=== PATIENT | female | born 1965 | race Caucasian/White ===

== ENCOUNTER 2021-02-04 14:26 | Emergency (ER) | payer OTHER, SELFPAY ==
[2021-02-04 14:33] VITALS: BP 95/63; PULSE 96; RESP 20; TEMP 36.2; O2SAT 97
[2021-02-04 14:49] LABS: Basophils Absolute Auto 0.1 K/mm3 (0.0-0.1); Basophils Percent Auto 0.5 % (0.2-1.2); Eosinophils Absolute Auto 0.2 K/mm3 (0-0.3); Eosinophils Percent Auto 1.5 % (0-4.4); Hematocrit 34.2 % (37.0-47.0); Hemoglobin 10.9 g/dL (12.0-15.0); Immature Granulocyte Absolute 0.07 K/mm3 (0.00-0.031); Immature Granulocyte Percent A 0.5 % (0-0.5); Lymphocytes Percent Auto 16.7 % (18.3-44.2); Mean Corpuscular HGB Conc 31.9 g/dl (32-36); Mean Corpuscular Hemoglobin 28.4 pg (26-34); Mean Corpuscular Volume 89.1 fl (80-100); Mean Platelet Volume 8.7 fl (7.4-10.4); Monocytes Absolute Auto 0.7 K/mm3 (0.1-0.6); Monocytes Percent Auto 5.2 % (2.6-8.5); Neutrophils Absolute Auto 10.4 K/mm3 (1.3-6.7); Neutrophils Percent Auto 75.6 % (45.5-73.1); Platelet Count Result 403 k/mm3 (150-375); Red Blood Count 3.84 M/mm3 (4.2-5.4); Red Cell Distribution Width 15.1 % (11.5-14.5); White Blood Count 13.7 K/mm3 (4.5-10.0)
[2021-02-04 15:03] LABS: Alanine Aminotransferase 10 U/L (4-35); Albumin Level 3.4 g/dL (3.5-5.1); Alkaline Phosphatase 77 U/L (38-126); Anion Gap 8 mmol/L (8-16); Aspartate Amino Transferase 28 U/L (14-36); Bilirubin,Total 0.3 mg/dL (0.2-1.3); Blood Urea Nitrogen 17 mg/dL (7-17); Calcium 8.9 mg/dL (8.4-10.2); Carbon Dioxide 31 mmol/L (22-30); Chloride 102 mmol/L (98-107); Estimated CRCL calculation 77 ml/min; Estimated Glomerular Filt Rate > 60; Glucose 132 mg/dL (65-105); Potassium 2.8 mmol/L (3.4-5.0); Sodium 141 mmol/L (137-145)
[2021-02-04 16:26] VITALS: BP 130/67; PULSE 86; RESP 16; O2SAT 95
--- NOTE | 2021-02-04 16:41 | ED.WOUNDLAC ---
HPI - Wound/Laceration General Chief Complaint: Wound/Laceration Stated Complaint: infectious wounds Time Seen by Provider: 02/04/21 16:27 Source: patient and family Mode of arrival: ambulatory Limitations: no limitations History of Present Illness HPI narrative: Patient is a 55-year-old female with a history of lumbar spinal cord injury, minimally ambulatory at baseline, who presents for evaluation of acutely worsened lower extremity wounds. It is difficult to assess a specific timeline from the patient however, the patient states that 2 years ago she experienced wounds from shaving on the back of both thighs. Patient does have this history of a spinal cord injury and is ambulatory although she typically requires assist due to her unsteadiness. She states that when she was shaving she experienced wounds that started out as very small area and then over the course of 2 years became very large, gaping wounds that are malodorous and painful. Patient denies any active bleeding. She states that she used to be seen by wound care at [facility] in [place], [place] but since they do not accept her insurance, she has been refused care at that hospital. Patient had a primary care physician at [facility] that would not refer her to any other surgeons per the patient. Patient denies fever or chills. She states that she has been dressing the wounds with napkins and [id number] antibiotic ointment. She is not currently on any antibiotics. Related Data Home Medications Medication Instructions Recorded Confirmed ibuprofen 600 mg PO 02/04/21 Allergies Allergy/AdvReac Type Severity Reaction Status Date / Time aspirin Allergy Unknown Unknown Verified 02/04/21 17:05 bupropion Allergy Unknown Unknown Verified 02/04/21 17:05 cephalexin Allergy Unknown Unknown Verified 02/04/21 17:05 clopidogrel Allergy Unknown Unknown Verified 02/04/21 17:05 codeine Allergy Unknown Unknown Verified 02/04/21 17:05 hydrocodone Allergy Unknown Unknown Verified 02/04/21 17:05 moxifloxacin Allergy Unknown Unknown Verified 02/04/21 17:05 procaine Allergy Unknown Unknown Verified 02/04/21 17:05 tramadol Allergy Unknown Unknown Verified 02/04/21 17:05 Review of Systems Review of Systems: Narrative: CONSTITUTIONAL: Denies fever, chills, or sweats. EYES: Denies visual changes, redness, or discharge. ENT: Denies rhinorrhea, congestion, sore throat, or otalgia. CARDIOVASCULAR: Denies chest pain, palpitations, or edema. RESPIRATORY: Denies cough or dyspnea. GASTROINTESTINAL: Denies abdominal pain, nausea, vomiting, or diarrhea. GENITOURINARY: Denies dysuria or hematuria. SKIN: Denies rash or itching. Reports wounds to posterior proximal legs. MUSCULOSKELETAL: Denies back pain, joint pain, or myalgia. NEUROLOGIC: Denies headache, numbness, or weakness. [facility] Social History Social History (Updated 02/04/21 @ 17:41 by Michelle Davis MD) Smoking status: Current every day smoker Tobacco type: cigarettes Alcohol intake: never Substance use: never Living arrangements: with family Gender identity (if verbalized by the patient): Female Exam Narrative: Exam Narrative: GENERAL: Awake, alert, conversant, tearful HEAD: Normocephalic, atraumatic. EYES: PERRLA and EOMI. ENT: Nares clear, no rhinorrhea or epistaxis. Mucous membranes moist. NECK: Supple. CHEST: No respiratory distress, breathing even and non labored HEART: Regular rate, sinus rhythm ABDOMEN:Non distended, non tender EXTREMITIES: Normal range of motion. DP pulse 2+. Deformity or third phalynx on right foot with necrosis. SKIN: Pale. Right proximal posterior leg wound, with purulent discharge, excoriation,adipose tissue visible. Wound approximately 20 cm x 10 cm x 5 cm depth. Left proximal posterior leg wound which is 15cm x 7 cm x 4 cm with excoriation and purulent discharge. Adipose tissue visible as well as musculature. NEURO:No focal deficits. Alert a
[2021-02-04 17:00] LABS: Lactic Acid Reflex 1.9 mmol/L (0.7-2.1)
[2021-02-04 17:07] LABS: Erythrocyte Sedimentation Rate > 140 mm/hr (0-20)
[2021-02-04 17:09] LABS: Basophils Absolute Auto 0.1 K/mm3 (0.0-0.1); Basophils Percent Auto 0.6 % (0.2-1.2); Eosinophils Absolute Auto 0.2 K/mm3 (0-0.3); Eosinophils Percent Auto 1.2 % (0-4.4); Hematocrit 36.1 % (37.0-47.0); Hemoglobin 11.5 g/dL (12.0-15.0); Immature Granulocyte Absolute 0.09 K/mm3 (0.00-0.031); Immature Granulocyte Percent A 0.6 % (0-0.5); Lymphocytes Absolute Auto 2.13 K/mm3 (0.9-3.2); Lymphocytes Percent Auto 13.9 % (18.3-44.2); Mean Corpuscular HGB Conc 31.9 g/dl (32-36); Mean Corpuscular Hemoglobin 28.3 pg (26-34); Mean Corpuscular Volume 88.9 fl (80-100); Monocytes Percent Auto 6.4 % (2.6-8.5); Neutrophils Absolute Auto 11.8 K/mm3 (1.3-6.7); Neutrophils Percent Auto 77.3 % (45.5-73.1); Platelet Count Result 436 k/mm3 (150-375); Red Blood Count 4.06 M/mm3 (4.2-5.4); Red Cell Distribution Width 15.2 % (11.5-14.5); White Blood Count 15.3 K/mm3 (4.5-10.0)
--- NOTE | 2021-02-04 17:30 | PC.NURSE ---
Pt very apprehensive about being transferred. She states I just need to go home, I can't do this, I can't do this hospital hopping Dr Davis explaining the severity of the situation and patient agrees that it is serious but states she just wants to go home. Pt arguing with her daughter about situation. Pt states I just want to go outside and have a cigarette and a coffee . Pt states whats a couple days gonna do, I'll go to [facility] on Monday Pt states im so uncomfortable i can't do this This RN asks what I could do to make her more comfortable. She states she needs to sit in a seat. This RN got pt a recliner and transferred her to the seat. Pt still uncomfortable. She asked to sit in a regular chair. Pt moved to a visitor chair and daughter is sitting next to her.
--- NOTE | 2021-02-04 18:01 | PC.NURSE ---
Pt arguing with Dr. Davis about situation. Dr. Davis explaining her options.
[2021-02-04 18:08] VITALS: BP 120/60; PULSE 85; RESP 18; O2SAT 97
--- NOTE | 2021-02-04 18:29 | PC.NURSE ---
This RN sat down with pt and asked her what her concerns were, Pt states I don't know how I would get care after I leave if I go [facility]. How would I get back to [place] for followups, I dont drive and I dont have anyone. [place] provides transportation but they leave you at the sidewalk, how am I suppose to know where to go? This RN explains that those are things that can be figured out along the way but at this point we just need to get the ball rolling. Pt is tearful and states that she is very scared and fears she is going to if she goes to the hospital. This RN left pt and her daughter to discuss what they wanted to do.
[2021-02-04] MEDS: ONDANSETRON INJ 4 MG/2 ML VIAL IV PUSH (18:40)
[2021-02-04] MEDS: HYDROmorphone HCL INJ (*CRX) 1 MG/ML SYR 0.5 MG IV PUSH (18:40)
[2021-02-04] MEDS: POTASSIUM CHLORIDE 20 MEQ TABLET 40 MEQ PO (18:43)
== END 2021-02-04 19:28 | disposition left against medical advice (07) ==
PROVIDERS: Nurse Practitioner; Emergency Provider Emergency Medicine
DX: I96 Gangrene, not elsewhere classified (principal); L98.8 Other specified disorders of the skin and subcutaneous tissue; D64.9 Anemia, unspecified; E87.6 Hypokalemia
CPT/HCPCS: 36415; 80053; 83605; 85025; 85652; 86140; 87040; 87070; 87077; 87186; 87205; 96365; 96366; 96375; 99284; A9270; J1170; J2405; J3370

== ENCOUNTER 2021-02-26 11:19 | Emergency (ER) | payer OTHER, SELFPAY ==
--- NOTE | ~2021-02-26 | XR_ITS ---
XR knee RT 3V 02/26/2021 13:12 INDICATION: Right knee pain after fall PROCEDURE: 3 nonstandard views right knee COMPARISON: No prior studies for comparison. FINDINGS: Fracture, dislocation or subluxation is not identified. No significant joint effusion. The soft tissues appear within normal limits. No foreign bodies are identified. IMPRESSION: 1: NO ACUTE BONE OR JOINT ABNORMALITY IDENTIFIED. Reviewed, dictated and finalized at location B.
--- NOTE | ~2021-02-26 | XR_ITS ---
EXAMINATION: XR hip RT 2V w AP pelvis INDICATION: Right hip pain TECHNIQUE: AP view of the pelvis and two views of the right hip are obtained. COMPARISON: None available FINDINGS: Bone alignment is normal. There is no fracture. There is mild osteoarthritis of the hips. T here are phleboliths in the pelvis. IMPRESSION: 1. No acute osseous abnormality. Reviewed, dictated and finalized at location A.
[2021-02-26 11:36] VITALS: BP 111/83; PULSE 116; RESP 20; TEMP 37.2; O2SAT 99
--- NOTE | 2021-02-26 12:39 | ED.FALL ---
HPI - Fall General Chief Complaint: Fall Stated Complaint: FALL Time Seen by Provider: 02/26/21 11:32 Source: patient Mode of arrival: EMS Limitations: no limitations History of Present Illness HPI Narrative: Patient is a 55 year old female who presents by EMS after fall. Patient reports fall in bathroom last pm. She reports she was unable to ambulate and was found on floor this am. Denies LOC or hitting head. Patient reports stumble and fall. Patient has complex medical history and multiple wounds that are being treated by [facility] and [facility] with wound vac removal yesterday. Patient is complaining of right hip pain and right knee pain. Unable to assess for deformity of hip due to patient's wounds and patient refusing to move for assessment. complaint: fall Related Data Home Medications Medication Instructions Recorded Confirmed ibuprofen 600 mg PO 02/04/21 Allergies Allergy/AdvReac Type Severity Reaction Status Date / Time aspirin Allergy Unknown Unknown Verified 02/04/21 17:05 bupropion Allergy Unknown Unknown Verified 02/04/21 17:05 cephalexin Allergy Unknown Unknown Verified 02/04/21 17:05 clopidogrel Allergy Unknown Unknown Verified 02/04/21 17:05 codeine Allergy Unknown Unknown Verified 02/04/21 17:05 hydrocodone Allergy Unknown Unknown Verified 02/04/21 17:05 moxifloxacin Allergy Unknown Unknown Verified 02/04/21 17:05 procaine Allergy Unknown Unknown Verified 02/04/21 17:05 tramadol Allergy Unknown Unknown Verified 02/04/21 17:05 Review of Systems Review of Systems: Narrative: CONSTITUTIONAL: Denies fever, chills, or sweats. EYES: Denies visual changes, redness, or discharge. ENT: Denies rhinorrhea, congestion, sore throat, or otalgia. CARDIOVASCULAR: Denies chest pain, palpitations, or edema. RESPIRATORY: Denies cough or dyspnea. GASTROINTESTINAL: Denies abdominal pain, nausea, vomiting, or diarrhea. GENITOURINARY: Denies dysuria or hematuria. SKIN: Denies rash or itching. MUSCULOSKELETAL: Reports right hip pain, right knee pain NEUROLOGIC: Denies headache, numbness, dizziness, or weakness. PSYCHIATRIC: Denies anxiety or depression. [facility] Social History Social History (Updated 02/04/21 @ 17:41 by Michelle Davis MD) Smoking status: Current every day smoker Tobacco type: cigarettes Alcohol intake: never Substance use: never Gender identity (if verbalized by the patient): Female Exam Narrative: Exam Narrative: GENERAL: Well-appearing, well-nourished, and in no acute distress. HEAD: Normocephalic, atraumatic. EYES: EOMI. No redness or drainage. Conjunctiva are normal. ENT: Mucous membranes pink and moist. CHEST: No respiratory distress. Clear to auscultation. HEART: Regular rate and rhythm. No murmur appreciated. Normal peripheral pulses. GI: Soft, nontender without rebound, or guarding. No distention. MUSCULOSKELETAL: No bony tenderness. EXTREMITIES: No visible deformity of hip or knee, patient uncooperative with positioning SKIN: Wounds to right posterior thigh and left inner thigh (dressings changed and documented by wound RN) NEURO: No focal deficits. Alert and oriented x3. Gait steady. PSYCH: Normal affect. No signs of depression or anxiety. Course Vital Signs Vital signs: Vital Signs Temperature 37.2 C 02/26/21 11:36 Pulse Rate 116 H 02/26/21 11:36 Respiratory Rate 20 02/26/21 11:36 Blood Pressure 111/83 02/26/21 11:36 Pulse Oximetry 99 02/26/21 11:36 Temperature 37.2 C 02/26/21 11:36 Pulse Rate 116 H 02/26/21 11:36 Respiratory Rate 20 02/26/21 11:36 Blood Pressure 111/83 02/26/21 11:36 Pulse Oximetry 99 02/26/21 11:36 Reviewed MDM - Fall MDM Narrative Medical decision making narrative: Patient's x-ray is negative for fracture or dislocation. Wound care provided by wound RN, patient has follow-up appointment with [facility] and [facility] on 03/05 for wound management. Patient and vendor management specialist agree with plan of care. Patient is stable for dischar
[2021-02-26 13:59] LABS: Add Urine Microscopic? YES; Appearance Urine Clear (Clear); Bilirubin Urine Negative (Negative); Blood Urine Negative (Negative); Color Urine Yellow (Yellow); Glucose Urine UA Negative (Negative); Ketones Urine Trace mg/dL (Negative); Leukocyte Esterase Ur Negative LEU/UL (Negative); Mucus Urine Rare /lpf; Nitrate Urine Negative (Negative); Protein Urine 1+ mg/dL (Negative); RBC Urine 0-2 /hpf (0-2); Specific Grav Ur 1.014 (1.001-1.035); Squamous Epithelial Cell Urine Rare /hpf (Few); Urobilinogen Urine Negative mg/dL (<2.0); WBC Urine 0-3 /hpf
[2021-02-26 14:08] LABS: Basophils Absolute Auto 0.1 K/mm3 (0.0-0.1); Basophils Percent Auto 0.6 % (0.2-1.2); Eosinophils Absolute Auto 0.2 K/mm3 (0-0.3); Eosinophils Percent Auto 1.7 % (0-4.4); Hematocrit 39.3 % (37.0-47.0); Hemoglobin 12.5 g/dL (12.0-15.0); Immature Granulocyte Absolute 0.05 K/mm3 (0.00-0.031); Immature Granulocyte Percent A 0.4 % (0-0.5); Lymphocytes Absolute Auto 1.69 K/mm3 (0.9-3.2); Lymphocytes Percent Auto 13.3 % (18.3-44.2); Mean Corpuscular HGB Conc 31.8 g/dl (32-36); Mean Corpuscular Hemoglobin 27.1 pg (26-34); Mean Corpuscular Volume 85.2 fl (80-100); Mean Platelet Volume 9.2 fl (7.4-10.4); Monocytes Absolute Auto 0.9 K/mm3 (0.1-0.6); Monocytes Percent Auto 6.7 % (2.6-8.5); Neutrophils Absolute Auto 9.9 K/mm3 (1.3-6.7); Neutrophils Percent Auto 77.3 % (45.5-73.1); Platelet Count Result 407 k/mm3 (150-375); Red Blood Count 4.61 M/mm3 (4.2-5.4); Red Cell Distribution Width 14.9 % (11.5-14.5); White Blood Count 12.7 K/mm3 (4.5-10.0)
[2021-02-26 14:22] LABS: Alanine Aminotransferase 16 U/L (4-35); Albumin Level 4.3 g/dL (3.5-5.1); Alkaline Phosphatase 95 U/L (38-126); Anion Gap 11 mmol/L (8-16); Aspartate Amino Transferase 38 U/L (14-36); Bilirubin,Total 0.5 mg/dL (0.2-1.3); Blood Urea Nitrogen 16 mg/dL (7-17); Calcium 9.8 mg/dL (8.4-10.2); Carbon Dioxide 24 mmol/L (22-30); Chloride 99 mmol/L (98-107); Estimated CRCL calculation 89 ml/min; Estimated Glomerular Filt Rate > 60; Glucose 132 mg/dL (65-105); Potassium 3.8 mmol/L (3.4-5.0); Sodium 134 mmol/L (137-145)
[2021-02-26 15:20] VITALS: RESP 22
== END 2021-02-26 20:12 | disposition home or self-care (01) ==
PROVIDERS: Emergency Provider Nurse Practitioner; PCP Internal Medicine
DX: T14.8XXA Other injury of unspecified body region, initial encounter (principal); S71.102A Unspecified open wound, left thigh, initial encounter; S71.101A Unspecified open wound, right thigh, initial encounter; M25.561 Pain in right knee; M25.551 Pain in right hip; F17.200 Nicotine dependence, unspecified, uncomplicated; Z79.1 Long term (current) use of non-steroidal anti-inflammatories (NSAID); W18.30XA Fall on same level, unspecified, initial encounter
CPT/HCPCS: 36415; 51701; 73502; 73562; 80053; 81001; 85025; 99284

== ENCOUNTER 2021-09-22 16:21 | Inpatient (IN) | payer OTHER, SELFPAY ==
[2021-09-22] VITALS (33 sets, daily range): BP systolic 68–153; BP diastolic 48–131; PULSE 89–155; RESP 14–29; TEMP 38.4–39.7; O2SAT 83–100; BMI 23.3
--- NOTE | ~2021-09-22 | XR_ITS ---
EXAMINATION: XR abdomen NG/feed tube insert DATE: 09/22/2021 21:07 INDICATION: Nasogastric tube placement. TECHNIQUE: A supine view of the abdomen was obtained. COMPARISON: None. FINDINGS: The lower abdomen is excluded. There are no dilated loops of bowel. The nasogastric tube ti p is in the stomach. IMPRESSION: 1. Nasogastric tube tip in the stomach. Reviewed, dictated and finalized at location A. ASSESSMENT CONSULTANT
--- NOTE | ~2021-09-22 | CT_ITS ---
EXAMINATION: CT brain wo con DATE: 09/22/2021 23:06 INDICATION: Altered mental status. TECHNIQUE: Computed tomography (CT) of the head was performed without intravenous contrast. The mA wa s adjusted according to patient size. Iterative reconstruction technique was employed. The dose-lengt h product was 605.33 mGy-cm. COMPARISON: None FINDINGS: There is a small old infarct in right cerebellum. There are scattered areas of low attenuat ion in the cerebral white matter, which is within normal limits for the patient's age. There is no in tracranial hemorrhage, acute infarction, or abnormal intracranial mass lesion. The ventricles are nor mal in size. Cavum septum pellucidum is noted. The orbits are normal. There is mild mucosal thickenin g in the paranasal sinuses. The mastoid air cells are normal. IMPRESSION: 1. Small old infarct in right cerebellum. Reviewed, dictated and finalized at location A. TUNNEL ENGINEER
--- NOTE | ~2021-09-22 | XR_ITS ---
XR abdomen NG/feed tube insert DATE: 09/27/2021 18:26 INDICATION: New NG tube insertion TECHNIQUE: Portable AP view on 09/23/2021 at 1819 hours COMPARISON: 09/22/2021 FINDINGS: Distal tip of NG tube overlies the mid body of the stomach, the proximal side-port approxim ately 2 cm distal to the diaphragmatic hiatus IMPRESSION: NG tube in stomach Reviewed, dictated and finalized at Location a. Reviewed, dictated and finalized at location A. OM FEED MILL OPERATOR IMPRESSION: NG tube in stomach
--- NOTE | ~2021-09-22 | XR_ITS ---
EXAMINATION: XR chest 1V portable DATE: 09/22/2021 17:05 INDICATION: Transient alteration of awareness. TECHNIQUE: A single frontal view of the chest was obtained. COMPARISON: None. FINDINGS: There are airspace opacities in right lower lung zone. No pleural effusion or pneumothorax. The heart size is normal. There are changes of anterior fusion procedure in cervical spine. IMPRESSION: 1. Airspace opacities in right lower lung zone, consistent with atelectasis versus pneumonia. Reviewed, dictated and finalized at location A. WARE TECHNICIAN IMPRESSION: 1. Airspace opacities in right lower lung zone, consistent with atelectasis dora yissel pneumonia.
--- NOTE | ~2021-09-22 | XR_ITS ---
EXAMINATION: XR chest ET placement DATE: 09/22/2021 21:07 INDICATION: Intubation. TECHNIQUE: A single frontal view of the chest was obtained. COMPARISON: Chest single view at 5:01 PM FINDINGS: There are airspace opacities in right lower lung zone. No pleural effusion or pneumothorax. The heart size is normal. The endotracheal tube tip is in the right mainstem bronchus. There are rojas nges of anterior fusion procedure in cervical spine. A right internal jugular central venous catheter is seen with tip in the right atrium. The nasogastric tube tip is in the stomach. IMPRESSION: 1. Endotracheal tube tip in right mainstem bronchus. I called this result to Dr. Morales. 2. Stable airspace opacities in right lower lung zone, consistent with atelectasis versus pneumonia. Reviewed, dictated and finalized at location A. ER BLENDER IMPRESSION: 1. Endotracheal tube tip in right mainstem bronchus. I called this result to Dr Micheline Morales. 2. Stable airspace opacities in right lower lung zone, consistent with atelecta sis versus pneumonia.
--- NOTE | ~2021-09-22 | XR_ITS ---
XR chest 1V portable DATE: 09/23/2021 06:26 INDICATION: Intubation, central line TECHNIQUE: Portable AP chest on 09/23/2021 at 0550 hours COMPARISON: Portable AP chest on 09/22/2021 at 2057 hours FINDINGS: ET tube in satisfactory position 3.5 cm above nathan. NG tube in the stomach, proximal side -port 5 cm distal to the diaphragmatic hiatus. Right internal jugular central venous catheter overlies right atrium. Status post anterior C6-7 cervical spine surgical fusion. Heart size is within normal range. There is aortic arch calcification. No hilar or mediastinal enlarg ement is evident. There is moderate elevation of the right leaf of diaphragm and right basilar infiltrate and/atelectas is. The lungs otherwise appear clear. Cannot exclude small right pleural effusion. Left costophrenic angle appears clear. No pneumothorax. IMPRESSION: Elevated right diaphragm and interval increased right basilar infiltrate and/atelectasis since 09/22/2021 Reviewed, dictated and finalized at location A. NING EXECUTIVE IMPRESSION: Elevated right diaphragm and interval increased right basilar infil trate and/atelectasis since 09/22/2021
--- NOTE | ~2021-09-22 | CT_ITS ---
EXAMINATION: CT abdomen pelvis w con DATE: 09/22/2021 23:05 INDICATION: Sacral wound. TECHNIQUE: Computed tomography (CT) of the abdomen and pelvis was performed with 100 mL Omnipaque 350 intravenous contrast. Automated exposure control and iterative reconstruction technique were employe d. The dose-length product was 502.10 mGy-cm. COMPARISON: None. FINDINGS: The visualized portions of the lung bases demonstrate mild atelectasis. No pleural effusion . The heart size is normal. There are coronary artery calcifications. No pericardial effusion. There is a central line tip in right atrium. The nasogastric tube tip is in the stomach. The liver, gallbla dder, spleen, pancreas, and adrenal glands are normal. There are two 1-2 mm stones in right kidney. T here is a 6 mm cyst in right kidney. There is cortical thinning of the kidneys. There is urothelial e nhancement in the ureters and renal pelvises, consistent with pyelitis. There is diffuse bladder wall thickening, consistent with cystitis. There is a Boyle catheter in expected position. There are depe ndent calcifications in the bladder. There is an end colostomy on the right. There are no dilated loo ps of bowel. There are no pathologically enlarged lymph nodes. There is no free intraperitoneal fluid . There is mild thoracic spondylosis and moderate lumbar spondylosis. There are erosions of the sacru m and coccyx with an overlying skin defect. IMPRESSION: 1. Sacral decubitus ulcer with osteomyelitis involving the sacrum and coccyx. 2. Cystitis and bilateral pyelitis. Bladder stones. Reviewed, dictated and finalized at location A. FITTER WELDING
--- NOTE | ~2021-09-22 | CT_ITS ---
EXAMINATION: CT brain wo con EXAM DATE: 09/24/2021 14:32 INDICATION: Seizures TECHNIQUE: Spiral CT of the head was performed without contrast. Axial, coronal and sagittal images were reviewed. The dose-length product (DLP) for this examination was 681.00 mGy-cm. The exposure w as tailored according to patient size, and iterative reconstruction (ASIR) was used as additional dos e reduction technique. Comparison is made to prior examination from 09/22/2021. FINDINGS: There is no acute intraparenchymal hemorrhage. No evidence of intraparenchymal brain mass lesion. No evidence of acute infarction. Please note that initial head CT has limited sensitivity f or small or acute infarctions. There is mild periventricular and subcortical hypodensity, nonspecific but probably related to small vessel ischemic disease. There is mild to moderate prominence of the sulci and ventricles related to cerebral atrophy. Small old right cerebellar infarction unchanged. There is intracranial carotid arteriosclerosis. There are no extra-axial collections. There is no m ass effect or midline shift. The orbits are unremarkable. Soft tissue is unremarkable. The visuali zed sinuses and mastoid air cells are well aerated. Endotracheal tube and nasogastric tube. IMPRESSION: 1. Small old right cerebellar infarction. 2. Chronic age related findings. Reviewed, dictated and finalized at location B. HAND
--- NOTE | ~2021-09-22 | XR_ITS ---
XR chest 1V portable DATE: 09/25/2021 05:56 INDICATION: Intubation, central line TECHNIQUE: Portable AP chest on 09/25/2021 at 0521 hours COMPARISON: 09/24/2021 portable AP chest at 0506 hours FINDINGS: ET tube tip 1.5 cm above nathan. NG tube in stomach. Right internal jugular central venous catheter tip overlies the upper right atrium. Normal heart size. Aortic arch calcification. No hilar or mediastinal enlargement. There is mild bibasilar infiltrate and/or atelectasis. No pleural effusion or pulmonary vascular congestion or pneumothorax. IMPRESSION: Mild bibasilar infiltrate or atelectasis Reviewed, dictated and finalized at location A. EMIC HOSPITALIST
--- NOTE | ~2021-09-22 | XR_ITS ---
XR chest 1V portable DATE: 09/24/2021 06:07 INDICATION: Intubation, central line TECHNIQUE: Portable AP chest on 09/24/2021 at 0506 hours COMPARISON: 09/23/2021 portable AP chest FINDINGS: ET tube tip 2 cm above nathan. NG tube in stomach. Right internal jugular central venous catheter tip is situated at the superior cavoatrial junction. Normal heart size. No hilar or mediastinal enlargement. Prominent discoid atelectasis at right lung base. Lungs otherwise appear essentially clear. No pleura l effusion or pulmonary vascular congestion or pneumothorax. Status post anterior cervical spine surgical fusion at C6-7. IMPRESSION: Prominent discoid atelectasis at right lung base Reviewed, dictated and finalized at location A. R RENTER
--- NOTE | ~2021-09-22 | XR_ITS ---
XR chest 1V portable DATE: 09/26/2021 06:28 INDICATION: Ventilator. Central line. TECHNIQUE: Portable AP chest on 09/26/2021 0511 hours COMPARISON: 09/25/2021 portable AP chest at 0521 hours FINDINGS: ET tube tip 1.9 cm above nathan. NG tube in stomach, proximal side-port approximately 4 cm distal to the diaphragmatic hiatus. Right internal jugular central venous catheter tip overlies upper right atrium. Normal heart size. Aortic arch calcification. There is mild infiltrate or atelectasis in the lung bases. IMPRESSION: No significant change since 09/25/2021 Reviewed, dictated and finalized at location A. OR C SOFTWARE DEVELOPER
--- NOTE | ~2021-09-22 | XR_ITS ---
EXAMINATION: XR chest 1V portable DATE: 09/29/2021 10:27 INDICATION: Pneumonia. TECHNIQUE: A single frontal view of the chest was obtained. COMPARISON: Chest single view 09/26/2021, CT abdomen and pelvis 09/22/2021 FINDINGS: There are mild airspace opacities in right lower lung zone. No pleural effusion or pneumoth orax. The heart size is normal. A right internal jugular central venous catheter is seen with tip in the right atrium. There are changes of anterior fusion procedure in cervical spine. IMPRESSION: 1. Improved mild airspace opacities in right lower lung zone, consistent with atelectasis versus pneu monia. Reviewed, dictated and finalized at location A. N ENERGY MARKETING ANALYST IMPRESSION: 1. Improved mild airspace opacities in right lower lung zone, consistent with a telectasis versus pneumonia.
--- NOTE | ~2021-09-22 | CT_ITS ---
EXAMINATION: CT brain wo con DATE: 09/28/2021 08:25 INDICATION: Septic shock. Confusion. History of right cerebellar infarction. TECHNIQUE: Computed tomography (CT) of the head was performed without intravenous contrast. The dose- length product was 605.33 mGy-cm. Automated exposure control and iterative reconstruction technique w ere employed. COMPARISON: CT dated 09/24/2021 FINDINGS: Mild generalized atrophy. There are scattered mild periventricular and subcortical white ma tter changes, most likely related to small vessel ischemic disease (microangiopathy). There is a smal l left lacunar infarction of the subinsular white matter. There is a small chronic right cerebellar i nfarction. No acute intracranial hemorrhage, infarction, mass or mass effect. Paranasal sinuses and m astoids are pneumatized. No depressed skull fractures. There is intracranial atherosclerosis. IMPRESSION: 1. No acute intracranial abnormalities. 2: Chronic left lacunar and right cerebellar infarctions. 3: Chronic age-related findings. Reviewed, dictated and finalized at location D. VIDEOTAPE EDITOR
--- NOTE | ~2021-09-22 | XR_ITS ---
EXAMINATION: XR chest 1V portable DATE: 09/30/2021 10:56 INDICATION: Abnormal chest radiograph. TECHNIQUE: A single frontal view of the chest was obtained. COMPARISON: Chest single view 09/29/2021, CT abdomen and pelvis 09/22/2021 FINDINGS: There is mild elevation of right hemidiaphragm. There is mild atelectasis in right perihila r region and the lower lung zones. No pleural effusion or pneumothorax. The heart size is normal. The re are changes of anterior fusion procedure in cervical spine. A right internal jugular central venou s catheter is seen with tip at the superior cavoatrial junction. IMPRESSION: 1. Mild atelectasis in right perihilar region and the lower lung zones. Reviewed, dictated and finalized at location A. TRY GRADER
--- NOTE | 2021-09-22 16:33 | ECG_ITS ---
Measurements Intervals [place] Rate: 131 P: 50 MD: 166 QRS: 62 QRSD: 80 T: 91 QT: 290 QTc: 429 Interpretive Statements SINUS TACHYCARDIA NONSPECIFIC ST & T-WAVE ABNORMALITY- INF/LAT LEADS BASELINE ARTIFACT- I, II, III, AVR, AVL, AVF ABNORMAL ECG Electronically Signed On 09-22-2021 19:05:36 ALLIANCES CONSULTANT by Timur Delgado D.O.
[2021-09-22 17:36] LABS: Hematocrit 32.5 % (37.0-47.0); Mean Corpuscular HGB Conc 30.8 g/dl (32-36); Mean Corpuscular Volume 84.6 fl (80-100); Mean Platelet Volume 7.8 fl (7.4-10.4); Platelet Count Result 408 k/mm3 (150-375); Red Blood Count 3.84 M/mm3 (4.2-5.4); White Blood Count 11.9 K/mm3 (4.5-10.0)
[2021-09-22 17:45] LABS: Add Urine Microscopic? YES; Amorphous Sediment Urine Moderate; Appearance Urine Turbid (Clear); Bacteria Urine 4+ /hpf; Bilirubin Urine Negative (Negative); Blood Urine 1+ (Negative); Color Urine Yellow (Yellow); Glucose Urine UA Negative (Negative); Ketones Urine Trace mg/dL (Negative); Leukocyte Esterase Ur 1+ LEU/UL (Negative); Mucus Urine Heavy /lpf; Nitrate Urine Negative (Negative); Protein Urine 1+ mg/dL (Negative); Specific Grav Ur 1.021 (1.001-1.035); Urobilinogen Urine Negative mg/dL (<2.0); WBC Urine >75 /hpf
[2021-09-22 17:48] LABS: Lactic Acid Reflex 2.4 mmol/L (0.7-2.1)
[2021-09-22 17:52] LABS: Alanine Aminotransferase 11 U/L (4-35); Albumin Level 3.3 g/dL (3.5-5.1); Alkaline Phosphatase 107 U/L (38-126); Anion Gap 8 mmol/L (8-16); Aspartate Amino Transferase 28 U/L (14-36); Bilirubin,Total 0.4 mg/dL (0.2-1.3); Blood Urea Nitrogen 36 mg/dL (7-17); Calcium 9.4 mg/dL (8.4-10.2); Carbon Dioxide 27 mmol/L (22-30); Chloride 95 mmol/L (98-107); Estimated CRCL calculation 43 ml/min; Estimated Glomerular Filt Rate 42; Glucose 135 mg/dL (65-110); Potassium 4.6 mmol/L (3.4-5.0); Sodium 130 mmol/L (137-145)
[2021-09-22 17:59] LABS: Troponin I < 0.012 ng/mL (0.000-0.034)
[2021-09-22] MEDS: SODIUM CHLORIDE 0.9% IV 1,000 ML 150 ML IV CONT (18:04)
[2021-09-22 18:25] LABS: Band Neutrophils Percent 29 % (0-6); CRP 29.5 mg/dL (<1.0); Lymphocytes Absolute Manual 0.83 K/mm3 (1.1-4.5); Monocytes Absolute Manual 0.11 K/mm3 (0.1-0.90); Monocytes Percent Manual 1 % (3-9); Neutrophils Absolute Manual 10.94 K/mm3 (1.7-7.2); Neutrophils Percent Manual 63 % (46-73); Nucleated Red Blood Cells 1 %; Total Cells Counted 100
[2021-09-22 18:26] LABS: Anisocytosis 2+ (NORMAL); Hypochromasia 1+ (NORMAL); Platelet Estimate Increased (Adequate)
[2021-09-22 18:57] LABS: SARS-CoV-2 RNA PCR Negative
--- NOTE | 2021-09-22 19:23 | ED.AMS ---
HPI - Altered Mental Status General Chief Complaint: Altered Mental Status Stated Complaint: ams Time Seen by Provider: 09/22/21 16:25 Source: EMS and RN notes reviewed Mode of arrival: EMS Limitations: altered mental status History of Present Illness HPI narrative: 56-year-old with history of anxious peripheral vascular disease s/p right BKA, multiple decubitus ulcers, was sent from a long term with complaints of altered mental status and high fever. As per the nursing report patient was normal about 5 days ago was able to answer all the questions quite communicative however since this morning she seems to be quite confused. No report of cough or shortness of breath, nausea or vomiting. Patient presently has wound VAC for her sacral decubitus ulcer. MD complaint: altered mental status Onset (ago): day(s) (1) Severity: moderate Context: other (Sepsis) Related Data Home Medications Medication Instructions Recorded Confirmed ibuprofen 600 mg PO 02/04/21 Allergies Allergy/AdvReac Type Severity Reaction Status Date / Time aspirin Allergy Unknown Unknown Verified 02/04/21 17:05 bupropion Allergy Unknown Unknown Verified 02/04/21 17:05 cephalexin Allergy Unknown Unknown Verified 02/04/21 17:05 clopidogrel Allergy Unknown Unknown Verified 02/04/21 17:05 codeine Allergy Unknown Unknown Verified 02/04/21 17:05 hydrocodone Allergy Unknown Unknown Verified 02/04/21 17:05 moxifloxacin Allergy Unknown Unknown Verified 02/04/21 17:05 procaine Allergy Unknown Unknown Verified 02/04/21 17:05 tramadol Allergy Unknown Unknown Verified 02/04/21 17:05 Review of Systems Review of Systems: ROS unobtainable: Yes unobtainable due to medical condition [facility] Social History Social History Smoking status: Current every day smoker Tobacco type: cigarettes Alcohol intake: never Substance use: never Gender identity (if verbalized by the patient): Female Exam Narrative: GENERAL: Alert , confused , ill appearing , unkempt .bad odor HEAD: Normocephalic, atraumatic. EYES: PERRLA and EOMI. ENT: Nares clear, no rhinorrhea or epistaxis. Mucous membranes moist. NECK: Supple. CHEST: Clear to auscultation. No respiratory distress. HEART: Tachycardic. ABDOMEN: Soft, has colostomy bag with stool , Boyle cath. EXTREMITIES: Normal range of motion , BKA right SKIN: Warm, dry, sacral decubitus ulcers, ulcers on the left thigh and gluteal area NEURO: No focal deficits. Alert . PSYCH: Normal mood and affect. Course Course Emergency Course: Patient is alert but still not coherent enough to understand. Discussed with the hospitalist agreed to admit the patient. Patient condition worsened while she was here in the ER her blood pressure dropped to 75/46, have given her 2 .5 liters of normal saline with no significant change in blood pressure. I did place right internal jugular for IV vasopressin. Patient mentation has further worsened was not responding to verbal stimuli except for deep sternal rub. Patient was intubated subsequently. I discussed with group burner machine as well as Dr. Gamble Vital Signs Vital signs: Vital Signs Temperature 39.7 C H 09/22/21 16:30 Pulse Rate 152 H 09/22/21 16:30 Respiratory Rate 28 H 09/22/21 16:30 Blood Pressure 132/111 H 09/22/21 16:30 Pulse Oximetry 100 09/22/21 16:30 Temperature 38.4 C H 09/22/21 19:09 Pulse Rate 110 H 09/22/21 21:24 Respiratory Rate 14 09/22/21 21:24 Blood Pressure 137/91 H 09/22/21 21:24 Pulse Oximetry 100 09/22/21 21:24 Procedures Central Line Placement Right IJ: Central Line Date: 09/22/21 Performed Emergently - Given emergent patient condition, temporal constraints may have precluded informed consent.: Yes Time Out Performed: Yes Patient Placed on Monitor/Pulse Ox: Yes Max. Sterile Barrier Technique: Caps, large sterile sheet and hand hygiene Central Line Prep: 2
[2021-09-22 20:33] LABS: Reflex Lactic Acid Yes or No Add Lactic
[2021-09-22] MEDS: NOREPINEPHRINE 8 MG/D5W 250 ML 8 MG/250 ML BAG 9.38 MG IV CONT (20:42)
--- NOTE | 2021-09-22 20:45 | PC.NURSE ---
100 of succinycholine and 10 of etomidate given at this time.
--- NOTE | 2021-09-22 20:47 | PC.NURSE ---
7.5 [address] by [address] sandoval at this time 25 at the teeth.
[2021-09-22] MEDS: ERTAPENEM 1 GM/NS 50 ML 1 GM/50 ML BAG IVPB (21:22)
--- NOTE | 2021-09-22 21:33 | PC.NURSE ---
per EDP kanamuri 5 mg propofol given at this time.
[2021-09-22 22:11] LABS: Lactic Acid 0.7 mmol/L (0.7-2.1)
[2021-09-22] MEDS: SODIUM CHLORIDE 0.9% IV 1,000 ML 999 ML ×2 (23:25→23:26)
[2021-09-23] VITALS (34 sets, daily range): BP systolic 79–143; BP diastolic 53–97; PULSE 71–135; RESP 15–24; TEMP 36.5–39.4; O2SAT 90–100; BMI 22.8
[2021-09-23] MEDS: SODIUM CHLORIDE 0.9% IV 1,000 ML 125 ML IV CONT ×3 (00:05→18:09)
--- NOTE | 2021-09-23 00:13 | PM.IMHP ---
H&P: HPI History of Present Illness Date/Time: 09/23/21 00:13 Chief Complaint: Altered mental status Narrative: With this is a 56-year-old female with past medical history significant for peripheral vascular disease, status post right BKA, abdominal wound dehiscence, colostomy, sacral decubitus ulcer with wound VAC. patient is [facility] from [facility] for altered mental status according to medical records patient is usually alert awake oriented x4 however it was noted that she was becoming increasingly obtunded for the last day or so. In emergency room preliminary workup was significant for urinalysis with numerous wbc's, CT of abdomen and pelvis shows worsening sacral decubitus ulcer and osteomyelitis with pyelitis and cystitis. At the time of my visit patient was on a ventilator she became hypotensive and unresponsive requiring intubation her blood pressure dropped to 70s over 50s requiring vasopressor support. Patient is been admitted to intensive care unit. Review of Systems Review of Systems: ROS unobtainable: Yes unobtainable due to medical condition (Septic shock on ventilator support) [facility] Family History Family History (Updated 09/23/21 @ 02:34 by Cheri Posada RN) Mother Colon cancer Father Acute myocardial infarction Congestive heart failure Social History Social History Smoking status: Current every day smoker Tobacco type: cigarettes Alcohol intake: former Substance use: never Substance use type: does not use Gender identity (if verbalized by the patient): Female Spiritual care concerns: No Meds Home Medications and Allergies Home Medications Medication Instructions Recorded Confirmed Type ibuprofen 600 mg PO 02/04/21 History acetaminophen 650 mg PO Q6H 09/22/21 09/23/21 History apixaban [Eliquis] 5 mg PO BID 09/22/21 09/23/21 History cxqyiguu-[id number]-[id number] HMB 1 ea PO BID 09/22/21 09/23/21 History [Kalyan] atorvastatin 10 mg PO HS 09/22/21 09/23/21 History calcium carbonate 500 mg PO Q6H PRN 09/22/21 09/23/21 History chlorthalidone 50 mg PO DAILY 09/22/21 09/23/21 History diphenhydramine HCl 25 mg PO Q6H PRN 09/22/21 09/23/21 History doxepin 50 mg PO Q6H PRN 09/22/21 09/23/21 History duloxetine 90 mg PO DAILY 09/22/21 09/23/21 History famotidine 20 mg PO DAILY 09/22/21 09/23/21 History gabapentin 300 mg PO Q8H 09/22/21 09/23/21 History hydroxyzine HCl 25 mg PO Q12-24H PRN 09/22/21 09/23/21 History lorazepam 1 mg PO DAILY PRN 09/22/21 09/23/21 History magnesium oxide 400 mg PO Q12H 09/22/21 09/23/21 History mexiletine 200 mg PO Q12H 09/22/21 09/23/21 History midodrine 10 mg PO Q12H 09/22/21 09/23/21 History olanzapine 2.5 mg PO HS 09/22/21 09/23/21 History ondansetron 4 mg PO Q4H PRN 09/22/21 09/23/21 History calcium [Calcium Oyster Shell] 500 mg PO DAILY 09/23/21 09/23/21 History cyclobenzaprine 10 mg PO TID 09/23/21 09/23/21 History melatonin 3 mg PO HS PRN 09/23/21 09/23/21 History oxycodone 5 mg PO Q4H PRN 09/23/21 09/23/21 History polyethylene glycol 3350 17 g PO DAILY 09/23/21 09/23/21 History potassium chloride 40 meq PO DAILY 09/23/21 09/23/21 History ropinirole 2 mg PO HS 09/23/21 09/23/21 History simethicone [Gas Relief 80 80 mg PO BID 09/23/21 09/23/21 History (simethicone)] trazodone 50 mg PO HS 09/23/21 09/23/21 History Allergies Allergy/AdvReac Type Severity Reaction Status Date / Time aspirin Allergy Unknown Unknown Verified 02/04/21 17:05 bupropion Allergy Unknown Unknown Verified 02/04/21 17:05 cephalexin Allergy Unknown Unknown Verified 02/04/21 17:05 clopidogrel Allergy Unknown Unknown Verified 02/04/21 17:05 codeine Allergy Unknown Unknown Verified 02/04/21 17:05 hydrocodone Allergy Unknown Unknown Verified 02/04/21 17:05 moxifloxacin Allergy Unknown Unknown Verified 02/04/21 17:05 procaine Allergy Unknown Unknown Verified 02/04/21 17:05 tramadol Allergy Unkn
[2021-09-23] MEDS: FENTANYL 2,500MCG/NS250ML(*CRX 2,500 MCG/250 ML BAG IV CONT (00:40)
[2021-09-23 01:22] LABS: Alveolar/Arterial O2 Gradient 114.6 mmHg; Carboxyhemoglobin 0.3 % THb (0-2.0); Fractional Inspired Oxygen 35 %; HCO3 ABG 20.1 mEq/l (22.0-26.0); Modified Allen's Test Pass; Oxygen Content ABG 14.3 %vol (16.0-22.0); Oxygen Saturation ABG 97.4 % (95.0-100.0); Oxyhemoglobin 96.1 % THb (90.0-100.0); PCO2 ABG 33.5 mmHg (35.0-45.0); PO2 FiO2 Ratio Arterial Blood 2.74 %; Reduced Hemoglobin 3.6 %THb (0-5.0); Site Drawn LEFT RADIAL; Total Hemoglobin 10.5 g/dL (12.0-18.0); pH ABG 7.397 (7.350-7.450)
[2021-09-23 01:23] LABS: Arterial Blood Gas PEEP 5 cmH2O; Arterial Blood Gas Tidal Volume 330 ml; Arterial Blood Gas Vent Mode CMV; Arterial Blood Gas Ventilator rate 15 /MIN; Device VENTILATOR
[2021-09-23] MEDS: dexmedeTOMIDine 400 MCG/100 ML 400 MCG/100 ML BAG IV CONT (01:44)
[2021-09-23 05:41] LABS: Alanine Aminotransferase 8 U/L (4-35); Albumin Level 2.8 g/dL (3.5-5.1); Alkaline Phosphatase 100 U/L (38-126); Anion Gap 11 mmol/L (8-16); Aspartate Amino Transferase 23 U/L (14-36); Bilirubin,Total 0.2 mg/dL (0.2-1.3); Blood Urea Nitrogen 28 mg/dL (7-17); Calcium 8.9 mg/dL (8.4-10.2); Carbon Dioxide 23 mmol/L (22-30); Chloride 101 mmol/L (98-107); Estimated CRCL calculation 65 ml/min; Estimated Glomerular Filt Rate > 60; Glucose 147 mg/dL (65-110); Potassium 3.6 mmol/L (3.4-5.0); Sodium 135 mmol/L (137-145)
[2021-09-23 05:42] LABS: Basophils Percent Auto 0.3 % (0.2-1.2); Eosinophils Percent Auto 0.1 % (0-4.4); Hematocrit 27.8 % (37.0-47.0); Hemoglobin 8.6 g/dL (12.0-15.0); Immature Granulocyte Absolute 0.09 K/mm3 (0.00-0.031); Immature Granulocyte Percent A 0.8 % (0-0.5); Lymphocytes Absolute Auto 0.38 K/mm3 (0.9-3.2); Lymphocytes Percent Auto 3.2 % (18.3-44.2); Mean Corpuscular HGB Conc 30.9 g/dl (32-36); Mean Corpuscular Hemoglobin 25.9 pg (26-34); Mean Corpuscular Volume 83.7 fl (80-100); Mean Platelet Volume 8.2 fl (7.4-10.4); Monocytes Absolute Auto 0.5 K/mm3 (0.1-0.6); Monocytes Percent Auto 4.3 % (2.6-8.5); Neutrophils Absolute Auto 10.8 K/mm3 (1.3-6.7); Neutrophils Percent Auto 91.3 % (45.5-73.1); Platelet Count Result 388 k/mm3 (150-375); Red Blood Count 3.32 M/mm3 (4.2-5.4); White Blood Count 11.8 K/mm3 (4.5-10.0)
[2021-09-23 05:53] LABS: Alveolar/Arterial O2 Gradient 103.1 mmHg; Base Excess ABG -2.3 mEq/l (+/-2.0); Fractional Inspired Oxygen 35 %; HCO3 ABG 21.2 mEq/l (22.0-26.0); Oxygen Content ABG 15.2 %vol (16.0-22.0); Oxygen Saturation ABG 98.2 % (95.0-100.0); Oxyhemoglobin 96.5 % THb (90.0-100.0); PCO2 ABG 32.3 mmHg (35.0-45.0); PO2 ABG 108.9 mmHg (80.0-100.0); PO2 FiO2 Ratio Arterial Blood 3.11 %; Total Hemoglobin 11.1 g/dL (12.0-18.0); pH ABG 7.436 (7.350-7.450)
[2021-09-23 05:55] LABS: Device VENTILATOR; Modified Allen's Test Pass; Site Drawn LEFT RADIAL
[2021-09-23 05:56] LABS: Arterial Blood Gas PEEP 5 cmH2O; Arterial Blood Gas Tidal Volume 330 ml; Arterial Blood Gas Vent Mode CMV; Arterial Blood Gas Ventilator rate 15 /MIN
[2021-09-23] MEDS: SODIUM CHLORIDE 0.9% IV 1,000 ML 999 ML IV CONT (08:11)
[2021-09-23] MEDS: MINERAL OIL/WHITE PETROLATUM OINTMENT 1 APPLIC EACH EYE ×2 (08:11→20:43)
[2021-09-23] MEDS: ENOXAPARIN 40 MG/0.4 ML SYRINGE SUB-Q (08:24)
[2021-09-23] MEDS: PANTOPRAZOLE SODIUM IV 40 MG VIAL IV PUSH (08:24)
--- NOTE | 2021-09-23 09:03 | PM.CNGS ---
Assessment and Plan Assessment and plan (1) Sacral decubitus ulcer, stage IV: Code(s): L89.154 - Pressure ulcer of sacral region, stage 4 Status: Chronic Assessment and Plan: Large sacral decubitus ulcer with necrotic tissue and foul odor. She now presents with sepsis and there is evidence of osteomyelitis of the sacrum and coccyx on CT scan. I have discussed the patient's case with Dr. Marin. We would recommend to continue with critical care management, broad-spectrum IV antibiotics, and IV fluids. Dr. Marin will try to coordinate doing a bedside excisional debridement of the sacral decubitus ulcer later today. I have discussed the procedure, risks, and benefits with the daughter. Answered all questions. Will initiate local wound care following the debridement. (2) Decubitus ulcer: Qualifiers: Pressure injury location: sacral region Pressure injury stage: unstageable Qualified Code(s): L89.150 - Pressure ulcer of sacral region, unstageable Code(s): L89.90 - Pressure ulcer of unspecified site, unspecified stage Status: Chronic Assessment and Plan: Multiple open wounds of the bilateral buttocks and thighs that appear stable. No indication for surgical intervention for any of the remaining wounds other than the sacral decubitus. Will initiate local wound care with silver gel dressing changes. I will also order a specialty mattress for the patient. She needs to be turned frequently for pressure reduction. (3) Open abdominal wall wound: Code(s): S31.109A - Unspecified open wound of abdominal wall, unspecified quadrant without penetration into peritoneal cavity, initial encounter Status: Acute Assessment and Plan: She has an open abdominal wound from a previous colon resection. Requesting records from [facility] this morning. The abdominal wound is superficial and appears stable. No indication for surgical debridement at this time. Will initiate local wound care with silver gel dressing changes. (4) Septic shock: Code(s): A41.9 - Sepsis, unspecified organism; R65.21 - Severe sepsis with septic shock Status: Acute Assessment and Plan: Patient presented with sepsis secondary to urinary source versus sacral decubitus ulcer with possible osteomyelitis. Blood cultures and urine cultures pending. She is intubated in the ICU and on very low vasopressor requirements this morning. Continue broad-spectrum IV antibiotics and IV fluid resuscitation. Planning bedside excisional debridement today. Continue to trend labs. (5) Acute respiratory failure: Code(s): J96.00 - Acute respiratory failure, unspecified whether with hypoxia or hypercapnia Status: Acute Assessment and Plan: Intubated in the ICU. Continue care and weaning vent as tolerated per Animal Behaviorist. (6) Acute pyelitis: Code(s): N10 - Acute pyelonephritis Status: Acute Assessment and Plan: Continue IV antibiotics. Likely source or contributing to sepsis. See plan above. (7) Anticoagulant long-term use: Code(s): Z79.01 - salvage determiner (current) use of anticoagulants Status: Acute Assessment and Plan: Eliquis on hold. (8) Peripheral vascular disease: Code(s): I73.9 - Peripheral vascular disease, unspecified Status: Chronic Assessment and Plan: S/p right BKA. Other possible vascular procedures at [facility]. I have requested records and spoke with Animal Behaviorist. (9) Spinal cord injury: Status: Chronic Assessment and Plan: Per the daughter, she had a possible fall or injury about 6 years ago, but she is unsure what actually happened since she was not there. She has had difficulty with ambulation since this injury, but was living at home prior to June. (10) JOSEPH (acute kidney injury): Code(s): N17.9 - Acute kidney failure, unspecified Status: Acute Assessment and Plan: Creatinine coming down with current medical treatment
--- NOTE | 2021-09-23 09:48 | WPDCNINT ---
Assessment and Plan Assessment and plan (1) Septic shock: Code(s): A41.9 - Sepsis, unspecified organism; R65.21 - Severe sepsis with septic shock Status: Acute Assessment and Plan: Patient presented with sepsis secondary to UTI and has multiple wounds and osteomyelitis. Blood and urine culture sent She has tolerated Invanz overnight without any difficulty all the patient is allergic to cephalexin. I will change antibiotics to imipenem for better gram-negative and anaerobic coverage. Continue vancomycin She is fairly tachycardic hence I will give another 1 L bolus Continue Levophed titration to maintain her map Her lactic acid level has normalized (2) Urinary tract infection: Code(s): N39.0 - Urinary tract infection, site not specified Status: Acute Assessment and Plan: UA suggestive of UTI. CT abdomen pelvis showed Cystitis and bilateral pyelitis. Bladder stones. See above for treat (3) Open abdominal wall wound: Code(s): S31.109A - Unspecified open wound of abdominal wall, unspecified quadrant without penetration into peritoneal cavity, initial encounter Status: Acute (4) Spinal cord injury: Status: Chronic (5) Peripheral vascular disease: Code(s): I73.9 - Peripheral vascular disease, unspecified Status: Chronic (6) Acute respiratory failure: Code(s): J96.00 - Acute respiratory failure, unspecified whether with hypoxia or hypercapnia Status: Acute Assessment and Plan: Chest x-ray and ABG reviewed Patient is going to get surgical debridement today and also still appears to be fairly tachycardic hence will hold weaning at this time. Ventilator settings reviewed CT shows only mild atelectasis (7) JOSEPH (acute kidney injury): Code(s): N17.9 - Acute kidney failure, unspecified Status: Acute Assessment and Plan: Likely secondary to sepsis. Creatinine improved with above resuscitation Monitor urine output electrolytes and creatinine Replace low potassium (8) Altered mental status: Qualifiers: Altered mental status type: somnolence Qualified Code(s): R40.0 - Somnolence Code(s): R41.82 - Altered mental status, unspecified Status: Acute Assessment and Plan: Likely toxic metabolic encephalopathy and appears to have improved She was also on multiple medications that can be sedatives as an outpatient Head CT shows small old infarct in right cerebellum Patient now awake and following commands despite low sedation Monitor (9) Osteomyelitis: Code(s): M86.9 - Osteomyelitis, unspecified Status: Acute Assessment and Plan: Patient recently had a long hospitalization at [facility] and some of these wounds are old and patient was getting wound care done at [facility]. She arrived she had a wound VAC on in her sacral area. At this time we have sent blood cultures and started patient on broad-spectrum empiric antibiotic therapy in the form of imipenem and vancomycin I have discussed with general surgery and they plan to do debridement of her sacral wound We will obtain records from [facility]. Patient may need to be transferred back depending on her course Wound Care has been consulted who have the evaluated her wounds She also has 2 surgical wounds which are one in abdomen another in right BKA stump (10) Sacral decubitus ulcer, stage IV: Code(s): L89.154 - Pressure ulcer of sacral region, stage 4 Status: Chronic Assessment and Plan: See above (11) Colostomy in place: Code(s): Z93.3 - Colostomy status Status: Acute Assessment and Plan: See above (12) Below-knee amputation of right lower extremity: Code(s): S88.111A - Complete traumatic amputation at level between knee and ankle, right lower leg, initial encounter Status: Acute Assessment and Plan: See above Additional Plan DVT prophylaxis -
[2021-09-23] MEDS: MIDAZOLAM HCL (*CRX) 2 MG/2 ML VIAL 4 MG IV PUSH (11:37)
[2021-09-23] MEDS: SILVERGEL (ELTA) 45 ML 1 APPLIC TOPICAL (11:55)
[2021-09-23] MEDS: POTASSIUM CHLORIDE 20 MEQ PACKET (FOR LIQUID) FEED TUBE (13:12)
[2021-09-23] MEDS: dexmedeTOMIDine 400 MCG/100 ML 400 MCG/100 ML BAG 13.13 MCG IV CONT ×2 (14:07→22:24)
[2021-09-23] MEDS: CENTRAL LINE FLUSH 10 ML IV PUSH ×3 (14:09→20:53)
[2021-09-23] MEDS: LORazepam INJ (*CRX) 2 MG/ML VIAL IV PUSH ×2 (14:30→19:52)
[2021-09-23] MEDS: FENTANYL 2,500MCG/NS250ML(*CRX 2,500 MCG/250 ML BAG 20 MCG IV CONT (18:08)
[2021-09-23] MEDS: COLLAGENASE OINT 30 GM TUBE 1 APPLIC TOPICAL (20:53)
[2021-09-24] VITALS (33 sets, daily range): BP systolic 76–145; BP diastolic 52–97; PULSE 66–95; RESP 15–18; TEMP 36.3–36.6; O2SAT 87–100
[2021-09-24] MEDS: LORazepam INJ (*CRX) 2 MG/ML VIAL IV PUSH (01:34)
[2021-09-24] MEDS: SODIUM CHLORIDE 0.9% IV 1,000 ML 125 ML IV CONT (02:37)
[2021-09-24] MEDS: CENTRAL LINE FLUSH 10 ML IV PUSH ×4 (05:00→21:03)
[2021-09-24 05:29] LABS: Hematocrit 26.2 % (37.0-47.0); Hemoglobin 8.1 g/dL (12.0-15.0); Mean Corpuscular HGB Conc 30.9 g/dl (32-36); Mean Corpuscular Hemoglobin 26.1 pg (26-34); Mean Corpuscular Volume 84.5 fl (80-100); Mean Platelet Volume 7.8 fl (7.4-10.4); Platelet Count Result 292 k/mm3 (150-375); Red Cell Distribution Width 15.9 % (11.5-14.5); White Blood Count 12.6 K/mm3 (4.5-10.0)
[2021-09-24 05:47] LABS: Alanine Aminotransferase 11 U/L (4-35); Albumin Level 2.6 g/dL (3.5-5.1); Alkaline Phosphatase 99 U/L (38-126); Anion Gap 9 mmol/L (8-16); Aspartate Amino Transferase 25 U/L (14-36); Bilirubin,Total 0.1 mg/dL (0.2-1.3); Blood Urea Nitrogen 27 mg/dL (7-17); Calcium 8.6 mg/dL (8.4-10.2); Carbon Dioxide 24 mmol/L (22-30); Chloride 105 mmol/L (98-107); Estimated CRCL calculation 99 ml/min; Estimated Glomerular Filt Rate > 60; Glucose 140 mg/dL (65-110); Magnesium 1.9 mg/dL (1.6-2.3); Potassium 2.8 mmol/L (3.4-5.0); Sodium 138 mmol/L (137-145)
[2021-09-24 06:15] LABS: Alveolar/Arterial O2 Gradient 34.6 mmHg; Fractional Inspired Oxygen 30 %; HCO3 ABG 22.5 mEq/l (22.0-26.0); Oxygen Content ABG 12.8 %vol (16.0-22.0); Oxygen Saturation ABG 98.7 % (95.0-100.0); Oxyhemoglobin 97.7 % THb (90.0-100.0); PCO2 ABG 37.4 mmHg (35.0-45.0); PO2 ABG 135.4 mmHg (80.0-100.0); PO2 FiO2 Ratio Arterial Blood 4.51 %; Total Hemoglobin 9.1 g/dL (12.0-18.0); pH ABG 7.398 (7.350-7.450)
[2021-09-24 06:16] LABS: Device VENTILATOR; Site Drawn RIGHT BRACHIAL
[2021-09-24 06:17] LABS: Arterial Blood Gas PEEP 5 cmH2O; Arterial Blood Gas Tidal Volume 330 ml; Arterial Blood Gas Vent Mode CMV; Arterial Blood Gas Ventilator rate 15 /MIN
[2021-09-24] MEDS: FENTANYL 2,500MCG/NS250ML(*CRX 2,500 MCG/250 ML BAG 20 MCG IV CONT ×2 (06:47→19:22)
[2021-09-24] MEDS: dexmedeTOMIDine 400 MCG/100 ML 400 MCG/100 ML BAG 13.13 MCG IV CONT ×2 (06:48→15:40)
[2021-09-24] MEDS: KCL 40 MEQ/WATER 100 ML 100 ML 25 ML IVPB ×2 (08:56→17:33)
[2021-09-24] MEDS: POTASSIUM CHLORIDE 20 MEQ PACKET (FOR LIQUID) 40 MEQ FEED TUBE (08:56)
[2021-09-24] MEDS: COLLAGENASE OINT 30 GM TUBE 1 APPLIC TOPICAL ×2 (09:00→20:57)
[2021-09-24] MEDS: MINERAL OIL/WHITE PETROLATUM OINTMENT 1 APPLIC EACH EYE ×2 (09:00→21:02)
[2021-09-24] MEDS: SILVERGEL (ELTA) 45 ML 1 APPLIC TOPICAL (09:01)
[2021-09-24] MEDS: PANTOPRAZOLE SODIUM IV 40 MG VIAL IV PUSH (09:01)
[2021-09-24] MEDS: ENOXAPARIN 40 MG/0.4 ML SYRINGE SUB-Q (09:01)
[2021-09-24] MEDS: levETIRAcetam 1000MG/NACL100ML 1,000 MG/100 ML BAG 400 MG IVPB (09:46)
[2021-09-24] MEDS: METOCLOPRAMIDE HCL INJ 10 MG/2 ML VIAL IV PUSH ×2 (11:13→17:03)
--- NOTE | 2021-09-24 12:19 | WPDINTPN ---
Progress Note: A&P Assessment and Plan (1) Septic shock: Code(s): A41.9 - Sepsis, unspecified organism; R65.21 - Severe sepsis with septic shock Status: Acute Assessment and Plan: Patient presented with sepsis secondary to UTI and has multiple wounds and osteomyelitis. -blood cultures growing Proteus mirabilis, sensitivities pending -urine cultures growing Gram-negative bacilli - Continue imipenem and vancomycin -tachycardia resolved after IV fluids Continue Levophed titration to maintain her map > 65 mmHg Her lactic acid level has normalized (2) Urinary tract infection: Code(s): N39.0 - Urinary tract infection, site not specified Status: Acute Assessment and Plan: UA suggestive of UTI. CT abdomen pelvis showed Cystitis and bilateral pyelitis. Bladder stones. See above for treat -urine culture growing Gram-negative bacilli (3) Spinal cord injury: Status: Chronic (4) Peripheral vascular disease: Code(s): I73.9 - Peripheral vascular disease, unspecified Status: Chronic (5) Acute respiratory failure: Code(s): J96.00 - Acute respiratory failure, unspecified whether with hypoxia or hypercapnia Status: Acute Assessment and Plan: Chest x-ray and ABG reviewed Ventilator settings reviewed CT shows only mild atelectasis (6) JOSEPH (acute kidney injury): Code(s): N17.9 - Acute kidney failure, unspecified Status: Acute Assessment and Plan: Likely secondary to sepsis. Creatinine has normalized with IV fluid resuscitation Monitor urine output electrolytes and creatinine Replace low potassium (7) Altered mental status: Qualifiers: Altered mental status type: somnolence Qualified Code(s): R40.0 - Somnolence Code(s): R41.82 - Altered mental status, unspecified Status: Acute Assessment and Plan: Likely toxic metabolic encephalopathy and appears to have improved She was also on multiple medications that can be sedatives as an outpatient Head CT shows small old infarct in right cerebellum Patient now awake and following commands despite low sedation Monitor (8) Osteomyelitis: Code(s): M86.9 - Osteomyelitis, unspecified Status: Acute Assessment and Plan: Patient recently had a long hospitalization at [facility] and some of these wounds are old and patient [facility] She arrived she had a wound VAC on in her sacral area. At this time we have sent blood cultures and started patient on broad-spectrum empiric antibiotic therapy in the form of imipenem and vancomycin -wound debridement of the necrotic coccyx area was done on 09/23/2021 by surgery We will obtain records from [facility]. Patient may need to be transferred back depending on her course Wound Care has been consulted who have the evaluated her wounds She also has 2 surgical wounds which are one in abdomen another in right BKA stump (9) Sacral decubitus ulcer, stage IV: Code(s): L89.154 - Pressure ulcer of sacral region, stage 4 Status: Chronic Assessment and Plan: See above (10) Colostomy in place: Code(s): Z93.3 - Colostomy status Status: Acute Assessment and Plan: See above (11) Below-knee amputation of right lower extremity: Code(s): S88.111A - Complete traumatic amputation at level between knee and ankle, right lower leg, initial encounter Status: Acute Assessment and Plan: See above Additional Plan DVT prophylaxis -Lovenox for prophylaxis. Her Eliquis is on hold as patient will need surgical debridement Stress ulcer prophylaxis -PPI Nutrition -continue Tube Feeds Discussed with surgery Code Status - Full Code Total Critical Care Time -32 minutes Due to a high probability of clinically significant, life threatening deterioration, the patient required my highest level of preparedness to intervene e
--- NOTE | 2021-09-24 12:33 | PCFNICU ---
ICU Rounding Note: Pt current nutrition is Vital AF 1.2 at 40 ml/hr over 22 hour. Last recorded weight is 71.1 kg, up from 66.2 kg on admit. Bowel Motility: colostomy Labs Reviewed:Glu 140, BUN 27, Cr 0.5,Alb 2.6,Hct 26.2,Hgb 8.1 Meds Noted:Reglan, Keppra, Vancomycin, Fentanyl, Versed, NS, Lovenox, Levophed, NS, Protonix Skin: stage IV coccyx Additional Notes: Patient remains on mechanical vent and tube feedings of Vital AF 1.2 at 40 ml/hr due to elevated residuals. Goal rate at 65 ml/hr. Tube feeding at 65 ml/hr will provide 1716 kcals/ 107 gms protein/1195 ml water. Protein Modular of Kalyan BID for wound healing given via tube. 30 ml free water flush q 4 hours. Reported seizure activity overnight. Agree with diet orders. Following daily in ICU rounds. Will monitor every Monday and Monday.
[2021-09-24] MEDS: GABAPENTIN 300 MG CAPSULE PO ×2 (15:15→21:03)
[2021-09-24 16:22] LABS: Anion Gap 7 mmol/L (8-16); Blood Urea Nitrogen 26 mg/dL (7-17); Carbon Dioxide 24 mmol/L (22-30); Chloride 106 mmol/L (98-107); Estimated CRCL calculation 99 ml/min; Estimated Glomerular Filt Rate > 60; Glucose 127 mg/dL (65-110); Sodium 137 mmol/L (137-145)
[2021-09-24 16:56] LABS: Magnesium 1.8 mg/dL (1.6-2.3); Phosphorus 3.4 mg/dL (2.5-4.5)
[2021-09-24] MEDS: MAGNESIUM SULF 2 GM/WATER 50ML 2 GM/50 ML BAG IVPB (17:33)
[2021-09-24] MEDS: levETIRAcetam 500MG/NACL 100ML 500 MG/100 ML BAG 400 MG IVPB (20:57)
[2021-09-24] MEDS: rOPINIRole HCL 1 MG TABLET 2 MG PO (21:03)
[2021-09-25] VITALS (33 sets, daily range): BP systolic 78–127; BP diastolic 47–92; PULSE 69–144; RESP 15–30; TEMP 36.3–38.4; O2SAT 92–100
[2021-09-25] MEDS: dexmedeTOMIDine 400 MCG/100 ML 400 MCG/100 ML BAG 13.13 MCG IV CONT ×3 (00:03→13:33)
[2021-09-25] MEDS: METOCLOPRAMIDE HCL INJ 10 MG/2 ML VIAL IV PUSH ×4 (00:06→17:17)
[2021-09-25] MEDS: SODIUM CHLORIDE 0.9% IV 1,000 ML 100 ML IV CONT (02:00)
[2021-09-25 05:33] LABS: Hematocrit 26.7 % (37.0-47.0); Mean Corpuscular Hemoglobin 25.5 pg (26-34); Mean Platelet Volume 8.3 fl (7.4-10.4); Platelet Count Result 280 k/mm3 (150-375); Red Blood Count 3.14 M/mm3 (4.2-5.4); Red Cell Distribution Width 15.8 % (11.5-14.5); White Blood Count 10.4 K/mm3 (4.5-10.0)
[2021-09-25 05:35] LABS: Alanine Aminotransferase 10 U/L (4-35); Albumin Level 2.5 g/dL (3.5-5.1); Alkaline Phosphatase 102 U/L (38-126); Anion Gap 4 mmol/L (8-16); Aspartate Amino Transferase 21 U/L (14-36); Bilirubin,Total < 0.1 mg/dL (0.2-1.3); Blood Urea Nitrogen 22 mg/dL (7-17); Calcium 8.6 mg/dL (8.4-10.2); Carbon Dioxide 26 mmol/L (22-30); Chloride 107 mmol/L (98-107); Estimated CRCL calculation 121 ml/min; Estimated Glomerular Filt Rate > 60; Glucose 119 mg/dL (65-110); Potassium 3.1 mmol/L (3.4-5.0); Sodium 137 mmol/L (137-145)
[2021-09-25 05:40] LABS: Carboxyhemoglobin 0.3 % THb (0-2.0); Fractional Inspired Oxygen 30 %; HCO3 ABG 24.3 mEq/l (22.0-26.0); Methemoglobin ABG 0.1 %THb (0-1.5); Oxygen Content ABG 13.2 %vol (16.0-22.0); Oxygen Saturation ABG 98.8 % (95.0-100.0); Oxyhemoglobin 97.7 % THb (90.0-100.0); PCO2 ABG 38.3 mmHg (35.0-45.0); PO2 ABG 139.9 mmHg (80.0-100.0); PO2 FiO2 Ratio Arterial Blood 4.66 %; Reduced Hemoglobin 1.9 %THb (0-5.0); Total Hemoglobin 9.4 g/dL (12.0-18.0); pH ABG 7.421 (7.350-7.450)
[2021-09-25 05:41] LABS: Arterial Blood Gas Ventilator rate 15 /MIN; Device VENTILATOR; Modified Allen's Test Pass; Site Drawn RIGHT BRACHIAL
[2021-09-25 05:42] LABS: Arterial Blood Gas PEEP 5 cmH2O; Arterial Blood Gas Tidal Volume 330 ml; Arterial Blood Gas Vent Mode CMV
[2021-09-25] MEDS: CENTRAL LINE FLUSH 10 ML IV PUSH ×4 (06:12→23:32)
[2021-09-25] MEDS: GABAPENTIN 300 MG CAPSULE PO ×3 (06:13→21:12)
[2021-09-25] MEDS: FENTANYL 2,500MCG/NS250ML(*CRX 2,500 MCG/250 ML BAG 20 MCG IV CONT (06:55)
[2021-09-25 07:46] LABS: Vancomycin Trough 11.7 ug/mL (10.0-20.0)
[2021-09-25] MEDS: levETIRAcetam 500MG/NACL 100ML 500 MG/100 ML BAG 400 MG IVPB ×2 (09:05→21:02)
[2021-09-25] MEDS: KCL 40 MEQ/WATER 100 ML 100 ML 25 ML IVPB (09:07)
[2021-09-25] MEDS: COLLAGENASE OINT 30 GM TUBE 1 APPLIC TOPICAL ×2 (09:33→21:11)
[2021-09-25] MEDS: SILVERGEL (ELTA) 45 ML 1 APPLIC TOPICAL (09:33)
[2021-09-25] MEDS: ENOXAPARIN 40 MG/0.4 ML SYRINGE SUB-Q (09:34)
[2021-09-25] MEDS: MINERAL OIL/WHITE PETROLATUM OINTMENT 1 APPLIC EACH EYE ×2 (09:34→21:11)
[2021-09-25] MEDS: PANTOPRAZOLE SODIUM IV 40 MG VIAL IV PUSH (09:34)
--- NOTE | 2021-09-25 12:06 | WPDINTPN ---
Progress Note: A&P Assessment and Plan (1) Septic shock: Code(s): A41.9 - Sepsis, unspecified organism; R65.21 - Severe sepsis with septic shock Status: Acute Assessment and Plan: Patient presented with sepsis secondary to UTI and has multiple wounds and osteomyelitis. -blood cultures growing Proteus mirabilis, pansensitive -urine cultures growing Proteus mirabilis - Continue imipenem and vancomycin (patient is allergic to multiple antibiotics) -tachycardia resolved after IV fluids Continue Levophed titration to maintain her map > 65 mmHg Her lactic acid level has normalized (2) Urinary tract infection: Code(s): N39.0 - Urinary tract infection, site not specified Status: Acute Assessment and Plan: UA suggestive of UTI. CT abdomen pelvis showed Cystitis and bilateral pyelitis. Bladder stones. See above for treat -urine culture growing pansensitive Proteus mirabilis (3) Spinal cord injury: Status: Chronic (4) Peripheral vascular disease: Code(s): I73.9 - Peripheral vascular disease, unspecified Status: Chronic (5) Acute respiratory failure: Code(s): J96.00 - Acute respiratory failure, unspecified whether with hypoxia or hypercapnia Status: Acute Assessment and Plan: Patient was intubated on 09/22/2021 in the ER upon arrival, patient was obtunded with decreased mental status. Chest x-ray shows mild bibasilar infiltrates or atelectasis. -currently on CMV mode of ventilation, peep of 5, 30% FiO2 -have asked the bedside RN to discontinue fentanyl infusion and continue Precedex -once patient is more awake will try patient on spontaneous breathing trial (6) JOSEPH (acute kidney injury): Code(s): N17.9 - Acute kidney failure, unspecified Status: Acute Assessment and Plan: RESOLVED Likely secondary to sepsis. Creatinine has normalized with IV fluid resuscitation Monitor urine output electrolytes and creatinine Replace low potassium (7) Altered mental status: Qualifiers: Altered mental status type: somnolence Qualified Code(s): R40.0 - Somnolence Code(s): R41.82 - Altered mental status, unspecified Status: Acute Assessment and Plan: Likely toxic metabolic encephalopathy and appears to have improved She was also on multiple medications that can be sedatives as an outpatient Head CT shows small old infarct in right cerebellum Patient now awake and following commands despite low sedation Monitor (8) Osteomyelitis: Code(s): M86.9 - Osteomyelitis, unspecified Status: Acute Assessment and Plan: Patient recently had a long hospitalization at [facility] and some of these wounds are old and patient was getting [facility]. She arrived she had a wound VAC on in her sacral area. At this time we have sent blood cultures and started patient on broad-spectrum empiric antibiotic therapy in the form of imipenem and vancomycin -wound debridement of the necrotic coccyx area was done on 09/23/2021 by surgery We will obtain records from [facility]. Patient may need to be transferred back depending on her course Wound Care has been consulted who have the evaluated her wounds She also has 2 surgical wounds which are one in abdomen another in right BKA stump (9) Sacral decubitus ulcer, stage IV: Code(s): L89.154 - Pressure ulcer of sacral region, stage 4 Status: Chronic Assessment and Plan: See above (10) Colostomy in place: Code(s): Z93.3 - Colostomy status Status: Acute Assessment and Plan: See above (11) Below-knee amputation of right lower extremity: Code(s): S88.111A - Complete traumatic amputation at level between knee and ankle, right lower leg, initial encounter Status: Acute Assessment and Plan: See above Additional Plan DVT prophylaxis -Lovenox for prophylaxis. Her Eliquis is on hold as
[2021-09-25] MEDS: NOREPINEPHRINE 8 MG/D5W 250 ML 8 MG/250 ML BAG 3.75 MG IV CONT (12:33)
[2021-09-25] MEDS: dexmedeTOMIDine 400 MCG/100 ML 400 MCG/100 ML BAG 18.75 MCG IV CONT (18:16)
[2021-09-25] MEDS: rOPINIRole HCL 1 MG TABLET 2 MG PO (21:11)
[2021-09-26] VITALS (21 sets, daily range): BP systolic 92–127; BP diastolic 59–80; PULSE 76–136; RESP 14–20; TEMP 37.3–38.3; O2SAT 95–100
[2021-09-26] MEDS: dexmedeTOMIDine 400 MCG/100 ML 400 MCG/100 ML BAG 18.75 MCG IV CONT ×2 (00:07→06:56)
[2021-09-26] MEDS: METOCLOPRAMIDE HCL INJ 10 MG/2 ML VIAL IV PUSH ×2 (00:08→06:56)
[2021-09-26] MEDS: LORazepam INJ (*CRX) 2 MG/ML VIAL IV PUSH ×3 (00:08→21:33)
[2021-09-26] MEDS: ACETAMINOPHEN ELIXIR 325 MG/10.15 ML UDC 650 MG PO (00:13)
[2021-09-26 06:27] LABS: Alveolar/Arterial O2 Gradient 72.4 mmHg; Base Excess ABG 2.2 mEq/l (+/-2.0); Carboxyhemoglobin 0.3 % THb (0-2.0); Device VENTILATOR; Fractional Inspired Oxygen 30 %; HCO3 ABG 25.9 mEq/l (22.0-26.0); Methemoglobin ABG 0.2 %THb (0-1.5); Oxygen Content ABG 12.5 %vol (16.0-22.0); Oxygen Saturation ABG 97.9 % (95.0-100.0); Oxyhemoglobin 96.3 % THb (90.0-100.0); PCO2 ABG 36.2 mmHg (35.0-45.0); Reduced Hemoglobin 3.2 %THb (0-5.0); Site Drawn RIGHT BRACHIAL; Total Hemoglobin 9.1 g/dL (12.0-18.0); pH ABG 7.472 (7.350-7.450)
[2021-09-26 06:28] LABS: Arterial Blood Gas PEEP 5 cmH2O; Arterial Blood Gas Tidal Volume 330 ml; Arterial Blood Gas Vent Mode CMV; Arterial Blood Gas Ventilator rate 15 /MIN
[2021-09-26] MEDS: CENTRAL LINE FLUSH 10 ML IV PUSH ×4 (06:55→21:29)
[2021-09-26] MEDS: GABAPENTIN 300 MG CAPSULE PO ×3 (06:56→21:29)
[2021-09-26 07:05] LABS: Hematocrit 26.5 % (37.0-47.0); Mean Corpuscular HGB Conc 30.2 g/dl (32-36); Mean Corpuscular Hemoglobin 25.6 pg (26-34); Mean Corpuscular Volume 84.7 fl (80-100); Mean Platelet Volume 9.1 fl (7.4-10.4); Platelet Count Result 259 k/mm3 (150-375); Red Blood Count 3.13 M/mm3 (4.2-5.4); Red Cell Distribution Width 16.3 % (11.5-14.5); White Blood Count 9.8 K/mm3 (4.5-10.0)
[2021-09-26 07:28] LABS: Alanine Aminotransferase 9 U/L (4-35); Albumin Level 2.6 g/dL (3.5-5.1); Alkaline Phosphatase 94 U/L (38-126); Anion Gap 8 mmol/L (8-16); Aspartate Amino Transferase 15 U/L (14-36); Bilirubin,Total 0.1 mg/dL (0.2-1.3); Blood Urea Nitrogen 14 mg/dL (7-17); Calcium 8.4 mg/dL (8.4-10.2); Carbon Dioxide 28 mmol/L (22-30); Chloride 99 mmol/L (98-107); Estimated CRCL calculation 154 ml/min; Estimated Glomerular Filt Rate > 60; Glucose 145 mg/dL (65-110); Magnesium 1.7 mg/dL (1.6-2.3); Potassium 2.8 mmol/L (3.4-5.0); Sodium 135 mmol/L (137-145)
[2021-09-26] MEDS: levETIRAcetam 500MG/NACL 100ML 500 MG/100 ML BAG 400 MG IVPB ×2 (07:44→21:27)
[2021-09-26] MEDS: ENOXAPARIN 40 MG/0.4 ML SYRINGE SUB-Q (07:47)
[2021-09-26] MEDS: MINERAL OIL/WHITE PETROLATUM OINTMENT 1 APPLIC EACH EYE ×2 (07:48→21:29)
[2021-09-26] MEDS: PANTOPRAZOLE SODIUM IV 40 MG VIAL IV PUSH (07:48)
[2021-09-26] MEDS: COLLAGENASE OINT 30 GM TUBE 1 APPLIC TOPICAL ×2 (07:49→20:52)
[2021-09-26] MEDS: POTASSIUM CHLORIDE 20 MEQ PACKET (FOR LIQUID) 40 MEQ FEED TUBE (08:29)
[2021-09-26] MEDS: KCL 40 MEQ/WATER 100 ML 100 ML 25 ML IVPB (08:34)
[2021-09-26] MEDS: SILVERGEL (ELTA) 45 ML 1 APPLIC TOPICAL (09:54)
[2021-09-26 10:27] LABS: Alveolar/Arterial O2 Gradient 63.3 mmHg; Base Excess ABG 4.3 mEq/l (+/-2.0); Fractional Inspired Oxygen 30 %; HCO3 ABG 28.1 mEq/l (22.0-26.0); Oxygen Content ABG 12.7 %vol (16.0-22.0); Oxygen Saturation ABG 98.2 % (95.0-100.0); Oxyhemoglobin 96.7 % THb (90.0-100.0); PCO2 ABG 38.5 mmHg (35.0-45.0); PO2 ABG 105.4 mmHg (80.0-100.0); PO2 FiO2 Ratio Arterial Blood 3.51 %; Total Hemoglobin 9.2 g/dL (12.0-18.0); pH ABG 7.481 (7.350-7.450)
[2021-09-26 10:29] LABS: Arterial Blood Gas PEEP 5 cmH2O; Arterial Blood Gas Pressure Support 8 cmH2O; Arterial Blood Gas Vent Mode SPONTANEOUS; Device VENTILATOR; Modified Allen's Test Pass; Site Drawn LEFT BRACHIAL
--- NOTE | 2021-09-26 11:12 | WPDINTPN ---
Progress Note: A&P Assessment and Plan (1) Acute respiratory failure: Code(s): J96.00 - Acute respiratory failure, unspecified whether with hypoxia or hypercapnia Status: Acute Assessment and Plan: Patient was intubated on 09/22/2021 in the ER upon arrival, patient was obtunded with decreased mental status. Chest x-ray shows mild bibasilar infiltrates or atelectasis. -currently on CMV mode of ventilation, peep of 5, 30% FiO2 - patient on Precedex infusion, is awake, alert, nods to questions and follows commands, - place patient on SBT, did very well, ABGs reviewed post SBT, likely with extubate patient today (2) Septic shock: Code(s): A41.9 - Sepsis, unspecified organism; R65.21 - Severe sepsis with septic shock Status: Acute Assessment and Plan: Patient presented with sepsis secondary to UTI and has multiple wounds and osteomyelitis. -blood cultures growing Proteus mirabilis, pansensitive -urine cultures growing Proteus mirabilis - Continue imipenem and vancomycin (patient is allergic to multiple antibiotics) -tachycardia resolved after IV fluids Continue Levophed titration to maintain her map > 65 mmHg Her lactic acid level has normalized (3) Urinary tract infection: Code(s): N39.0 - Urinary tract infection, site not specified Status: Acute Assessment and Plan: UA suggestive of UTI. CT abdomen pelvis showed Cystitis and bilateral pyelitis. Bladder stones. See above for treat -urine culture growing pansensitive Proteus mirabilis (4) Peripheral vascular disease: Code(s): I73.9 - Peripheral vascular disease, unspecified Status: Chronic Assessment and Plan: right BKA likely secondary to PVD (5) JOSEPH (acute kidney injury): Code(s): N17.9 - Acute kidney failure, unspecified Status: Acute Assessment and Plan: RESOLVED Likely secondary to sepsis. 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 She arrived she had a wound VAC on in her sacral area. At this time we have sent blood cultures and started patient on broad-spectrum empiric antibiotic therapy in the form of imipenem and vancomycin -wound debridement of the necrotic coccyx area was done on 09/23/2021 by surgery We will obtain records from [facility]. Patient may need to be transferred back depending on her course Wound Care has been consulted who have the evaluated her wounds She also has 2 surgical wounds which are one in abdomen another in right BKA stump (8) Sacral decubitus ulcer, stage IV: Code(s): L89.154 - Pressure ulcer of sacral region, stage 4 Status: Chronic Assessment and Plan: See above (9) Colostomy in place: Code(s): Z93.3 - Colostomy status Status: Acute Assessment and Plan: See above (10) Below-knee amputation of right lower extremity: Code(s): S88.111A - Complete traumatic amputation at level between knee and ankle, right lower leg, initial encounter Status: Acute Assessment and Plan: See above Additional Plan DVT prophyl
[2021-09-26] MEDS: rOPINIRole HCL 1 MG TABLET 2 MG PO (21:29)
[2021-09-27] VITALS (22 sets, daily range): BP systolic 68–105; BP diastolic 47–88; PULSE 96–606; RESP 14–26; TEMP 35.7–37.3; O2SAT 86–98; BMI 11.0
--- NOTE | 2021-09-27 05:19 | PCRCNOTE ---
ABG was obtained from pt. When needle was removed from syringe, a clot was noted. Sample could not be run due to clots in the syringe. Amadou Rice RN was notified and said that it was OK not to obtain another ABG.
[2021-09-27 05:37] LABS: Hematocrit 27.4 % (37.0-47.0); Hemoglobin 8.5 g/dL (12.0-15.0); Mean Corpuscular Hemoglobin 25.9 pg (26-34); Mean Corpuscular Volume 83.5 fl (80-100); Mean Platelet Volume 8.2 fl (7.4-10.4); Platelet Count Result 306 k/mm3 (150-375); Red Blood Count 3.28 M/mm3 (4.2-5.4); Red Cell Distribution Width 16.3 % (11.5-14.5); White Blood Count 15.2 K/mm3 (4.5-10.0)
[2021-09-27 06:05] LABS: Alanine Aminotransferase 9 U/L (4-35); Albumin Level 2.9 g/dL (3.5-5.1); Alkaline Phosphatase 98 U/L (38-126); Anion Gap 6 mmol/L (8-16); Aspartate Amino Transferase 16 U/L (14-36); Bilirubin,Total 0.2 mg/dL (0.2-1.3); Blood Urea Nitrogen 10 mg/dL (7-17); Calcium 8.5 mg/dL (8.4-10.2); Carbon Dioxide 31 mmol/L (22-30); Chloride 97 mmol/L (98-107); Estimated CRCL calculation 154 ml/min; Estimated Glomerular Filt Rate > 60; Glucose 98 mg/dL (65-110); Magnesium 1.5 mg/dL (1.6-2.3); Potassium 2.7 mmol/L (3.4-5.0); Sodium 134 mmol/L (137-145)
[2021-09-27] MEDS: GABAPENTIN 300 MG CAPSULE PO ×3 (06:09→21:09)
[2021-09-27] MEDS: CENTRAL LINE FLUSH 10 ML IV PUSH ×4 (06:09→21:27)
[2021-09-27] MEDS: MAGNESIUM SULF 2 GM/WATER 50ML 2 GM/50 ML BAG IVPB (06:49)
[2021-09-27] MEDS: KCL 40 MEQ/WATER 100 ML 100 ML 25 ML IVPB (06:50)
[2021-09-27] MEDS: SILVERGEL (ELTA) 45 ML 1 APPLIC TOPICAL (08:01)
[2021-09-27] MEDS: levETIRAcetam 500MG/NACL 100ML 500 MG/100 ML BAG 400 MG IVPB (08:02)
[2021-09-27] MEDS: COLLAGENASE OINT 30 GM TUBE 1 APPLIC TOPICAL ×2 (08:02→21:11)
[2021-09-27] MEDS: ENOXAPARIN 40 MG/0.4 ML SYRINGE SUB-Q (08:02)
[2021-09-27] MEDS: PANTOPRAZOLE SODIUM IV 40 MG VIAL IV PUSH (08:03)
[2021-09-27] MEDS: MINERAL OIL/WHITE PETROLATUM OINTMENT 1 APPLIC EACH EYE ×2 (08:03→21:11)
[2021-09-27] MEDS: POTASSIUM CHLORIDE 20 MEQ PACKET (FOR LIQUID) 40 MEQ FEED TUBE (08:08)
[2021-09-27] MEDS: METOPROLOL TARTRATE 12.5 MG TABLET FEED TUBE ×2 (09:25→21:09)
--- NOTE | 2021-09-27 12:03 | PCNFU ---
Nutrition Follow-Up Complete: Inadequate oral intake as related to mechanical ventilation as evidenced by NPO. Goal: Meet estimated nutritional needs Patient will continue with current goal. Pt current nutrition is NPO. Last recorded weight is 66.1 kg-stable Bowel Motility: Colostomy Labs Reviewed:Mg 1.5,Na 134, K 2.7, Hct 27.4,Hgb 8.5 Meds Noted:Keppra, Levophed, Vancomycin, Lopressor, Protonix Skin: stage IV-coccyx Additional Notes: Patient has been extubated. Currently NPO. If patient able to tolerate diet recommend advancing as tolerated per MD orders. Will follow in ICU rounds and reassessing every 3 days.
--- NOTE | 2021-09-27 12:10 | WPDINTPN ---
Progress Note: A&P Assessment and Plan (1) Acute respiratory failure: Code(s): J96.00 - Acute respiratory failure, unspecified whether with hypoxia or hypercapnia Status: Acute Assessment and Plan: Patient was intubated on 09/22/2021 in the ER upon arrival, patient was obtunded with decreased mental status. 09/26/2021: Successfully extubated, currently on 1 L nasal cannula with good O2 sats -start incentive spirometry, -order PT OT -sit up in chair (2) Septic shock: Code(s): A41.9 - Sepsis, unspecified organism; R65.21 - Severe sepsis with septic shock Status: Acute Assessment and Plan: Patient presented with sepsis secondary to UTI and has multiple wounds and osteomyelitis. -blood cultures growing Proteus mirabilis, pansensitive -urine cultures growing Proteus mirabilis - Continue imipenem and vancomycin (patient is allergic to multiple antibiotics) -tachycardia resolved after IV fluids Continue Levophed titration to maintain her map > 65 mmHg Her lactic acid level has normalized -add midodrine (3) Urinary tract infection: Code(s): N39.0 - Urinary tract infection, site not specified Status: Acute Assessment and Plan: UA suggestive of UTI. CT abdomen pelvis showed Cystitis and bilateral pyelitis. Bladder stones. See above for treat -urine culture growing pansensitive Proteus mirabilis (4) Peripheral vascular disease: Code(s): I73.9 - Peripheral vascular disease, unspecified Status: Chronic Assessment and Plan: right BKA likely secondary to PVD (5) JOSEPH (acute kidney injury): Code(s): N17.9 - Acute kidney failure, unspecified Status: Acute Assessment and Plan: RESOLVED Likely secondary to sepsis. -patient has been having increased urinary output, still remains in positive fluid balance since admission Creatinine has normalized with IV fluid resuscitation Monitor urine output electrolytes and creatinine Will replace magnesium and potassium (6) Altered mental status: Qualifiers: Altered mental status type: somnolence Qualified Code(s): R40.0 - Somnolence Code(s): R41.82 - Altered mental status, unspecified Status: Acute Assessment and Plan: RESOLVED Likely toxic metabolic encephalopathy and appears to have improved She was also on multiple medications that can be sedatives as an outpatient 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 She arrived she had a wound VAC on in her sacral area. At this time we have sent blood cultures and started patient on broad-spectrum empiric antibiotic therapy in the form of imipenem and vancomycin -wound debridement of the necrotic coccyx area was done on 09/23/2021 by surgery We will obtain records from [facility]. Patient may need to be transferred back depending on her course Wound Care has been consulted who have the evaluated her wounds She also has 2 surgical wounds which are one in abdomen another in right BKA stump (8) Sacral decubitus ulcer, stage IV: Code(s): L89.154 - Pressure ulcer of sacral region, stage 4 Status: Chronic Assessment and Plan: See above (9) Colostomy in place: Code(s): Z93.3 - Colostomy status Status: Acute Assessment and Plan: See above (10) Below-knee amputation of right lower extremity: Code(s): S88.111A - Complete traumatic amputation at level between knee and ankle, right lower leg, initial encounter Status: Acute Assessment and Plan: See above Additional Plan DVT prophylaxis -Lovenox for prophyl
[2021-09-27] MEDS: MIDODRINE HCL 10 MG TABLET FEED TUBE ×2 (12:49→18:25)
--- NOTE | 2021-09-27 14:56 | PCSTNOTE ---
Therapist entered room with fresh ice water, pudding, and cracker in order to complete a bedside swallow evaluation. Patient refused any oral attempts by saying she did not want anything and, ' Would you please leave my room. No encouragement that therapist offered appealed to patient and therapist left the room without any oral presentations completed. Therapy will attempt bedside swallow evaluation again in the morning.
[2021-09-27] MEDS: HALOPERIDOL LACTATE 5 MG/ML VIAL 2 MG IV PUSH (16:42)
[2021-09-27] MEDS: APIXABAN 5 MG TABLET PO (18:25)
[2021-09-27] MEDS: ACETAMINOPHEN ELIXIR 325 MG/10.15 ML UDC 650 MG PO (18:34)
[2021-09-27] MEDS: rOPINIRole HCL 1 MG TABLET 2 MG PO (21:09)
[2021-09-27] MEDS: ATORVASTATIN 10 MG TABLET PO (21:09)
[2021-09-27] MEDS: levETIRAcetam 500MG/NACL 100ML 500 MG/100 ML BAG 200 MG IVPB (21:11)
[2021-09-28] VITALS (14 sets, daily range): BP systolic 74–127; BP diastolic 44–114; PULSE 89–111; RESP 16–21; TEMP 36.5–37.7; O2SAT 92–100
[2021-09-28] MEDS: NOREPINEPHRINE 8 MG/D5W 250 ML 8 MG/250 ML BAG 3.75 MG IV CONT (01:35)
[2021-09-28 05:53] LABS: Alanine Aminotransferase 10 U/L (4-35); Albumin Level 2.8 g/dL (3.5-5.1); Alkaline Phosphatase 102 U/L (38-126); Anion Gap 7 mmol/L (8-16); Aspartate Amino Transferase 15 U/L (14-36); Bilirubin,Total 0.2 mg/dL (0.2-1.3); Blood Urea Nitrogen 10 mg/dL (7-17); Calcium 8.3 mg/dL (8.4-10.2); Carbon Dioxide 30 mmol/L (22-30); Chloride 95 mmol/L (98-107); Estimated CRCL calculation 213 ml/min; Estimated Glomerular Filt Rate > 60; Glucose 157 mg/dL (65-110); Magnesium 1.9 mg/dL (1.6-2.3); Potassium 2.5 mmol/L (3.4-5.0); Sodium 132 mmol/L (137-145)
[2021-09-28] MEDS: CENTRAL LINE FLUSH 10 ML IV PUSH ×4 (06:02→21:39)
[2021-09-28 06:03] LABS: Vancomycin Trough 10.3 ug/mL (10.0-20.0)
[2021-09-28] MEDS: KCL 40 MEQ/WATER 100 ML 100 ML 25 ML IVPB (06:47)
[2021-09-28] MEDS: PANTOPRAZOLE SODIUM IV 40 MG VIAL IV PUSH (08:48)
[2021-09-28] MEDS: POTASSIUM CHLORIDE 20 MEQ PACKET (FOR LIQUID) 40 MEQ FEED TUBE (08:48)
[2021-09-28] MEDS: SILVERGEL (ELTA) 45 ML 1 APPLIC TOPICAL (08:48)
[2021-09-28] MEDS: COLLAGENASE OINT 30 GM TUBE 1 APPLIC TOPICAL ×2 (08:48→21:39)
[2021-09-28] MEDS: MIDODRINE HCL 10 MG TABLET FEED TUBE (08:49)
[2021-09-28] MEDS: MINERAL OIL/WHITE PETROLATUM OINTMENT 1 APPLIC EACH EYE (08:49)
[2021-09-28] MEDS: APIXABAN 5 MG TABLET PO ×2 (08:49→18:18)
[2021-09-28 08:55] LABS: Ammonia < 9 umol/L (9-30)
[2021-09-28] MEDS: levETIRAcetam 500MG/NACL 100ML 500 MG/100 ML BAG 400 MG IVPB ×2 (08:58→21:38)
--- NOTE | 2021-09-28 09:01 | PCSTNOTE ---
Patient awake and alert and requesting food and drink this morning. Passed bedside swallow test. She had forgotten that I was in to see her yesterday and she had refused.
[2021-09-28] MEDS: OLANZapine 2.5 MG TABLET PO (10:22)
[2021-09-28] MEDS: DULoxetine HCL 30 MG CAPSULE.DR 90 MG PO (10:22)
--- NOTE | 2021-09-28 10:51 | PM.CNNEP ---
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, and hypomagnesemia may have also had a component of total body store depetion as well given her colostomy - GI loss verus inadequate absorption of oral K+ (?) replete K+ and magnesium PRN check urine lytes (in an attempt to calculate TTKG); check TSH, cortisol, renin, and aldosterone agree with regular diet follow trend of repeat K+ (2) JOSEPH (acute kidney injury): Code(s): N17.9 - Acute kidney failure, unspecified Status: Acute Assessment and Plan: resolved secondary to septic shock follow labs and UOP (3) Septic shock: Code(s): A41.9 - Sepsis, unspecified organism; R65.21 - Severe sepsis with septic shock Status: Acute Assessment and Plan: resolved due to wounds and UTI off pressors and with stable hemodynamics (4) Urinary tract infection: Code(s): N39.0 - Urinary tract infection, site not specified Status: Acute Assessment and Plan: urine culture with Proteus on antibiotics (5) Osteomyelitis: Code(s): M86.9 - Osteomyelitis, unspecified Status: Chronic Assessment and Plan: from her chronic wounds Wound care following Will continue to follow. History of Present Illness Reason for Consult Consult date: 09/28/21 Reason for consult: hypokalemia Chief Complaint Chief complaint: Sepsis History of Present Illness Narrative: The patient is a 56-year-old female with a past medical history as outlined below who presented to [facility] Emergency room from her nursing facility for further evaluation altered mental status. But most of the information I have obtained is from review of the electronic medical record and discussion with the other physicians/nurses involved in her care as the patient herself does not recall the events/issues that led to her presentation and subsequent hospitalization here at [facility]. Per nursing staff, the patient was becoming increasingly confused and tended over last 24-48 hours prior to her presentation to the hospital. She is usually alert and oriented x3 and is able to make her needs known. However as already mentioned, in the last few days, she has been coming increasingly more confused, lethargic and almost point where they had difficulty waking her up and for these reasons, she was transferred to the ER for evaluation. Workup and evaluation emergency room demonstrated the patient to be quite lethargic/obtunded. She was also quite hypotensive and given her inability to protect her airway, she was subsequently intubated and placed on mechanical ventilation. She had to be started on vasopressor therapy as her systolic BP was in the 70s range. Further workup and evaluation demonstrate evidence of acute kidney injury, I urinalysis highly suggestive of a urinary tract infection, and a CT scan of the abdomen and pelvis that demonstrated worsening sacral decubitus ulcer in association with osteomyelitis with pyelitis and cystitis. Appropriate cultures were obtained, she was started on broad-spectrum IV antibiotic therapy, and subsequent transferred to the ICU for further management. Since her admission, her overall status has improved as she has been weaned off vasopressor therapy, has been successfully extubated, in her mentation seems to be doing significantly better than on presentation to the hospital. Is been noted over last few days that the patient has been significantly hypokalemic despite aggressive replacement. Renal consultation was requested due to her persistent hypokalemia. From review of her records, previous testing at least in the [facility] has shown her potassium to be relatively stable. From review of her outpatient records, she is on medications that could p
--- NOTE | 2021-09-28 11:02 | WPDINTPN ---
Progress Note: A&P Assessment and Plan (1) Acute respiratory failure: Code(s): J96.00 - Acute respiratory failure, unspecified whether with hypoxia or hypercapnia Status: Acute Assessment and Plan: Patient was intubated on 09/22/2021 in the ER upon arrival, patient was obtunded with decreased mental status. 09/26/2021: Successfully extubated, currently on 1 L nasal cannula with good O2 sats -start incentive spirometry, -continue PT OT -patient passed a bedside swallow test, will start regular diet -up in chair (2) Septic shock: Code(s): A41.9 - Sepsis, unspecified organism; R65.21 - Severe sepsis with septic shock Status: Acute Assessment and Plan: Patient presented with sepsis secondary to UTI and has multiple wounds and osteomyelitis, UTI and bacteremia -blood cultures growing Proteus mirabilis, pansensitive -urine cultures growing Proteus mirabilis - Continue imipenem and vancomycin (patient is allergic to multiple antibiotics) -tachycardia resolved after IV fluids Continue Levophed titration to maintain her map > 65 mmHg Her lactic acid level has normalized -continue midodrine (3) Urinary tract infection: Code(s): N39.0 - Urinary tract infection, site not specified Status: Acute Assessment and Plan: UA suggestive of UTI. CT abdomen pelvis showed Cystitis and bilateral pyelitis. Bladder stones. See above for treat -urine culture growing pansensitive Proteus mirabilis (4) Peripheral vascular disease: Code(s): I73.9 - Peripheral vascular disease, unspecified Status: Chronic Assessment and Plan: right BKA likely secondary to PVD (5) JOSEPH (acute kidney injury): Code(s): N17.9 - Acute kidney failure, unspecified Status: Acute Assessment and Plan: RESOLVED Likely secondary to sepsis. -patient has been having increased urinary output, still remains in positive fluid balance since admission Creatinine has normalized with IV fluid resuscitation Monitor urine output electrolytes and creatinine Will replace magnesium and potassium (6) Altered mental status: Qualifiers: Altered mental status type: somnolence Qualified Code(s): R40.0 - Somnolence Code(s): R41.82 - Altered mental status, unspecified Status: Acute Assessment and Plan: RESOLVED Likely toxic metabolic encephalopathy and appears to have improved She was also on multiple medications that can be sedatives as an outpatient 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 She arrived she had a wound VAC on in her sacral area. At this time we have sent blood cultures and started patient on broad-spectrum empiric antibiotic therapy in the form of imipenem and vancomycin -wound debridement of the necrotic coccyx area was done on 09/23/2021 by surgery We will obtain records from [facility]. Patient may need to be transferred back depending on her course Wound Care has been consulted who have the evaluated her wounds She also has 2 surgical wounds which are one in abdomen another in right BKA stump (8) Sacral decubitus ulcer, stage IV: Code(s): L89.154 - Pressure ulcer of sacral region, stage 4 Status: Chronic Assessment and Plan: See above (9) Colostomy in place: Code(s): Z93.3 - Colostomy status Status: Acute Assessment and Plan: See above (10) Below-knee amputation of right lower extremity: Code(s): S88.111A - Complete traumatic amputation at level between knee and ankle, right lower leg, initial encounter Status: Acute As
--- NOTE | 2021-09-28 11:47 | PCNFU ---
Nutrition Follow-Up Complete: Inadequate oral intake as related to mechanical ventilation as evidenced by NPO. Goal: Meet estimated nutritional needs Patient is progressing towards goal. We will continue current goal. Pt current nutrition is Regular with Kalyan BID. Last recorded weight is 66.1 kg-stable. Bowel Motility:colostomy Labs Reviewed:K 2.5,Hct 2734,Alb 2.8,Hgb 8.5,Na 132 Meds Noted:Keppra, Levophed, Vancomycin, Lopressor, Protonix, Eliquis,KCL powder,Cymbalta Skin: Stage IV-coccyx Additional Notes: Patient had speech eval today, recommending a regular diet. Plans for Regular diet at lunch. Protein Modular of Kalyan BID will be given orally vs tube. Agree with diet orders. Will monitor every 3 days.
[2021-09-28] MEDS: LORazepam (*CRX) 1 MG TABLET PO ×2 (12:16→18:17)
[2021-09-28] MEDS: MIDODRINE HCL 10 MG TABLET PO ×2 (12:16→18:18)
[2021-09-28] MEDS: GABAPENTIN 300 MG CAPSULE PO ×2 (15:21→21:38)
[2021-09-28] MEDS: rOPINIRole HCL 1 MG TABLET 2 MG PO (21:38)
[2021-09-28] MEDS: ATORVASTATIN 10 MG TABLET PO (21:39)
[2021-09-29] VITALS (15 sets, daily range): BP systolic 95–121; BP diastolic 60–86; PULSE 82–105; RESP 14–20; TEMP 36.2–36.6; O2SAT 95–100
[2021-09-29] MEDS: CENTRAL LINE FLUSH 10 ML IV PUSH ×4 (05:35→22:37)
[2021-09-29] MEDS: GABAPENTIN 300 MG CAPSULE PO ×3 (05:35→22:35)
[2021-09-29 05:49] LABS: Albumin Level 1.9 g/dL (3.5-5.1); Anion Gap 5 mmol/L (8-16); Blood Urea Nitrogen 6 mg/dL (7-17); Carbon Dioxide 22 mmol/L (22-30); Chloride 109 mmol/L (98-107); Creatine Kinase < 20 U/L (30-135); Estimated CRCL calculation 213 ml/min; Estimated Glomerular Filt Rate > 60; Glucose 64 mg/dL (65-110); Magnesium 1.4 mg/dL (1.6-2.3); Phosphorus 2.8 mg/dL (2.5-4.5); Potassium 2.2 mmol/L (3.4-5.0); Sodium 136 mmol/L (137-145)
[2021-09-29] MEDS: MAGNESIUM SULF 2 GM/WATER 50ML 2 GM/50 ML BAG IVPB (06:52)
[2021-09-29] MEDS: POTASSIUM CHLORIDE 20 MEQ PACKET (FOR LIQUID) 40 MEQ PO (06:52)
[2021-09-29] MEDS: KCL 40 MEQ/WATER 100 ML 100 ML 25 ML IVPB (08:29)
[2021-09-29] MEDS: OLANZapine 2.5 MG TABLET PO (08:33)
[2021-09-29] MEDS: POTASSIUM CHLORIDE 20 MEQ PACKET (FOR LIQUID) 40 MEQ FEED TUBE (08:33)
[2021-09-29] MEDS: PANTOPRAZOLE SODIUM IV 40 MG VIAL IV PUSH (08:34)
[2021-09-29] MEDS: SILVERGEL (ELTA) 45 ML 1 APPLIC TOPICAL (08:34)
[2021-09-29] MEDS: MIDODRINE HCL 10 MG TABLET PO ×3 (08:34→18:31)
[2021-09-29] MEDS: COLLAGENASE OINT 30 GM TUBE 1 APPLIC TOPICAL (08:35)
[2021-09-29] MEDS: DULoxetine HCL 30 MG CAPSULE.DR 90 MG PO (08:36)
[2021-09-29] MEDS: APIXABAN 5 MG TABLET PO ×2 (08:36→18:31)
[2021-09-29] MEDS: levETIRAcetam 500MG/NACL 100ML 500 MG/100 ML BAG 400 MG IVPB ×2 (08:48→22:25)
--- NOTE | 2021-09-29 09:19 | PM.IMPN ---
Progress Note: A&P Assessment and Plan (1) Acute respiratory failure: Code(s): J96.00 - Acute respiratory failure, unspecified whether with hypoxia or hypercapnia Status: Acute Assessment and Plan: Acute hypoxic respiratory failure, improving. Patient was intubated on 09/22/2021 in the ER upon arrival, patient was obtunded with decreased mental status. On 09/26/2021: She was Successfully extubated, and transition to 1 L nasal cannula with good O2 sats. Currently on 4 L nasal cannula with O2 sat -start incentive spirometry, -continue PT OT -patient passed a bedside swallow test, will start regular diet -up in chair (2) Septic shock: Code(s): A41.9 - Sepsis, unspecified organism; R65.21 - Severe sepsis with septic shock Status: Acute Assessment and Plan: Patient presented with sepsis secondary to UTI and has multiple wounds and osteomyelitis, UTI and bacteremia -blood cultures growing Proteus mirabilis, pansensitive -urine cultures growing Proteus mirabilis - Continue imipenem and vancomycin (patient is allergic to multiple antibiotics) -tachycardia resolved after IV fluids Continue Levophed titration to maintain her map > 65 mmHg Her lactic acid level has normalized -continue midodrine (3) Urinary tract infection: Code(s): N39.0 - Urinary tract infection, site not specified Status: Acute Assessment and Plan: UA suggestive of UTI. CT abdomen pelvis showed Cystitis and bilateral pyelitis. Bladder stones. See above for treat -urine culture growing pansensitive Proteus mirabilis (4) Peripheral vascular disease: Code(s): I73.9 - Peripheral vascular disease, unspecified Status: Chronic Assessment and Plan: right BKA likely secondary to PVD (5) JOSEPH (acute kidney injury): Code(s): N17.9 - Acute kidney failure, unspecified Status: Acute Assessment and Plan: RESOLVED Likely secondary to sepsis. -patient has been having increased urinary output, still remains in positive fluid balance since admission Creatinine has normalized with IV fluid resuscitation Monitor urine output electrolytes and creatinine Will replace magnesium and potassium (6) Altered mental status: Qualifiers: Altered mental status type: somnolence Qualified Code(s): R40.0 - Somnolence Code(s): R41.82 - Altered mental status, unspecified Status: Acute Assessment and Plan: RESOLVED Likely toxic metabolic encephalopathy and appears to have improved She was also on multiple medications that can be sedatives as an outpatient 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 She arrived she had a wound VAC on in her sacral area. At this time we have sent blood cultures and started patient on broad-spectrum empiric antibiotic therapy in the form of imipenem and vancomycin -wound debridement of the necrotic coccyx area was done on 09/23/2021 by surgery We will obtain records from [facility]. Patient may need to be transferred back depending on her course Wound Care has been consulted who have the evaluated her wounds She also has 2 surgical wounds which are one in abdomen another in right BKA stump (8) Sacral decubitus ulcer, stage IV: Code(s): L89.154 - Pressure ulcer of sacral region, stage 4 Status: Chronic Assessment and Plan: See above (9) Colostomy in place: Code(s): Z93.3 - Colostomy status Status: Acute Assessment and Plan: See above (10) Below-knee amputation of right lower extremity: Code(s): S88.111A - Complete traumati
[2021-09-29 10:45] LABS: Potassium Urine Random 35.3 meq/L
--- NOTE | 2021-09-29 11:10 | PCOTNOTE ---
Attempted to see at this time. RN in the room, attempting to give her medications, she is being very difficult with participation . RN requesting therapy services try back this afternoon.
[2021-09-29] MEDS: CYCLOBENZAPRINE HCL 10 MG TABLET PO ×2 (11:11→18:31)
[2021-09-29] MEDS: oxyCODONE HCL (*CRX) 5 MG TAB IR PO ×3 (11:12→22:44)
--- NOTE | 2021-09-29 12:57 | PM.PNNEP ---
Progress Note: A&P Assessment and Plan (1) Hypokalemia: Code(s): E87.6 - Hypokalemia Status: Acute Assessment and Plan: hypokalemia. Urine potassium was high today at 10:00 a.m. when a potassium was drawn. The potassium at 10:00 a.m. is still pending when the rest of the electrolytes are available so I suspect that it is going to be low again. The high urine potassium suggests that potassium leak may be part of her problem. The leak could be from the hypomagnesiumia or could be from the severe hypokalemia as mild hypokalemia will result in a low urine potassium but severely low potassium will interfere with the enzymes responsible for retaining potassium from the urine and result in a higher urine potassium. She could have problems with a renin aldosterone system as well. Will check these. She does not have hypertension making this unlikely. Renal tubular acidosis is always a possibility as well but her bicarbonate level has not been consistently low. Poor intake is undoubtedly an issue as well. Potassium loss from her colostomy is also contributory. total body potassium loss may also be responsible for how hard it is to replete her potassium. Will continue Checking frequent potassiums and supplementing as needed (2) JOSEPH (acute kidney injury): Code(s): N17.9 - Acute kidney failure, unspecified Status: Acute Assessment and Plan: resolved secondary to septic shock follow labs and UOP (3) Septic shock: Code(s): A41.9 - Sepsis, unspecified organism; R65.21 - Severe sepsis with septic shock Status: Acute Assessment and Plan: resolved (4) Urinary tract infection: Code(s): N39.0 - Urinary tract infection, site not specified Status: Acute Assessment and Plan: urine culture with Proteus on imipenem and vancomycin (5) Osteomyelitis: Code(s): M86.9 - Osteomyelitis, unspecified Status: Chronic Assessment and Plan: from her chronic wounds Wound care following Will continue to follow. Subjective Date/time seen: 09/29/21 12:57 Interval history: Patient is lying in bed comfortably today. She is in the intermediate care unit. She says she has had hypokalemia for the last few months while she has been in the hospital. Before that she had not had any hypokalemia. Review of Systems Cardiovascular: Cardiovascular: Reports no additional cardiovascular complaints Respiratory: Respiratory: Reports no additional respiratory complaints Gastrointestinal: Gastrointestinal: Reports no additional gastrointestinal complaints Genitourinary: Genitourinary: Reports no additional female genitourinary complaints Exam Narrative: WDWN in NAD skin no rash head ncat lungs clear cor reg no rub abd BS+ nontender and soft ext no edema. Status post right amputation. Bandage on the stump Objective Data Vital Signs Vital Signs: Vital Signs - 24 hr 09/28/21 13:00 09/28/21 14:00 09/28/21 16:00 Temperature 37.5 C 37.7 C H Pulse Rate 100 100 92 Respiratory Rate 21 H 20 Blood Pressure 126/78 127/114 H 96/72 L Pulse Oximetry 99 96 09/28/21 18:00 09/28/21 20:00 09/28/21 22:00 Temperature 36.6 C Pulse Rate 89 96 98 Respiratory Rate 20 Blood Pressure 104/71 Pulse Oximetry 100 09/29/21 00:00 09/29/21 01:46 09/29/21 02:00 Temperature 36.6 C Pulse Rate 82 92 Respiratory Rate 18 Blood Pressure 95/63 L Pulse Oximetry 99 98 09/29/21 04:00 09/29/21 06:00 09/29/21 08:00 Temperature 36.4 C 36.4 C Pulse Rate 94 88 97 Respiratory Rate 20 18 Blood Pressure 100/60 95/63 L Pulse Oximetry 97 96 09/29/21 08:51 09/29/21 10:00 09/29/21 12:00 Temperature 36.3 C L Pulse Rate 92 98 Respiratory Rate 16 Blood Pressure 111/72 Pulse Oximetry 95 99 Intake/Output Intake/Output: Intake & Output 09/26/21 09/27/21 09/28/21 09/29/21 23:59 23:59 23:59 23:59 I
--- NOTE | 2021-09-29 17:00 | PM.PNGS ---
Progress Note: A&P Assessment and Plan (1) Sacral decubitus ulcer, stage IV: Code(s): L89.154 - Pressure ulcer of sacral region, stage 4 Status: Chronic Assessment and Plan: Large stage IV sacral decubitus ulcer with some areas improving but there is an area of dark solano/yellow tissue on the left side of the wound. We will continue with enzymatic debridement with santyl. This may need excisional debridement, but this could be done at the bedside. Will continue to monitor how the wounds progress. (2) Decubitus ulcer: Qualifiers: Pressure injury location: sacral region Pressure injury stage: unstageable Qualified Code(s): L89.150 - Pressure ulcer of sacral region, unstageable Code(s): L89.90 - Pressure ulcer of unspecified site, unspecified stage Status: Chronic Assessment and Plan: Multiple open wounds of the bilateral buttocks and thighs that appear stable. Continue local wound care with silver gel dressing changes. (3) Open abdominal wall wound: Code(s): S31.109A - Unspecified open wound of abdominal wall, unspecified quadrant without penetration into peritoneal cavity, initial encounter Status: Acute Assessment and Plan: Appears stable. Continue local wound care with silver gel dressing changes. (4) Septic shock: Code(s): A41.9 - Sepsis, unspecified organism; R65.21 - Severe sepsis with septic shock Status: Acute Assessment and Plan: Resolving. Extubated, off vasopressors, and out of the ICU. + urine and blood cultures noted. Continue IV antibiotics. (5) Acute respiratory failure: Code(s): J96.00 - Acute respiratory failure, unspecified whether with hypoxia or hypercapnia Status: Acute Assessment and Plan: Now extubated and in IMU. (6) Acute pyelitis: Code(s): N10 - Acute pyelonephritis Status: Acute Assessment and Plan: Source for her sepsis. Improving. Continue IV antibiotics. (7) Peripheral vascular disease: Code(s): I73.9 - Peripheral vascular disease, unspecified Status: Chronic Additional Plan I have discussed the patient's case and plan of care with Dr. Marin. Subjective Subjective Date/Time Seen: 09/29/21 15:00 Interval history: Patient seen and examined. Since my last exam, she has since been extubated and moved out of ICU to IMU. She is alert, oriented, and able to answer questions appropriately when I was seeing her. She denies any specific complaints at this time. She does report pain in her coccyx area with movement or when she is lying flat on her back. Exam Const: General: comfortable, no acute distress, alert and awake Orientation/consciousness: patient oriented x3 GI: Inspection: non-distended and other (ostomy functioning well with brown stool in bag) GI Palp: Yes Soft to palpation, No Tenderness to palpation present (GI), No Guarding due to palpation present (GI) and No Rebound tenderness present Auscultation: normal bowel sounds Other: midline abdominal scar with a superficial open wound at the base that appears stable, pink wound bed without any purulent drainage or necrotic tissue Skin: Other: Large stage IV sacral decubitus ulcer with some areas of yellow fibrous tissue and debri in the center of the wound over the sacrum with bone exposed, there is another area on the left side of the wound bed that is solano, dark slough. The previously dark area of the cephalad portion of the wound appears to be improving with now some pink granulating tissue. Multiple large open superficial wounds to bilateral buttocks and thighs that continue to appear stable with pink healthy tissue along entire base of the wounds. No surrounding cellulitis. Neuro: General: moves all extremities and no focal motor deficits Extrem: General: edema left and other (right BKA) Psych: Insight: Good insight present (Psych) Judgement: Good judgement present (Psych) Objective Data Vital Signs
[2021-09-29] MEDS: POTASSIUM CHLORIDE 20 MEQ TABLET 40 MEQ PO (18:37)
[2021-09-29] MEDS: LORazepam (*CRX) 1 MG TABLET PO (18:43)
[2021-09-29] MEDS: rOPINIRole HCL 1 MG TABLET 2 MG PO (22:33)
[2021-09-29] MEDS: ATORVASTATIN 10 MG TABLET PO (22:34)
[2021-09-29] MEDS: traZODone HCL 50 MG TABLET PO (22:34)
[2021-09-29] MEDS: MINERAL OIL/WHITE PETROLATUM OINTMENT 1 APPLIC EACH EYE (22:34)
[2021-09-29] MEDS: MELATONIN 3 MG TABLET PO (22:53)
[2021-09-30] VITALS (7 sets, daily range): BP systolic 100–123; BP diastolic 60–79; PULSE 84–102; RESP 12–21; TEMP 36.6–36.8; O2SAT 98–100
[2021-09-30] MEDS: COLLAGENASE OINT 30 GM TUBE 1 APPLIC TOPICAL ×3 (00:28→21:21)
[2021-09-30] MEDS: oxyCODONE HCL (*CRX) 5 MG TAB IR PO ×4 (04:58→21:19)
[2021-09-30 06:01] LABS: Albumin Level 2.6 g/dL (3.5-5.1); Anion Gap 4 mmol/L (8-16); Blood Urea Nitrogen 12 mg/dL (7-17); Calcium 8.3 mg/dL (8.4-10.2); Carbon Dioxide 28 mmol/L (22-30); Chloride 101 mmol/L (98-107); Estimated CRCL calculation 154 ml/min; Estimated Glomerular Filt Rate > 60; Glucose 87 mg/dL (65-110); Magnesium 2.1 mg/dL (1.6-2.3); Phosphorus 4.2 mg/dL (2.5-4.5); Potassium 4.3 mmol/L (3.4-5.0); Sodium 133 mmol/L (137-145)
[2021-09-30] MEDS: GABAPENTIN 300 MG CAPSULE PO ×3 (06:46→21:12)
[2021-09-30] MEDS: CENTRAL LINE FLUSH 10 ML IV PUSH ×4 (06:48→22:05)
[2021-09-30 07:01] LABS: Vancomycin Trough 13.8 ug/mL (10.0-20.0)
--- NOTE | 2021-09-30 09:22 | PM.IMPN ---
Progress Note: A&P Assessment and Plan (1) Acute respiratory failure: Code(s): J96.00 - Acute respiratory failure, unspecified whether with hypoxia or hypercapnia Status: Acute Assessment and Plan: Acute hypoxic respiratory failure, improving. Patient was intubated on 09/22/2021 in the ER upon arrival, patient was obtunded with decreased mental status. On 09/26/2021: She was Successfully extubated, and transition to 1 L nasal cannula with good O2 sats. Currently on getting midnight is on room air. -start incentive spirometry, -continue PT OT -continue regular diet as tolerated -up in chair (2) Septic shock: Code(s): A41.9 - Sepsis, unspecified organism; R65.21 - Severe sepsis with septic shock Status: Acute Assessment and Plan: Patient presented with sepsis secondary to UTI and has multiple wounds and osteomyelitis, UTI and bacteremia -blood cultures growing Proteus mirabilis, pansensitive -urine cultures growing Proteus mirabilis - Continue imipenem and vancomycin (patient is allergic to multiple antibiotics) -tachycardia resolved after IV fluids She was previously on Levophed titration to maintain her map > 65 mmHg. Blood pressure improved, she was taken of IV pressors and transfer out of the unit. Her lactic acid level has normalized -continue midodrine for blood pressure support. (3) Urinary tract infection: Code(s): N39.0 - Urinary tract infection, site not specified Status: Acute Assessment and Plan: UA suggestive of UTI. CT abdomen pelvis showed Cystitis and bilateral pyelitis. Bladder stones. See above for treat -urine culture growing pansensitive Proteus mirabilis (4) Peripheral vascular disease: Code(s): I73.9 - Peripheral vascular disease, unspecified Status: Chronic Assessment and Plan: right BKA likely secondary to PVD (5) JOSEPH (acute kidney injury): Code(s): N17.9 - Acute kidney failure, unspecified Status: Acute Assessment and Plan: Resolved nonoliguric acute kidney injury Likely secondary to sepsis. -patient has been having increased urinary output, still remains in positive fluid balance since admission Creatinine has normalized with IV fluid resuscitation Monitor urine output electrolytes and creatinine Continue magnesium and potassium replacement; urine electrolyte wasting likely in the setting of acute kidney injury with hopefully transient tubular dysfunction. (6) Altered mental status: Qualifiers: Altered mental status type: somnolence Qualified Code(s): R40.0 - Somnolence Code(s): R41.82 - Altered mental status, unspecified Status: Acute Assessment and Plan: Altered mental status has completely resolved. 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 She arrived she had a wound VAC on in her sacral area. At this time we have sent blood cultures and started patient on broad-spectrum empiric antibiotic therapy in the form of imipenem and vancomycin -wound debridement of the necrotic coccyx area was done on 09/23/2021 by surgery We will obtain records from [facility]. Patient may need to be transferred back depending on her course Wound Care has been consulted who have the evaluated her wounds She also has 2 surgical wounds which are one in abdomen another in right BKA stump. Surgery is following. Appreciate recommendations. (8) Sacral decubitus ulcer, stage IV: Code(s): L89.154 - Pressure u
[2021-09-30] MEDS: levETIRAcetam 500MG/NACL 100ML 500 MG/100 ML BAG 400 MG IVPB ×2 (09:28→21:13)
[2021-09-30] MEDS: FUROSEMIDE INJ 40 MG/4 ML VIAL 20 MG IV PUSH (09:33)
[2021-09-30] MEDS: MIDODRINE HCL 10 MG TABLET PO ×3 (09:34→17:07)
[2021-09-30] MEDS: CYCLOBENZAPRINE HCL 10 MG TABLET PO ×3 (09:34→17:06)
[2021-09-30] MEDS: DULoxetine HCL 30 MG CAPSULE.DR 90 MG PO (09:34)
[2021-09-30] MEDS: OLANZapine 2.5 MG TABLET PO (09:34)
[2021-09-30] MEDS: SILVERGEL (ELTA) 45 ML 1 APPLIC TOPICAL (09:35)
[2021-09-30] MEDS: APIXABAN 5 MG TABLET PO ×2 (09:35→17:07)
[2021-09-30] MEDS: PANTOPRAZOLE SODIUM IV 40 MG VIAL IV PUSH (09:36)
--- NOTE | 2021-09-30 10:57 | PM.PNNEP ---
Progress Note: A&P Assessment and Plan (1) Hypokalemia: Code(s): E87.6 - Hypokalemia Status: Acute Assessment and Plan: hypokalemia. Urine potassium was high today at 10:00 a.m. the potassium that was drawn then was canceled for some reason. Urine potassium was 53. Etiology is multifactorial. The patient is not eating much and so potassium intake is low. The patient had low magnesium which would contribute as well. The patient has diarrhea leading to some potassium loss. Of course with total body potassium depletion it is difficult to replace all of the potassium to get the serum potassium up to normal. Potassium was good today. Will continue Checking frequent potassiums and supplementing as needed (2) JOSEPH (acute kidney injury): Code(s): N17.9 - Acute kidney failure, unspecified Status: Acute Assessment and Plan: resolved (3) Septic shock: Code(s): A41.9 - Sepsis, unspecified organism; R65.21 - Severe sepsis with septic shock Status: Acute Assessment and Plan: resolved (4) Urinary tract infection: Code(s): N39.0 - Urinary tract infection, site not specified Status: Acute Assessment and Plan: urine culture with Proteus on imipenem and vancomycin (5) Osteomyelitis: Code(s): M86.9 - Osteomyelitis, unspecified Status: Chronic Assessment and Plan: from her chronic wounds Wound care following Will continue to follow. Subjective Date/time seen: 09/30/21 10:57 Interval history: Patient is lying in bed comfortably today. She is in the intermediate care unit. Patient feels stronger. She ate better yesterday. Exam Narrative: WDWN in NAD skin no rash or subQ not head ncat lungs clear bilaterally cor reg no rub or gallop abd BS+ nontender and soft ext no edema. Status post right amputation. Bandage on the stump Objective Data Vital Signs Vital Signs: Vital Signs - 24 hr 09/29/21 12:00 09/29/21 14:00 09/29/21 16:00 Temperature 36.3 C L 36.2 C L Pulse Rate 98 102 H 101 H Respiratory Rate 16 14 Blood Pressure 111/72 114/86 Pulse Oximetry 99 96 09/29/21 18:00 09/29/21 20:00 09/29/21 22:00 Temperature 36.6 C Pulse Rate 101 H 103 H 95 Respiratory Rate 20 Blood Pressure 110/84 Pulse Oximetry 100 09/29/21 23:16 09/30/21 00:00 09/30/21 02:00 Temperature 36.4 C Pulse Rate 88 86 85 Respiratory Rate 18 Blood Pressure 121/81 Pulse Oximetry 99 09/30/21 04:00 09/30/21 06:00 09/30/21 08:00 Temperature 36.6 C 36.8 C Pulse Rate 100 84 102 H Respiratory Rate 20 18 Blood Pressure 123/79 116/77 Pulse Oximetry 99 100 Intake/Output Intake/Output: Intake & Output 09/27/21 09/28/21 09/29/21 09/30/21 23:59 23:59 23:59 23:59 Intake Total 1746 2045 2250 590 Output Total 3800 2175 2700 900 [employer] [facility] -[phone] Meds/Results Medications: Active Medications Generic Name Dose Route Start Last Admin Trade Name Freq PRN Reason Stop Dose Admin Acetaminophen 650 mg 09/29/21 09:30 Acetaminophen 325 Mg Tablet PO 10/29/21 09:29 Q6H PRN MILD PAIN 1-3 Apixaban 5 mg 09/27/21 17:00 09/30/21 09:35 Apixaban 5 Mg Tablet PO 5 mg BID LOPEZ Administration Atorvastatin Calcium 10 mg 09/27/21 21:00 09/29/21 22:34 Atorvastatin 10 Mg Tablet PO 10 mg HS LOPEZ Administration Collagenase 1 applic 09/23/21 21:00 09/30/21 09:36 Collagenase Oint 30 Gm Tube TOPICAL 1 applic Q12HR LOPEZ Administration Cyclobenzaprine HCl 10 mg 09/29/21 11:05 09/30/21 09:34 Cyclobenzaprine Hcl 10 Mg Tablet PO 10 mg TID LOPEZ Administration Diphenhydramine HCl 25 mg 09/29/21 09:17 Diphenhydramine Hcl Cap 25 Mg Capsule PO Q6H PRN Itching Duloxetine HCl 90 mg 09/28/21 09:00 09/30/21 09:34 Duloxetine Hcl 30 Mg Capsule.Dr PO 90 mg DAILY LOPEZ Administration Gabapentin 300 mg 09/24/21
--- NOTE | 2021-09-30 17:17 | PC.NURSE ---
This patient, Natalia Cohn, was transferred to [facility] on 09/30/21 at 1718. Personal belongings sent with patient. Report given to Elizabeth ARRIAZA. Appropriate documentation sent with patient.
[2021-09-30] MEDS: CENTRAL LINE FLUSH 20 ML IV PUSH (18:13)
[2021-09-30 18:33] LABS: Potassium 3.9 mmol/L (3.4-5.0)
[2021-09-30] MEDS: traZODone HCL 50 MG TABLET PO (21:12)
[2021-09-30] MEDS: ATORVASTATIN 10 MG TABLET PO (21:12)
[2021-09-30] MEDS: rOPINIRole HCL 1 MG TABLET 2 MG PO (21:12)
[2021-09-30] MEDS: MELATONIN 3 MG TABLET PO (22:05)
[2021-10-01 05:37] LABS: Albumin Level 2.7 g/dL (3.5-5.1); Anion Gap 3 mmol/L (8-16); Blood Urea Nitrogen 8 mg/dL (7-17); Calcium 8.1 mg/dL (8.4-10.2); Carbon Dioxide 30 mmol/L (22-30); Chloride 100 mmol/L (98-107); Estimated CRCL calculation 154 ml/min; Estimated Glomerular Filt Rate > 60; Glucose 94 mg/dL (65-110); Magnesium 1.7 mg/dL (1.6-2.3); Phosphorus 4.2 mg/dL (2.5-4.5); Potassium 3.5 mmol/L (3.4-5.0); Sodium 133 mmol/L (137-145)
[2021-10-01] MEDS: CENTRAL LINE FLUSH 10 ML IV PUSH ×3 (06:17→20:17)
[2021-10-01] MEDS: GABAPENTIN 300 MG CAPSULE PO ×3 (06:17→20:17)
[2021-10-01 08:00] VITALS: BP 125/95; PULSE 85; RESP 18; TEMP 36.1; O2SAT 96
[2021-10-01] MEDS: MIDODRINE HCL 10 MG TABLET PO ×3 (08:18→17:06)
[2021-10-01] MEDS: CYCLOBENZAPRINE HCL 10 MG TABLET PO ×3 (08:18→17:07)
[2021-10-01] MEDS: APIXABAN 5 MG TABLET PO ×2 (08:18→17:07)
[2021-10-01] MEDS: DULoxetine HCL 30 MG CAPSULE.DR 90 MG PO (08:18)
[2021-10-01] MEDS: OLANZapine 2.5 MG TABLET PO (08:18)
[2021-10-01] MEDS: PANTOPRAZOLE SODIUM IV 40 MG VIAL IV PUSH (08:19)
[2021-10-01] MEDS: COLLAGENASE OINT 30 GM TUBE 1 APPLIC TOPICAL ×2 (09:30→20:16)
[2021-10-01] MEDS: levETIRAcetam 500MG/NACL 100ML 500 MG/100 ML BAG 400 MG IVPB ×2 (09:30→20:15)
[2021-10-01] MEDS: SILVERGEL (ELTA) 45 ML 1 APPLIC TOPICAL (09:31)
--- NOTE | 2021-10-01 09:48 | PM.PNNEP ---
Progress Note: A&P Assessment and Plan (1) Hypokalemia: Code(s): E87.6 - Hypokalemia Status: Acute Assessment and Plan: hypokalemia. Etiology is multifactorial. The patient is not eating much and so potassium intake is low. The patient had low magnesium which would contribute as well. The patient has diarrhea leading to some potassium loss. Of course with total body potassium depletion it is difficult to replace all of the potassium to get the serum potassium up to normal. Potassium was good today. Magnesium normal today as well. Will continue Checking frequent potassiums and supplementing as needed It is hard to know how much of the above is the major component. She says that her potassium was low when she 1st was admitted to [place] 4 months ago. If 1 of the other drops under current conditions then we can do another set of urines. (2) JOSEPH (acute kidney injury): Code(s): N17.9 - Acute kidney failure, unspecified Status: Acute Assessment and Plan: resolved (3) Septic shock: Code(s): A41.9 - Sepsis, unspecified organism; R65.21 - Severe sepsis with septic shock Status: Acute Assessment and Plan: resolved (4) Urinary tract infection: Code(s): N39.0 - Urinary tract infection, site not specified Status: Acute Assessment and Plan: urine culture with Proteus on imipenem and vancomycin (5) Osteomyelitis: Code(s): M86.9 - Osteomyelitis, unspecified Status: Chronic Assessment and Plan: from her chronic wounds Wound care following Will continue to follow. Subjective Date/time seen: 10/01/21 09:48 Interval history: Patient is lying in bed comfortably today. Eating. No shortness of breath or chest pain Exam Narrative: WDWN in NAD skin no rash head ncat lungs clear to auscultation cor reg no rub or gallop abd BS+ nontender and soft ext no edema. Status post right amputation. Bandage on the stump Objective Data Vital Signs Vital Signs: Vital Signs - 24 hr 09/30/21 16:00 09/30/21 22:00 10/01/21 06:00 Temperature 36.6 C 36.7 C 36.2 C L Pulse Rate 98 99 114 H Respiratory Rate 12 21 H 18 Blood Pressure 100/60 111/72 121/83 Pulse Oximetry 98 100 97 10/01/21 08:00 Temperature 36.1 C L Pulse Rate 85 Respiratory Rate 18 Blood Pressure 125/95 H Pulse Oximetry 96 Intake/Output Intake/Output: Intake & Output 09/28/21 09/29/21 09/30/21 10/01/21 23:59 23:59 23:59 23:59 Intake Total 2045 2250 1820 850 Output Total 2175 2700 3200 1000 Balance -130 -450 -1380 -150 Meds/Results Medications: Active Medications Generic Name Dose Route Start Last Admin Trade Name Freq PRN Reason Stop Dose Admin Acetaminophen 650 mg 09/29/21 09:30 Acetaminophen 325 Mg Tablet PO 10/29/21 09:29 Q6H PRN MILD PAIN 1-3 Apixaban 5 mg 09/27/21 17:00 10/01/21 08:18 Apixaban 5 Mg Tablet PO 5 mg BID LOPEZ Administration Atorvastatin Calcium 10 mg 09/27/21 21:00 09/30/21 21:12 Atorvastatin 10 Mg Tablet PO 10 mg HS LOPEZ Administration Collagenase 1 applic 09/23/21 21:00 10/01/21 09:30 Collagenase Oint 30 Gm Tube TOPICAL 1 applic Q12HR LOPEZ Administration Cyclobenzaprine HCl 10 mg 09/29/21 11:05 10/01/21 08:18 Cyclobenzaprine Hcl 10 Mg Tablet PO 10 mg TID LOPEZ Administration Diphenhydramine HCl 25 mg 09/29/21 09:17 Diphenhydramine Hcl Cap 25 Mg Capsule PO Q6H PRN Itching Duloxetine HCl 90 mg 09/28/21 09:00 10/01/21 08:18 Duloxetine Hcl 30 Mg Capsule.Dr PO 90 mg DAILY LOPEZ Administration Gabapentin 300 mg 09/24/21 14:00 10/01/21 06:17 Gabapentin 300 Mg Capsule PO 300 mg Q8HR LOPEZ Administration Fentanyl Citrate 2,500 mcg in 250 mls @ 0 mls/hr 09/23/21 00:35 09/25/21 13:38 Fentanyl 2,500 Mcg/Ns 250 Ml IV CONT Infused .Q0M LOPEZ Titration Protocol 0 MCG/HR Imipenem/Cilastatin
[2021-10-01] MEDS: oxyCODONE HCL (*CRX) 5 MG TAB IR PO ×2 (11:26→23:49)
--- NOTE | 2021-10-01 13:20 | PCNFU ---
Nutrition Follow-Up Complete: Inadequate oral intake as related to mechanical ventilation as evidenced by NPO. goal: Meet estimated nutritional needs Patient is progressing towards goal. We will continue current goal. Pt current nutrition is Regular with Kalyan BID. Last recorded weight is 64.9 kg-stable Bowel Motility:colostomy Labs Reviewed:Cr 0.3,Na 133, Alb 2.7 Meds Noted:Protonix, Keppra, Levophed, Vancomycin, Lopressor, Eliquis, Cymbalta Skin: Stage IV-coccyx Additional Notes: Patient remains on a regular diet, oral intake 80-100% of meals. Protein Modular of Kalyan providing an additional 90 kcals and 2.5 gms protein for wound healing. Agree with diet orders. Monitoring: Will monitor every 5 days.
--- NOTE | 2021-10-01 15:31 | P.PNIM_ITS ---
Progress Note: A&P Assessment and Plan (1) Acute respiratory failure: Code(s): J96.00 - Acute respiratory failure, unspecified whether with hypoxia or hypercapnia Status: Acute Assessment and Plan: Acute hypoxic respiratory failure, improving. Patient was intubated on 09/22/2021 in the ER upon arrival, patient was obtunded with decreased mental status. On 09/26/2021: She was Successfully extubated, and transition to 1 L nasal cannula with good O2 sats. Currently on getting midnight is on room air. -start incentive spirometry, -continue PT OT -continue regular diet as tolerated -up in chair (2) Septic shock: Code(s): A41.9 - Sepsis, unspecified organism; R65.21 - Severe sepsis with septic shock Status: Acute Assessment and Plan: Patient presented with sepsis secondary to UTI and has multiple wounds and osteomyelitis, UTI and bacteremia -blood cultures growing Proteus mirabilis, pansensitive -urine cultures growing Proteus mirabilis - Continue imipenem and vancomycin (patient is allergic to multiple antibiotics) -tachycardia resolved after IV fluids She was previously on Levophed titration to maintain her map > 65 mmHg. Blood pressure improved, she was taken of IV pressors and transfer out of the unit. Her lactic acid level has normalized -continue midodrine for blood pressure support. (3) Urinary tract infection: Code(s): N39.0 - Urinary tract infection, site not specified Status: Acute Assessment and Plan: UA suggestive of UTI. CT abdomen pelvis showed Cystitis and bilateral pyelitis. Bladder stones. See above for treat -urine culture growing pansensitive Proteus mirabilis (4) Peripheral vascular disease: Code(s): I73.9 - Peripheral vascular disease, unspecified Status: Chronic Assessment and Plan: right BKA likely secondary to PVD (5) JOSEPH (acute kidney injury): Code(s): N17.9 - Acute kidney failure, unspecified Status: Acute Assessment and Plan: Resolved nonoliguric acute kidney injury Likely secondary to sepsis. -patient has been having increased urinary output, still remains in positive fluid balance since admission Creatinine has normalized with IV fluid resuscitation Monitor urine output electrolytes and creatinine Continue magnesium and potassium replacement; urine electrolyte wasting likely in the setting of acute kidney injury with hopefully transient tubular dysfunction. (6) Altered mental status: Qualifiers: Altered mental status type: somnolence Qualified Code(s): R40.0 - Somnolence Code(s): R41.82 - Altered mental status, unspecified Status: Acute Assessment and Plan: Altered mental status has completely resolved. 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 She arrived she had a wound VAC on in her sacral area. At this time we have sent blood cultures and started patient on broad-spectrum empiric antibiotic therapy in the form of imipenem and vancomycin -wound debridement of the necrotic coccyx area was done on 09/23/2021 by surgery We will obtain records from [facility].
[2021-10-01 16:00] VITALS: BP 127/87; PULSE 119; RESP 18; TEMP 36.7; O2SAT 90
[2021-10-01] MEDS: traZODone HCL 50 MG TABLET PO (20:17)
[2021-10-01] MEDS: rOPINIRole HCL 1 MG TABLET 2 MG PO (20:17)
[2021-10-01] MEDS: MINERAL OIL/WHITE PETROLATUM OINTMENT 1 APPLIC EACH EYE (20:17)
[2021-10-01] MEDS: ATORVASTATIN 10 MG TABLET PO (20:18)
[2021-10-01 22:00] VITALS: BP 127/81; PULSE 109; RESP 21; TEMP 36.8; O2SAT 100
[2021-10-01 22:32] VITALS: O2SAT 94
[2021-10-01] MEDS: LORazepam (*CRX) 1 MG TABLET PO (23:49)
[2021-10-02 06:00] VITALS: BP 137/88; PULSE 112; RESP 20; TEMP 36.6; O2SAT 99
[2021-10-02] MEDS: CENTRAL LINE FLUSH 10 ML IV PUSH ×4 (06:04→21:25)
[2021-10-02] MEDS: GABAPENTIN 300 MG CAPSULE PO ×3 (06:06→22:09)
[2021-10-02 06:28] LABS: Basophils Absolute Auto 0.1 K/mm3 (0.0-0.1); Basophils Percent Auto 0.7 % (0.2-1.2); Eosinophils Absolute Auto 0.2 K/mm3 (0-0.3); Eosinophils Percent Auto 1.7 % (0-4.4); Hematocrit 27.5 % (37.0-47.0); Hemoglobin 8.4 g/dL (12.0-15.0); Immature Granulocyte Absolute 0.11 K/mm3 (0.00-0.031); Immature Granulocyte Percent A 0.8 % (0-0.5); Lymphocytes Absolute Auto 2.81 K/mm3 (0.9-3.2); Lymphocytes Percent Auto 21.2 % (18.3-44.2); Mean Corpuscular HGB Conc 30.5 g/dl (32-36); Mean Corpuscular Volume 85.1 fl (80-100); Mean Platelet Volume 8.3 fl (7.4-10.4); Monocytes Absolute Auto 0.7 K/mm3 (0.1-0.6); Monocytes Percent Auto 5.3 % (2.6-8.5); Neutrophils Absolute Auto 9.3 K/mm3 (1.3-6.7); Neutrophils Percent Auto 70.3 % (45.5-73.1); Platelet Count Result 471 k/mm3 (150-375); Red Blood Count 3.23 M/mm3 (4.2-5.4); Red Cell Distribution Width 17.1 % (11.5-14.5); White Blood Count 13.3 K/mm3 (4.5-10.0)
[2021-10-02 06:40] LABS: Albumin Level 2.6 g/dL (3.5-5.1); Anion Gap 4 mmol/L (8-16); Blood Urea Nitrogen 9 mg/dL (7-17); Calcium 8.2 mg/dL (8.4-10.2); Carbon Dioxide 28 mmol/L (22-30); Chloride 102 mmol/L (98-107); Estimated CRCL calculation 121 ml/min; Estimated Glomerular Filt Rate > 60; Glucose 107 mg/dL (65-110); Magnesium 1.7 mg/dL (1.6-2.3); Phosphorus 4.1 mg/dL (2.5-4.5); Potassium 3.2 mmol/L (3.4-5.0); Sodium 134 mmol/L (137-145)
--- NOTE | 2021-10-02 08:50 | PM.PNNEP ---
Progress Note: A&P Assessment and Plan (1) Hypokalemia: Code(s): E87.6 - Hypokalemia Status: Acute Assessment and Plan: hypokalemia. Etiology is multifactorial. The patient is not eating much and so potassium intake is low. The potassium is low today but the magnesium is normal so we can not blame the magnesium anymore. The patient has diarrhea leading to some potassium loss. Will check another urine potassium today since the potassium is mildly low. Repeat the potassium this afternoon. Magnesium normal today Will continue Checking frequent potassiums and supplementing as needed (2) JOSEPH (acute kidney injury): Code(s): N17.9 - Acute kidney failure, unspecified Status: Acute Assessment and Plan: resolved (3) Septic shock: Code(s): A41.9 - Sepsis, unspecified organism; R65.21 - Severe sepsis with septic shock Status: Acute Assessment and Plan: resolved (4) Urinary tract infection: Code(s): N39.0 - Urinary tract infection, site not specified Status: Acute Assessment and Plan: urine culture with Proteus on imipenem and vancomycin (5) Osteomyelitis: Code(s): M86.9 - Osteomyelitis, unspecified Status: Chronic Assessment and Plan: from her chronic wounds Wound care following Will continue to follow. Subjective Date/time seen: 10/02/21 08:50 Interval history: Patient is lying in bed comfortably today. About to eat breakfast. One bowel movement yesterday Exam Narrative: WDWN in NAD skin no rash head ncat lungs clear cor reg no rub or gallop abd BS+ nontender and soft ext no edema. Status post right amputation. Bandage on the stump Objective Data Vital Signs Vital Signs: Vital Signs - 24 hr 10/01/21 16:00 10/01/21 22:00 10/01/21 22:32 Temperature 36.7 C 36.8 C Pulse Rate 119 H 109 H Respiratory Rate 18 21 H Blood Pressure 127/87 127/81 Pulse Oximetry 90 100 94 10/02/21 06:00 Temperature 36.6 C Pulse Rate 112 H Respiratory Rate 20 Blood Pressure 137/88 Pulse Oximetry 99 Intake/Output Intake/Output: Intake & Output 09/29/21 09/30/21 10/01/21 10/02/21 23:59 23:59 23:59 23:59 Intake Total 2250 1820 2880 1050 Output Total 2700 3200 2450 1300 Balance -450 -1380 430 -250 Meds/Results Medications: Active Medications Generic Name Dose Route Start Last Admin Trade Name Bam PRN Reason Stop Dose Admin Acetaminophen 650 mg 09/29/21 09:30 Acetaminophen 325 Mg Tablet PO 10/29/21 09:29 Q6H PRN MILD PAIN 1-3 Apixaban 5 mg 09/27/21 17:00 10/01/21 17:07 Apixaban 5 Mg Tablet PO 5 mg BID LOPEZ Administration Atorvastatin Calcium 10 mg 09/27/21 21:00 10/01/21 20:18 Atorvastatin 10 Mg Tablet PO 10 mg HS LOPEZ Administration Collagenase 1 applic 09/23/21 21:00 10/01/21 20:16 Collagenase Oint 30 Gm Tube TOPICAL 1 applic Q12HR LOPEZ Administration Cyclobenzaprine HCl 10 mg 09/29/21 11:05 10/01/21 17:07 Cyclobenzaprine Hcl 10 Mg Tablet PO 10 mg TID LOPEZ Administration Diphenhydramine HCl 25 mg 09/29/21 09:17 Diphenhydramine Hcl Cap 25 Mg Capsule PO Q6H PRN Itching Duloxetine HCl 90 mg 09/28/21 09:00 10/01/21 08:18 Duloxetine Hcl 30 Mg Capsule.Dr PO 90 mg DAILY LOPEZ Administration Gabapentin 300 mg 09/24/21 14:00 10/02/21 06:06 Gabapentin 300 Mg Capsule PO 300 mg Q8HR LOPEZ Administration Fentanyl Citrate 2,500 mcg in 250 mls @ 0 mls/hr 09/23/21 00:35 09/25/21 13:38 Fentanyl 2,500 Mcg/Ns 250 Ml IV CONT Infused .Q0M LOPEZ Titration Protocol 0 MCG/HR Imipenem/Cilastatin Sodium 500 100 mls @ 300 mls/hr 09/23/21 09:00 10/02/21 04:00 mg/ Sodium Chloride IVPB Infused Q6H LOPEZ Infusion Vancomycin HCl 1,000 mg in 250 mls @ 250 mls/hr 09/24/21 18:00 10/02/21 06:04 Vancomycin 1,000 Mg/D5w 250 Ml IVPB 250 mls/hr Q12H LOPEZ Administrati
[2021-10-02] MEDS: CYCLOBENZAPRINE HCL 10 MG TABLET PO ×3 (09:30→17:13)
[2021-10-02] MEDS: APIXABAN 5 MG TABLET PO ×2 (09:30→17:13)
[2021-10-02] MEDS: COLLAGENASE OINT 30 GM TUBE 1 APPLIC TOPICAL ×2 (09:30→21:17)
[2021-10-02] MEDS: SILVERGEL (ELTA) 45 ML 1 APPLIC TOPICAL (09:31)
[2021-10-02] MEDS: PANTOPRAZOLE SODIUM IV 40 MG VIAL IV PUSH (09:31)
[2021-10-02] MEDS: DULoxetine HCL 30 MG CAPSULE.DR 90 MG PO (09:31)
[2021-10-02] MEDS: OLANZapine 2.5 MG TABLET PO (09:31)
[2021-10-02] MEDS: MIDODRINE HCL 10 MG TABLET PO ×3 (09:31→17:13)
[2021-10-02] MEDS: levETIRAcetam 500MG/NACL 100ML 500 MG/100 ML BAG 400 MG IVPB ×2 (09:33→21:13)
[2021-10-02] MEDS: oxyCODONE HCL (*CRX) 5 MG TAB IR PO ×3 (09:50→22:54)
[2021-10-02 13:47] LABS: Creatinine Urine 31.2 mg/dL
[2021-10-02 13:48] LABS: Potassium Urine Random 18.7 meq/L
[2021-10-02 14:00] VITALS: BP 105/60; PULSE 94; RESP 16; TEMP 36.6; O2SAT 99
[2021-10-02 15:17] LABS: Osmolality, Urine 290 mOsm/kg (50-1200)
[2021-10-02] MEDS: POTASSIUM CHLORIDE 20 MEQ TABLET 40 MEQ PO (15:37)
--- NOTE | 2021-10-02 16:51 | P.PNIM_ITS ---
Progress Note: A&P Assessment and Plan (1) Acute respiratory failure: Code(s): J96.00 - Acute respiratory failure, unspecified whether with hypoxia or hypercapnia Status: Acute Assessment and Plan: Acute hypoxic respiratory failure, improving. Patient was intubated on 09/22/2021 in the ER upon arrival, patient was obtunded with decreased mental status. On 09/26/2021: She was Successfully extubated, and transition to 1 L nasal cannula with good O2 sats. Currently on getting midnight is on room air. -start incentive spirometry, -continue PT OT -continue regular diet as tolerated -up in chair (2) Septic shock: Code(s): A41.9 - Sepsis, unspecified organism; R65.21 - Severe sepsis with septic shock Status: Acute Assessment and Plan: Patient presented with sepsis secondary to UTI and has multiple wounds and osteomyelitis, UTI and bacteremia -blood cultures growing Proteus mirabilis, pansensitive -urine cultures growing Proteus mirabilis - Continue imipenem and vancomycin (patient is allergic to multiple antibiotics) -tachycardia resolved after IV fluids She was previously on Levophed titration to maintain her map > 65 mmHg. Blood pressure improved, she was taken of IV pressors and transfer out of the unit. Her lactic acid level has normalized -continue midodrine for blood pressure support. (3) Urinary tract infection: Code(s): N39.0 - Urinary tract infection, site not specified Status: Acute Assessment and Plan: UA suggestive of UTI. CT abdomen pelvis showed Cystitis and bilateral pyelitis. Bladder stones. See above for treat -urine culture growing pansensitive Proteus mirabilis (4) Peripheral vascular disease: Code(s): I73.9 - Peripheral vascular disease, unspecified Status: Chronic Assessment and Plan: right BKA likely secondary to PVD (5) JOSEPH (acute kidney injury): Code(s): N17.9 - Acute kidney failure, unspecified Status: Acute Assessment and Plan: Resolved nonoliguric acute kidney injury Likely secondary to sepsis. -patient has been having increased urinary output, still remains in positive fluid balance since admission Creatinine has normalized with IV fluid resuscitation Monitor urine output electrolytes and creatinine Continue magnesium and potassium replacement; urine electrolyte wasting likely in the setting of acute kidney injury with hopefully transient tubular dysfunction. (6) Altered mental status: Qualifiers: Altered mental status type: somnolence Qualified Code(s): R40.0 - Somnolence Code(s): R41.82 - Altered mental status, unspecified Status: Acute Assessment and Plan: Altered mental status has completely resolved. 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 She arrived she had a wound VAC on in her sacral area. At this time we have sent blood cultures and started patient on broad-spectrum empiric antibiotic therapy in the form of imipenem and vancomycin -wound debridement of the necrotic coccyx area was done on 09/23/2021 by surgery We will obtain records from [facility].
[2021-10-02 20:00] VITALS: PULSE 110; RESP 20; O2SAT 99
[2021-10-02] MEDS: traZODone HCL 50 MG TABLET PO (21:13)
[2021-10-02] MEDS: rOPINIRole HCL 1 MG TABLET 2 MG PO (21:13)
[2021-10-02] MEDS: ATORVASTATIN 10 MG TABLET PO (21:13)
[2021-10-02] MEDS: MINERAL OIL/WHITE PETROLATUM OINTMENT 1 APPLIC EACH EYE (21:15)
[2021-10-02 22:00] VITALS: BP 115/62; PULSE 110; RESP 20; TEMP 37; O2SAT 99
[2021-10-03 00:44] VITALS: O2SAT 99
[2021-10-03 05:48] LABS: Basophils Absolute Auto 0.1 K/mm3 (0.0-0.1); Basophils Percent Auto 0.8 % (0.2-1.2); Eosinophils Absolute Auto 0.4 K/mm3 (0-0.3); Eosinophils Percent Auto 2.7 % (0-4.4); Hematocrit 26.5 % (37.0-47.0); Immature Granulocyte Absolute 0.11 K/mm3 (0.00-0.031); Immature Granulocyte Percent A 0.8 % (0-0.5); Lymphocytes Absolute Auto 2.44 K/mm3 (0.9-3.2); Lymphocytes Percent Auto 18.5 % (18.3-44.2); Mean Corpuscular HGB Conc 30.2 g/dl (32-36); Mean Corpuscular Hemoglobin 25.6 pg (26-34); Mean Corpuscular Volume 84.7 fl (80-100); Mean Platelet Volume 8.6 fl (7.4-10.4); Monocytes Absolute Auto 0.8 K/mm3 (0.1-0.6); Monocytes Percent Auto 6.4 % (2.6-8.5); Neutrophils Absolute Auto 9.3 K/mm3 (1.3-6.7); Neutrophils Percent Auto 70.8 % (45.5-73.1); Platelet Count Result 461 k/mm3 (150-375); Red Blood Count 3.13 M/mm3 (4.2-5.4); Red Cell Distribution Width 17.2 % (11.5-14.5); White Blood Count 13.2 K/mm3 (4.5-10.0)
[2021-10-03 06:00] VITALS: BP 105/55; PULSE 105; RESP 20; TEMP 36.4; O2SAT 98
[2021-10-03] MEDS: CENTRAL LINE FLUSH 10 ML IV PUSH ×3 (06:10→21:21)
[2021-10-03] MEDS: GABAPENTIN 300 MG CAPSULE PO ×3 (06:10→21:20)
--- NOTE | 2021-10-03 08:41 | PM.PNNEP ---
Progress Note: A&P Assessment and Plan (1) Hypokalemia: Code(s): E87.6 - Hypokalemia Status: Acute Assessment and Plan: hypokalemia. Etiology is multifactorial. The patient is not eating much and so potassium intake is low. The potassium is low today but the magnesium is normal so we can not blame the magnesium anymore. The patient has diarrhea leading to some potassium loss. Will check another urine potassium today since the potassium is mildly low. Repeat the potassium this afternoon. Magnesium normal today Potassium was low yesterday. Urine potassium was done and this showed a value of 19 when her potassium was low. This suggest extra renal loss or poor intake. She does have a colostomy but stools are semi-formed. She has not been eating as much as she should but she is trying harder. (2) JOSEPH (acute kidney injury): Code(s): N17.9 - Acute kidney failure, unspecified Status: Acute Assessment and Plan: resolved (3) Septic shock: Code(s): A41.9 - Sepsis, unspecified organism; R65.21 - Severe sepsis with septic shock Status: Acute Assessment and Plan: resolved Blood pressure is doing pretty well. I think we can try getting rid of the midodrine. (4) Urinary tract infection: Code(s): N39.0 - Urinary tract infection, site not specified Status: Acute Assessment and Plan: urine culture with Proteus on imipenem and vancomycin (5) Osteomyelitis: Code(s): M86.9 - Osteomyelitis, unspecified Status: Chronic Assessment and Plan: from her chronic wounds Wound care following Will continue to follow. Subjective Date/time seen: 10/03/21 08:41 Interval history: Patient is lying in bed comfortably today. She says she is eating better. Exam Narrative: WDWN in NAD skin no rash or subQ nodules head ncat lungs clear cor reg no rub or gallop abd BS+ nontender and soft ext no edema. Status post right amputation. Bandage on the stump Objective Data Vital Signs Vital Signs: Vital Signs - 24 hr 10/02/21 14:00 10/02/21 20:00 10/02/21 22:00 Temperature 36.6 C 37.0 C Pulse Rate 94 110 H 110 H Respiratory Rate 16 20 20 Blood Pressure 105/60 115/62 Pulse Oximetry 99 99 99 10/03/21 00:44 10/03/21 06:00 Temperature 36.4 C Pulse Rate 105 H Respiratory Rate 20 Blood Pressure 105/55 L Pulse Oximetry 99 98 Intake/Output Intake/Output: Intake & Output 09/30/21 10/01/21 10/02/21 10/03/21 23:59 23:59 23:59 23:59 Intake Total 1820 2880 2470 800 Output Total 3200 2450 2550 900 Balance -1380 430 -80 -100 Meds/Results Medications: Active Medications Generic Name Dose Route Start Last Admin Trade Name Freq PRN Reason Stop Dose Admin Acetaminophen 650 mg 09/29/21 09:30 Acetaminophen 325 Mg Tablet PO 10/29/21 09:29 Q6H PRN MILD PAIN 1-3 Apixaban 5 mg 09/27/21 17:00 10/02/21 17:13 Apixaban 5 Mg Tablet PO 5 mg BID LOPEZ Administration Atorvastatin Calcium 10 mg 09/27/21 21:00 10/02/21 21:13 Atorvastatin 10 Mg Tablet PO 10 mg HS LOPEZ Administration Collagenase 1 applic 09/23/21 21:00 10/02/21 21:17 Collagenase Oint 30 Gm Tube TOPICAL 1 applic Q12HR LOPEZ Administration Cyclobenzaprine HCl 10 mg 09/29/21 11:05 10/02/21 17:13 Cyclobenzaprine Hcl 10 Mg Tablet PO 10 mg TID LOPEZ Administration Diphenhydramine HCl 25 mg 09/29/21 09:17 Diphenhydramine Hcl Cap 25 Mg Capsule PO Q6H PRN Itching Duloxetine HCl 90 mg 09/28/21 09:00 10/02/21 09:31 Duloxetine Hcl 30 Mg Capsule.Dr PO 90 mg DAILY LOPEZ Administration Gabapentin 300 mg 09/24/21 14:00 10/03/21 06:10 Gabapentin 300 Mg Capsule PO 300 mg Q8HR LOPEZ Administration Levetiracetam 500 mg in 100 mls @ 400 mls/hr 09/24/21 21:00 10/02/21 21:50 Keppra Iv IVPB Infused Q12HR LOPEZ Infusion Piperacillin/Tazobactam/Dextrose 3.375 gm
[2021-10-03] MEDS: MINERAL OIL/WHITE PETROLATUM OINTMENT 1 APPLIC EACH EYE ×2 (09:19→21:20)
[2021-10-03] MEDS: MIDODRINE HCL 2.5 MG TABLET 5 MG PO ×3 (09:19→17:31)
[2021-10-03] MEDS: OLANZapine 2.5 MG TABLET PO (09:19)
[2021-10-03] MEDS: levETIRAcetam 500MG/NACL 100ML 500 MG/100 ML BAG 400 MG IVPB ×2 (09:19→21:20)
[2021-10-03] MEDS: COLLAGENASE OINT 30 GM TUBE 1 APPLIC TOPICAL ×2 (09:19→21:18)
[2021-10-03] MEDS: CYCLOBENZAPRINE HCL 10 MG TABLET PO ×3 (09:19→17:31)
[2021-10-03] MEDS: APIXABAN 5 MG TABLET PO ×2 (09:19→17:31)
[2021-10-03] MEDS: DULoxetine HCL 30 MG CAPSULE.DR 90 MG PO (09:19)
[2021-10-03] MEDS: PANTOPRAZOLE SODIUM IV 40 MG VIAL IV PUSH (09:20)
[2021-10-03] MEDS: LORazepam (*CRX) 1 MG TABLET PO ×2 (09:20→20:41)
[2021-10-03] MEDS: SILVERGEL (ELTA) 45 ML 1 APPLIC TOPICAL (09:20)
[2021-10-03] MEDS: oxyCODONE HCL (*CRX) 5 MG TAB IR PO ×2 (09:20→20:40)
[2021-10-03] MEDS: PIPERACILLIN/TAZOBACTAM SOD 4.5 GM in SODIUM CHLORIDE 0.9% IV 100 ML 200 ML IVPB ×2 (13:18→17:31)
[2021-10-03 13:57] VITALS: BP 88/60; PULSE 112; RESP 18; TEMP 36.4; O2SAT 97
[2021-10-03 14:37] LABS: Anion Gap 3 mmol/L (8-16); Blood Urea Nitrogen 9 mg/dL (7-17); Calcium 8.2 mg/dL (8.4-10.2); Carbon Dioxide 27 mmol/L (22-30); Chloride 103 mmol/L (98-107); Estimated CRCL calculation 99 ml/min; Estimated Glomerular Filt Rate > 60; Glucose 132 mg/dL (65-110); Magnesium 1.5 mg/dL (1.6-2.3); Potassium 3.6 mmol/L (3.4-5.0); Sodium 133 mmol/L (137-145)
[2021-10-03 15:39] VITALS: BP 98/63; PULSE 117
[2021-10-03 15:44] VITALS: BMI 10.0
[2021-10-03] MEDS: LACTATED RINGERS 1,000 ML 100 ML IV CONT (15:48)
[2021-10-03 16:00] LABS: Lactic Acid Reflex 1.2 mmol/L (0.7-2.1)
[2021-10-03] MEDS: rOPINIRole HCL 1 MG TABLET 2 MG PO (21:20)
[2021-10-03] MEDS: traZODone HCL 50 MG TABLET PO (21:20)
[2021-10-03] MEDS: ATORVASTATIN 10 MG TABLET PO (21:20)
[2021-10-03 22:00] VITALS: BP 107/57; PULSE 100; RESP 16; TEMP 36.5; O2SAT 100
[2021-10-04] MEDS: PIPERACILLIN/TAZOBACTAM SOD 4.5 GM in SODIUM CHLORIDE 0.9% IV 100 ML 200 ML IVPB ×3 (00:11→12:09)
[2021-10-04] MEDS: oxyCODONE HCL (*CRX) 5 MG TAB IR PO ×2 (00:13→06:00)
[2021-10-04] MEDS: LACTATED RINGERS 1,000 ML 100 ML IV CONT (05:59)
[2021-10-04 06:00] VITALS: BP 83/53; PULSE 100; RESP 20; TEMP 36.8; O2SAT 96
[2021-10-04] MEDS: CENTRAL LINE FLUSH 10 ML IV PUSH ×2 (06:00→16:02)
[2021-10-04] MEDS: GABAPENTIN 300 MG CAPSULE PO ×2 (06:00→16:00)
[2021-10-04 06:50] LABS: Basophils Absolute Auto 0.1 K/mm3 (0.0-0.1); Basophils Percent Auto 0.8 % (0.2-1.2); Eosinophils Absolute Auto 0.4 K/mm3 (0-0.3); Eosinophils Percent Auto 4.1 % (0-4.4); Hematocrit 25.9 % (37.0-47.0); Hemoglobin 7.7 g/dL (12.0-15.0); Immature Granulocyte Absolute 0.08 K/mm3 (0.00-0.031); Immature Granulocyte Percent A 0.9 % (0-0.5); Lymphocytes Absolute Auto 2.03 K/mm3 (0.9-3.2); Mean Corpuscular HGB Conc 29.7 g/dl (32-36); Mean Corpuscular Hemoglobin 25.8 pg (26-34); Mean Corpuscular Volume 86.9 fl (80-100); Mean Platelet Volume 8.8 fl (7.4-10.4); Monocytes Absolute Auto 0.7 K/mm3 (0.1-0.6); Monocytes Percent Auto 7.6 % (2.6-8.5); Neutrophils Absolute Auto 5.6 K/mm3 (1.3-6.7); Neutrophils Percent Auto 63.6 % (45.5-73.1); Platelet Count Result 450 k/mm3 (150-375); Red Blood Count 2.98 M/mm3 (4.2-5.4); Red Cell Distribution Width 17.2 % (11.5-14.5); White Blood Count 8.8 K/mm3 (4.5-10.0)
[2021-10-04 07:10] LABS: Albumin Level 2.7 g/dL (3.5-5.1); Anion Gap 3 mmol/L (8-16); Blood Urea Nitrogen 9 mg/dL (7-17); Calcium 8.2 mg/dL (8.4-10.2); Carbon Dioxide 29 mmol/L (22-30); Chloride 102 mmol/L (98-107); Estimated CRCL calculation 121 ml/min; Estimated Glomerular Filt Rate > 60; Glucose 95 mg/dL (65-110); Magnesium 1.6 mg/dL (1.6-2.3); Phosphorus 4.1 mg/dL (2.5-4.5); Potassium 3.4 mmol/L (3.4-5.0); Sodium 134 mmol/L (137-145)
--- NOTE | 2021-10-04 07:34 | PM.PNNEP ---
Progress Note: A&P Assessment and Plan (1) Hypokalemia: Code(s): E87.6 - Hypokalemia Status: Acute Assessment and Plan: hypokalemia. The potassium was normal today. Etiology is multifactorial. The patient is not eating much and so potassium intake is low. The potassium is low today but the magnesium is normal so we can not blame the magnesium anymore. The patient has had diarrhea in the past leading to some potassium loss. Magnesium normal today Potassium was low yesterday. She was supplemented and it is normal today. Will go ahead and give her routine oral potassium daily (2) JOSEPH (acute kidney injury): Code(s): N17.9 - Acute kidney failure, unspecified Status: Acute Assessment and Plan: resolved (3) Septic shock: Code(s): A41.9 - Sepsis, unspecified organism; R65.21 - Severe sepsis with septic shock Status: Acute Assessment and Plan: resolved (4) Urinary tract infection: Code(s): N39.0 - Urinary tract infection, site not specified Status: Acute Assessment and Plan: urine culture with Proteus on Zosyn (5) Osteomyelitis: Code(s): M86.9 - Osteomyelitis, unspecified Status: Chronic Assessment and Plan: from her chronic wounds Wound care following Will continue to follow. Subjective Date/time seen: 10/04/21 07:34 Interval history: Patient is lying in bed comfortably today. She says she is eating better. She basically grazes all day long. Exam Narrative: WDWN in NAD skin no rash or subQ nodules head ncat lungs clear bilaterally cor reg no rub or gallop abd BS+ nontender and soft ext no edema. Status post right amputation. Bandage on the stump Objective Data Vital Signs Vital Signs: Vital Signs - 24 hr 10/03/21 13:57 10/03/21 15:39 10/03/21 22:00 Temperature 36.4 C 36.5 C Pulse Rate 112 H 117 H 100 Respiratory Rate 18 16 Blood Pressure 88/60 L 98/63 L 107/57 L Pulse Oximetry 97 100 10/04/21 06:00 Temperature 36.8 C Pulse Rate 100 Respiratory Rate 20 Blood Pressure 83/53 L Pulse Oximetry 96 Intake/Output Intake/Output: Intake & Output 10/01/21 10/02/21 10/03/21 10/04/21 23:59 23:59 23:59 23:59 Intake Total 2880 2470 2680 1200 Output Total 2450 2550 2375 1900 Balance 430 -80 305 -700 Meds/Results Medications: Active Medications Generic Name Dose Route Start Last Admin Trade Name Freq PRN Reason Stop Dose Admin Acetaminophen 650 mg 09/29/21 09:30 Acetaminophen 325 Mg Tablet PO 10/29/21 09:29 Q6H PRN MILD PAIN 1-3 Apixaban 5 mg 09/27/21 17:00 10/03/21 17:31 Apixaban 5 Mg Tablet PO 5 mg BID LOPEZ Administration Atorvastatin Calcium 10 mg 09/27/21 21:00 10/03/21 21:20 Atorvastatin 10 Mg Tablet PO 10 mg HS LOPEZ Administration Collagenase 1 applic 09/23/21 21:00 10/03/21 21:18 Collagenase Oint 30 Gm Tube TOPICAL 1 applic Q12HR LOPEZ Administration Cyclobenzaprine HCl 10 mg 09/29/21 11:05 10/03/21 17:31 Cyclobenzaprine Hcl 10 Mg Tablet PO 10 mg TID LOPEZ Administration Diphenhydramine HCl 25 mg 09/29/21 09:17 Diphenhydramine Hcl Cap 25 Mg Capsule PO Q6H PRN Itching Duloxetine HCl 90 mg 09/28/21 09:00 10/03/21 09:19 Duloxetine Hcl 30 Mg Capsule.Dr PO 90 mg DAILY LOPEZ Administration Gabapentin 300 mg 09/24/21 14:00 10/04/21 06:00 Gabapentin 300 Mg Capsule PO 300 mg Q8HR LOPEZ Administration Levetiracetam 500 mg in 100 mls @ 400 mls/hr 09/24/21 21:00 10/03/21 21:35 Keppra Iv IVPB Infused Q12HR LOPEZ Infusion Piperacillin Sod/Tazobactam 100 mls @ 200 mls/hr 10/03/21 12:20 10/04/21 06:29 Sod 4.5 gm/ Sodium Chloride IVPB Infused Q6HR LOPEZ Infusion Lactated Ringer's 1,000 mls @ 100 mls/hr 10/03/21 15:25 10/04/21 05:59 Lr - Lactated Ringers Iv IV CONT 100 mls/hr .Q10H LOPEZ Administration Lorazepam 1 mg 09/28/21 08:56
[2021-10-04] MEDS: OLANZapine 2.5 MG TABLET PO (08:41)
[2021-10-04] MEDS: DULoxetine HCL 30 MG CAPSULE.DR 90 MG PO (08:41)
[2021-10-04] MEDS: MIDODRINE HCL 2.5 MG TABLET 5 MG PO ×3 (08:41→16:51)
[2021-10-04] MEDS: SILVERGEL (ELTA) 45 ML 1 APPLIC TOPICAL (08:41)
[2021-10-04] MEDS: CYCLOBENZAPRINE HCL 10 MG TABLET PO ×3 (08:41→16:51)
[2021-10-04] MEDS: APIXABAN 5 MG TABLET PO ×2 (08:41→16:51)
[2021-10-04] MEDS: POTASSIUM CHLORIDE 20 MEQ TABLET.ER PO (08:42)
[2021-10-04] MEDS: COLLAGENASE OINT 30 GM TUBE 1 APPLIC TOPICAL (09:00)
--- NOTE | 2021-10-04 09:58 | PM.DS ---
DS: Admitting Diagnosis Discharge Date 10/04/21 Admitting Diagnosis (1) Septic shock: Code(s): A41.9 - Sepsis, unspecified organism; R65.21 - Severe sepsis with septic shock Status: Acute Assessment and Plan: Patient is on ventilator support Admit to intensive care unit Started on vasopressors Try and keep map at 65 Early goal-directed therapy on going Sepsis workup in progress Strict intake and output (2) Sacral decubitus ulcer, stage IV: Code(s): L89.154 - Pressure ulcer of sacral region, stage 4 Status: Acute Assessment and Plan: Local care Surgery consult Started on broad-spectrum antibiotics (3) Altered mental status: Qualifiers: Altered mental status type: somnolence Qualified Code(s): R40.0 - Somnolence Code(s): R41.82 - Altered mental status, unspecified Status: Acute Assessment and Plan: Secondary to sepsis Encephalopathy Supportive care (4) Abdominal wound dehiscence: Code(s): T81.30XA - Disruption of wound, unspecified, initial encounter Status: Acute Assessment and Plan: Local care (5) Below-knee amputation of right lower extremity: Code(s): S88.111A - Complete traumatic amputation at level between knee and ankle, right lower leg, initial encounter Status: Acute Assessment and Plan: Local care (6) Colostomy in place: Code(s): Z93.3 - Colostomy status Status: Acute Assessment and Plan: Colostomy care (7) JOSEPH (acute kidney injury): Code(s): N17.9 - Acute kidney failure, unspecified Status: Acute Assessment and Plan: Likely to be pre renal Continue to monitor urine output IV fluids (8) Acute respiratory failure: Code(s): J96.00 - Acute respiratory failure, unspecified whether with hypoxia or hypercapnia Status: Acute Assessment and Plan: On ventilator support Likely secondary to sepsis Vent management as per environmental services director. DS: Discharge Diagnosis Discharge Diagnosis (1) Nausea and vomiting: Code(s): R11.2 - Nausea with vomiting, unspecified Status: Acute (2) Hypokalemia: Code(s): E87.6 - Hypokalemia Status: Acute (3) Osteomyelitis: Code(s): M86.9 - Osteomyelitis, unspecified Status: Chronic (4) Urinary tract infection: Code(s): N39.0 - Urinary tract infection, site not specified Status: Acute (5) Acute pyelitis: Code(s): N10 - Acute pyelonephritis Status: Acute (6) Open abdominal wall wound: Code(s): S31.109A - Unspecified open wound of abdominal wall, unspecified quadrant without penetration into peritoneal cavity, initial encounter Status: Acute (7) Anticoagulant long-term use: Code(s): Z79.01 - oysterman (current) use of anticoagulants Status: Acute (8) Spinal cord injury: Status: Chronic (9) Peripheral vascular disease: Code(s): I73.9 - Peripheral vascular disease, unspecified Status: Chronic (10) Acute respiratory failure: Code(s): J96.00 - Acute respiratory failure, unspecified whether with hypoxia or hypercapnia Status: Acute (11) JOSEPH (acute kidney injury): Code(s): N17.9 - Acute kidney failure, unspecified Status: Acute (12) Colostomy in place: Code(s): Z93.3 - Colostomy status Status: Acute (13) Below-knee amputation of right lower extremity: Code(s): S88.111A - Complete traumatic amputation at level between knee and ankle, right lower leg, initial encounter Status: Acute (14) Sacral decubitus ulcer, stage IV: Code(s): L89.154 - Pressure ulcer of sacral region, stage 4 Status: Chronic (15) Septic shock: Code(s): A41.9 - Sepsis, unspecified organism; R65.21 - Severe sepsis with septic shock Status: Acute (16) Sepsis: Qualifiers: Sepsis acute organ dysfunction status: without acute organ dysfunction Sepsis type: sepsis due
[2021-10-04 10:20] VITALS: BP 116/78
[2021-10-04] MEDS: POTASSIUM CHLORIDE 20 MEQ TABLET 40 MEQ PO (10:47)
[2021-10-04] MEDS: LIDOCAINE HCL 1% LOCAL INJ 2 ML AMPUL 5 ML INFILTRATE (11:20)
[2021-10-04] MEDS: MAGNESIUM SULF 1 GM/D5W 100 ML 1 GM/100 ML BAG IVPB (12:10)
[2021-10-04] MEDS: oxyCODONE/ACETAMINOPHEN (*CRX) 5-325 MG TABLET 1 TABLET PO (12:17)
[2021-10-04 12:43] LABS: EDCOVIDSCREEN Negative (Negative)
[2021-10-04] MEDS: levETIRAcetam 500 MG TABLET PO (13:03)
[2021-10-04] MEDS: SALINE LOCK FLUSH 10 ML IV PUSH (16:02)
[2021-10-08 10:23] LABS: Renin 3.16 ng/mL/h (0.25-5.82)
[2021-10-08 15:22] LABS: PRA 3.01 ng/mL/h (0.25-5.82)
== END 2021-10-04 17:14 | DRG 720 ==
LOC: ANHED 19:39 → ANHICU 21:39 → ANHIMU 09-28 19:05 → ANH2MED 09-30 17:11
PROVIDERS: Internal Medicine; Internal Medicine Nephrology; Admitting Provider Internal Medicine; Emergency Provider Family Medicine; PCP Internal Medicine; Visit Provider Hospitalist
DX: A41.89 Other specified sepsis (principal); R65.21 Severe sepsis with septic shock; N10 Acute pyelonephritis; L89.154 Pressure ulcer of sacral region, stage 4; G93.41 Metabolic encephalopathy; Z93.3 Colostomy status; J96.00 Acute respiratory failure, unspecified whether with hypoxia or hypercapnia; E87.6 Hypokalemia; I73.9 Peripheral vascular disease, unspecified; N17.9 Acute kidney failure, unspecified; Z20.822 Contact with and (suspected) exposure to COVID-19; T81.30XA Disruption of wound, unspecified, initial encounter; F17.210 Nicotine dependence, cigarettes, uncomplicated; I25.10 Atherosclerotic heart disease of native coronary artery without angina pectoris; B96.4 Proteus (mirabilis) (morganii) as the cause of diseases classified elsewhere; M46.28 Osteomyelitis of vertebra, sacral and sacrococcygeal region; L89.223 Pressure ulcer of left hip, stage 3; L89.313 Pressure ulcer of right buttock, stage 3; L89.893 Pressure ulcer of other site, stage 3; Z89.511 Acquired absence of right leg below knee; Z79.01 Long term (current) use of anticoagulants
CPT/HCPCS: 31500; 36415; 36556; 36569; 36600; 70450; 71045; 74177; 80048; 80053; 80069; 80202; 81001; 82088; 82140; 82375; 82533; 82550; 82570; 82805; 83050; 83605; 83735; 83930; 83935; 84100; 84132; 84133; 84244; 84443; 84484; 85025; 85027; 86140; 87040; 87077; 87086; 87088; 87186; 87426; 92610; 93005; 94002; 94003; 96365; 96367; 96375; 97110; 97162; 97165; 97530; 97535; 99285; A9270; C1751; C1752; C9113; C9803; J0131; J0330; J0743; J1335; J1630; J1650; J1940; J1953; J2060; J2250; J2543; J2704; J2765; J3010; J3370; J3475; J3480; J7030; J7120; Q9967; U0003; U0005

== ENCOUNTER 2021-11-01 13:22 | Emergency (ER) | payer OTHER, SELFPAY ==
[2021-11-01 13:24] VITALS: BP 130/81; PULSE 120; RESP 18; TEMP 36.2; O2SAT 98
--- NOTE | 2021-11-01 14:37 | ED.FEMALEGU ---
HPI - Female Genitourinary General Chief complaint: Urogenital-Female Stated complaint: wants catherer changed Time Seen by Provider: 11/01/21 14:03 History of Present Illness HPI Narrative: 13-year-old female presents to the emergency room complaints of urinary obstruction. Patient states she chronically has a Boyle catheter anchored. Reports having catheter replaced every 30 days. Patient states it has been 5 weeks. Denies fever denies abdominal pain denies back pain. Patient does have a history of urosepsis. Related Data Home Medications Medication Instructions Recorded Confirmed ibuprofen 600 mg PO Q6H PRN 02/04/21 09/24/21 Eliquis 5 mg PO BID 09/22/21 09/23/21 Kalyan 1 ea PO BID 09/22/21 09/23/21 acetaminophen 650 mg PO Q6H 09/22/21 09/23/21 atorvastatin 10 mg PO HS 09/22/21 09/23/21 calcium carbonate 500 mg PO Q6H PRN 09/22/21 09/23/21 diphenhydramine HCl 25 mg PO Q6H PRN 09/22/21 09/23/21 doxepin 50 mg PO Q6H PRN 09/22/21 09/23/21 duloxetine 90 mg PO DAILY 09/22/21 09/23/21 famotidine 20 mg PO DAILY 09/22/21 09/23/21 gabapentin 300 mg PO Q8H 09/22/21 09/23/21 hydroxyzine HCl 25 mg PO Q12-24H PRN 09/22/21 09/23/21 magnesium oxide 400 mg PO Q12H 09/22/21 09/23/21 mexiletine 200 mg PO Q12H 09/22/21 09/23/21 midodrine 10 mg PO Q12H 09/22/21 09/23/21 olanzapine 2.5 mg PO HS 09/22/21 09/23/21 ondansetron 4 mg PO Q4H PRN 09/22/21 09/23/21 cyclobenzaprine 10 mg PO TID 09/23/21 09/23/21 melatonin 3 mg PO HS PRN 09/23/21 09/23/21 polyethylene glycol 3350 17 g PO DAILY 09/23/21 09/23/21 ropinirole 2 mg PO HS 09/23/21 09/23/21 simethicone [Gas Relief 80 80 mg PO BID 09/23/21 09/23/21 (simethicone)] trazodone 50 mg PO HS 09/23/21 09/23/21 Allergies Allergy/AdvReac Type Severity Reaction Status Date / Time aspirin Allergy Unknown Unknown Verified 02/04/21 17:05 bupropion Allergy Unknown Unknown Verified 02/04/21 17:05 cephalexin Allergy Unknown Unknown Verified 02/04/21 17:05 clopidogrel Allergy Unknown Unknown Verified 02/04/21 17:05 codeine Allergy Unknown Unknown Verified 02/04/21 17:05 hydrocodone Allergy Unknown Unknown Verified 02/04/21 17:05 moxifloxacin Allergy Unknown Unknown Verified 02/04/21 17:05 procaine Allergy Unknown Unknown Verified 02/04/21 17:05 tramadol Allergy Unknown Unknown Verified 02/04/21 17:05 Review of Systems Review of Systems: CONSTITUTIONAL: Denies fever, chills, or sweats. EYES: Denies visual changes, redness, or discharge. ENT: Denies rhinorrhea, congestion, sore throat, or otalgia. CARDIOVASCULAR: Denies chest pain, palpitations, or edema. RESPIRATORY: Denies cough or dyspnea. GASTROINTESTINAL: Denies abdominal pain, nausea, vomiting, or diarrhea. GENITOURINARY: Denies dysuria or hematuria. SKIN: Denies rash or itching. MUSCULOSKELETAL: Denies back pain, joint pain, or myalgia. NEUROLOGIC: Denies headache, numbness, dizziness, or weakness. PSYCHIATRIC: Denies anxiety or depression. [facility] Past Medical History Medical History Chronic, continuous use of opioids Dyslipidemia History of coronary artery disease Peripheral arterial disease with history of revascularization Peripheral vascular disease Spinal cord injury Cervical spinal cord injury about 6 years ago per daughter Surgical History Surgical History History of cervical spinal surgery History of colon resection History of right below knee amputation Family History Family History Mother Colon cancer Father Acute myocardial infarction Congestive heart failure Social History Social History Social History: The patient was living at home alone up until June of 2021 when she was hospitalized at [facility]. Following this hospitalization, she has resided in a fpc. Her daughter, Mary, is her health
[2021-11-01 15:21] LABS: Add Urine Microscopic? YES; Appearance Urine Cloudy (Clear); Bacteria Urine Trace /hpf; Bilirubin Urine Negative (Negative); Blood Urine 2+ (Negative); Color Urine Yellow (Yellow); Glucose Urine UA Negative (Negative); Ketones Urine Negative (Negative); Leukocyte Esterase Ur 1+ LEU/UL (Negative); Mucus Urine Heavy /lpf; Nitrate Urine Negative (Negative); Protein Urine 1+ mg/dL (Negative); RBC Urine >75 /hpf (0-2); Specific Grav Ur 1.013 (1.001-1.035); Squamous Epithelial Cell Urine Many /hpf (Few); Urobilinogen Urine Negative mg/dL (<2.0); WBC Urine 21-30 /hpf
[2021-11-01 16:01] VITALS: BP 91/70; PULSE 94; RESP 18; TEMP 36.4; O2SAT 100
== END 2021-11-01 16:00 | disposition home or self-care (01) ==
PROVIDERS: Emergency Provider Nurse Practitioner Family; PCP Internal Medicine
DX: T83.511A Infection and inflammatory reaction due to indwelling urethral catheter, initial encounter (principal); E78.5 Hyperlipidemia, unspecified; I25.10 Atherosclerotic heart disease of native coronary artery without angina pectoris; I73.9 Peripheral vascular disease, unspecified; Z89.511 Acquired absence of right leg below knee; F17.210 Nicotine dependence, cigarettes, uncomplicated; Z79.01 Long term (current) use of anticoagulants
CPT/HCPCS: 51702; 81001; 87086; 99283

== ENCOUNTER 2025-04-28 13:25 | Observation (INO) | payer OTHER, SELFPAY ==
[2025-04-28] VITALS (15 sets, daily range): BP systolic 93–137; BP diastolic 57–115; PULSE 81–121; RESP 14–22; TEMP 35.8–36.4; O2SAT 91–100; BMI 31.2
--- NOTE | ~2025-04-28 | XR_ITS ---
EXAMINATION: XR chest 1V portable DATE: 04/28/2025 20:10 INDICATION: Left lower lobe pneumonia TECHNIQUE: frontal view of the chest was obtained. COMPARISON: Chest radiograph dated 09/30/2021 FINDINGS: Airspace opacities along the elevated left hemidiaphragm which could represent atelectasis or pneumonia. Or possible small left pleural effusion. Right lung remains clear. No pulmonary edema, pneumothorax or right-sided pleural effusion. Heart size is normal. Instrumented anterior spinal fusion, likely at either C6- C7 or C7-T1. IMPRESSION: 1. Opacities at the left lower lung zone along side the elevated left hemidiaphragm which could represent atelectasis, pneumonia, small left pleural effusion or some combination thereof. Reviewed, dictated and finalized at location A. IMPRESSION: 1. Opacities at the left lower lung zone along side the elevated left hemidiaph ragm which could represent atelectasis, pneumonia, small left pleural effusion or some combination thereof.
--- NOTE | ~2025-04-28 | CT_ITS ---
EXAMINATION: CT abdomen pelvis w con DATE: 04/28/2025 17:13 INDICATION: Nausea, vomiting and abdominal distention TECHNIQUE: Computed tomography (CT) of the abdomen and pelvis was performed with 100 mL Omnipaque-350 intravenous contrast. Automated exposure control and iterative reconstruction technique were employed. The dose-length product was 1087.81 mGy-cm. COMPARISON: None FINDINGS: Consolidation and bronchial mucous plugging in the basilar segments of the left lower lobe consistent with pneumonia. Linear band of atelectasis/scarring in the lingula. No pleural effusion. Heart size is normal. No pericardial effusion. Mitral annular calcific lesion. There is a density along the mitral valve plane, likely a mitraclip. Prominent diffuse hepatic steatosis. A few small calcite gallstones at the dependent aspect of the normal nondilated gallbladder. Spleen, bilateral adrenal glands, pancreas and left kidney are normal. There are a few scattered small regions of cortical scarring at the right kidney. Midline anterior abdominal wall surgical scar. There are a couple supraumbilical midline ventral hernias. A portion of the left hepatic lobe protrudes into the more cephalad hernia. The more caudal hernia contains a bilobed collection of herniated fat. Partial colectomy with long Red's pouch in the pelvis and a right lower quadrant and colostomy. Parastomal hernia containing fat and the more proximal cecum, terminal ileum and base of the appendix. The tip of the normal appendix remains intra-abdominal. There is fluid filling the small bowel which is not frankly dilated but which extends to a discrete transition point in the right pelvis with more distal decompressed small bowel extending to the ileocecal valve. Boyle catheter in the bladder. Uterus and bilateral adnexa are unremarkable. There is mild stranding at the inferior right paracolic gutter which is not directly associated with any bowel and could represent postoperative scarring. No abscess or free intraperitoneal gas. No pathologically enlarged abdominal or pelvic lymphadenopathy. There is calcified atherosclerosis of the aorta and many of the other arteries. Moderate lower thoracic and lumbosacral spondylosis with mild spondylosis of the intervening lumbar spine. There is a deep sacral decubitus ulcer with erosion along the posterior margin of the underlying S4, S5 and a 6 coccygeal segments consistent with secondary osteomyelitis. This appears chronic with some cortication along the ostial lysis which is new since 09/22/2021. IMPRESSION: 1. Left lower lobe pneumonia. 2. Partial colectomy with right right lower quadrant and colostomy with parastomal hernia containing the more proximal cecum, terminal ileum and portion of the appendix. 3. Distal small bowel transition point in the right hemipelvis with fluid filling but not frankly dilated more proximal bowel and with decompressed more distal bowel suggestive of a likely mild intermittent/partial obstruction. 4. Additional supraumbilical ventral hernias containing small portion of the anterior aspect of the left hepatic lobe and the more caudal containing fat. 5. Cholelithiasis. 6. Diffuse hepatic steatosis. 7. Deep sacral decubitus ulcer with underlying chronic osteomyelitis which appears to have stabilized since 09/22/2021. Reviewed, dictated and finalized at location A. IMPRESSION: 1. Left lower lobe pneumonia. 2. Partial colectomy with right right lower quadrant and colostomy with parasto mal hernia containing the more proximal cecum, terminal ileum and portion of th e appendix. 3. Distal small bowel transition point in the right hemipelvis with fluid filli ng but not frankly dilated more proximal bowel and with decompressed more dista l bowel suggestive of a likely mild intermittent/partial obstruction. 4. Additional supraumbilical ventral hernias containing small portion of the an terior aspect of the left hepatic lobe and the more caudal containing fat. 5. Cholelithiasis. 6. Diffuse hepatic steatosis. 7. Deep sacral decubitus ulcer with underlying chronic osteomyelitis which appe ars to have stabilized since 09/22/2021.
--- OUTSIDE RECORDS SUMMARY | 2025-04-28 13:33 | XMS_ITS | Clinical Summary ---
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 Phone Ana Cruz MD Primary Care Provider [phone] Social History Tobacco Use Types Packs/Day Years Used Date Smoking Tobacco: Smoker, Current Status Unknown Comments Unknown Sex and Gender Information Value Date Recorded Sex Assigned at Not on file Legal Sex Female 1:59 AM CDT Gender Identity Not on file Sexual Orientation Not on file Last Filed Vital Signs Vital Sign Reading Time Taken Comments Blood Pressure 130/80 12/05/2014 2:10 PM CDT ret aken by Pulse 85 12/05/2014 2:10 PM CDT Temperature - - Respiratory Rate - - Oxygen Saturation - - Inhaled Oxygen Concentration - - Weight 114.3 kg (252 lb) 12/05/2014 2:10 PM CDT Height 157.5 cm (5' 2) 12/05/2014 2:10 PM CDT Body Mass Index 46.09 12/05/2014 2:10 PM CDT Plan of Treatment Health Maintenance Due Date Last Done Comments Cervical Cancer Screening Pa p Smear (Age 30 to 64) Every 3 Years 1963 Colorectal Cancer Screening Colonoscopy (10 Years) 1963 Annual Physical 1966 Hepatitis C 1981 DTaP, Tdap and Td Vaccines ( 1 - Tdap) 1982 Pneumococcal Vaccine: 50+ Ye ars (1 of 2 - PCV) 1982 Cervical Cancer Screening Pa p with HPV Testing (Age 30 to 64) Every 5 Years 1993 Cervical Cancer Screening with HPV 1993 Mammogram Screening 2003 Zoster Vaccines (1 of 2) 2013 COVID-19 Vaccine (2023-2 5 season) 2024 RSV Immunization or 60+ Years (1 - 1-dose 75+ series) 2038 Meningococcal B Vaccine Aged Out No l onger eligible based on patient's age to complete this topic Meningococcal Vaccine Aged Out No connor beatris eligible based on patient's age to complete this topic RSV Immunizations Under 20 Months Aged Out No longer eligible based on patient's age to complete this topic Insurance Care Teams Concrete Laborer Relationship Specialty Start Date End Date Ana Cruz MD PCP - General INTERNAL MEDICINE 01/17/19
--- OUTSIDE RECORDS SUMMARY | 2025-04-28 13:33 | XMS_ITS | Encounter Summary ---
Author Organization [facility] Health Address [address] [place] [address] Care Team Providers Care Deliverer Merchandise Name Role Phone Arnie Brush MD Primary Care Provider [phone] Encounter Details Date Type Department Care Team (Late st Contact Info) Description 07/18/2021 Lab Requisition [facility] [address] [place] [address] Andrea Gutierrez MD [address] [place], [place] [id number] Social History Tobacco Use Types Packs/Day Years Used Date Smoking Tobacco: Every Day Cigarettes 1 48 Smokeless Tobacco: Never Alcohol Use Standard Drinks/Week Comments Never 0 (1 standard drink = 0.6 oz pur e alcohol) Comments No Sex and Gender Information Value Date Recorded Sex Assigned at Not on file Legal Sex Female 2:29 PM CDT Gender Identity Not on file Sexual Orientation Not on file documented as of this encounter Functional Status * Is person deaf or have serious hearing difficulty? Answer Date of Assessment Author No 06/06/2021 2:17 PM CDT [place], Le sley, RN * Is person blind or have serious difficulty seeing? Answer Date of Assessment Author No 06/06/2021 2:17 PM Vicenta Joyner RN * Does person have serious difficulty walking/climbing stairs? Answer Date of Assessment Author Yes 06/06/2021 2:17 PM Vicenta Joyner RN * Does person have difficulty dressing/bathing? Answer Date of Assessment Author Yes 06/06/2021 2:17 PM Vicenta Joyner RN * Does person have difficulty doing errands alone? Answer Date of Assessment Author Yes 06/06/2021 2:17 PM Vicenta Joyner RN documented as of this encounter Mental Status * Does person have difficulty concentrating/remembering/making decisions? Answer Entry Date Author No 06/06/2021 2:17 PM Vicenta Joyner RN documented in this encounter Plan of Treatment Not on file documented as of this encounter Procedures Procedure Name Priority Date/Time Associated Diagnosis Comments ERYTHROCYTE SEDIMENTATION RATE Routine 07/18/2021 4:00 AM [employer] documented in this encounter Results * (ABNORMAL) ERYTHROCYTE SEDIMENTATION RATE (07/18/2021 4:00 AM [employer]) Erythrocyte Sedimentation Rate Automated 82(H) 0 - 30 MM/HR 07/18/2021 9:42 AM [employer] [facility] Blood BLOOD SPECIMEN / Unknown Venipuncture / Unknown 07/18/2021 4:00 AM [employer] 07/18/2021 9:20 AM [employer] us Andrea Gutierrez MD LAB - HEMATOLOGY ORDERABLES F inal Result [facility] [address] [place] [address] documented in this encounter Visit Diagnoses Not on filedocumented in this encounter Additional Health Concerns Infection Onset Date Last Indicated Resolved Time MDRO 07/27/2021 07/27/2021 documented as of this encounter Care Teams Deliverer Merchandise Relationship Specialty Start Date End Date Arnie Brush MD [address] [place] [id number] PCP - General 05/21/21 documented as of this encounter
--- OUTSIDE RECORDS SUMMARY | 2025-04-28 13:33 | XMS_ITS | Clinical Summary ---
Author Organization [facility] Address [address] [place] [address] Care Team Providers Care Family And Consumer Science Professor Name Role Phone Arnie Brush MD Primary Care Provider [phone] Source Comments [facility],non-owned Affiliates and Associated Physician Practices is amultiple site organization consisting of ambulatory clinics and hospital sitesin [place], [place], [place] and [place]. This disclosure is being madepursuant to the Care Everywhere program and may not contain all information available regarding this patient. Last updated 18.[facility] [employer] Allergies Active Allergy Reactions Criticality Noted Date Comments Adhesive Sensitivity Itching 05/20/2021 Aspirin Unknown 05/20/2021 Cephalexin Unknown 05/20/2021 Clopidogrel Bleeding 10/29/2020 Codeine Shortness of Breath High 06/03/2021 Contrast-Iodinated Agents Fo r Ct/Other Anaphylaxis,Itching High 10/29/2020 Hydrocortisone Seizures,Unknown High 10/29/2020 Latex Itching 05/20/2021 Moxifloxacin Unknown 05/20/2021 Sulfa Drugs Skin Reactions 06/03/2021 Tramadol GI Discomfort 10/29/2020 Petrolatum Skin Reactions 06/03/2021 Medications * Be aware that medications may not be up to date on this document. Alwaysverify current medications with the patient. atorvastatin (LIPITOR) 10 MG tablet atorvastatin 10 mg tablet TK 1 T PO QD Active nicotine (NICODERM CQ) 21 MG/24HR patch Apply 1 (one) patch to skin once daily 14 patch 3 05/25/20 Active Additional Information Patient not taking.Reported on 05/25/2022 amoxicillin-clav ulanate (AUGMENTIN) 500-125 MG tablet Take 1 (one) tablet by mouth 3 times daily 90 tablet 07/13/20 Active Additional Information Patient not taking.Reported on 05/25/2022 gabapentin (NEURONTIN) 300 MG capsule Take 1 (one) capsule by mouth 3 times daily 90 capsule 07/13/20 Active acetaminophen (TYLENOL) 325 MG tablet Take 2 (two) tablets by mouth every 6 hours Maximum allowable Acetaminophen amount = 4 Grams (4000 mg) / 24 hours. 07/13/20 Active Additional Information Patient not taking.Reported on 05/25/2022 melatonin 10 MG Take 10 (ten) mg by mouth nightly as needed for Insomnia 07/13/20 Active potassium chloride (KLOR-CON) 20 MEQ packet Take 1 (one) packet by mouth daily with breakfast 30 packet 07/14/20 Active Additional Information Patient not taking.Reported on 05/25/2022 sodium hypochlorite (DAKINS) 0.25 % 1/2 strength solution Apply to affected area 2 times daily 473 mL 07/13/20 Active Additional Information Patient not taking.Reported on 05/25/2022 propranolol (INDERAL) 10 MG tablet Take 1 (one) tablet by mouth every 12 hours 60 tablet 07/13/20 Active Additional Information Patient not taking.Reported on 05/25/2022 potassium - sodium phosphates (PHOS-NAK) 280-160-250 MG powder Take 1 (one) packet by mouth 3 times daily with meals 100 packet 07/13/20 Active Additional Information Patient not taking.Reported on 05/25/2022 calcium carbonate (TUMS) 500 MG chew tablet Take 1 (one) tablet by mouth daily with breakfast 07/14/20 Active Additional Information Patient not taking.Reported on 05/25/2022 OLANZapine (ZYPREXA) 2.5 MG tablet Take 1 (one) tablet by mouth at bedtime 30 tablet 07/13/20 Active Additional Information Patient not taking.Reported on 05/25/2022 oxyCODONE, immediate release, (ROXICODONE) 5 MG tablet Take 1 (one) tablet by mouth every 6 hours 20 tablet 07/13/20 Active Additional Information Patient not taking.Reported on 05/25/2022 Famotidine (PEPCID PO) Active amitriptyline (Elavil) 25 MG tablet amitriptyline 25 mg tablet TAKE 1 TABLET BY MOUTH AT BEDTIME 03/15/20 Active cilostazol (Pletal) 50 MG tablet Take 50 mg by mouth 2 times daily 02/13/20 22 Active Active Problems Problem Noted Date Diagnosed Date Critical lower limb ischemia 06/06/2021 Neuropathic pain Post-operative pain Pulmonary insufficiency PAD (peripheral artery disease) Hypertension Pressure injury of skin of sacral region Acute blood loss as cause of postoperative anemi a Leukocytosis Multiple wounds Tachycardia Elevated troponin Hypotension due to hypovolemia Anxiety Acute postoperative pulmonary insufficiency Moderate protein-calorie malnutrition Social History Tobacco Use Types Packs/Day Years Used Date Smoking Tobacco: Every Day Cigarettes 1 48 Smokeless Tobacco: Never Tobacco Cessation:Ready to Q uit: Yes; Counseling Given: No Alcohol Use Standard Drinks/Week Comments Never 0 (1 standard drink = 0.6 oz pur e alcohol) Comments No Sex and Gender Information Value Date Recorded Sex Assigned at Not on file Legal Sex Female 2:29 PM CDT Gender Identity Not on file Sexual Orientation Not on file Last Filed Vital Signs Vital Sign Reading Time Taken Comments Blood Pressure 104/74 05/25/2022 1:36 PM CDT Pulse 104 05/25/2022 1:36 PM CDT Temperature 36.6 C (97.8 F) 05/25/2022 1:36 PM CDT Respiratory Rate 18 03/31/2022 11:35 AM CDT Oxygen Saturation 98% 05/25/2022 1:36 PM CDT Inhaled Oxygen Concentration 32% 06/30/2021 1 :00 PM CDT Weight 87.5 kg (193 lb) 03/31/2022 11:35 AM CDT Height 162.6 cm (5' 4) 05/25/2022 1:36 PM CDT Body Mass Index 35.3 03/31/2022 11:35 AM CDT Plan of Treatment Health Maintenance Due Date Last Done Comments COLOGUARD (AGES 45-75) - COLON CA SCREENING 1963 COLON MONITORING 1963 COLONOSCOPY - COLON CA SCREENING 1963 CT COLONOGRAPHY - COLON CA SCREENING 1963 Colorectal Cancer Screening 1963 FIT - COLON CA SCREENING 1963 FLEX SIG - COLON CA SCREENING 1963 MAMMOGRAM 1963 DTAP/TDAP/TD VACCINES (1 - Tdap) 1982 PNEUMOCOCCAL VACCINE 50+ (1 of 2 - PCV) 1982 PAP SMEAR 1984 LUNG CANCER SCREENING 2013 ZOSTER VACCINE (1 of 2) 2013 Respiratory Syncytial Virus (RSV) Vaccine Pt: or over 60 yrs (1 - Risk 60-74 years 1-dose series) 2023 COVID-19 VACCINE (1 - season) 2024 DEPRESSION SCREENING 09/04/2024 SCREENING FOR DIABETES 09/06/2024 , 09/02/2021, 08/30/2021, Additional history exists INFLUENZA VACCINE (#1) 2025 HEPATITIS C SCREENING Completed 06/29/2021 HIV SCREENING Completed 06/29/2021 HEPATITIS B VACCINE Aged Out No longe r eligible based on patient's age to complete this topic HIB VACCINE Aged Out No longer eligi ble based on patient's age to complete this topic HPV VACCINE Aged Out No longer eligi ble based on patient's age to complete this topic MENINGOCOCCAL (Group B) VACCINE SHARED DECISION-MAKING Aged Out No longer eligible based on patient's age to complete this topic MENINGOCOCCAL GROUPS A/C/Y/W VACCINE Aged Out No longer eligible based on patient's age to complete this topic Medical Devices Implanted Type Area Network Operations Center Technician Device Identifier Shelf Expiration Date Model / Serial / Lot Patch Repair Yudith-Gurd 8.0cm X 14cm Implanted:Qty: 1 on 06/07/2021 by Panda De La Cruz MD at [facility] N/A: Aorta [employer] 01/05/2026 [id number] / / [id number] Graft Cv 8mm 30cm [facility] Polystr 2 Vlr Implanted:Qty: 1 on 06/07/2021 by Panda De La Cruz MD at [facility] Left: Yana Mccarry 01/01/2026 [id number] E Procedures Procedure Name Priority Date/Time Associated Diagnosis Comments COMPREHENSIVE METABOLIC PANEL STAT 09/06/2021 3:25 AM [employer] HEPATITIS C AB SCREEN RFLX NAAT QUANT STAT 06/29/2021 3:10 AM CDT Acute postoperative pulmonary insufficiency HIV-1 HIV-2 ANTIBODY + HIV P24 AG PANEL STAT 06/29/2021 3:10 AM CDT Acute postoperative pulmonary insufficiency from Last 3 Months or Most Recently Relevant to Health Maintenance Results * (ABNORMAL) COMPREHENSIVE METABOLIC PANEL (09/06/2021 3:25 AM [employer]) Glucose 95 70 - 105 mg/dL 09/06/2021 11:01 AM [facility] Sodium 134(L) 136 - 145 mmol/L 09/06/2021 11:01 AM [facility] Potassium 3.4(L) 3.5 - 5.1 mmol/L 09/06/2021 11:01 AM [facility] Chloride 91(L) 98 - 107 mmol/L 09/06/2021 11:01 AM [facility] CO2 30 23 - 31 mmol/L 09/06/2021 11:01 AM [facility] Calcium 8.5 8.4 - 10.4 mg/dL 09/06/2021 11:01 AM [facility] Anion Gap 13 8 - 18 mmol/L 09/06/2021 11:01 AM [facility] BUN 15 9.8 - 20.1 mg/dL 09/06/2021 11:01 AM [facility] Creatinine 0.44(L) 0.57 - 1.11 mg/dL 09/06/2021 11:01 AM [facility] Alkaline Phosphatase 115 40 - 150 U/L 09/06/2021 11:01 AM [facility] ALT 6 0 - 61 U/L 09/06/2021 11:01 AM [facility] AST 10 5 - 34 U/L 09/06/2021 11:01 AM [facility] Protein Total 6.3(L) 6.4 - 8.3 gm/dL 09/06/2021 11:01 AM [facility] Albumin 3.0(L) 3.5 - 5.2 gm/dL 09/06/2021 11:01 AM [facility] Bilirubin Total 0.2 0.2 - 1.2 mg/dL 09/06/2021 11:01 AM [facility] eGFR by MDRD >60 >60 mL/min/1.7 3m2 09/06/2021 11:01 AM [facility] eGFR by MDRD >60 >60 mL/min/1.7 3m2 09/06/2021 11:01 AM [facility] Blood BLOOD SPECIMEN / Unknown Venipuncture / Unknown 09/06/2021 3:25 AM [employer] 09/06/2021 10:38 AM [employer] us Keagan Montgomery MD LAB - CHEMISTRY ORDERABLES Fi nal Result Performing Organization Address City/[facility] [place] [address] * HEPATITIS C AB SCREEN RFLX NAAT QUANT (06/29/2021 3:10 AM CDT) [facility] Hepatitis C Antibody Non-react helen Non-reac tive 06/29/2021 4:44 AM CDT [facility] Comment:Hepatitis C Antibody screen indicates no serologic evidence of past or current infection with Hepatitis C Virus. Patients with unexplained liver disease who are immunocompromised or suspected of having acute Hepatitis C infection may benefit from Nucleic Acid Test (ERICA) for Hepatitis C Viral RNA to confirm Hepatitis C status. Blood BLOOD SPECIMEN / Unknown Venipuncture / Unknown 06/29/2021 3:10 AM CDT 06/29/2021 3:14 AM CDT Panda De La Cruz MD LAB - CHEMISTRY ORDERABLES Fi nal Result Performing Organization Address City/[facility]/ZIP Co de Phone Number [facility] [address] [place] [id number], [place] [phone] * HIV-1 HIV-2 ANTIBODY + HIV P24 AG PANEL (06/29/2021 3:10 AM CDT) HIV Antigen/Antibod y 1 & 2 Non-reacti ve Non-react helen 06/29/2021 4:44 AM CDT [facility] Comment:Neither HIV-1 p24 An tigen nor HIV-1/HIV-2 Antibodies are detected. Blood BLOOD SPECIMEN / Unknown Venipuncture / Unknown 06/29/2021 3:10 AM CDT 06/29/2021 3:14 AM CDT Panda De La Cruz MD LAB - CHEMISTRY ORDERABLES Fi nal Result [facility] [address] [place] [address], [place] [phone] from Last 3 Months or Most Recently Relevant to Health Maintenance Additional Health Concerns Infection Onset Date Last Indicated MDRO 07/27/2021 07/27/2021 Insurance [facility] Advance Directives * Full Code (Latest Code Status on File) Date Activated Date Inactivated Comments 06/06/2021 1:26 PM 07/13/2021 8:32 PM Care Teams Family And Consumer Science Professor Relationship Specialty Start Date End Date Arnie Brush MD [address] [place] [phone] PCP - General 05/21/21
--- OUTSIDE RECORDS SUMMARY | 2025-04-28 13:33 | XMS_ITS | Encounter Summary ---
Author Organization [facility] Health Address [address] [place] [address] Care Team Providers Care Power Distribution Engineer Name Role Phone Arnie Brush MD Primary Care Provider [phone] Encounter Details Date Type Department Care Team (Late st Contact Info) Description 07/26/2021 Lab Requisition [facility] [address] [place] [address] Romain Booth MD [facility] [place] [address] Social History Tobacco Use Types Packs/Day Years [...] of Assessment Author No 06/06/2021 2:17 PM CDVicenta Diaz RN * Is person blind or have [...] Procedure Name Priority Date/Time Associated Diagnosis Comments CBC W AUTO DIFFERENTIAL STAT 07/26/2021 4:50 AM [employer]PER[employer] COMPREHENSIVE METABOLIC PANEL STAT 07/26/2021 4:50 AM [employer] documented in this encounter Results * (ABNORMAL) CBC WITH DIFFERENTIAL (07/26/2021 4:50 AM NURSES SUPERVISOR) WBC 14.5(H) 4.4 - 10.7 x10E9/L 07/26/2021 11:22 AM NURSES SUPERVIS[employer] [facility] WBC Corrected 07/26/2021 11:22 AM NURSES SUPERVIS[employer] [facility] RBC 3.56(L) 3.80 - 5.20 x10E12/L 07/26/2021 11:22 AM [employer]SES [employer]PER[employer] [facility] Hemoglobin 9.6(L) 12.0 - 15.6 gm/dL 07/26/2021 11:22 AM [employer]PER[employer] [facility] Hematocrit 32.2(L) 35.9 - 45.5 % 07/26/2021 11:22 AM NURSES [employer]PERVIS[employer] [facility] MCV 90.4 80.7 - 98.3 fl 07/26/2021 11:22 AM NURSES SUPERVIS[employer] [facility] MCH 27.0 26.7 - 34.0 pg 07/26/2021 11:22 AM [facility] MCHC 29.8(L) 30.8 - 35.9 gm/dL 07/26/2021 11:22 AM [facility] Platelet Count 473(H) 153 - 416 x10E9/L 07/26/2021 11:22 AM [facility] RDW-CV 16.0(H) 12.1 - 14.9 % 07/26/2021 11:22 AM [facility] MPV 9.3(L) 9.4 - 12.9 fl 07/26/2021 11:22 AM [facility] Neutrophils % 67.2 44.0 - 73.0 % 07/26/2021 11:22 AM [facility] Lymphocytes % 19.2(L) 20.0 - 43.0 % 07/26/2021 11:22 AM [facility] Monocytes % 9.9 5.0 - 13.0 % 07/26/2021 11:22 AM [facility] Eosinophils % 1.8 0.0 - 6.0 % 07/26/2021 11:22 AM [facility] Basophils % 0.9 0.0 - 2.0 % 07/26/2021 11:22 AM [facility] Immature Granulocytes 1.0 0 - 1 % 07/26/2021 11:22 AM [facility] Neutrophil Absolute 9.72(H) 2.01 - 7.14 x10E9/L 07/26/2021 11:22 AM [facility] Lymphocytes Absolute 2.77 1.07 - 3.94 x10E9/L 07/26/2021 11:22 AM [facility] Monocytes Absolute 1.43(H) 0.26 - 1.07 x10E9/L 07/26/2021 11:22 AM [facility] Eosinophils Absolute 0.26 0 - 0.47 x10E9/L 07/26/2021 11:22 AM [facility] Basophils Absolute 0.13(H) 0 - 0.08 x10E9/L 07/26/2021 11:22 AM [facility] Immature Granulocytes Absolute 0.14(H) 0.00 - 0.06 x10E9/L 07/26/2021 11:22 AM [facility] nRBC Auto 0 /100 WBC 07/26/2021 11:22 AM [facility] Blood BLOOD SPECIMEN / Unknown Venipuncture / Unknown 07/26/2021 4:50 AM NURSES SUPERVISOR 07/26/2021 10:10 AM [employer]URSES SUPER[employer]OR us Romain Booth MD LAB - HEMATOLOGY ORDERABL ES Final Result [facility] [address] [place], [place] [id number] * (ABNORMAL) COMPREHENSIVE METABOLIC PANEL (07/26/2021 4:50 AM NURSES SUPERVISOR) Glucose 114(H) 70 - 105 mg/dL 07/26/2021 11:43 AM [facility] Sodium 134(L) 136 - 145 mmol/L 07/26/2021 11:43 AM [facility] Potassium 4.1 3.5 - 5.1 mmol/L 07/26/2021 11:43 AM [facility] Chloride 95(L) 98 - 107 mmol/L 07/26/2021 11:43 AM [facility] CO2 24 23 - 31 mmol/L 07/26/2021 11:43 AM [facility] Calcium 8.6 8.4 - 10.4 mg/dL 07/26/2021 11:43 AM [facility] Anion Gap 15 8 - 18 mmol/L 07/26/2021 11:43 AM [facility] BUN 25(H) 9.8 - 20.1 mg/dL 07/26/2021 11:43 AM [facility] Creatinine 0.49(L) 0.57 - 1.11 mg/dL 07/26/2021 11:43 AM [facility] Alkaline Phosphatase 116 40 - 150 U/L 07/26/2021 11:43 AM [facility] ALT <6 0 - 61 U/L 07/26/2021 11:43 AM [facility] AST 8 5 - 34 U/L 07/26/2021 11:43 AM [facility] Protein Total 6.8 6.4 - 8.3 gm/dL 07/26/2021 11:43 AM [facility] Albumin 3.1(L) 3.5 - 5.2 gm/dL 07/26/2021 11:43 AM NURSES SUPERVISOR [facility] Bilirubin Total 0.3 0.2 - 1.2 mg/dL 07/26/2021 11:43 AM NURSES SUPERVISOR [facility] eGFR by MDRD >60 >60 mL/min/1.7 3m2 07/26/2021 11:43 AM NURSES SUPERVISOR [facility] eGFR by MDRD >60 >60 mL/min/1.7 3m2 07/26/2021 11:43 AM NURSES SUPERVISOR [facility] Blood BLOOD SPECIMEN / Unknown Venipuncture / Unknown 07/26/2021 4:50 AM NURSES SUPERVISOR 07/26/2021 10:10 AM NURSES SUPERVISOR us Romain Booth MD LAB - CHEMISTRY ORDERABLE S Final Result [facility] [address] [place] [address] documented in this encounter Visit Diagnoses Not on filedocumented in this encounter Additional Health Concerns Infection Onset Date Last Indicated Resolved Time MDRO 07/27/2021 07/27/2021 documented as of this encounter Care Teams Power Distribution Engineer Relationship Specialty Start Date End Date Arnie Brush MD [address] [place] [address] PCP - General 05/21/21 documented as of this encounter
--- OUTSIDE RECORDS SUMMARY | 2025-04-28 13:33 | XMS_ITS | Encounter Summary ---
Author Organization [facility] Health Address [address] [place] [address] Care Team Providers Care Roll Plugger Name Role Phone Arnie Brush MD Primary Care Provider [phone] Encounter Details Date Type Department Care Team (Late st Contact Info) Description 08/03/2021 Lab Requisition [facility] [address] [place] [address] Andrea Gutierrez MD [address] [place], [place] [id number] Social History Tobacco Use Types Packs/Day Years [...] Date/Time Associated Diagnosis Comments ERYTHROCYTE SEDIMENTATION RATE STAT 08/03/2021 4:20 AM PROMOTIONS COORDINATOR RETIC COUNT STAT 08/03/2021 4:20 AM PROMOTIONS COORDINATOR documented in this encounter Results * (ABNORMAL) ERYTHROCYTE SEDIMENTATION RATE (08/03/2021 4:20 AM PROMOTIONS COORDINATOR) [facility] Erythrocyte Sedimentation Rate Automated 108(H) 0 - 30 MM/HR 08/03/2021 12:39 PM PROMOTIONS COORDINATOR [facility] Blood BLOOD SPECIMEN / Unknown Venipuncture / Unknown 08/03/2021 4:20 AM PROMOTIONS COORDINATOR 08/03/2021 12:24 PM PROMOTIONS COORDINATOR us Andrea Gutierrez MD LAB - HEMATOLOGY ORDERABLES F inal Result [facility] [address] [place] [address] * (ABNORMAL) RETIC COUNT (08/03/2021 4:20 AM PROMOTIONS COORDINATOR) [facility] Reticulocyte Count 3.92(H) 0.5 - 1.7 % 08/03/2021 12:38 PM PROMOTIONS COORDINATOR [facility] Reticulocyte Absolute 0.1313(H) 0.0041 - 0.0971 x10E6/uL 08/03/2021 12:38 PM PROMOTIONS COORDINATOR [facility] Reticulocyte Immature Fractionated 30.4(H) 0.9 - 14.3 % 08/03/2021 12:38 PM PROMOTIONS COORDINATOR [facility] Hemoglobin Retic 30.0 27.8 - 36.8 pg 08/03/2021 12:38 PM PROMOTIONS COORDINATOR [facility] Blood BLOOD SPECIMEN / Unknown Venipuncture / Unknown 08/03/2021 4:20 AM PROMOTIONS COORDINATOR 08/03/2021 12:24 PM PROMOTIONS COORDINATOR us Andrea Gutierrez MD LAB - HEMATOLOGY ORDERABLES F inal Result [facility] [address] [place], [place] [id number] documented in this encounter Visit Diagnoses Not on filedocumented in this encounter Additional Health Concerns Infection Onset Date Last Indicated Resolved Time MDRO 07/27/2021 07/27/2021 documented as of this encounter Care Teams Roll Plugger Relationship Specialty Start Date End Date Arnie Brush MD [address] [id number] PCP - General 05/21/21 documented as of this encounter
--- OUTSIDE RECORDS SUMMARY | 2025-04-28 13:33 | XMS_ITS | Encounter Summary ---
Author Organization [facility] Health Address [address] [place] [address] Care Team Providers Care Counter Top Assembler Name Role Phone Arnie Brush MD Primary Care Provider [phone] Encounter Details Date Type Department Care Team (Late st Contact Info) Description 07/19/2021 Lab Requisition [facility] [address] [place] [address] Brandon Booth MD [address] [place] [address] Social History Tobacco Use Types Packs/Day Years [...] Assessment Author No 06/06/2021 2:17 PM CDT Vicenta Coleman RN * Is person blind or have serious difficulty seeing? Answer Date of Assessment Author No 06/06/2021 2:17 PM CDT Vicenta Coleman RN * Does person have serious difficulty walking/climbing stairs? Answer Date of Assessment Author Yes 06/06/2021 2:17 PM CDVicenta Diaz RN * Does person have difficulty dressing/bathing? Answer Date of Assessment Author Yes 06/06/2021 2:17 PM CDVicenta Diaz RN * Does person have difficulty doing [...] Diagnosis Comments CBC W AUTO DIFFERENTIAL STAT 07/19/2021 4:05 AM CONTRACT TECHNICIAN COMPREHENSIVE METABOLIC PANEL STAT 07/19/2021 4:05 AM CONTRACT TECHNICIAN documented in this encounter Results * (ABNORMAL) COMPREHENSIVE METABOLIC PANEL (07/19/2021 4:05 AM CONTRACT TECHNICIAN) Glucose 92 70 - 105 mg/dL 07/19/2021 2:36 PM CONTRACT TECHNICIAN [facility] Sodium 134(L) 136 - 145 mmol/L 07/19/2021 2:36 PM CONTRACT TECHNICIAN [facility] Potassium 5.3(H) 3.5 - 5.1 mmol/L 07/19/2021 2:36 PM CONTRACT TECHNICIAN [facility] Chloride 96(L) 98 - 107 mmol/L 07/19/2021 2:36 PM CONTRACT TECHNICIAN [facility] CO2 25 23 - 31 mmol/L 07/19/2021 2:36 PM CONTRACT TECHNICIAN [facility] Calcium 8.3(L) 8.4 - 10.4 mg/dL 07/19/2021 2:36 PM CONTRACT TECHNICIAN [facility] Anion Gap 13 8 - 18 mmol/L 07/19/2021 2:36 PM CONTRACT TECHNICIAN [facility] BUN 17 9.8 - 20.1 mg/dL 07/19/2021 2:36 PM CONTRACT TECHNICIAN [facility] Creatinine 0.44(L) 0.57 - 1.11 mg/dL 07/19/2021 2:36 PM CONTRACT TECHNICIAN [facility] Alkaline Phosphatase 107 40 - 150 U/L 07/19/2021 2:36 PM [facility] ALT 6 0 - 61 U/L 07/19/2021 2:36 PM [facility] AST 21 5 - 34 U/L 07/19/2021 2:36 PM [facility] Protein Total 6.5 6.4 - 8.3 gm/dL 07/19/2021 2:36 PM [facility] Albumin 2.8(L) 3.5 - 5.2 gm/dL 07/19/2021 2:36 PM [facility] Bilirubin Total 0.2 0.2 - 1.2 mg/dL 07/19/2021 2:36 PM [facility] eGFR by MDRD >60 >60 mL/min/1.7 3m2 07/19/2021 2:36 PM [facility] eGFR by MDRD >60 >60 mL/min/1.7 3m2 07/19/2021 2:36 PM [facility] Blood BLOOD SPECIMEN / Unknown Venipuncture / Unknown 07/19/2021 4:05 AM CONTRACT TECHNICIAN 07/19/2021 1:04 PM CONTRACT TECHNICIAN us Brandon Booth MD LAB - CHEMISTRY ORDERABLES Fin al Result Performing Organization Address City/State/[facility] Co de Phone Number [facility] [address] [place] [address] * (ABNORMAL) CBC WITH DIFFERENTIAL (07/19/2021 4:05 AM CONTRACT TECHNICIAN) WBC 8.3 4.4 - 10.7 x10E9/L 07/19/2021 1:44 PM [facility] WBC Corrected 07/19/2021 1:44 PM [facility] RBC 3.30(L) 3.80 - 5.20 x10E12/L 07/19/2021 1:44 PM [facility] Hemoglobin 9.1(L) 12.0 - 15.6 gm/dL 07/19/2021 1:44 PM [facility] Hematocrit 32.0(L) 35.9 - 45.5 % 07/19/2021 1:44 PM [facility] MCV 97.0 80.7 - 98.3 fl 07/19/2021 1:44 PM [facility] MCH 27.6 26.7 - 34.0 pg 07/19/2021 1:44 PM [facility] MCHC 28.4(L) 30.8 - 35.9 gm/dL 07/19/2021 1:44 PM [facility] Platelet Count 568(H) 153 - 416 x10E9/L 07/19/2021 1:44 PM [facility] RDW-CV 17.5(H) 12.1 - 14.9 % 07/19/2021 1:44 PM [facility] MPV 9.1(L) 9.4 - 12.9 fl 07/19/2021 1:44 PM [facility] Neutrophils % 49.4 44.0 - 73.0 % 07/19/2021 1:44 PM [facility] Lymphocytes % 32.5 20.0 - 43.0 % 07/19/2021 1:44 PM [facility] Monocytes % 10.2 5.0 - 13.0 % 07/19/2021 1:44 PM [facility] Eosinophils % 5.2 0.0 - 6.0 % 07/19/2021 1:44 PM [facility] Basophils % 1.9 0.0 - 2.0 % 07/19/2021 1:44 PM [facility] Immature Granulocytes 0.8 0 - 1 % 07/19/2021 1:44 PM [facility] Neutrophil Absolute 4.09 2.01 - 7.14 x10E9/L 07/19/2021 1:44 PM [facility] Lymphocytes Absolute 2.70 1.07 - 3.94 x10E9/L 07/19/2021 1:44 PM [facility] Monocytes Absolute 0.85 0.26 - 1.07 x10E9/L 07/19/2021 1:44 PM [facility] Eosinophils Absolute 0.43 0 - 0.47 x10E9/L 07/19/2021 1:44 PM CONTRACT TECHNICIAN [facility] Basophils Absolute 0.16(H) 0 - 0.08 x10E9/L 07/19/2021 1:44 PM CONTRACT TECHNICIAN [facility] Immature Granulocytes Absolute 0.07(H) 0.00 - 0.06 x10E9/L 07/19/2021 1:44 PM CONTRACT TECHNICIAN [facility] nRBC Auto 0 /100 WBC 07/19/2021 1:44 PM CONTRACT TECHNICIAN [facility] Blood BLOOD SPECIMEN / Unknown Venipuncture / Unknown 07/19/2021 4:05 AM CONTRACT TECHNICIAN 07/19/2021 1:04 PM CONTRACT TECHNICIAN Brandon Booth MD LAB - HEMATOLOGY ORDERABLES Fi nal Result Performing Organization Address City/State/[facility] Co de Phone Number [facility] [address] [place], [place] [id number] documented in this encounter Visit Diagnoses Not on filedocumented in this encounter Additional Health Concerns Infection Onset Date Last Indicated Resolved Time MDRO 07/27/2021 07/27/2021 documented as of this encounter Care Teams Counter Top Assembler Relationship Specialty Start Date End Date Arnie Brush MD [address] [place] [phone] PCP - General 05/21/21 documented as of this encounter
--- OUTSIDE RECORDS SUMMARY | 2025-04-28 13:33 | XMS_ITS | Encounter Summary ---
Author Organization [facility] Health Address [address] [facility] [address] Care Team Providers Care Mannequin Molder Name Role Phone Arnie Brush MD Primary Care Provider [phone] Encounter Details Date Type Department Care Team (Late st Contact Info) Description 07/15/2021 Lab Requisition [facility] [address] [place] [address] Romain Booth MD [facility] [place] [address] Social History Tobacco Use Types Packs/Day Years [...] Diagnosis Comments CBC W AUTO DIFFERENTIAL STAT 07/15/2021 3:25 AM STATE GAME PROTECTOR COMPREHENSIVE METABOLIC PANEL STAT 07/15/2021 3:25 AM STATE GAME PROTECTOR documented in this encounter Results * (ABNORMAL) CBC WITH DIFFERENTIAL (07/15/2021 3:25 AM STATE GAME PROTECTOR) [facility] WBC 8.2 4.4 - 10.7 x10E9/L 07/15/2021 12:58 PM STATE GAME PROTECTOR [facility] WBC Corrected 07/15/2021 12:58 PM STATE GAME PROTECTOR [facility] RBC 2.80(L) 3.80 - 5.20 x10E12/L 07/15/2021 12:58 PM STATE GAME PROTECTOR [facility] Hemoglobin 7.7(L) 12.0 - 15.6 gm/dL 07/15/2021 12:58 PM STATE GAME PROTECTOR [facility] Hematocrit 26.9(L) 35.9 - 45.5 % 07/15/2021 12:58 PM STATE GAME PROTECTOR [facility] MCV 96.1 80.7 - 98.3 fl 07/15/2021 12:58 PM STATE GAME PROTECTOR [facility] MCH 27.5 26.7 - 34.0 pg 07/15/2021 12:58 PM [facility] MCHC 28.6(L) 30.8 - 35.9 gm/dL 07/15/2021 12:58 PM [facility] Platelet Count 585(H) 153 - 416 x10E9/L 07/15/2021 12:58 PM [facility] RDW-CV 17.4(H) 12.1 - 14.9 % 07/15/2021 12:58 PM [facility] MPV 9.0(L) 9.4 - 12.9 fl 07/15/2021 12:58 PM [facility] Neutrophils % 61.5 44.0 - 73.0 % 07/15/2021 12:58 PM [facility] Lymphocytes % 24.2 20.0 - 43.0 % 07/15/2021 12:58 PM [facility] Monocytes % 8.4 5.0 - 13.0 % 07/15/2021 12:58 PM [facility] Eosinophils % 4.3 0.0 - 6.0 % 07/15/2021 12:58 PM [facility] Basophils % 1.1 0.0 - 2.0 % 07/15/2021 12:58 PM [facility] Immature Granulocytes 0.5 0 - 1 % 07/15/2021 12:58 PM [facility] Neutrophil Absolute 5.02 2.01 - 7.14 x10E9/L 07/15/2021 12:58 PM [facility] Lymphocytes Absolute 1.98 1.07 - 3.94 x10E9/L 07/15/2021 12:58 PM [facility] Monocytes Absolute 0.69 0.26 - 1.07 x10E9/L 07/15/2021 12:58 PM [facility] Eosinophils Absolute 0.35 0 - 0.47 x10E9/L 07/15/2021 12:58 PM [facility] Basophils Absolute 0.09(H) 0 - 0.08 x10E9/L 07/15/2021 12:58 PM [facility] Immature Granulocytes Absolute 0.04 0.00 - 0.06 x10E9/L 07/15/2021 12:58 PM [facility] nRBC Auto 0 /100 WBC 07/15/2021 12:58 PM [facility] Blood BLOOD SPECIMEN / Unknown Venipuncture / Unknown 07/15/2021 3:25 AM STATE GAME PROTECTOR 07/15/2021 12:50 PM STATE GAME PROTECTOR us Romain Booth MD LAB - HEMATOLOGY ORDERABL ES Final Result [facility] [address] [place] [address] * (ABNORMAL) COMPREHENSIVE METABOLIC PANEL (07/15/2021 3:25 AM STATE GAME PROTECTOR) Glucose 98 70 - 105 mg/dL 07/15/2021 1:22 PM [facility] Sodium 136 136 - 145 mmol/L 07/15/2021 1:22 PM [facility] Potassium 4.6 3.5 - 5.1 mmol/L 07/15/2021 1:22 PM [facility] Chloride 97(L) 98 - 107 mmol/L 07/15/2021 1:22 PM [facility] CO2 25 23 - 31 mmol/L 07/15/2021 1:22 PM [facility] Calcium 7.7(L) 8.4 - 10.4 mg/dL 07/15/2021 1:22 PM [facility] Anion Gap 14 8 - 18 mmol/L 07/15/2021 1:22 PM [facility] BUN 11 9.8 - 20.1 mg/dL 07/15/2021 1:22 PM [facility] Creatinine 0.41(L) 0.57 - 1.11 mg/dL 07/15/2021 1:22 PM [facility] Alkaline Phosphatase 104 40 - 150 U/L 07/15/2021 1:22 PM [facility] ALT 6 0 - 61 U/L 07/15/2021 1:22 PM [facility] AST 9 5 - 34 U/L 07/15/2021 1:22 PM [facility] Protein Total 5.4(L) 6.4 - 8.3 gm/dL 07/15/2021 1:22 PM [facility] Albumin 2.4(L) 3.5 - 5.2 gm/dL 07/15/2021 1:22 PM STATE GAME PROTECTOR [facility] Bilirubin Total 0.1(L) 0.2 - 1.2 mg/dL 07/15/2021 1:22 PM STATE GAME PROTECTOR [facility] eGFR by MDRD >60 >60 mL/min/1.7 3m2 07/15/2021 1:22 PM STATE GAME PROTECTOR [facility] eGFR by MDRD >60 >60 mL/min/1.7 3m2 07/15/2021 1:22 PM STATE GAME PROTECTOR [facility] Blood BLOOD SPECIMEN / Unknown Venipuncture / Unknown 07/15/2021 3:25 AM STATE GAME PROTECTOR 07/15/2021 12:50 PM STATE GAME PROTECTOR us Romain Booth MD LAB - CHEMISTRY ORDERABLE S Final Result [facility] [address] [place] [address] documented in this encounter Visit Diagnoses Not on filedocumented in this encounter Additional Health Concerns Infection Onset Date Last Indicated Resolved Time MDRO 07/27/2021 07/27/2021 documented as of this encounter Care Teams Mannequin Molder Relationship Specialty Start Date End Date Arnie Brush MD [address] [address] PCP - General 05/21/21 documented as of this encounter
--- OUTSIDE RECORDS SUMMARY | 2025-04-28 13:33 | XMS_ITS | Clinical Summary ---
Author Organization [facility] Address [address] [place] [address] Phone Care Team Providers Care Crotch Piece Baster Name Role Phone Arnie Brush MD Primary Care Provider [phone] Tony Keene MD Unavailable Allergies Active Allergy Reactions Criticality Noted Date Comments Aspirin Unknown Moxifloxacin Unknown Codeine Sulfate Unknown Hydrocortisone Unknown Cephalexin Unknown Medications ibuprofen (MOTRIN) 600 MG Tablet Take 600 mg by mouth every 8 hours as needed. Active celecoxib (CeleBREX) 200 MG Capsule Take 200 mg by mouth 2 times daily. Active traMADol (ULTRAM) 50 MG TabletIndication s:NOT TAKING - MAKES HER DROWSY Take 50 mg by mouth every 8 hours as needed. Indications : NOT TAKING - MAKES HER DROWSY Active cyclobenzaprine (FLEXERIL) 10 MG Tablet TK 1 T PO BID 2 03/06/2019 Active Active Problems Problem Noted Date Diagnosed Date Open wound of left thigh 05/03/2019 Myelopathy Cervicalgia Family History Medical History Relation Name Comments No Known Problems Daughter Heart Surgery Father Cancer Mother started in colo n, then to liver Colon Cancer Mother No Known Problems Son Relation Name Status Comments Daughter Alive Father Alive Mother Son Alive Social History Tobacco Use Types Packs/Day Years Used Date Smoking Tobacco: Every Day Cigarettes 1.5 53 Started: [birth year]1972 Smokeless Tobacco: Never Tobacco Cessation:Ready to Q uit: No; Counseling Given: Not Answered Alcohol Use Standard Drinks/Week Comments No 0 (1 standard drink = 0.6 oz pur e alcohol) Sexually Active Control Partners Comments Not Currently Male Comments No Sex and Gender Information Value Date Recorded Sex Assigned at Not on file Legal Sex Female 12:38 AM CDT Gender Identity Not on file Sexual Orientation Not on file Last Filed Vital Signs Vital Sign Reading Time Taken Comments Blood Pressure 122/74 03/14/2023 1:45 PM CDT Pulse 105 03/14/2023 1:45 PM CDT Temperature 36.1 C (97 F) 03/14/2023 1:45 PM CDT Respiratory Rate 17 03/14/2023 1:45 PM CDT Oxygen Saturation 98% 03/14/2023 1:45 PM CDT Inhaled Oxygen Concentration - - Weight 102.5 kg (226 lb) 03/14/2023 1:45 PM CDT Height 160 cm (5' 3) 03/14/2023 1:45 PM CDT Body Mass Index 40.03 03/14/2023 1:45 PM CDT Plan of Treatment Health Maintenance Due Date Last Done Comments Pap Smear 1984 Cervical Cancer Screening (CCS) 1993 HPV/Cotest 1993 Cologuard 2008 Colonoscopy 2008 Colorectal Cancer Screening 2008 Immunochemical Fecal Occult Blood 2008 Pneumococcal Immunization (5 0+ years) (1 of 1 - PCV) 2013 Zoster Immunization (1 of 2) 2013 SARS-COV-2 Immunization ( - 2023- season) 2024 Influenza Immunization (#1) 2025 Respiratory Syncytial Virus (RSV) Immunization (Adult) (1 - 1-dose 75+ series) 2038 DTaP/Tdap/Td Immunization Discontinued 2018, 10/26/2017 TdaP Immunization Completed 09/27/2018, 10/26/2017 Hepatitis C Virus (HCV) Screening Completed 06/29/2021 Hepatitis B Immunization Aged Out No longer eligible based on patient's age to complete this topic Human Papillomavirus (HPV) Immunization Aged Out No longer eligible based on patient's age to complete this topic Meningococcal Immunization (ACWY) Aged Out No longer eligible based on patient's age to complete this topic Rotavirus Immunization Aged Out No lo nger eligible based on patient's age to complete this topic Insurance MEDICAID [facility] Care Teams Crotch Piece Baster Relationship Specialty Start Date End Date Arnie Brush MD [address] [place] [address] PCP - General Infectious Disease 07/04/22 Tony Keene MD [address] [address] Consulting Physician Colon and Rectal Surgery 03/09/23
--- OUTSIDE RECORDS SUMMARY | 2025-04-28 13:33 | XMS_ITS | Encounter Summary ---
Author Organization [facility] Health Address [address] [facility] [place] [address] Care Team Providers Care Explosive Expert Name Role Phone Arnie Brush MD Primary Care Provider [phone] Encounter Details Date Type Department Care Team (Late st Contact Info) Description 09/06/2021 Lab Requisition [facility] [address] [place] [address] [place] [address] [place] [address] Social History Tobacco Use Types Packs/Day Years [...] of Assessment Author Yes 06/06/2021 2:17 PM CDT Vicenta Coleman RN * Does person have difficulty dressing/bathing? [...] Procedure Name Priority Date/Time Associated Diagnosis Comments URINALYSIS REFLEX TO MICROSCOPIC NO CULTURE Routine 09/06/2021 3:25 AM ACCOUNTS RECEIVABLE ANALYST URINE MICROSCOPIC ONLY Routine 3:25 AM ACCOUNTS RECEIVABLE ANALYST CBC W AUTO DIFFERENTIAL Routine 09/06/2021 3:25 AM ACCOUNTS RECEIVABLE ANALYST COMPREHENSIVE METABOLIC PANEL STAT 09/06/2021 3:25 AM ACCOUNTS RECEIVABLE ANALYST documented in this encounter Results * (ABNORMAL) CBC WITH DIFFERENTIAL (09/06/2021 3:25 AM ACCOUNTS RECEIVABLE ANALYST) [facility] WBC 8.5 4.4 - 10.7 x10E9/L 09/06/2021 10:49 AM ACCOUNTS RECEIVABLE ANALYST [facility] WBC Corrected 09/06/2021 10:49 AM ACCOUNTS RECEIVABLE ANALYST [facility] RBC 3.49(L) 3.80 - 5.20 x10E12/L 09/06/2021 10:49 AM ACCOUNTS RECEIVABLE ANALYST [facility] Hemoglobin 9.2(L) 12.0 - 15.6 gm/dL 09/06/2021 10:49 AM ACCOUNTS RECEIVABLE ANALYST [facility] Hematocrit 32.0(L) 35.9 - 45.5 % 09/06/2021 10:49 AM [facility] MCV 91.7 80.7 - 98.3 fl 09/06/2021 10:49 AM [facility] MCH 26.4(L) 26.7 - 34.0 pg 09/06/2021 10:49 AM [facility] MCHC 28.8(L) 30.8 - 35.9 gm/dL 09/06/2021 10:49 AM [facility] Platelet Count 492(H) 153 - 416 x10E9/L 09/06/2021 10:49 AM [facility] RDW-CV 16.2(H) 12.1 - 14.9 % 09/06/2021 10:49 AM [facility] MPV 8.1(L) 9.4 - 12.9 fl 09/06/2021 10:49 AM [facility] Neutrophils % 55.3 44.0 - 73.0 % 09/06/2021 10:49 AM [facility] Lymphocytes % 30.0 20.0 - 43.0 % 09/06/2021 10:49 AM [facility] Monocytes % 8.8 5.0 - 13.0 % 09/06/2021 10:49 AM [facility] Eosinophils % 4.2 0.0 - 6.0 % 09/06/2021 10:49 AM [facility] Basophils % 1.1 0.0 - 2.0 % 09/06/2021 10:49 AM [facility] Immature Granulocytes 0.6 0 - 1 % 09/06/2021 10:49 AM [facility] Neutrophil Absolute 4.71 2.01 - 7.14 x10E9/L 09/06/2021 10:49 AM [facility] Lymphocytes Absolute 2.55 1.07 - 3.94 x10E9/L 09/06/2021 10:49 AM [facility] Monocytes Absolute 0.75 0.26 - 1.07 x10E9/L 09/06/2021 10:49 AM [facility] Eosinophils Absolute 0.36 0 - 0.47 x10E9/L 09/06/2021 10:49 AM [facility] Basophils Absolute 0.09(H) 0 - 0.08 x10E9/L 09/06/2021 10:49 AM [facility] Immature Granulocytes Absolute 0.05 0.00 - 0.06 x10E9/L 09/06/2021 10:49 AM [facility] nRBC Auto 0 /100 WBC 09/06/2021 10:49 AM [facility] Blood BLOOD SPECIMEN / Unknown Venipuncture / Unknown 09/06/2021 3:25 AM ACCOUNTS RECEIVABLE ANALYST 09/06/2021 10:38 AM [facility] Keagan Montgomery MD LAB - HEMATOLOGY ORDERABLES F inal Result [facility] [address] [place] [address] * (ABNORMAL) COMPREHENSIVE METABOLIC PANEL (09/06/2021 3:25 AM [facility]) Glucose 95 70 - 105 mg/dL 09/06/2021 11:01 AM [facility] Sodium 134(L) 136 - 145 mmol/L 09/06/2021 11:01 AM [facility] Potassium 3.4(L) 3.5 - 5.1 mmol/L 09/06/2021 11:01 AM [facility] Chloride 91(L) 98 - 107 mmol/L 09/06/2021 11:01 AM [facility] CO2 30 23 - 31 mmol/L 09/06/2021 11:01 AM [facility] Calcium 8.5 8.4 - 10.4 mg/dL 09/06/2021 11:01 AM [facility] Anion Gap 13 8 - 18 mmol/L 09/06/2021 11:01 AM [facility] BUN 15 9.8 - 20.1 mg/dL 09/06/2021 11:01 AM [facility] Creatinine 0.44(L) 0.57 - 1.11 mg/dL 09/06/2021 11:01 AM [facility] Alkaline Phosphatase 115 40 - 150 U/L 09/06/2021 11:01 AM [facility] ALT 6 0 - 61 U/L 09/06/2021 11:01 AM [facility] AST 10 5 - 34 U/L 09/06/2021 11:01 AM [facility] Protein Total 6.3(L) 6.4 - 8.3 gm/dL 09/06/2021 11:01 AM [facility] Albumin 3.0(L) 3.5 - 5.2 gm/dL 09/06/2021 11:01 AM [facility] Bilirubin Total 0.2 0.2 - 1.2 mg/dL 09/06/2021 11:01 AM [facility] eGFR by MDRD >60 >60 mL/min/1.7 3m2 09/06/2021 11:01 AM [facility] eGFR by MDRD >60 >60 mL/min/1.7 3m2 09/06/2021 11:01 AM [facility] Blood BLOOD SPECIMEN / Unknown Venipuncture / Unknown 09/06/2021 3:25 AM ACCOUNTS RECEIVABLE ANALYST 09/06/2021 10:38 AM ACCOUNTS RECEIVABLE ANALYST Keagan Montgomery MD LAB - CHEMISTRY ORDERABLES Fi nal Result [facility] [address] [place] [address] * (ABNORMAL) URINE MICROSCOPIC ONLY (09/06/2021 3:25 AM ACCOUNTS RECEIVABLE ANALYST) RBC UA 3-5 None Seen, 0-2, 3-5 # /hpf 09/06/2021 9:28 AM [facility] WBC UA >100(A) None Seen, 0-5 # /hpf 09/06/2021 9:28 AM [facility] Bacteria UA 2+(A) None Seen 09/06/2021 9:28 AM [facility] Squamous Epithelial Cells 0-2 None Seen, 0-2, 3-5 /hpf 09/06/2021 9:28 AM [facility] Mucus UA 2+ /LPF 09/06/2021 9:28 AM [facility] Urine URINE SPECIMEN OBTAINED BY CLEAN CATCH PROCEDURE / Unknown Collection / Unknown 09/06/2021 3:25 AM ACCOUNTS RECEIVABLE ANALYST 09/06/2021 8:50 AM ACCOUNTS RECEIVABLE ANALYST Keagan Montgomery MD LAB - URINALYSIS ORDERABLES F inal Result Performing Organization Address [facility] Co de Phone Number [facility] [address] [place] [address] * (ABNORMAL) URINALYSIS REFLEX TO MICROSCOPIC NO CULTURE (09/06/2021 3:25 AM ACCOUNTS RECEIVABLE ANALYST) Color UA Yellow Straw, Yellow 09/06/2021 9:10 AM ACCOUNTS RECEIVABLE ANALYST [facility] Clarity UA Turbid(A) Clear 09/06/2021 9:10 AM ACCOUNTS RECEIVABLE ANALYST [facility] Glucose UA Negative Negative 09/06/2021 9:10 AM ACCOUNTS RECEIVABLE ANALYST [facility] Bilirubin UA Negative Negative 09/06/2021 9:10 AM ACCOUNTS RECEIVABLE ANALYST [facility] Ketone UA Negative Negative 09/06/2021 9:10 AM [facility] Specific [place] UA 1.025 1.005 - 1.030 09/06/2021 9:10 AM [facility] Blood UA 3+(A) Negative 09/06/2021 9:10 AM [facility] pH UA 7.5 5.0 - 8.0 pH 09/06/2021 9:10 AM [facility] Protein UA 2+(A) Negative 09/06/2021 9:10 AM [facility] Urobilinogen UA Negative Negative mg/dL 09/06/2021 9:10 AM [facility] Nitrite UA Positive(A) Negative 09/06/2021 9:10 AM [facility] Leukocyte Esterase UA 1+(A) Negative 09/06/2021 9:10 AM [facility] Urine Microscopy Urine microscopy to follow 09/06/2021 9:10 AM [facility] Urine URINE SPECIMEN OBTAINED BY CLEAN CATCH PROCEDURE / Unknown Collection / Unknown 09/06/2021 3:25 AM ACCOUNTS RECEIVABLE ANALYST 09/06/2021 8:50 AM ACCOUNTS RECEIVABLE ANALYST Keagan Montgomery MD LAB - URINALYSIS ORDERABLES F inal Result Performing Organization Address [facility] Co de Phone Number [facility] [address] [place], [place] [id number] documented in this encounter Visit Diagnoses Not on filedocumented in this encounter Additional Health Concerns Infection Onset Date Last Indicated Resolved Time MDRO 07/27/2021 07/27/2021 documented as of this encounter Care Teams Explosive Expert Relationship Specialty Start Date End Date Arnie Brush MD [address] [place] [phone] PCP - General 05/21/21 documented as of this encounter
--- OUTSIDE RECORDS SUMMARY | 2025-04-28 13:33 | XMS_ITS | Encounter Summary ---
Author Organization [facility] Health Address [address] [facility] [place] [address] Care Team Providers Care Supervisor Jewelry Department Name Role Phone Arnie Brush MD Primary Care Provider [phone] Encounter Details Date Type Department Care Team (Late st Contact Info) Description 07/29/2021 Lab Requisition [facility] [address] [place] [address] Romain Booth MD [facility] [place] [address] Social History Tobacco Use Types Packs/Day Years [...] Diagnosis Comments CBC W AUTO DIFFERENTIAL STAT 07/29/2021 4:00 AM NEEDLE FELT MAKING 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 COMPREHENSIVE METABOLIC PANEL STAT 07/29/2021 4:00 AM NEEDLE FELT MAKING 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 documented in this encounter Results * (ABNORMAL) CBC WITH DIFFERENTIAL (07/29/2021 4:00 AM NEEDLE FELT MAKING 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) WBC 12.7(H) 4.4 - 10.7 x10E9/L 07/29/2021 12:17 PM NEEDLE FELT MAKING 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 [facility] WBC Corrected 07/29/2021 12:17 PM NEEDLE FELT MAKING 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 [facility] RBC 3.45(L) 3.80 - 5.20 x10E12/L 07/29/2021 12:17 PM NEEDLE FELT MAKING 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 [facility] Hemoglobin 9.4(L) 12.0 - 15.6 gm/dL 07/29/2021 12:17 PM NEEDLE FELT MAKING 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 [facility] Hematocrit 32.3(L) 35.9 - 45.5 % 07/29/2021 12:17 PM NEEDLE FELT MAKING 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 [facility] MCV 93.6 80.7 - 98.3 fl 07/29/2021 12:17 PM NEEDLE FELT MAKING 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 [facility] MCH 27.2 26.7 - 34.0 pg 07/29/2021 12:17 PM [facility] MCHC 29.1(L) 30.8 - 35.9 gm/dL 07/29/2021 12:17 PM [facility] Platelet Count 545(H) 153 - 416 x10E9/L 07/29/2021 12:17 PM [facility] RDW-CV 15.8(H) 12.1 - 14.9 % 07/29/2021 12:17 PM [facility] MPV 9.3(L) 9.4 - 12.9 fl 07/29/2021 12:17 PM [facility] Neutrophils % 68.3 44.0 - 73.0 % 07/29/2021 12:17 PM [facility] Lymphocytes % 20.3 20.0 - 43.0 % 07/29/2021 12:17 PM [facility] Monocytes % 6.1 5.0 - 13.0 % 07/29/2021 12:17 PM [facility] Eosinophils % 3.9 0.0 - 6.0 % 07/29/2021 12:17 PM [facility] Basophils % 0.7 0.0 - 2.0 % 07/29/2021 12:17 PM [facility] Immature Granulocytes 0.7 0 - 1 % 07/29/2021 12:17 PM [facility] Neutrophil Absolute 8.68(H) 2.01 - 7.14 x10E9/L 07/29/2021 12:17 PM [facility] Lymphocytes Absolute 2.59 1.07 - 3.94 x10E9/L 07/29/2021 12:17 PM [facility] Monocytes Absolute 0.78 0.26 - 1.07 x10E9/L 07/29/2021 12:17 PM [facility] Eosinophils Absolute 0.50(H) 0 - 0.47 x10E9/L 07/29/2021 12:17 PM [facility] Basophils Absolute 0.09(H) 0 - 0.08 x10E9/L 07/29/2021 12:17 PM [facility] Immature Granulocytes Absolute 0.09(H) 0.00 - 0.06 x10E9/L 07/29/2021 12:17 PM [facility] nRBC Auto 0 /100 WBC 07/29/2021 12:17 PM [facility] Blood BLOOD SPECIMEN / Unknown Venipuncture / Unknown 07/29/2021 4:00 AM NEEDLE FELT MAKING 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 07/29/2021 11:47 AM NEEDLE FELT MAKING 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 us Romain Booth MD LAB - HEMATOLOGY ORDERABL ES Final Result [facility] [address] [place] [id number] * (ABNORMAL) COMPREHENSIVE METABOLIC PANEL (07/29/2021 4:00 AM NEEDLE FELT MAKING 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) Glucose 94 70 - 105 mg/dL 07/29/2021 12:46 PM [facility] Sodium 133(L) 136 - 145 mmol/L 07/29/2021 12:46 PM [facility] Potassium 5.1 3.5 - 5.1 mmol/L 07/29/2021 12:46 PM [facility] Chloride 90(L) 98 - 107 mmol/L 07/29/2021 12:46 PM [facility] CO2 26 23 - 31 mmol/L 07/29/2021 12:46 PM [facility] Calcium 8.8 8.4 - 10.4 mg/dL 07/29/2021 12:46 PM [facility] Anion Gap 17 8 - 18 mmol/L 07/29/2021 12:46 PM [facility] BUN 20 9.8 - 20.1 mg/dL 07/29/2021 12:46 PM [facility] Creatinine 0.49(L) 0.57 - 1.11 mg/dL 07/29/2021 12:46 PM [facility] Alkaline Phosphatase 121 40 - 150 U/L 07/29/2021 12:46 PM [facility] ALT <6 0 - 61 U/L 07/29/2021 12:46 PM [facility] AST 27 5 - 34 U/L 07/29/2021 12:46 PM [facility] Protein Total 7.3 6.4 - 8.3 gm/dL 07/29/2021 12:46 PM [facility] Albumin 2.9(L) 3.5 - 5.2 gm/dL 07/29/2021 12:46 PM NEEDLE FELT MAKING 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 [facility] Bilirubin Total 0.2 0.2 - 1.2 mg/dL 07/29/2021 12:46 PM NEEDLE FELT MAKING 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 [facility] eGFR by MDRD >60 >60 mL/min/1.7 3m2 07/29/2021 12:46 PM NEEDLE FELT MAKING 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 [facility] eGFR by MDRD >60 >60 mL/min/1.7 3m2 07/29/2021 12:46 PM NEEDLE FELT MAKING 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 [facility] Blood BLOOD SPECIMEN / Unknown Venipuncture / Unknown 07/29/2021 4:00 AM NEEDLE FELT MAKING 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 07/29/2021 11:47 AM NEEDLE FELT MAKING 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 Narrative [facility] - 07/29/2021 12:46 PM NEEDLE FELT MAKING 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 Moderately hemolyzed us Romain Booth MD LAB - CHEMISTRY ORDERABLE S Final Result [facility] [address] [place] [address] documented in this encounter Visit Diagnoses Not on filedocumented in this encounter Additional Health Concerns Infection Onset Date Last Indicated Resolved Time MDRO 07/27/2021 07/27/2021 documented as of this encounter Care Teams Supervisor Jewelry Department Relationship Specialty Start Date End Date Arnie Brush MD [address] [place] [phone] PCP - General 05/21/21 documented as of this encounter
--- OUTSIDE RECORDS SUMMARY | 2025-04-28 13:33 | XMS_ITS | Encounter Summary ---
Author Organization [facility] Health Address [address] [place] [address] Care Team Providers Care Reservation Agent Name Role Phone Arnie Brush MD Primary Care Provider [phone] Encounter Details Date Type Department Care Team (Late st Contact Info) Description 08/01/2021 Lab Requisition [facility] [address] [place] [address] [place] [address] [place] [address] Social History Tobacco Use Types Packs/Day Years [...] CDVicenta Diaz RN * Does person have serious difficulty [...] Associated Diagnosis Comments ERYTHROCYTE SEDIMENTATION RATE STAT 08/01/2021 4:20 AM MANAGER SHOP documented in this encounter Results * (ABNORMAL) ERYTHROCYTE SEDIMENTATION RATE (08/01/2021 4:20 AM MANAGER SHOP) Erythrocyte Sedimentation Rate Automated 72(H) 0 - 30 MM/HR 08/01/2021 9:55 AM MANAGER SHOP [facility] Blood BLOOD SPECIMEN / Unknown Venipuncture / Unknown 08/01/2021 4:20 AM MANAGER SHOP 08/01/2021 9:12 AM MANAGER SHOP us Richmond Mayes MD LAB - HEMATOLOGY ORDERABLES Bonnie l Result [facility] [address] [place] [address] documented in this encounter Visit Diagnoses Not on filedocumented in this encounter Additional Health Concerns Infection Onset Date Last Indicated Resolved Time MDRO 07/27/2021 07/27/2021 documented as of this encounter Care Teams Reservation Agent Relationship Specialty Start Date End Date Arnie Brush MD [address] [place] [phone] PCP - General 05/21/21 documented as of this encounter
--- OUTSIDE RECORDS SUMMARY | 2025-04-28 13:33 | XMS_ITS | Encounter Summary ---
Author Organization [facility] Health Address [address] [facility] [place] [address] Care Team Providers Care Icing Mixer Name Role Phone Arnie Brush MD Primary Care Provider [phone] Encounter Details Date Type Department Care Team (Late st Contact Info) Description 07/22/2021 Lab Requisition [facility] [address] [place] [address] Romain Booth MD [facility] [place] [address] Social History Tobacco Use Types Packs/Day Years [...] 06/06/2021 2:17 PM Vicenta Joyner RN * Is person blind or have [...] Diagnosis Comments CBC W AUTO DIFFERENTIAL STAT 07/22/2021 4:46 AM TEA TREE FARM WORKER COMPREHENSIVE METABOLIC PANEL STAT 07/22/2021 4:46 AM TEA TREE FARM WORKER documented in this encounter Results * (ABNORMAL) CBC WITH DIFFERENTIAL (07/22/2021 4:46 AM TEA TREE FARM WORKER) WBC 8.8 4.4 - 10.7 x10E9/L 07/22/2021 7:10 PM TEA TREE FARM WORKER [facility] WBC Corrected 07/22/2021 7:10 PM TEA TREE FARM WORKER [facility] RBC 3.36(L) 3.80 - 5.20 x10E12/L 07/22/2021 7:10 PM TEA TREE FARM WORKER [facility] Hemoglobin 9.3(L) 12.0 - 15.6 gm/dL 07/22/2021 7:10 PM TEA TREE FARM WORKER [facility] Hematocrit 33.0(L) 35.9 - 45.5 % 07/22/2021 7:10 PM TEA TREE FARM WORKER [facility] MCV 98.2 80.7 - 98.3 fl 07/22/2021 7:10 PM TEA TREE FARM WORKER [facility] MCH 27.7 26.7 - 34.0 pg 07/22/2021 7:10 PM [facility] MCHC 28.2(L) 30.8 - 35.9 gm/dL 07/22/2021 7:10 PM [facility] Platelet Count 453(H) 153 - 416 x10E9/L 07/22/2021 7:10 PM [facility] RDW-CV 16.9(H) 12.1 - 14.9 % 07/22/2021 7:10 PM [facility] MPV 9.1(L) 9.4 - 12.9 fl 07/22/2021 7:10 PM [facility] Neutrophils % 50.4 44.0 - 73.0 % 07/22/2021 7:10 PM [facility] Lymphocytes % 32.8 20.0 - 43.0 % 07/22/2021 7:10 PM [facility] Monocytes % 9.9 5.0 - 13.0 % 07/22/2021 7:10 PM [facility] Eosinophils % 5.2 0.0 - 6.0 % 07/22/2021 7:10 PM [facility] Basophils % 1.0 0.0 - 2.0 % 07/22/2021 7:10 PM [facility] Immature Granulocytes 0.7 0 - 1 % 07/22/2021 7:10 PM [facility] Neutrophil Absolute 4.43 2.01 - 7.14 x10E9/L 07/22/2021 7:10 PM [facility] Lymphocytes Absolute 2.88 1.07 - 3.94 x10E9/L 07/22/2021 7:10 PM [facility] Monocytes Absolute 0.87 0.26 - 1.07 x10E9/L 07/22/2021 7:10 PM [facility] Eosinophils Absolute 0.46 0 - 0.47 x10E9/L 07/22/2021 7:10 PM [facility] Basophils Absolute 0.09(H) 0 - 0.08 x10E9/L 07/22/2021 7:10 PM [facility] Immature Granulocytes Absolute 0.06 0.00 - 0.06 x10E9/L 07/22/2021 7:10 PM [facility] nRBC Auto 0 /100 WBC 07/22/2021 7:10 PM [facility] Blood BLOOD SPECIMEN / Unknown Venipuncture / Unknown 07/22/2021 4:46 AM TEA TREE FARM WORKER 07/22/2021 6:57 PM TEA TREE FARM WORKER us Romain Booth MD LAB - HEMATOLOGY ORDERABL ES Final Result [facility] [address] [place] [address] * (ABNORMAL) COMPREHENSIVE METABOLIC PANEL (07/22/2021 4:46 AM TEA TREE FARM WORKER) Glucose 93 70 - 105 mg/dL 07/22/2021 7:19 PM [facility] Sodium 135(L) 136 - 145 mmol/L 07/22/2021 7:19 PM [facility] Potassium 5.0 3.5 - 5.1 mmol/L 07/22/2021 7:19 PM [facility] Comment:Hemolyzed sample Chloride 96(L) 98 - 107 mmol/L 07/22/2021 7:19 PM [facility] CO2 24 23 - 31 mmol/L 07/22/2021 7:19 PM [facility] Calcium 8.6 8.4 - 10.4 mg/dL 07/22/2021 7:19 PM [facility] Anion Gap 15 8 - 18 mmol/L 07/22/2021 7:19 PM [facility] BUN 17 9.8 - 20.1 mg/dL 07/22/2021 7:19 PM [facility] Creatinine 0.49(L) 0.57 - 1.11 mg/dL 07/22/2021 7:19 PM [facility] Alkaline Phosphatase 101 40 - 150 U/L 07/22/2021 7:19 PM [facility] ALT <6 0 - 61 U/L 07/22/2021 7:19 PM [facility] AST 21 5 - 34 U/L 07/22/2021 7:19 PM [facility] Protein Total 6.8 6.4 - 8.3 gm/dL 07/22/2021 7:19 PM [facility] Albumin 2.9(L) 3.5 - 5.2 gm/dL 07/22/2021 7:19 PM [employer] [facility] Bilirubin Total 0.2 0.2 - 1.2 mg/dL 07/22/2021 7:19 PM [employer] [facility] eGFR by MDRD >60 >60 mL/min/1.7 3m2 07/22/2021 7:19 PM [employer] [facility] eGFR by MDRD >60 >60 mL/min/1.7 3m2 07/22/2021 7:19 PM [employer] [facility] Blood BLOOD SPECIMEN / Unknown Venipuncture / Unknown 07/22/2021 4:46 AM [employer] 07/22/2021 6:57 PM [employer] [place] Romain Booth MD LAB - CHEMISTRY ORDERABLE S Final Result [facility] [address] [place] [address] documented in this encounter Visit Diagnoses Not on filedocumented in this encounter Additional Health Concerns Infection Onset Date Last Indicated Resolved Time MDRO 07/27/2021 07/27/2021 documented as of this encounter Care Teams I[employer] Relationship Specialty Start Date End Date Arnie Brush MD [address] [id number] PCP - General 05/21/21 documented as of this encounter
--- OUTSIDE RECORDS SUMMARY | 2025-04-28 13:33 | XMS_ITS | Encounter Summary ---
Author Organization [facility] Health Address [address] [place] [address] Care Team Providers Care Store Group Manager Name Role Phone Arnie Brush MD Primary Care Provider [phone] Encounter Details Date Type Department Care Team (Late st Contact Info) Description 07/27/2021 Lab Requisition [facility] [address] [place] [address] JustinsreedharsalvadorAndrea [address] [place] [id number] Social History Tobacco Use Types Packs/Day Years [...] Yes 06/06/2021 2:17 PM CDVicenta Diaz RN documented as of this encounter Mental Status * Does person have difficulty concentrating/remembering/making decisions? Answer Entry Date Author No 06/06/2021 2:17 PM Vicenta Joyner RN documented in this encounter Plan of Treatment Not on file documented as of this encounter Procedures Procedure Name Priority Date/Time Associated Diagnosis Comments URINE MICROSCOPIC ONLY REFLEX TO CULTURE Routine 07/27/2021 4:20 AM PRINT MANAGER URINALYSIS REFLEX MICROSCOPIC REFLEX CULTURE STAT 07/27/2021 4:20 AM PRINT MANAGER CULTURE URINE Routine 07/27/2021 4:20 AM PRINT MANAGER CBC W AUTO DIFFERENTIAL STAT 07/27/2021 4:20 AM PRINT MANAGER COMPREHENSIVE METABOLIC PANEL STAT 07/27/2021 4:20 AM PRINT MANAGER documented in this encounter Results * (ABNORMAL) CULTURE URINE (07/27/2021 4:20 AM PRINT MANAGER) Culture Urine >100,000 CFU/mL Pseudomonas aeruginosa(A) YVON 07/30/2021 6:30 AM PRINT MANAGER [facility] Comment: Isolate is multi drug resistant organism (MDRO). Carbapenem-resistant Enterobacteriaciae (CRE) isolated Urine MID-STREAM URINE SPECIMEN / Unknown Collection / Unknown 07/27/2021 4:20 AM PRINT MANAGER 07/27/2021 8:44 AM PRINT MANAGER Narrative [facility] - 07/30/2021 6:30 AM PRINT MANAGER This isolate is a multidrug resistant organism (MDRO). MDROs are resistant to 3 or more classes of antibiotics. Contact Precautions required. Infectious Diseases consult recommended. Organism Antibiotic Method Susceptibility Pseudomonas aeruginosa Amikacin YVON 4 ug/mL: Susceptible Pseudomonas aeruginosa Cefepime YVON 32 ug/mL: Resistant Pseudomonas aeruginosa Ceftazidime YVON >=64 ug/mL: Resistant Pseudomonas aeruginosa Ciprofloxacin YVON <=0.25 ug/mL: Susceptible Pseudomonas aeruginosa Gentamicin YVON 8 ug/mL: Intermediate Pseudomonas aeruginosa Meropenem YVON 4 ug/mL: Intermediate Pseudomonas aeruginosa Tobramycin YVON <=1 ug/mL: Susceptible Pseudomonas aeruginosa Piperacillin-tazobactam KB Resistant Andrea Archer LAB - MICROBIOLOGY ORDERABLES Ed ited Result - Final [facility] [address] [place] [address], [facility] [phone] * (ABNORMAL) URINE MICROSCOPIC ONLY REFLEX TO CULTURE (07/27/2021 4:20 AM PRINT MANAGER) Reflex Status Culture to follow 07/27/2021 10:08 AM [facility] RBC UA 11-20(A) None Seen, 0-2, 3-5 # /hpf 07/27/2021 10:08 AM [facility] WBC UA >100(A) None Seen, 0-5 # /hpf 07/27/2021 10:08 AM [facility] WBC Clumps UA Many(A) None Seen /HPF 07/27/2021 10:08 AM [facility] Bacteria UA 1+(A) None Seen 07/27/2021 10:08 AM [facility] Squamous Epithelial Cells None Seen None Seen, 0-2, 3-5 /hpf 07/27/2021 10:08 AM [facility] Mucus UA 4+ /LPF 07/27/2021 10:08 AM [facility] Urine MID-STREAM URINE SPECIMEN / Unknown Collection / Unknown 07/27/2021 4:20 AM PRINT MANAGER 07/27/2021 8:44 AM PRINT MANAGER Narrative [facility] - 07/27/2021 10:08 AM PRINT MANAGER Andrea Archer LAB - URINALYSIS ORDERABLES Bonnie forrest Result [facility] [address] [id number] * (ABNORMAL) COMPREHENSIVE METABOLIC PANEL (07/27/2021 4:20 AM [facility]) Glucose 98 70 - 105 mg/dL 07/27/2021 10:09 AM [facility] Sodium 132(L) 136 - 145 mmol/L 07/27/2021 10:09 AM [facility] Potassium 4.2 3.5 - 5.1 mmol/L 07/27/2021 10:09 AM [facility] Chloride 93(L) 98 - 107 mmol/L 07/27/2021 10:09 AM [facility] CO2 26 23 - 31 mmol/L 07/27/2021 10:09 AM [facility] Calcium 8.5 8.4 - 10.4 mg/dL 07/27/2021 10:09 AM [facility] Anion Gap 13 8 - 18 mmol/L 07/27/2021 10:09 AM [facility] BUN 25(H) 9.8 - 20.1 mg/dL 07/27/2021 10:09 AM [facility] Creatinine 0.46(L) 0.57 - 1.11 mg/dL 07/27/2021 10:09 AM [facility] Alkaline Phosphatase 120 40 - 150 U/L 07/27/2021 10:09 AM [facility] ALT <6 0 - 61 U/L 07/27/2021 10:09 AM [facility] AST 7 5 - 34 U/L 07/27/2021 10:09 AM [facility] Protein Total 6.5 6.4 - 8.3 gm/dL 07/27/2021 10:09 AM [facility] Albumin 2.9(L) 3.5 - 5.2 gm/dL 07/27/2021 10:09 AM [facility] Bilirubin Total 0.5 0.2 - 1.2 mg/dL 07/27/2021 10:09 AM [facility] eGFR by MDRD >60 >60 mL/min/1.7 3m2 07/27/2021 10:09 AM [facility] eGFR by MDRD >60 >60 mL/min/1.7 3m2 07/27/2021 10:09 AM [facility] Blood BLOOD SPECIMEN / Unknown Venipuncture / Unknown 07/27/2021 4:20 AM PRINT MANAGER 07/27/2021 8:44 AM PRINT MANAGER Andrea Archer LAB - CHEMISTRY ORDERABLES Final Result [facility] [address] [place] [address] * (ABNORMAL) CBC WITH DIFFERENTIAL (07/27/2021 4:20 AM PRINT MANAGER) WBC 12.9(H) 4.4 - 10.7 x10E9/L 07/27/2021 9:42 AM [facility] WBC Corrected 07/27/2021 9:42 AM [facility] RBC 3.35(L) 3.80 - 5.20 x10E12/L 07/27/2021 9:42 AM [facility] Hemoglobin 9.2(L) 12.0 - 15.6 gm/dL 07/27/2021 9:42 AM [facility] Hematocrit 30.6(L) 35.9 - 45.5 % 07/27/2021 9:42 AM [facility] MCV 91.3 80.7 - 98.3 fl 07/27/2021 9:42 AM [facility] MCH 27.5 26.7 - 34.0 pg 07/27/2021 9:42 AM [facility] MCHC 30.1(L) 30.8 - 35.9 gm/dL 07/27/2021 9:42 AM [facility] Platelet Count 469(H) 153 - 416 x10E9/L 07/27/2021 9:42 AM [facility] RDW-CV 16.0(H) 12.1 - 14.9 % 07/27/2021 9:42 AM [facility] MPV 9.3(L) 9.4 - 12.9 fl 07/27/2021 9:42 AM [facility] Neutrophils % 64.3 44.0 - 73.0 % 07/27/2021 9:42 AM [facility] Lymphocytes % 20.4 20.0 - 43.0 % 07/27/2021 9:42 AM [facility] Monocytes % 10.1 5.0 - 13.0 % 07/27/2021 9:42 AM [facility] Eosinophils % 3.1 0.0 - 6.0 % 07/27/2021 9:42 AM [facility] Basophils % 1.1 0.0 - 2.0 % 07/27/2021 9:42 AM [facility] Immature Granulocytes 1.0 0 - 1 % 07/27/2021 9:42 AM [facility] Neutrophil Absolute 8.28(H) 2.01 - 7.14 x10E9/L 07/27/2021 9:42 AM [facility] Lymphocytes Absolute 2.63 1.07 - 3.94 x10E9/L 07/27/2021 9:42 AM [facility] Monocytes Absolute 1.30(H) 0.26 - 1.07 x10E9/L 07/27/2021 9:42 AM [facility] Eosinophils Absolute 0.40 0 - 0.47 x10E9/L 07/27/2021 9:42 AM [facility] Basophils Absolute 0.14(H) 0 - 0.08 x10E9/L 07/27/2021 9:42 AM [facility] Immature Granulocytes Absolute 0.13(H) 0.00 - 0.06 x10E9/L 07/27/2021 9:42 AM [facility] nRBC Auto 0 /100 WBC 07/27/2021 9:42 AM [facility] Blood BLOOD SPECIMEN / Unknown Venipuncture / Unknown 07/27/2021 4:20 AM PRINT MANAGER 07/27/2021 8:44 AM PRINT MANAGER Andrea Archer LAB - HEMATOLOGY ORDERABLES Bonnie forrest Result [facility] [address] [place] [address] * (ABNORMAL) URINALYSIS REFLEX MICROSCOPIC REFLEX CULTURE (07/27/2021 4:20 AM PRINT MANAGER) Color UA Marzena(A) Straw, Yellow 07/27/2021 10:02 AM [facility] Clarity UA Cloudy(A) Clear 07/27/2021 10:02 AM [facility] Glucose UA Negative Negative 07/27/2021 10:02 AM [facility] Bilirubin UA Negative Negative 07/27/2021 10:02 AM [facility] Ketone UA Negative Negative 07/27/2021 10:02 AM [facility] Specific Emerson UA 1.031(H) 1.005 - 1.030 07/27/2021 10:02 AM [facility] Blood UA 1+(A) Negative 07/27/2021 10:02 AM [facility] pH UA 5.0 5.0 - 8.0 pH 07/27/2021 10:02 AM [facility] Protein UA 1+(A) Negative 07/27/2021 10:02 AM [facility] Urobilinogen UA Negative Negative mg/dL 07/27/2021 10:02 AM [facility] Nitrite UA Positive(A) Negative 07/27/2021 10:02 AM [facility] Leukocyte Esterase UA 3+(A) Negative 07/27/2021 10:02 AM [facility] Urine Microscopy Urine microscopy to follow 07/27/2021 10:02 AM [facility] Reflex Status Culture to follow 07/27/2021 10:02 AM [facility] Urine MID-STREAM URINE SPECIMEN / Unknown Collection / Unknown 07/27/2021 4:20 AM PRINT MANAGER 07/27/2021 8:44 AM PRINT MANAGER Narrative [facility] - 07/27/2021 10:02 AM PRINT MANAGER us Andrea Archer LAB - URINALYSIS ORDERABLES Bonnie forrest Result [facility] [address] [place] [address] documented in this encounter Visit Diagnoses Not on filedocumented in this encounter Additional Health Concerns Infection Onset Date Last Indicated Resolved Time MDRO 07/27/2021 07/27/2021 documented as of this encounter Care Teams Store Group Manager Relationship Specialty Start Date End Date Arnie Brush MD [address] [place] [id number] PCP - General 05/21/21 documented as of this encounter
--- OUTSIDE RECORDS SUMMARY | 2025-04-28 13:33 | XMS_ITS | Encounter Summary ---
Author Organization [facility] Health Address [address] [place] [address] Care Team Providers Care Salvage Machine Operator Name Role Phone Arnie Brush MD Primary Care Provider [phone] Encounter Details Date Type Department Care Team (Late st Contact Info) Description 08/09/2021 Lab Requisition [facility] [address] [place] [address] Romain Booth MD [facility] [place] [address] Social History Tobacco Use Types Packs/Day Years [...] Associated Diagnosis Comments CBC W AUTO DIFFERENTIAL Routine 08/09/2021 5:15 AM SENIOR TALENT ACQUISITION SPECIALIST COMPREHENSIVE METABOLIC PANEL Routine 08/09/2021 5:15 AM SENIOR TALENT ACQUISITION SPECIALIST documented in this encounter Results * (ABNORMAL) COMPREHENSIVE METABOLIC PANEL (08/09/2021 5:15 AM SENIOR TALENT ACQUISITION SPECIALIST) Pathologist [facility] Glucose 85 70 - 105 mg/dL 08/09/2021 2:06 PM SENIOR TALENT ACQUISITION SPECIALIST [facility] Sodium 131(L) 136 - 145 mmol/L 08/09/2021 2:06 PM SENIOR TALENT ACQUISITION SPECIALIST [facility] Potassium 4.4 3.5 - 5.1 mmol/L 08/09/2021 2:06 PM SENIOR TALENT ACQUISITION SPECIALIST [facility] Chloride 98 98 - 107 mmol/L 08/09/2021 2:06 PM SENIOR TALENT ACQUISITION SPECIALIST [facility] CO2 23 23 - 31 mmol/L 08/09/2021 2:06 PM SENIOR TALENT ACQUISITION SPECIALIST [facility] Calcium 7.6(L) 8.4 - 10.4 mg/dL 08/09/2021 2:06 PM [facility] Anion Gap 10 8 - 18 mmol/L 08/09/2021 2:06 PM [facility] BUN 14 9.8 - 20.1 mg/dL 08/09/2021 2:[address] [facility] Creatinine 0.37(L) 0.57 - 1.11 mg/dL 08/09/2021 2:[address] [facility] Alkaline Phosphatase 99 40 - 150 U/L 08/09/2021 2:[address] [facility] ALT <6 0 - 61 U/L 08/09/2021 2:[address] [facility] AST 5 5 - 34 U/L 08/09/2021 2:[address] [facility] Protein Total 4.9(L) 6.4 - 8.3 gm/dL 08/09/2021 2:[address] [facility] Albumin 2.1(L) 3.5 - 5.2 gm/dL 08/09/2021 2:[address] [facility] Bilirubin Total 0.1(L) 0.2 - 1.2 mg/dL 08/09/2021 2:[address] [facility] eGFR by MDRD >60 >60 mL/min/1.7 3m2 08/09/2021 2:[address] [facility] eGFR by MDRD >60 >60 mL/min/1.7 3m2 08/09/2021 2:[address] [facility] Blood BLOOD SPECIMEN / Unknown Venipuncture / Unknown 08/09/2021 5:15 AM SENIOR TALENT ACQUISITION SPECIALIST 08/09/2021 12:58 PM SENIOR TALENT ACQUISITION SPECIALIST us Romain Booth MD LAB - CHEMISTRY ORDERABLE S Final Result Performing Organization Address City/State/[facility] Co de Phone Number [facility] [address] [place] [address] * (ABNORMAL) CBC WITH DIFFERENTIAL (08/09/2021 5:15 AM SENIOR TALENT ACQUISITION SPECIALIST) WBC 8.1 4.4 - 10.7 x10E9/L 08/09/2021 1:[address] [facility] WBC Corrected 08/09/2021 1:[address] [facility] RBC 2.98(L) 3.80 - 5.20 x10E12/L 08/09/2021 1:[address] [facility] Hemoglobin 8.2(L) 12.0 - 15.6 gm/dL 08/09/2021 1:[address] [facility] Hematocrit 27.5(L) 35.9 - 45.5 % 08/09/2021 1:[address] [facility] MCV 92.3 80.7 - 98.3 fl 08/09/2021 1:[address] [facility] MCH 27.5 26.7 - 34.0 pg 08/09/2021 1:[address] [facility] MCHC 29.8(L) 30.8 - 35.9 gm/dL 08/09/2021 1:[address] [facility] Platelet Count 489(H) 153 - 416 x10E9/L 08/09/2021 1:[address] [facility] RDW-CV 15.7(H) 12.1 - 14.9 % 08/09/2021 1:[address] [facility] MPV 8.7(L) 9.4 - 12.9 fl 08/09/2021 1:[address] [facility] Neutrophils % 53.3 44.0 - 73.0 % 08/09/2021 1:[address] [facility] Lymphocytes % 28.1 20.0 - 43.0 % 08/09/2021 1:[address] [facility] Monocytes % 12.8 5.0 - 13.0 % 08/09/2021 1:[address] [facility] Eosinophils % 4.3 0.0 - 6.0 % 08/09/2021 1:[address] [facility] Basophils % 1.0 0.0 - 2.0 % 08/09/2021 1:[address] [facility] Immature Granulocytes 0.5 0 - 1 % 08/09/2021 1:[address] [facility] Neutrophil Absolute 4.31 2.01 - 7.14 x10E9/L 08/09/2021 1:[address] [facility] Lymphocytes Absolute 2.28 1.07 - 3.94 x10E9/L 08/09/2021 1:[address] [facility] Monocytes Absolute 1.04 0.26 - 1.07 x10E9/L 08/09/2021 1:[address] [facility] Eosinophils Absolute 0.35 0 - 0.47 x10E9/L 08/09/2021 1:15 PM SENIOR TALENT ACQUISITION SPECIALIST [facility] Basophils Absolute 0.08 0 - 0.08 x10E9/L 08/09/2021 1:15 PM SENIOR TALENT ACQUISITION SPECIALIST [facility] Immature Granulocytes Absolute 0.04 0.00 - 0.06 x10E9/L 08/09/2021 1:15 PM SENIOR TALENT ACQUISITION SPECIALIST [facility] nRBC Auto 0 /100 WBC 08/09/2021 1:15 PM SENIOR TALENT ACQUISITION SPECIALIST [facility] Blood BLOOD SPECIMEN / Unknown Venipuncture / Unknown 08/09/2021 5:15 AM SENIOR TALENT ACQUISITION SPECIALIST 08/09/2021 12:58 PM SENIOR TALENT ACQUISITION SPECIALIST us Romain Booth MD LAB - HEMATOLOGY ORDERABL ES Final Result Performing Organization Address City/State/[facility] Co de Phone Number [facility] [address] [place] [address] documented in this encounter Visit Diagnoses Not on filedocumented in this encounter Additional Health Concerns Infection Onset Date Last Indicated Resolved Time MDRO 07/27/2021 07/27/2021 documented as of this encounter Care Teams Salvage Machine Operator Relationship Specialty Start Date End Date Arnie Brush MD [address] [place] [id number] PCP - General 05/21/21 documented as of this encounter
--- OUTSIDE RECORDS SUMMARY | 2025-04-28 13:33 | XMS_ITS | Encounter Summary ---
Author Organization [facility] Health Address [address] [place] [place] [address] Care Team Providers Care Shot Polisher And Inspector Name Role Phone Arnie Brush MD Primary Care Provider [phone] Encounter Details Date Type Department Care Team (Late st Contact Info) Description 07/21/2021 Lab Requisition [facility] [address] [place] [address] [address] [place] [id number] Social History Tobacco Use Types Packs/Day Years [...] Diagnosis Comments CBC W AUTO DIFFERENTIAL STAT 07/21/2021 3:05 AM METER CALIBRATOR COMPREHENSIVE METABOLIC PANEL STAT 07/21/2021 3:05 AM METER CALIBRATOR documented in this encounter Results * (ABNORMAL) CBC WITH DIFFERENTIAL (07/21/2021 3:05 AM METER CALIBRATOR) WBC 8.8 4.4 - 10.7 x10E9/L 07/21/2021 9:29 AM METER CALIBRATOR [facility] WBC Corrected 07/21/2021 9:29 AM METER CALIBRATOR [facility] RBC 3.47(L) 3.80 - 5.20 x10E12/L 07/21/2021 9:29 AM METER CALIBRATOR [facility] Hemoglobin 9.6(L) 12.0 - 15.6 gm/dL 07/21/2021 9:29 AM METER CALIBRATOR [facility] Hematocrit 33.0(L) 35.9 - 45.5 % 07/21/2021 9:29 AM METER CALIBRATOR [facility] MCV 95.1 80.7 - 98.3 fl 07/21/2021 9:29 AM METER CALIBRATOR [facility] MCH 27.7 26.7 - 34.0 pg 07/21/2021 9:29 AM METER CALIBRATOR [facility] MCHC 29.1(L) 30.8 - 35.9 gm/dL 07/21/2021 9:29 AM [facility] Platelet Count 498(H) 153 - 416 x10E9/L 07/21/2021 9:29 AM [facility] RDW-CV 17.0(H) 12.1 - 14.9 % 07/21/2021 9:29 AM [facility] MPV 8.9(L) 9.4 - 12.9 fl 07/21/2021 9:29 AM [facility] Neutrophils % 58.2 44.0 - 73.0 % 07/21/2021 9:29 AM [facility] Lymphocytes % 23.8 20.0 - 43.0 % 07/21/2021 9:29 AM [facility] Monocytes % 11.8 5.0 - 13.0 % 07/21/2021 9:29 AM [facility] Eosinophils % 4.5 0.0 - 6.0 % 07/21/2021 9:29 AM [facility] Basophils % 1.0 0.0 - 2.0 % 07/21/2021 9:29 AM [facility] Immature Granulocytes 0.7 0 - 1 % 07/21/2021 9:29 AM [facility] Neutrophil Absolute 5.13 2.01 - 7.14 x10E9/L 07/21/2021 9:29 AM [facility] Lymphocytes Absolute 2.10 1.07 - 3.94 x10E9/L 07/21/2021 9:29 AM [facility] Monocytes Absolute 1.04 0.26 - 1.07 x10E9/L 07/21/2021 9:29 AM [facility] Eosinophils Absolute 0.40 0 - 0.47 x10E9/L 07/21/2021 9:29 AM [facility] Basophils Absolute 0.09(H) 0 - 0.08 x10E9/L 07/21/2021 9:29 AM [facility] Immature Granulocytes Absolute 0.06 0.00 - 0.06 x10E9/L 07/21/2021 9:29 AM [facility] nRBC Auto 0 /100 WBC 07/21/2021 9:29 AM [facility] Blood BLOOD SPECIMEN / Unknown Venipuncture / Unknown 07/21/2021 3:05 AM METER CALIBRATOR 07/21/2021 9:24 AM [facility] Andrea Archer LAB - HEMATOLOGY ORDERABLES Bonnie forrest Result [facility] [address] [place] [address] * (ABNORMAL) COMPREHENSIVE METABOLIC PANEL (07/21/2021 3:05 AM [facility]) Glucose 111(H) 70 - 105 mg/dL 07/21/2021 10:00 AM [facility] Sodium 135(L) 136 - 145 mmol/L 07/21/2021 10:00 AM [facility] Potassium 4.4 3.5 - 5.1 mmol/L 07/21/2021 10:00 AM [facility] Chloride 95(L) 98 - 107 mmol/L 07/21/2021 10:00 AM [facility] CO2 26 23 - 31 mmol/L 07/21/2021 10:00 AM [facility] Calcium 8.5 8.4 - 10.4 mg/dL 07/21/2021 10:00 AM [facility] Anion Gap 14 8 - 18 mmol/L 07/21/2021 10:00 AM [facility] BUN 19 9.8 - 20.1 mg/dL 07/21/2021 10:00 AM [facility] Creatinine 0.47(L) 0.57 - 1.11 mg/dL 07/21/2021 10:00 AM [facility] Alkaline Phosphatase 104 40 - 150 U/L 07/21/2021 10:00 AM [facility] ALT <6 0 - 61 U/L 07/21/2021 10:00 AM [facility] AST 8 5 - 34 U/L 07/21/2021 10:00 AM [facility] Protein Total 6.5 6.4 - 8.3 gm/dL 07/21/2021 10:00 AM [facility] Albumin 3.0(L) 3.5 - 5.2 gm/dL 07/21/2021 10:00 AM [facility] Bilirubin Total 0.3 0.2 - 1.2 mg/dL 07/21/2021 10:00 AM [facility] eGFR by MDRD >60 >60 mL/min/1.7 3m2 07/21/2021 10:00 AM [facility] eGFR by MDRD >60 >60 mL/min/1.7 3m2 07/21/2021 10:00 AM [facility] Blood BLOOD SPECIMEN / Unknown Venipuncture / Unknown 07/21/2021 3:05 AM [facility] 07/21/2021 9:24 AM [facility] Andrea Archer LAB - CHEMISTRY ORDERABLES Final Result Performing Organization Address City/State/[facility] Co de Phone Number [facility] [address] [place], [place] [phone] documented in this encounter Visit Diagnoses Not on filedocumented in this encounter Additional Health Concerns Infection Onset Date Last Indicated Resolved Time MDRO 07/27/2021 07/27/2021 documented as of this encounter Care Teams Shot Polisher And Inspector Relationship Specialty Start Date End Date Arnie Brush MD [address]ACON [address] [place] [id number] PCP - General 05/21/21 documented as of this encounter
--- OUTSIDE RECORDS SUMMARY | 2025-04-28 13:33 | XMS_ITS | Encounter Summary ---
Author Organization [facility] Health Address [address] [place] [address] Care Team Providers Care Precision Assembly Inspector Name Role Phone Arnie Brush MD Primary Care Provider [phone] Encounter Details Date Type Department Care Team (Late st Contact Info) Description 08/02/2021 Lab Requisition [facility] [address] [place] [address] Romain Booth MD [facility] [place] [address] Social History Tobacco Use Types Packs/Day Years [...] Diagnosis Comments CBC W AUTO DIFFERENTIAL Routine 08/02/2021 5:00 AM CREW TRUCK DRIVER COMPREHENSIVE METABOLIC PANEL Routine 08/02/2021 5:00 AM CREW TRUCK DRIVER documented in this encounter Results * (ABNORMAL) COMPREHENSIVE METABOLIC PANEL (08/02/2021 5:00 AM CREW TRUCK DRIVER) [facility] Glucose 82 70 - 105 mg/dL 08/02/2021 5:35 PM CREW TRUCK DRIVER [facility] Sodium 133(L) 136 - 145 mmol/L 08/02/2021 5:35 PM CREW TRUCK DRIVER [facility] Potassium 4.5 3.5 - 5.1 mmol/L 08/02/2021 5:35 PM CREW TRUCK DRIVER [facility] Chloride 94(L) 98 - 107 mmol/L 08/02/2021 5:35 PM CREW TRUCK DRIVER [facility] CO2 25 23 - 31 mmol/L 08/02/2021 5:35 PM CREW TRUCK DRIVER [facility] Calcium 8.6 8.4 - 10.4 mg/dL 08/02/2021 5:35 PM CREW TRUCK DRIVER [facility] Anion Gap 14 8 - 18 mmol/L 08/02/2021 5:35 PM CREW TRUCK DRIVER [facility] BUN 23(H) 9.8 - 20.1 mg/dL 08/02/2021 5:35 PM CREW TRUCK DRIVER [facility] Creatinine 0.51(L) 0.57 - 1.11 mg/dL 08/02/2021 5:35 PM CREW TRUCK DRIVER [facility] Alkaline Phosphatase 112 40 - 150 U/L 08/02/2021 5:35 PM CREW TRUCK DRIVER [facility] ALT <6 0 - 61 U/L 08/02/2021 5:35 PM CREW TRUCK DRIVER [facility] AST 10 5 - 34 U/L 08/02/2021 5:35 PM [facility] Protein Total 6.5 6.4 - 8.3 gm/dL 08/02/2021 5:35 PM CREW TRUCK DRIVER [facility] Albumin 2.9(L) 3.5 - 5.2 gm/dL 08/02/2021 5:35 PM [facility] Bilirubin Total 0.2 0.2 - 1.2 mg/dL 08/02/2021 5:35 PM [facility] eGFR by MDRD >60 >60 mL/min/1.7 3m2 08/02/2021 5:35 PM [facility] eGFR by MDRD >60 >60 mL/min/1.7 3m2 08/02/2021 5:35 PM [facility] Blood BLOOD SPECIMEN / Unknown Venipuncture / Unknown 08/02/2021 5:00 AM CREW TRUCK DRIVER 08/02/2021 4:35 PM CREW TRUCK DRIVER us Romain Booth MD LAB - CHEMISTRY ORDERABLE S Final Result [facility] [address] [place], [place] [id number] * (ABNORMAL) CBC WITH DIFFERENTIAL (08/02/2021 5:00 AM CREW TRUCK DRIVER) [facility] Signature WBC 11.3(H) 4.4 - 10.7 x10E9/L 08/02/2021 5:09 PM CREW TRUCK DRIVER [facility] WBC Corrected 08/02/2021 5:09 PM CREW TRUCK DRIVER [facility] RBC 3.41(L) 3.80 - 5.20 x10E12/L 08/02/2021 5:09 PM CREW TRUCK DRIVER [facility] Hemoglobin 9.3(L) 12.0 - 15.6 gm/dL 08/02/2021 5:09 PM [facility] Hematocrit 31.8(L) 35.9 - 45.5 % 08/02/2021 5:09 PM [facility] MCV 93.3 80.7 - 98.3 fl 08/02/2021 5:09 PM CREW TRUCK DRIVER [facility] MCH 27.3 26.7 - 34.0 pg 08/02/2021 5:09 PM [facility] MCHC 29.2(L) 30.8 - 35.9 gm/dL 08/02/2021 5:09 PM [facility] Platelet Count 559(H) 153 - 416 x10E9/L 08/02/2021 5:09 PM [facility] RDW-CV 15.9(H) 12.1 - 14.9 % 08/02/2021 5:09 PM [facility] MPV 9.0(L) 9.4 - 12.9 fl 08/02/2021 5:09 PM [facility] Neutrophils % 65.9 44.0 - 73.0 % 08/02/2021 5:09 PM [facility] Lymphocytes % 21.6 20.0 - 43.0 % 08/02/2021 5:09 PM [facility] Monocytes % 7.0 5.0 - 13.0 % 08/02/2021 5:09 PM [facility] Eosinophils % 3.8 0.0 - 6.0 % 08/02/2021 5:09 PM [facility] Basophils % 1.0 0.0 - 2.0 % 08/02/2021 5:09 PM [facility] Immature Granulocytes 0.7 0 - 1 % 08/02/2021 5:09 PM [facility] Neutrophil Absolute 7.47(H) 2.01 - 7.14 x10E9/L 08/02/2021 5:09 PM [facility] Lymphocytes Absolute 2.44 1.07 - 3.94 x10E9/L 08/02/2021 5:09 PM [facility] Monocytes Absolute 0.79 0.26 - 1.07 x10E9/L 08/02/2021 5:09 PM [facility] Eosinophils Absolute 0.43 0 - 0.47 x10E9/L 08/02/2021 5:09 PM CREW TRUCK DRIVER [facility] Basophils Absolute 0.11(H) 0 - 0.08 x10E9/L 08/02/2021 5:09 PM CREW TRUCK DRIVER [facility] Immature Granulocytes Absolute 0.08(H) 0.00 - 0.06 x10E9/L 08/02/2021 5:09 PM CREW TRUCK DRIVER [facility] nRBC Auto 0 /100 WBC 08/02/2021 5:09 PM CREW TRUCK DRIVER [facility] Blood BLOOD SPECIMEN / Unknown Venipuncture / Unknown 08/02/2021 5:00 AM CREW TRUCK DRIVER 08/02/2021 4:35 PM CREW TRUCK DRIVER us Romain Booth MD LAB - HEMATOLOGY ORDERABL ES Final Result Performing Organization Address City/State/[facility] Co de Phone Number [facility] [address] [place] [address] documented in this encounter Visit Diagnoses Not on filedocumented in this encounter Additional Health Concerns Infection Onset Date Last Indicated Resolved Time MDRO 07/27/2021 07/27/2021 documented as of this encounter Care Teams Precision Assembly Inspector Relationship Specialty Start Date End Date Arnie Brush MD [address] [place] [phone] PCP - General 05/21/21 documented as of this encounter
--- OUTSIDE RECORDS SUMMARY | 2025-04-28 13:33 | XMS_ITS | Encounter Summary ---
Author Organization [facility] Health Address [address] [address] Care Team Providers Care Quality Internship Name Role Phone Arnie Brush MD Primary Care Provider [phone] Encounter Details Date Type Department Care Team (Late st Contact Info) Description 07/28/2021 Lab Requisition [facility] [address] [place] [address] Norman Muhammad MD [address] [place] [address] Social History Tobacco Use Types Packs/Day Years [...] Diagnosis Comments CBC W AUTO DIFFERENTIAL STAT 07/28/2021 5:05 AM OCCUPATIONAL PSYCHOLOGIST documented in this encounter Results * (ABNORMAL) CBC WITH DIFFERENTIAL (07/28/2021 5:05 AM OCCUPATIONAL PSYCHOLOGIST) WBC 11.7(H) 4.4 - 10.7 x10E9/L 07/28/2021 8:59 AM OCCUPATIONAL PSYCHOLOGIST [facility] WBC Corrected 07/28/2021 8:59 AM OCCUPATIONAL PSYCHOLOGIST [facility] RBC 3.47(L) 3.80 - 5.20 x10E12/L 07/28/2021 8:59 AM OCCUPATIONAL PSYCHOLOGIST [facility] Hemoglobin 9.4(L) 12.0 - 15.6 gm/dL 07/28/2021 8:59 AM OCCUPATIONAL PSYCHOLOGIST [facility] Hematocrit 31.4(L) 35.9 - 45.5 % 07/28/2021 8:59 AM OCCUPATIONAL PSYCHOLOGIST [facility] MCV 90.5 80.7 - 98.3 fl 07/28/2021 8:59 AM OCCUPATIONAL PSYCHOLOGIST [facility] MCH 27.1 26.7 - 34.0 pg 07/28/2021 8:59 AM OCCUPATIONAL PSYCHOLOGIST [facility] MCHC 29.9(L) 30.8 - 35.9 gm/dL 07/28/2021 8:[address] [facility] Platelet Count 497(H) 153 - 416 x10E9/L 07/28/2021 8:[address] [facility] RDW-CV 15.9(H) 12.1 - 14.9 % 07/28/2021 8:[address] [facility] MPV 9.0(L) 9.4 - 12.9 fl 07/28/2021 8:[address] [facility] Neutrophils % 70.5 44.0 - 73.0 % 07/28/2021 8:[address] [facility] Lymphocytes % 16.0(L) 20.0 - 43.0 % 07/28/2021 8:[address] [facility] Monocytes % 9.6 5.0 - 13.0 % 07/28/2021 8:[address] [facility] Eosinophils % 2.1 0.0 - 6.0 % 07/28/2021 8:[address] [facility] Basophils % 0.9 0.0 - 2.0 % 07/28/2021 8:[address] [facility] Immature Granulocytes 0.9 0 - 1 % 07/28/2021 8:[address] [facility] Neutrophil Absolute 8.27(H) 2.01 - 7.14 x10E9/L 07/28/2021 8:[address] [facility] Lymphocytes Absolute 1.88 1.07 - 3.94 x10E9/L 07/28/2021 8:[address] [facility] Monocytes Absolute 1.12(H) 0.26 - 1.07 x10E9/L 07/28/2021 8:[address] [facility] Eosinophils Absolute 0.25 0 - 0.47 x10E9/L 07/28/2021 8:[address] [facility] Basophils Absolute 0.10(H) 0 - 0.08 x10E9/L 07/28/2021 8:[address] [facility] Immature Granulocytes Absolute 0.10(H) 0.00 - 0.06 x10E9/L 07/28/2021 8:[address] [facility] nRBC Auto 0 /100 WBC 07/28/2021 8:[address] [facility] Blood BLOOD SPECIMEN / Unknown Venipuncture / Unknown 07/28/2021 5:05 AM OCCUPATIONAL PSYCHOLOGIST 07/28/2021 8:37 AM OCCUPATIONAL PSYCHOLOGIST Norman Muhammad MD LAB - HEMATOLOGY ORDERABLES Bonnie forrest Result [facility] [address] [place] [address] documented in this encounter Visit Diagnoses Not on filedocumented in this encounter Additional Health Concerns Infection Onset Date Last Indicated Resolved Time MDRO 07/27/2021 07/27/2021 documented as of this encounter Care Teams Quality Internship Relationship Specialty Start Date End Date Arnie Bursh MD [address] [place] [phone] PCP - General 05/21/21 documented as of this encounter
--- OUTSIDE RECORDS SUMMARY | 2025-04-28 13:33 | XMS_ITS | Encounter Summary ---
Author Organization [facility] Health Address [address] [place] [address] Care Team Providers Care Chief Of Surgery Name Role Phone Arnie Brush MD Primary Care Provider [phone] Encounter Details Date Type Department Care Team (Late st Contact Info) Description 07/14/2021 Lab Requisition [facility] [address] [place] [address] Romain [facility] MD [facility] [place] [address] Social History Tobacco Use Types Packs/Day Years [...] Comments URINALYSIS REFLEX TO MICROSCOPIC NO CULTURE STAT 07/14/2021 3:45 AM VOCATIONAL GUIDANCE COUNSELOR URINE MICROSCOPIC ONLY STAT 07/14/2021 3:45 AM VOCATIONAL GUIDANCE COUNSELOR PTT STAT 07/14/2021 3:45 AM VOCATIONAL GUIDANCE COUNSELOR CBC W AUTO DIFFERENTIAL STAT 07/14/2021 3:45 AM VOCATIONAL GUIDANCE COUNSELOR documented in this encounter Results * (ABNORMAL) URINE MICROSCOPIC ONLY (07/14/2021 3:45 AM VOCATIONAL GUIDANCE COUNSELOR) RBC UA 3-5 None Seen, 0-2, 3-5 # /hpf 07/14/2021 9:35 AM VOCATIONAL GUIDANCE COUNSELOR [facility] WBC UA 51-100(A) None Seen, 0-5 # /hpf 07/14/2021 9:35 AM VOCATIONAL GUIDANCE COUNSELOR [facility] Bacteria UA Trace(A) None Seen 07/14/2021 9:35 AM VOCATIONAL GUIDANCE COUNSELOR [facility] Squamous Epithelial Cells 0-2 None Seen, 0-2, 3-5 /hpf 07/14/2021 9:35 AM VOCATIONAL GUIDANCE COUNSELOR [facility] Mucus UA 2+ /LPF 07/14/2021 9:[address] [facility] Urine URINE SPECIMEN OBTAINED BY CLEAN CATCH PROCEDURE / Unknown Collection / Unknown 07/14/2021 3:45 AM VOCATIONAL GUIDANCE COUNSELOR 07/14/2021 8:58 AM VOCATIONAL GUIDANCE COUNSELOR Narrative [facility] - 07/14/2021 9:35 AM VOCATIONAL GUIDANCE COUNSELOR us Romain Booth MD LAB - URINALYSIS ORDERABL ES Final Result [facility] [address] [place] [address] * (ABNORMAL) URINALYSIS REFLEX TO MICROSCOPIC NO CULTURE (07/14/2021 3:45 AM VOCATIONAL GUIDANCE COUNSELOR) Color UA Yellow Straw, Yellow 07/14/2021 9:[address] [facility] Clarity UA Slt Cloudy(A) Clear 07/14/2021 9:[address] [facility] Glucose UA Negative Negative 07/14/2021 9:[address] [facility] Bilirubin UA Negative Negative 07/14/2021 9:[address] [facility] Ketone UA Negative Negative 07/14/2021 9:[address] [facility] Specific [place] UA 1.018 1.005 - 1.030 07/14/2021 9:[address] [facility] Blood UA 1+(A) Negative 07/14/2021 9:[address] [facility] pH UA 7.0 5.0 - 8.0 pH 07/14/2021 9:[address] [facility] Protein UA Negative Negative 07/14/2021 9:[address] [facility] Urobilinogen UA Negative Negative mg/dL 07/14/2021 9:[address] [facility] Nitrite UA Positive(A) Negative 07/14/2021 9:[address] [facility] Leukocyte Esterase UA 1+(A) Negative 07/14/2021 9:[address] [facility] Urine Microscopy Urine microscopy to follow 07/14/2021 9:[address] [facility] Urine URINE SPECIMEN OBTAINED BY CLEAN CATCH PROCEDURE / Unknown Collection / Unknown 07/14/2021 3:45 AM VOCATIONAL GUIDANCE COUNSELOR 07/14/2021 8:58 AM VOCATIONAL GUIDANCE COUNSELOR [facility] - 07/14/2021 9:35 AM VOCATIONAL GUIDANCE COUNSELOR Romain Booth MD LAB - URINALYSIS ORDERABL ES Final Result Performing Organization Address [facility] Co de Phone Number [facility] [address] [place], [place] [phone] * PTT (07/14/2021 3:45 AM VOCATIONAL GUIDANCE COUNSELOR) [facility] PTT 34.4 23.0 - 38.4 sec 07/14/2021 9:36 AM VOCATIONAL GUIDANCE COUNSELOR [facility] Blood BLOOD SPECIMEN / Unknown Venipuncture / Unknown 07/14/2021 3:45 AM VOCATIONAL GUIDANCE COUNSELOR 07/14/2021 8:58 AM VOCATIONAL GUIDANCE COUNSELOR [facility] - 07/14/2021 9:36 AM VOCATIONAL GUIDANCE COUNSELOR Heparin Therapeutic Range for PTT: 69.0 - 110.0 seconds. Romain Booth MD LAB - COAGULATION ORDERAB LES Final Result Performing Organization Address [facility] Co de Phone Number [facility] [address] [place] [address] * (ABNORMAL) CBC WITH DIFFERENTIAL (07/14/2021 3:45 AM VOCATIONAL GUIDANCE COUNSELOR) [facility] WBC 8.8 4.4 - 10.7 x10E9/L 07/14/2021 9:[address] [facility] WBC Corrected 07/14/2021 9:[address] [facility] RBC 3.07(L) 3.80 - 5.20 x10E12/L 07/14/2021 9:[address] [facility] Hemoglobin 8.4(L) 12.0 - 15.6 gm/dL 07/14/2021 9:[address] [facility] Hematocrit 28.6(L) 35.9 - 45.5 % 07/14/2021 9:[address] [facility] MCV 93.2 80.7 - 98.3 fl 07/14/2021 9:[address] [facility] MCH 27.4 26.7 - 34.0 pg 07/14/2021 9:[address] [facility] MCHC 29.4(L) 30.8 - 35.9 gm/dL 07/14/2021 9:[address] [facility] Platelet Count 535(H) 153 - 416 x10E9/L 07/14/2021 9:[address] [facility] RDW-CV 17.4(H) 12.1 - 14.9 % 07/14/2021 9:[address] [facility] MPV 8.7(L) 9.4 - 12.9 fl 07/14/2021 9:[address] [facility] Neutrophils % 61.0 44.0 - 73.0 % 07/14/2021 9:[address] [facility] Lymphocytes % 24.9 20.0 - 43.0 % 07/14/2021 9:[address] [facility] Monocytes % 9.0 5.0 - 13.0 % 07/14/2021 9:[address] [facility] Eosinophils % 3.5 0.0 - 6.0 % 07/14/2021 9:[address] [facility] Basophils % 1.0 0.0 - 2.0 % 07/14/2021 9:[address] [facility] Immature Granulocytes 0.6 0 - 1 % 07/14/2021 9:[address] [facility] Neutrophil Absolute 5.39 2.01 - 7.14 x10E9/L 07/14/2021 9:[address] [facility] Lymphocytes Absolute 2.20 1.07 - 3.94 x10E9/L 07/14/2021 9:[address] [facility] Monocytes Absolute 0.80 0.26 - 1.07 x10E9/L 07/14/2021 9:[address] [facility] Eosinophils Absolute 0.31 0 - 0.47 x10E9/L 07/14/2021 9:[address] [facility] Basophils Absolute 0.09(H) 0 - 0.08 x10E9/L 07/14/2021 9:[address] [facility] Immature Granulocytes Absolute 0.05 0.00 - 0.06 x10E9/L 07/14/2021 9:[address] [facility] nRBC Auto 0 /100 WBC 07/14/2021 9:[address] [facility] Blood BLOOD SPECIMEN / Unknown Venipuncture / Unknown 07/14/2021 3:45 AM VOCATIONAL GUIDANCE COUNSELOR 07/14/2021 8:58 AM VOCATIONAL GUIDANCE COUNSELOR us Romain Booth MD LAB - HEMATOLOGY ORDERABL ES Final Result [facility] [address] [place] [address] documented in this encounter Visit Diagnoses Not on filedocumented in this encounter Additional Health Concerns Infection Onset Date Last Indicated Resolved Time MDRO 07/27/2021 07/27/2021 documented as of this encounter Care Teams Chief Of Surgery Relationship Specialty Start Date End Date Arnie Brush MD [address] [place] [phone] PCP - General 05/21/21 documented as of this encounter
--- OUTSIDE RECORDS SUMMARY | 2025-04-28 13:33 | XMS_ITS | Clinical Summary ---
Author Organization [facility] Address [address] [place] [address] Care Team Providers Care Faceter Name Role Phone Dinorah Kumar MD Primary Care Provider [phone] Maria Victoria Felix RN NIGHT Unavailable [phone] Keshia Coleman RN NIGHT Unavailable [phone] Tony Keene MD Unavailable Allergies Active Allergy Reactions Criticality Noted Date Comments Zolpidem Other (See comments) Low 03/04/2018 Sleep walk behavior. Amitriptyline Other (See comments) Low 06/14/2023 Very grumpy Aspirin Other (See comments) Low Reaction: GI Bleed, Atorvastatin Dizziness Low 12/23/2014 weakness, fatigue, Dizziness/Light Headed Cephalexin Other (See comments) Low 05/17/2012 Patient reports she passed out to hydrocodone given at the same time as Keflex. Tolerates penicillin. Codeine Cortisone Gabapentin Edema Medium 01/19/2023 Iodinated Contrast Media Anaphylaxis,Itching High 10/29/2020 Latex Other (See comments) Low 06/12/2021 Bandaids and latex roses per patient. Meperidine Mineral Oil-Hydrophil Petrolat Rash Medium 06/03/2021 Moxifloxacin Unknown 05/20/2021 Clopidogrel Other (See comments) Low Reaction: GI Bleed, Cplykcn-Jfk-Rel Reductase Inhibitors Other (See comments) Low 06/14/2023 wkness Sulfa (Sulfonamide Antibiotics) Other (See comments) Low 03/15/2021 Tramadol Swelling Medium 12/24/2014 Swelling Trazodone Other (See comments) Low 06/14/2023 Intolerant, details lacking. Acetaminophen Stomach upset,Nausea only Medium 02/03/2022 Medications ibuprofen 200 mg tab/capIndicat ions:Pain Take 3 tablet/capsule (600 mg total) by mouth every morning Also takes 400 mg at night 10/31/19 25 Active diphenhydrAMIN E 25 mg capsuleIndicat ions:Other insomnia Take 1-2 tablet/capsule (25-50 mg total) by mouth nightly as needed for itching 02/13/20 25 Active biotin 10 mg tablet Take 1 tablet (10 mg total) by mouth daily Active benzonatate (TESSALON) 200 mg capsuleIndicat ions:Subacute cough Take 1 capsule (200 mg total) by mouth 3 (three) times a day as needed for cough 30 capsule 1 02/13/20 25 Active Additional Information Patient not taking.Reported on 02/24/2025 foam bandage 7 X 7 bandage Apply 1 patch topically 2 (two) times a day Active furosemide (LASIX) 20 mg tabletIndicati ons:Edema of left lower leg TAKE 1 TABLET(20 MG) BY MOUTH DAILY 90 tablet 03/13/20 25 Active cilostazoL (PLETAL) 50 mg tabletIndicati ons:Peripheral artery disease TAKE 1 TABLET(50 MG) BY MOUTH TWICE DAILY 60 tablet 3 04/18/20 25 Active cilostazoL (PLETAL) 50 mg tabletIndicati ons:Peripheral artery disease TAKE 1 TABLET(50 MG) BY MOUTH TWICE DAILY 60 tablet 3 12/17/19 25 025 Discontinued Active Problems Problem Noted Date Diagnosed Date Spinal stenosis of lumbar region 02/11/2025 Overview (02/11/2025): [facility] Subacute cough 01/27/2025 Assessment & Plan (02/12/2025 11:55 AM CDT): See [facility] HPI/AP. Calculus of gallbladder with out cholecystitis without obstruction 05/01/2023 Overview (06/13/2023): RUQ USN for pain, AMS: 6.5 mm non mobile gallstone noted. Assessment & Plan (07/30/2024 5:52 AM RADIO SCRIPT WRITER): Chronic, noted on imaging from over a year ago, but likely asymptomatic. However, she did have 36 hours of nausea, vomiting, and reported fever recently. Symptoms resolved about 12 hours ago although she still has a little bit of nausea. She reports that symptoms started after having a cup of coffee at [employer] with [employer] that tasted bad. Abdominal exam is challenging in this patient, but likely benign. She has a colostomy in the right lower quadrant and extensive wounds over the mid to lower abdomen from prior surgeries including a diverting colostomy to facilitate wound care. She is due for labs today, and depending on results, we may want to pursue additional evaluation of her abdominal symptoms to include re-evaluation of gallstones. Assessment & Plan (01/27/2024 6:08 PM CDT): Chronic, controlled. She has occasional left lower quadrant abdominal discomfort, but nothing that sounds like gallbladder pain. We will monitor clinically. Assessment & Plan (06/23/2023 9:25 AM CDT): She was having some right upper quadrant pain. A gallbladder stone was noted, but symptoms resolved. Currently she complains of left lower quadrant abdominal pain which is intermittent. She worries that it might relate to her a neurysm which refers to her extensive vascular disease. She denies having blood in the stools (via her diverting colostomy, also has acholic rectal discharge). She would like the diverting colostomy reversed. She has been to two surgeons so far, both of whom declined to intervene due to her high risks of complications and her ongoing smoking. We will refer her to [facility] for their opinion and advice. RUQ pain 04/28/2023 Assessment & Plan (04/28/2023 10:38 AM CDT): Stabbing that comes in waves for the last 2 days, see HPI for details. RUQ tenderness and positive Blevins's sign on exam. No vomiting or fevers. Will order RUQ US to assess inflammation, will call with results. Advised repeat CMP, CBC patient declined at this time. Keep EGD as scheduled by surgeon. Avoid greasy and fatty foods, stay hydrated. Tylenol as needed. Subcutaneous nodules 04/04/2023 Overview (06/14/2023): Slightly less than 1 cm diameter, firm if not cartilaginous in texture, right upper eyelid and left upper cheek, possibly others in the face, patient denies nodules elsewhere. Edema of left lower leg 12/05/2022 Assessment & Plan (03/15/2023 2:08 PM CDT): She wanted a refill a furosemide. She was due for labs and we needed to evaluate the edema so she came by the office. It is most likely due to venous insufficiency. She seems to be tolerating the diuretic well which she says does help control the swelling. We sent in refills. Assessment & Plan (02/13/2023 7:49 PM CDT): Trace edema as noted above, good pulses, no acute exam findings. Continue lasix 20mg daily. Elevate leg as much as possible, encouraged compression socks. Assessment & Plan (01/05/2023 3:01 PM CDT): She tends to retain fluid in her left leg. She is status post right BKA for vascular disease. Exam shows a trace amount of fluid in the leg. We refilled her furosemide. We will check follow-up labs before her return visit in about three weeks. Assessment & Plan (12/06/2022 6:32 PM CDT): Worsening over last 1-2 weeks. Tight pain worse with weight bearing. No overlying skin changes or open areas. Extremity is warm, PT and DP pulses barely palpable at 1+. No pain unless dorsiflexion of foot. Will order doppler of left leg to r/o DVT. Will call with results. Continue current regimen for now. ADDENDUM: doppler was negative for DVT. Will order lasix burst 20mg daily x7 to help with swelling, likely due to venous insufficiency. Keep follow and repeat labs next month. Colostomy present 10/22/2021 Assessment & Plan (10/31/2024 4:41 AM RADIO SCRIPT WRITER): Chronic, present for three or more years, controlled. She had a diverting colostomy to facilitate decubitus wound care. Recommend continued ostomy care. Assessment & Plan (05/01/2023 8:10 AM CDT): Colostomy present for years. See consult note from Dr. Keene at [facility], he would like more testing before definitively saying he can reverse her colostomy. Given RUQ pain and positive murphys sign will order RUQ US-will call with results. Assessment & Plan (02/13/2023 7:54 PM CDT): Patient was referred to Dr. canales for consultation for colostomy reversal. She wishes to be referred elsewhere. Will place referral to colorectal surgery at [facility]. Assessment & Plan (01/05/2023 3:00 PM CDT): Her pressure wounds continue to heal. She would like to consider colostomy reversal. We will refer her to Dr. Schafer for evaluation. Assessment & Plan (10/22/2021 1:53 PM RADIO SCRIPT WRITER): While in hospital patient had exploratory lap which revealed necrotic and perforated descending colon. She now has colostomy in place. Fistula appears to be healed well. She will need home nursing to help her learn to care for on her own and to obtain home supplies. Bowser catheter present 10/22/2021 Assessment & Plan (10/22/2021 1:56 PM RADIO SCRIPT WRITER): Patient has bowser catheter which remains in place. She has no supplies and is unable to change at home increasing her risk for infection. It appears there was discussion of urinary diversion surgery while IP but patient declined. Will have home health arranged to help with changing of catheter and will need to arrange for patient to have follow up with urology. Abnormal gait 10/22/2021 Assessment & Plan (02/13/2023 7:57 PM CDT): Altered gait complicated by R BKA and complicated prosthesis on top of chronic h/o weakness due to spinal cord injury. Assessment and generalized weakness as noted above. Would benefit from rollator walker with a seat. Will send order to [facility]. Assessment & Plan (10/22/2021 1:49 PM RADIO SCRIPT WRITER): Patient has weakness and abnormal gait s/p rt BKA. She has had prolonged hospital, LTAC, and halfway stays. She has had limited PT/OT which has resulted in decreased mobility. Patient at this time is WC and bed bound. She is unable to even stand on her LLE. She is being lifted by caregivers. She would benefit from home PT/OT and mobility power device so that she can complete MRADLs in timely manner. S/P BKA (below knee amputation), right Assessment & Plan (10/31/2024 4:45 AM RADIO SCRIPT WRITER): Chronic, present for three years or so, she has a prosthesis but still has poor mobility. Recommend continued wheelchair ambulation. Assessment & Plan (10/18/2023 2:27 PM RADIO SCRIPT WRITER): The BKA stump looks healthy. Assessment & Plan (02/13/2023 7:45 PM CDT): Contributing to altered gait, see plan above. Assessment & Plan (10/29/2022 11:12 AM RADIO SCRIPT WRITER): The patient plans to follow up with her dredge runner for appropriate footwear and requested a referral which we provided. Assessment & Plan (12/10/2021 2:48 PM CDT): The patient had a right BKA on 06/07/2021 due to vascular complications. The BKA stump is now healed and is ready to be fit with her prosthesis. The patient is currently living at home. She is taking both physical therapy and occupational therapy two days a week. She currently relies on her wheelchair to get around. She has difficulty getting to certain places based on her wheelchair limitations. She desires to become more independent and rely less on others for assistance. The patient is a K1 prosthetic user and will utilize the prosthesis to ambulate on level surfaces. The prognosis for the patient is good and will not impede or harm her overall health. Assessment & Plan (11/18/2021 1:41 PM CDT): Patient has significant PAD which has resulted in Rt BKA. She has started working with PT but her ability to be mobile is limited. She has a transport WC at home which she is placed in daily with the assistance of others. She is unable to propel herself with her LLE and has decreased endurance in upper extremities d/t pain and deconditioning post prolonged hospital course. Patient will need a motorized WC and will use daily and see benefit. Will place order. Assessment & Plan (10/22/2021 1:51 PM RADIO SCRIPT WRITER): Patient is s/p BKA in the setting of PAD. She will need home PT/OT to help with mobility and in home transfers. Patient is home bound at this time. Aortoiliac occlusive disease 05/20/2021 Overview (06/13/2023): From [facility]. Assessment & Plan (11/03/2024 12:53 PM RADIO SCRIPT WRITER): Chronic, present for 3-4 or more years, uncontrolled due to intolerance of multiple medications, currently treated with cilostazol 50 mg twice daily. Antiplatelet therapy is relatively contraindicated due to past intolerance and bleeding complications. Assessment & Plan (10/18/2023 2:23 PM RADIO SCRIPT WRITER): She is concerned about worsening circulation. The right BKA stump feels cold sometimes, especially at night. Exam shows pretty good clinical perfusion of both the BKA stump and her left foot. Pulses are palpable in the left foot. We will get ABIs. Assessment & Plan (06/23/2023 9:24 AM CDT): She is on as much medical therapy as she can tolerate. She does not want to take anti-platelet medications due to a history of GI bleeding when on these agents in the past. She does take cilostazole. Otherwise there are multiple drug intolerances. Pulses are difficult to palpate which may account for the low normal blood pressures. She does not take any blood pressure active medications except for possibly furosemide. Lab Results Component Value Date GLUCOSE 112 03/15/2023 CALCIUM 9.9 03/15/2023 SODIUM 142 03/15/2023 POTASSIUM 4.3 03/15/2023 CO2 26 03/15/2023 CHLORIDE 104 03/15/2023 BUNSER 19 03/15/2023 CREATININE 0.69 03/15/2023 Moderate malnutrition 02/24/2021 Assessment & Plan (10/18/2023 2:24 PM RADIO SCRIPT WRITER): She says she is eating well. We will check an albumin with her next set of labs. Assessment & Plan (06/23/2023 9:26 AM CDT): Most likely her malnutrition has resolved. She seems to be at a healthy if not slightly obese weight. We will check follow-up labs periodically. Including albumin. Lab Results Component Value Date ALBUMIN 3.9 12/06/2021 Urinary retention 02/20/2021 Assessment & Plan (02/11/2025 8:33 PM CDT): See [facility] HPI/AP. Assessment & Plan (10/29/2022 11:08 AM RADIO SCRIPT WRITER): She has a chronic Bowser catheter for urinary retention. Last week, her home health nurse thought she might be brewing a UTI because her temperature was 99 F in the morning and the urine looked a little cloudy. However since then, she has felt well with no fever or chill. The Bowser contains yellow and fairly clear urine. I advised the patient that she should call if she develops any fever or chills. She could discuss changing the Bowser catheter early with her home health care nurse. If the catheter is changed, a cath urine for a urinalysis with microscopic and reflex culture could be obtained, but we would not normally treat a positive culture unless she had definite symptoms of invasive UTI. She understands all of this and will keep us informed. Assessment & Plan (11/05/2021 11:08 AM RADIO SCRIPT WRITER): She has a Bowser catheter for a neurogenic bladder, likely related to chronic back problems. It had to be changed a few days ago but seems to be functioning well. Urine culture was actually negative for any pathogens. At the time of catheter change, nitrofurantoin was prescribed, but I do not think it is necessary. She is not running a fever. We will see her back in one month. Assessment & Plan (05/07/2021 2:00 PM CDT): She was at [facility] in February for wound care and vascular evaluation. She developed urinary retention, but eventually was able to void on her own. She denies dysuria or hematuria. She does have stress incontinence. We will monitor clinically. Assessment & Plan (02/25/2021 6:51 PM CDT): Failed void trial 02/18 and 02/24 and bowser replaced -d/c bowser 2/2 AMA Assessment & Plan (02/23/2021 7:03 PM CDT): Failed void trial 02/18 and bowser replaced -Could potentially retrial after a few days, if fails will need to arrange outpatient urology follow-up Pressure injury of sacral region, stage 3 2020 Overview (04/25/2024): Multiple pressure sores in various stages of healing. Assessment & Plan (11/03/2024 12:55 PM RADIO SCRIPT WRITER): Chronic, present for 3-4 years, uncontrolled but currently uncomplicated by secondary infection. Due to insurance restrictions and other psychosocial factors, we have been unable to provide her with some of the recommended therapy including wound VAC. Recommend continuing appropriate dressing changes and clinical monitoring. Assessment & Plan (07/30/2024 5:56 AM RADIO SCRIPT WRITER): Images from the original note were not included. Chronic, uncontrolled but uncomplicated at this time. She has a deep sacral decubitus which surprisingly does appear somewhat improved with filling in at the base. She says that a collagen product she uses for wound care is helping. She reports that the bandages supplied by her insurance are causing an allergic reaction on the surrounding skin and are too small to cover her various wounds. The only thing she tolerates is Alevyn. We will provide her with the appropriate orders when they arrive for signature. Assessment & Plan (04/28/2024 3:44 PM CDT): She has several pressure sores in various stages of healing. The largest is directly over the sacrum and is quite deep but is clean with no discharge. There is pink granulation tissue at the base. She wondered if she could get a home wound VAC to help this area to heal up. We asked the office staff to see if this is a covered benefit under her current insurance. There is another pressure sore in the left lower gluteal area covered with a foam bandage. I did not remove it at this time because she says it is getting better and she does not want the wound to soil her car upholstery. A left upper posterior thigh sore has healed with a minimal amount of hypertrophic scarring. In the abdominal area, she has macerated skin in the lower abdominal folds that she tries to manage with paper towels to keep the area dry. There is a central area of superficially fissured skin with no secondary infection. It is tucked into a skin fold partially formed from prior surgery including her diverting colostomy. There seems to be some associated scar tissue from the prior surgery which may account for the comparative fragility of skin in this area. Management is challenging but she seems to be doing a good job. Assessment & Plan (10/30/2023 4:08 PM RADIO SCRIPT WRITER): She has 5 small ulcers that are improving with local care from home health. One of these is relatively new so she is trying to stay off of that area. Due to her lack of mobility and extensive use of Alevyn bandages, I did not remove anything to inspect the wounds today. I asked her to bring photographic documentation to her next visit. Assessment & Plan (06/14/2023 2:19 PM CDT): She continues to receive services from home health care including some wound care. She is reacting to the current bandages and they are requesting Allevyn. They will send an order for me to sign. Assessment & Plan (02/25/2021 6:56 PM CDT): R posterior thigh ulcer w/ odor, s/p I&D by [facility] 02/13, wound cx with rare proteus, B. Fragilis, pseudomonas. - s/p vanc/cefe > continued on cipro/augmentin 02/13-02/26 for 2 week course, set 2 days of final abx to outpatient pharmacy - Wound vac placed 02/17, removed 02/25 due to AMA discharge, stressed outpatient wound follow up Assessment & Plan (02/17/2021 2:52 PM CDT): 55 y.o. female w/PMH of obesity, CAD s/p multiple stents,PVD, and spinal cord injury w/paraplegia (2015) c/b pressure ulcers; admitted for R-great toe gangrene and b/l stage III decubitus ulcers. - CT AP (02/09): severe atherosclerosis, w/near occlusion of the R-common iliac and total occlusion of the L-common iliac + b/l decubitus ulcers in R-lateral hip/thigh, and L-medial thigh. - s/p I&D per [facility] on 02/13. - Thigh tissue cx (02/13) grew chirinos-sensitive PSAR, P.mirabilis (I: cefazolin), B.fragilis, and mixed anaerobic/aerobic organisms. No revascularization; palliative care following, and pt wanting to focus on going home. Recommendations - Wound healing hindered by poor vascular perfusion --- pt opted our of surgery. - continue wound care for decubitus ulcers as per wound care - continue Betadine solution for dry gangrene of her toes. - discontinue vancomycin / cefepime - Complete a 2-week course of therapy with ciprofloxacin 500 mg PO q12h + Augmentin 875 mg PO q12h for SSTI (start date: 02/13/21 --day of I&D) - Thank-you for the opportunity to participate in the care of this patient. Infectious Diseases will sign off. Please contact the Team 3 ID RN NIGHT M-F, 8-4; or the Attending at the phone numbers in care team with any questions or concerns. After hours, please contact the ID fellow sales administration manager. Assessment & Plan (02/23/2021 7:08 PM CDT): R posterior thigh ulcer w/ odor, s/p I&D by [facility] 02/13, wound cx with rare proteus, B. Fragilis, pseudomonas. - s/p vanc/cefe > continued on cipro/augmentin 02/13-02/26 for 2 week course - Wound vac placed 02/17, wound following Assessment & Plan (02/15/2021 1:52 PM CDT): R posterior thigh ulcer w/ odor, s/p I&D by [facility], wound cx with rare proteus, sensitivities noted. Will change to bactrim for 10d course given PAD. Plan wound vac at [place], Wound RN consulted. Likely HHC at [place] for wound care, still encouraging patient re SNF and now considering, continue wet to dry BID dressings. Pt counseled on importance of NOT doing dressings more frequently & she verbalized understanding. Plan OP [facility] clinic f/u & PCP f/u Assessment & Plan (02/14/2021 5:08 PM CDT): R posterior thigh ulcer w/ odor, s/p I&D by [facility], wound cx with rare proteus. Await sensitivities. Plan wound vac at [place], Wound RN consulted. Likely HHC at [place] for wound care, continue wet to dry BID dressings. Pt counseled on importance of not doing more frequently & verbalized understanding. Paraparesis of both lower limbs 02/10/2021 Assessment & Plan (11/03/2024 12:54 PM RADIO SCRIPT WRITER): Chronic, present for 3-4 years, suspected cause is vascular. She is status post right BKA. She ambulates using a wheelchair. Recommend continuing supportive care including home demonstration agent. Assessment & Plan (10/30/2023 4:09 PM RADIO SCRIPT WRITER): She was able to stand using the exam table for support and her right leg prosthesis. However stamina was poor. She never went through physical therapy after her right leg BKA b ecause I have a Bowser catheter. As a result, she does not really ambulate\. She is mobile in her wheelchair. She tries to stay off her sores by changing position frequently. Assessment & Plan (06/14/2023 2:20 PM CDT): She is confined to a wheelchair after right BKA and spinal problems with neuropathy. Originally there was a request for a new seat cushion, but the patient denies that she needs one. Assessment & Plan (04/13/2022 3:22 PM CDT): She is doing well. She has a right lower leg prosthesis. She is getting rehab at home, but her insurance will not pay for inpatient rehab. Assessment & Plan (12/06/2021 4:57 PM CDT): She is getting home health care including wound care for decubitus sores. Things seem to be improving. She is almost out of pain medications so we referred her to Dr. Roman for assessment and management of chronic pain. Assessment & Plan (05/25/2021 4:44 PM CDT): She suffered upper thoracic and lower cervical spine injuries in 2014 from a fall of some kind. There was a second injury, but details are lacking. She had spinal cord surgery but continues to have some myelopathic symptoms including weakness, numbness and tingling in all four extremities, more in the legs than the arms. Neurological exam actually shows fairly good strength in the quadriceps and in the ankle plantar- and dorsiflexors. Hand hot patcher strength is normal. Reflexes are rather brisk at the knees, normal at the ankles, absent in the arms. The spinal cord injury has resulted in multiple pressure wounds which are quite extensive at this time. There could be a significant ischemic component to these wounds and inability to heal. We will have her evaluated in vascular surgery at [facility]. Assessment & Plan (02/25/2021 6:56 PM CDT): Chronic. Spinal Injury occurred falling down stairs. Complicated by severe multiple decubs, as elsewhere. Patientss claim of independent mobility is not supported by collateral infornation from daughter, notes decline over 6mo, no longer driving, needs assistance to walk a few feet, unable to run errands independently, as she says she can - This is also the case as noted by staff here, needs assistance to walk, transfers, ADLs. - Encouraged SNF, but patient refuses, also today not wanting to wait until set up, completed AMA discharge Assessment & Plan (02/23/2021 7:07 PM CDT): Chronic. Spinal Injury occurred falling down stairs. Complicated by severe multiple decubs, as elsewhere. Patientss claim of independent mobility is not supported by collateral infornation from daughter, notes decline over 6mo, no longer driving, needs assistance to walk a few feet, unable to run errands independently, as she says she can - This is also the case as noted by staff here, needs assistance to walk, transfers, ADLs. - Encouraged SNF, but patient refuses, Planning to go home with home health Assessment & Plan (02/15/2021 1:55 PM CDT): Chronic. Spinal Injury occurred falling down stairs. Complicated by severe multiple decubs, as elsewhere. Pt's claim of independent mobility is not supported by collateral infornation from daughter, notes decline over 6mo, no longer driving, needs assistance to walk a few feet, unable to run errands independently, as she says she can. This is also the case as noted by staff here, needs assistance to walk, transfers, ADLs. PT/OT/SW for dispo planning. Encouraged SNF, but pt remains reluctant. Increased muscle spasms, added baclofen but more sedated. Change to flexeril 5mg TID PRN. Assessment & Plan (02/14/2021 5:09 PM CDT): Chronic. Spinal Injury occurred falling down stairs. Complicated by severe multiple decubs, as elsewhere. Pt's claim of independent mobility is not supported by collateral infornation from daughter, notes decline over 6mo, no longer driving, needs assistance to walk a few feet, unable to run errands independently, as she says she can. This is also the case as noted by staff here, needs assistance to walk, transfers, ADLs. PT/OT/SW for dispo planning. Encouraged SNF, but pt remains reluctant. Increased muscle spasms, add baclofen. Assessment & Plan (02/13/2021 5:50 PM CDT): Chronic. Spinal Injury occurred falling down stairs. Complicated by severe multiple decubs, as elsewhere. Pt's claim of independent mobility is not supported by collateral infornation from daughter, notes decline over 6mo, no longer driving, needs assistance to walk a few feet, unable to run errands independently, as she says she can. This is also the case as noted by staff here, needs assistance to walk, transfers, ADLs. PT/OT/SW for dispo planning. Encouraged SNF, but pt remains reluctant. Assessment & Plan (02/12/2021 1:49 PM CDT): Chronic. Spinal Injury occurred falling down stairs. Complicated by severe multiple decubs, as elsewhere. Pt's claim of independent mobility is not supported by collateral infornation from daughter, notes decline over 6mo, no longer driving, needs assistance to walk a few feet. This is also the case as noted by staff here, needs assistance to walk, transfers, ADLs. PT/OT/SW for dispo planning. Assessment & Plan (02/12/2021 7:59 AM CDT): Chronic. Spinal Injury occurred falling down stairs. Complicated by severe multiple decubs, as elsewhere. Pt's claim of independent mobility is not supported by collateral infornation from daughter, notes decline over 6mo, no longer driving, needs assistance to walk a few feet. PT/OT/SW for dispo planning. Assessment & Plan (02/10/2021 11:45 AM CDT): Chronic. Injury occurred falling down stairs. Complicated by severe multiple decubs, as elsewhere. PT/OT/SW for dispo planning. Chronic pain syndrome 02/08/2021 Assessment & Plan (07/29/2024 1:05 PM RADIO SCRIPT WRITER): Chronic, uncontrolled due to a large sacral decubitus, pressure sores on the left lateral thigh and left inferior gluteal crease, as well as being confined to a wheelchair due to inadequate physical therapy following right below-knee amputation for vascular disease. She reports frustration with her insurance company which does not give her the supplies and services that she needs to maintain her health. She does have a personal aide. We will monitor clinically and provide supportive services as able. Assessment & Plan (01/22/2023 12:29 PM CDT): She cut back on her gabapentin. She uses ibuprofen as needed. Things seem to be under reasonable control. Continue same. Assessment & Plan (10/29/2022 11:04 AM RADIO SCRIPT WRITER): She is functioning well with fairly minimal medications at this time including baclofen 10 mg 3 times a day, and gabapentin 600 mg which she breaks in half to take 300 mg 3 times a day. She also takes ibuprofen as needed. Assessment & Plan (07/14/2022 1:35 PM RADIO SCRIPT WRITER): She is been having difficulty getting her amitriptyline prescription straightened out. According to our records, it was sent in last month. We sent in another prescription to hopefully solve this problem. Assessment & Plan (02/24/2022 12:43 PM CDT): We sent in a refill of gabapentin which seems to be moderately effective for pain and also helps her sleep. Assessment & Plan (11/05/2021 11:12 AM RADIO SCRIPT WRITER): She was on some pain medicine for awhile, but seems to be doing okay. I recommended using Tylenol as needed and at the recommended prescribed doses. Assessment & Plan (05/25/2021 4:41 PM CDT): She has significant chronic pain, mostly in her legs, of a somewhat neuropathic nature. There is probably some ischemic pain in her legs is well. She is intolerant of multiple pain medications including tramadol and most narcotics. She takes three OTC ibuprofen every 4 hours as needed. We cautioned her about the risks of this medication at these doses, especially given her past history of a duodenal ulcer many years ago. She would like something for muscle spasms. These occur in her thighs and inguinal areas, especially with movement or wound bandage changes. She previously took tizanidine, but says it did not help her. We will try some baclofen. Assessment & Plan (02/25/2021 6:57 PM CDT): S/p wound debridement 02/13 for half-way healing. -c/w Oxycotin 10 BID, oxy 10 q4 -c/w adjunctives luther 100 TID, lidocaine patch, naloxogel -discussed with patient that no pain meds would be provided with AMA discharge Assessment & Plan (02/23/2021 7:11 PM CDT): S/p wound debridement 02/13 for half-way healing. -still depended on IV diluadid and not using PO pain meds -start Oxycontin 10 BID -c/w oxy 10 q4 + dilaudid PRN -c/w adjunctives luther 100 TID, lidocaine patch -BR with ongoing constipation--c/w senna/doc and miralax, add naloxogel 12.5 qd Assessment & Plan (02/15/2021 1:47 PM CDT): Pt takes lots of ibuprofen at home. Previously prescribed gabapentin, tramadol, norco in past but doesn't take any of those. Suspect poor follow up as OP contributing to med noncompliance? Titrate for pain control to limit nephrotoxicity. Exacerbated by anxiety, see anxiety management elsewhere. ACCS addressing wounds for improved comfort. S/p wound debridement 02/13 for half-way healing. PT/OT and encouraged OOB BID for improved mobility, encouraged SNF at [place]. Resistant to both ideas, unfortunately. Trial of baclofen for muscle spasm, but very fatigued today. Will replace with flexeril, favor cariprodol at [place], but nonformulary for inpt use. Assessment & Plan (02/13/2021 5:47 PM CDT): Pt takes lots of ibuprofen at home. Has been prescribed gabapentin, tramadol, norco in past but doesn't take any of those. Suspect poor follow up as OP contributing to med noncompliance? Titrate for pain control to limit nephrotoxicity. Exacerbated by anxiety, see anxiety management elsewhere. ACCS addressing wounds for improved comfort. Plan to proceed with wound debridement 02/13 for half-way healing. PT/OT and encouraged OOB BID for improved mobility, encouraged SNF at [place]. Resistant to both ideas, unfortunately. Assessment & Plan (02/12/2021 1:47 PM CDT): Pt takes lots of ibuprofen at home. Has been prescribed gabapentin, tramadol, norco in past but doesn't take any of those. Suspect poor follow up as OP contributing to med noncompliance? Titrate for pain control to limit nephrotoxicity. Exacerbated by anxiety, see anxiety management elsewhere. ACCS addressing wounds for improved comfort. Plan t to proceed with wound debridement 02/13 for half-way healing. PT/OT and encouraged OOB BID for improved mobility, encouraged SNF at [place]. Assessment & Plan (02/12/2021 7:58 AM CDT): Pt takes lots of ibuprofen at home. Has been prescribed gabapentin, tramadol, norco in past but doesn't take any of those. Suspect poor follow up as OP contributing to med noncompliance? Titrate for pain control to limit nephrotoxicity. Exacerbated by anxiety, poorly controlled. Added atarax with some improvement, see anxiety management elsewhere. ACCS addressing wounds for improved comfort. Strongly encourage patient to proceed with debridement for half-way healing. PT/OT and encouraged OOB BID for improved mobility. Assessment & Plan (02/10/2021 11:42 AM CDT): takes lots of ibuprofen at home. Has been prescribed gabapentin, tramadol, norco in past but doesn't take any of those. Suspect poor follow up as OP contributing? Titrate for pain control to limit nephrotoxicity. Exacerbated by anxiety, poorly controlled. Added atarax with some improvement. ACCS addressing wounds for improved comfort. PT/OT and encouraged OOB BID for improved mobility. Assessment & Plan (02/09/2021 2:57 PM CDT): takes lots of ibuprofen at home. Has been prescribed gabapentin, tramadol, norco in past but doesn't take any of those. Titrate for pain control to limit nephrotoxicity. Exacerbated by anxiety, poorly controlled. Peripheral artery disease ([facility]) 02/08/2021 Overview (05/07/2021): CT AIF on 02/09/2021, [place]: 1. Aorta: Severe stenosis of the infrarenal aorta due to atherosclerosis. 2. Right lower extremity: Near occlusion of the right common iliac artery. [id number] multifocal superficial femoral artery stenoses. Normal three- vessel runoff. 3. Left lower extremity: Occluded left common iliac artery with reconstitution of flow at the external iliac artery. Mild to moderate multifocal superficial femoral artery stenoses. Normal three-vessel runoff. 4. Bilateral decubitus ulcers of the right lateral hip and thigh, and left medial thigh. Assessment & Plan (07/30/2024 5:54 AM RADIO SCRIPT WRITER): Chronic, fair control on cilostazol 50 mg twice daily which is the only medication she can tolerate for her vascular disease. She declines aspirin and other antiplatelet therapy due to past GI bleeding problems. Continue cilostazol. Assessment & Plan (04/28/2024 3:41 PM CDT): Chronic, present for 4 or more years. She is on minimal therapy due to multiple drug intolerances. She is still smoking cigarettes. We encouraged cessation. Follow- up in three months. Assessment & Plan (01/22/2024 2:11 PM CDT): Chronic, uncontrolled. She basically has no palpable pulses in the wrists. Lately she has noted a little red discoloration in her fingers but no pain. The hands are well perfused. She might be having a little vasospasm from smoking, but nothing severe or progressive. We will monitor clinically. Assessment & Plan (10/18/2023 2:26 PM RADIO SCRIPT WRITER): She is on cilostazol. We sent in a refill. She does not tolerate other medical therapy including aspirin and Plavix. Assessment & Plan (03/15/2023 2:09 PM CDT): There are no palpable pulses in her left foot, but clinically the extremity is well perfused with no ischemic ulcers, gangrene, or temperature deficit noted. We will monitor clinically. Assessment & Plan (01/05/2023 3:03 PM CDT): She has a right BKA for peripheral vascular disease. She has difficulty with ambulation but might be able to get some home remodeling through her medical insurance to install hand rails and other safety devices. Assessment & Plan (10/17/2022 1:58 PM RADIO SCRIPT WRITER): She had a right BKA which has healed well. She has a prosthesis. She denies any new problems with her left leg. We will see her back in three months. Assessment & Plan (07/30/2022 11:01 AM RADIO SCRIPT WRITER): She is status post right BKA. Her left foot has a strong dorsal pedal pulse. I do not detect a posterior tibial pulse, but the foot is well perfused. She will continue the cilostazol. Assessment & Plan (04/13/2022 3:23 PM CDT): She had a follow-up at [facility] last month. Dopplers were performed but unfortunately I cannot access them in her record. Apparently things are going well. Her left foot has good color in it. We will continue medications as tolerated and have her follow-up with the vascular surgeons. Assessment & Plan (12/06/2021 4:54 PM CDT): She is allergic to aspirin. She refuses to take Plavix because it causes her to bleed. She says she had blood in her ostomy, in her Bowser, and she coughed up blood. She is willing to try some cilostazol which we sent in. Assessment & Plan (11/21/2021 7:41 PM CDT): She has severe peripheral artery disease which affected primarily the right leg. She was at [facility] and had to have a right BKA. The left leg seems pretty well perfused. Her dorsal pedal pulse is strong and there are no ulcers. We put her back on Plavix, originally stopped because of an a llergy which was entered because of a bleeding ulcer many years ago. She does have some epigastric pain, but seems to be improved. It was bad when she was hospitalized at [facility], but she says her appetite is good now and she has intermittent pain. We will put her on Pepcid to protect her from possible gastritis/ulceration. Assessment & Plan (10/22/2021 1:54 PM RADIO SCRIPT WRITER): Patient has severe peripheral artery disease and underwent aortoiliac endarterectomy and patch angioplasty 06/07/21 and S/p left iliofemoral artery bypass 06/07/21. This also resulted in her having a rt BKA. She will need to be on asa and statin. Medications unclear at this time and will schedule visit to review this with home health nursing. Assessment & Plan (05/25/2021 4:43 PM CDT): She had a CT AIF at [place] about three months ago which showed severe distal aortic stenosis, severe right common iliac stenosis, and occlusion of the left common iliac. There was distal runoff. She currently has ischemic gangrene of the right second and third toes as well as chronic rubor in the entire right foot suggestive of ischemia. The left foot is currently in better shape, but probably at risk. There are no pulses palpable in either foot. We will refer her to the vascular surgery Department at [place] for evaluation and potential interventions such as a stent graft. Assessment & Plan (02/24/2021 10:36 AM CDT): Longstanding. CT pelvis showing Severe aortobiiliac atherosclerotic disease with severe stenosis of the distal infrarenal abdominal aorta and chronic- appearing occlusion of the left common iliac artery. -Clinically dry gangrene of R 2nd toe and lateral aspect of 3rd toe noted on admission as elsewhere -CT angiogram 02/09 with severe Ao-iliac bilateral disease -Vascular followed and considered bilateral Ao-iliac bypass. Preop risk assessment with pharmacologic Stress testing 02/11 negative. Pt considered high risk by vascular surgery to proceed with bypass, not currently interested in having procedure -GOC discussions started and seen by palliative care but still Full Code and planing d/c to home with home health Assessment & Plan (02/23/2021 7:07 PM CDT): Longstanding. CT pelvis showing Severe aortobiiliac atherosclerotic disease with severe stenosis of the distal infrarenal abdominal aorta and chronic- appearing occlusion of the left common iliac artery. -Clinically dry gangrene of R 2nd toe and lateral aspect of 3rd toe noted on admission as elsewhere -CT angiogram 02/09 with severe Ao-iliac bilateral disease -Vascular followed and considered bilateral Ao-iliac bypass. Preop risk assessment with pharmacologic Stress testing 02/11 negative. Pt considered high risk by vascular surgery to proceed with bypass, not currently interested in having procedure -GOC discussions started and seen by palliative care Assessment & Plan (02/15/2021 1:54 PM CDT): longstanding. CT pelvis showing Severe aortobiiliac atherosclerotic disease with severe stenosis of the distal infrarenal abdominal aorta and chronic- appearing occlusion of the left common iliac artery. - ADI's done 02/08 showing indices <0.30 consistent with severe PAD -Clinically dry gangrene of R 2nd toe and lateral aspect of 3rd toe. - vasc surg consulted & following. -CT angiogram 02/09 with severe Ao-iliac bilateral disease. Pt considered bilateral Ao-iliac bypass. Preop risk assessment with pharmacologic Stress testing 02/11 negative. Pt considered high risk by vascular surgery to proceed with bypass, not currently interested in having procedure -GOC discussions started, hampered by pt's unrealistic view of her recent mobility, anxiety and poor concentration (overall improving on anxiolytics), plan f/u vascular surgery clinic as OP. More than likely palliative care will see pt as OP, consulted 02/15. -PT/OT/SW Assessment & Plan (02/14/2021 5:09 PM CDT): longstanding. CT pelvis showing Severe aortobiiliac atherosclerotic disease with severe stenosis of the distal infrarenal abdominal aorta and chronic- appearing occlusion of the left common iliac artery. - ADI's done 02/08 showing indices <0.30 consistent with severe PAD -Clinically dry gangrene of R 2nd toe and lateral aspect of 3rd toe. - vasc surg consulted & following. -CT angiogram 6/8 with severe Ao-iliac bilateral disease. Pt considered bilateral Ao-iliac bypass. Preop risk assessment with pharmacologic Stress testing /10 negative. Pt considered high risk by vascular surgery to proceed with bypass, not currently interested in having procedure -GOC discussions started, hampered by pt's unrealistic view of her recent mobility. -PT/OT/SW Assessment & Plan (02/13/2021 5:49 PM CDT): longstanding. CT pelvis showing Severe aortobiiliac atherosclerotic disease with severe stenosis of the distal infrarenal abdominal aorta and chronic- appearing occlusion of the left common iliac artery. - ADI's done 02/08 showing indices <0.30 consistent with severe PAD -Clinically dry gangrene of R 2nd toe and lateral aspect of 3rd toe. - vasc surg consulted & following. -CT angiogram 02/09 with severe Ao-iliac bilateral disease. Pt considered bilateral Ao-iliac bypass. Preop risk assessment with pharmacologic Stress testing /10 negative. Pt considered too high risk to proceed with bypass. -GOC discussions started, hampered by pt's unrealistic view of her recent mobility. -PT/OT/SW Assessment & Plan (02/12/2021 1:48 PM CDT): longstanding. CT pelvis showing Severe aortobiiliac atherosclerotic disease with severe stenosis of the distal infrarenal abdominal aorta and chronic- appearing occlusion of the left common iliac artery. - ADI's done 02/08 showing indices <0.30 consistent with severe PAD -Clinically dry gangrene. - vasc surg consulted & following -CT angiogram 02/09 with severe Ao-iliac bilateral disease. -vascular surgery considering bilateral Ao-iliac bypasses. Preop risk assessment with pharmacologic Stress testing 02/11 negative. Awaiting final recs. -PT/OT/SW Assessment & Plan (02/12/2021 7:58 AM CDT): longstanding. CT pelvis showing Severe aortobiiliac atherosclerotic disease with severe stenosis of the distal infrarenal abdominal aorta and chronic- appearing occlusion of the left common iliac artery. - ADI's done 02/08 showing indices <0.30 consistent with severe PAD -Clinically dry gangrene. - vasc surg consulted -CT angiogram 02/09 with severe Ao-iliac bilateral disease. -vascular surgery considering bilateral Ao-iliac bypasses. Preop risk assessment with pharmacologic Stress testing 02/10=>6/10 pending -PT/OT/SW Assessment & Plan (02/10/2021 11:42 AM CDT): longstanding. CT pelvis showing Severe aortobiiliac atherosclerotic disease with severe stenosis of the distal infrarenal abdominal aorta and chronic- appearing occlusion of the left common iliac artery. - ADI's done 02/08 showing indices <0.30 consistent with severe PAD -Clinically dry gangrene. - vasc surg consulted -CT angiogram 02/09 with severe Ao-iliac bilateral disease. -vascular surgery considering bilateral Ao-iliac bypasses. Preop risk assessment with pharmacologic Stress testing 02/10. -PT/OT/SW Assessment & Plan (02/09/2021 2:58 PM CDT): longstanding. CT pelvis showing Severe aortobiiliac atherosclerotic disease with severe stenosis of the distal infrarenal abdominal aorta and chronic- appearing occlusion of the left common iliac artery. - ADI's done 02/08 showing indices <0.30 consistent with severe PAD -Clinically dry gangrene. - vasc surg consulted -CT angiogram 02/09 pending. -PT/OT/SW Pressure injury of skin of c ontiguous region involving back, buttock, and hip 02/08/2021 Assessment & Plan (02/11/2025 8:28 PM CDT): See Brise[facility] HPI/AP. Assessment & Plan (04/28/2024 3:46 PM CDT): Chronic, present since her hospitalization for critical right limb ischemia about 3 years ago. She has multiple pressure sores as described, significantly improved overall but the deepest one over the sacrum might benefit from a wound VAC so we will look into this. Assessment & Plan (01/22/2024 2:12 PM CDT): Chronic, uncontrolled. She says the wounds are clean and might be getting smaller but definitely are not healed up. She gets wound care from her visiting nurse. They send us photos periodically. Assessment & Plan (10/30/2023 4:09 PM RADIO SCRIPT WRITER): She reports that her various wounds are improving with the attention of home health care. Assessment & Plan (06/14/2023 2:21 PM CDT): She will continue to receive wound care from home health. Return here in three months. Assessment & Plan (06/14/2023 1:53 PM CDT): >>ASSESSMENT AND PLAN FOR WOUND OF BUTTOCK WRITTEN ON 10/22/2021 1:51 PM BY KARINA KOCH NP Patient has wounds on bilateral buttocks. She refuses to allow me to see in office today as she does not wish to try to stand or change bandages. According to hospital stay this did require debridement. She reports they have improved and that she is using santyl. We will send home nursing for wound care and evaluation. Assessment & Plan (06/14/2023 1:53 PM CDT): >>ASSESSMENT AND PLAN FOR WOUND OF BUTTOCK WRITTEN ON 02/13/2023 7:41 PM BY BRANDIE BA NP Continue management per home health RN. Mobility has improved which has helped wound with healing process. Assessment & Plan (01/05/2023 3:03 PM CDT): She says her decubitus sores are healing very nicely. She is now on collagen dressing changes. The nurse comes to her home once or twice a week and also helps manage her Bowser catheter. The Bowser appears to be causing some discomfort. There is no fever but she has local pain that did not respond to empiric Diflucan therapy. We will request a health teacher evaluation. Assessment & Plan (10/29/2022 11:06 AM RADIO SCRIPT WRITER): She says the wounds have decreased in size and in number. She originally had five decubiti, and is now down to three. She gets wound care from home health. She did not want me to evaluate her wounds in the office today. Assessment & Plan (07/30/2022 11:01 AM RADIO SCRIPT WRITER): She has a sacral decubitus which is being tended by home health. She reports overall improvement. We did not remove the foam bandage in the office today, but there is no obvious swelling or drainage. She says it gets changed frequently at home. Assessment & Plan (04/13/2022 3:24 PM CDT): He says the sacral decubitus is healing nicely. Currently there is an Alevyn dressing which I did not removed. She will continue wound care at home. Assessment & Plan (02/24/2022 12:40 PM CDT): She has multiple pressure injuries that are residuals of past problems. Some of these are healing slowly while others are still quite large and deep, especially the sacral decubitus. The wound care nurses are doing a good job. There is no evidence of secondary or invasive infection. We will see her back in three months. Assessment & Plan (02/25/2021 6:53 PM CDT): Chronic now worsening/increasing Right sided pain & drainage x 6 days [employer]. Followed by wound at [place] previously. CT pelvis showing large decubitus ulcers involving the posterior lateral aspect of the proximal right lower extremity and the posterior medial aspect of the left lower extremity (with extension into the left perineum) but no evidence of associated fluid collections or involvement of the underlying osseous structures. -seen by ACCS s/p I&D 02/13 of left groin & right posterior thigh ulcers -Culture growing rare proteus, B fragilis, pseudomonas -s/p vanc/cefe > c/w augmentin/cipro 02/13- -wound vac placed on 02/17, wound following for care -Wound vac in place, removed due to patient leaving prior to home health set up, preliminarily has outpatient wound care appointment in early March that patient has details and location provided, stressed need for follow up Assessment & Plan (02/23/2021 7:06 PM CDT): Chronic now worsening/increasing Right sided pain & drainage x 6 days [employer]. Followed by wound at [place] previously. CT pelvis showing large decubitus ulcers involving the posterior lateral aspect of the proximal right lower extremity and the posterior medial aspect of the left lower extremity (with extension into the left perineum) but no evidence of associated fluid collections or involvement of the underlying osseous structures. -seen by ACCS s/p I&D 02/13 of left groin & right posterior thigh ulcers -Culture growing rare proteus, B fragilis, pseudomonas -s/p vanc/cefe > c/w augmentin/cipro 02/13- -wound vac placed on 02/17, wound following for care -Wound vac in place, will need to remove if patient leaves without home health or wound clinic arrangements but preliminarily [facility] home health accepting Assessment & Plan (02/15/2021 1:57 PM CDT): Chronic now worsening/increasing Right sided pain & drainage x 6 days. Followed by wound at [place] previously. CT pelvis showing large decubitus ulcers involving the posterior lateral aspect of the proximal right lower extremity and the posterior medial aspect of the left lower extremity (with extension into the left perineum) but no evidence of associated fluid collections or involvement of the underlying osseous structures. - wound consulted, rec ACCS for debridement. -Wound care with moist to dry packing BID with Vashe soaked Kerlix, cover with ABD and hold in place with Kerlix wrap. Reviewed with patient daily at her prompting, as she has been changing dressings at home up to 5-6 times daily. Discussed why this is not recommended. -S/b ACCS, s/p IPAP, s/p I&D 02/13 of left groin & right posterior thigh ulcers. Wounds look good. - abx as elsewhere. -Pain management with titration. -New bilateral heel erythema, monitor. Encouraged patient to wear heel protectors & educated on benefits, as she repeatedly removes. Prognosis poor, GOC discussions initiated with pt and daughter. -PT/OT rec SNF. Pt resistant to SNF at [place] at this time, but would markedly benefit from rehab. Limited timeframe of family assistance at home (daughter available until May). Reviewed concerns for recurrent infections with poor perfusion further complicating matters. Assessment & Plan (02/14/2021 5:13 PM CDT): Chronic now worsening/increasing Right sided pain & drainage x 6 days. Followed by wound at [place] previously. CT pelvis showing large decubitus ulcers involving the posterior lateral aspect of the proximal right lower extremity and the posterior medial aspect of the left lower extremity (with extension into the left perineum) but no evidence of associated fluid collections or involvement of the underlying osseous structures. - wound consulted, rec ACCS for debridement. -Wound care with moist to dry packing BID with Vashe soaked Kerlix, cover with ABD and hold in place with Kerlix wrap. Reviewed with patient daily at her prompting, as she has been changing dressings at home up to 5-6 times daily. Discussed why this is not recommended. -S/b ACCS, s/p IPAP, s/p I&D 02/13 of left groin & right posterior thigh ulcers. - abx as elsewhere. -Pain management with titration. -New left heel area of erythema, monitor. Encouraged patient to wear heel protectors & educated on benefits, as she repeatedly removes. Prognosis poor, GOC discussions initiated with pt and daughter. -PT/OT rec SNF. Pt resistant to SNF at [place] at this time, but would markedly benefit from rehab. Limited timeframe of family assistance at home (daughter available until May). Assessment & Plan (02/13/2021 5:51 PM CDT): Chronic now worsening/increasing Right sided pain & drainage x 6 days. Followed by wound at [place] previously. CT pelvis showing large decubitus ulcers involving the posterior lateral aspect of the proximal right lower extremity and the posterior medial aspect of the left lower extremity (with extension into the left perineum) but no evidence of associated fluid collections or involvement of the underlying osseous structures. - wound consulted, rec ACCS for debridement. -Wound care with moist to dry packing BID with Vashe soaked Kerlix, cover with ABD and hold in place with Kerlix wrap. Reviewed with patient daily at her prompting, as she has been changing dressings at home up to 5-6 times daily. Discussed why this is not recommended. -S/b ACCS, plan wound debridements 02/13. IPAP consulted. Pt agreeable. - abx as above -Pain management with titration. Seems more comfortable. -New left heel area of erythema, monitor. Encouraged patient to wear heel protectors & educated on benefits, as she repeatedly removes. -PT/OT rec SNF. Pt resistant to SNF at ut at this time, but would markedly benefit from rehab. Limited timeframe of family assistance at home (daughter available until May). Assessment & Plan (02/12/2021 1:53 PM CDT): Chronic now worsening/increasing Right sided pain & drainage x 6 days. Followed by wound at [place] previously. CT pelvis showing large decubitus ulcers involving the posterior lateral aspect of the proximal right lower extremity and the posterior medial aspect of the left lower extremity (with extension into the left perineum) but no evidence of associated fluid collections or involvement of the underlying osseous structures. - wound consulted, rec ACCS for debridement. -Wound care with moist to dry packing BID with Vashe soaked Kerlix, cover with ABD and hold in place with Kerlix wrap. Reviewed with patient daily at her prompting, as she has been changing dressings at home up to 5-6 times daily. Discussed why this is not recommended. -S/b ACCS, plan wound debridements 02/13. IPAP consulted. NPO p MN tonight. - abx as above -Pain management with titration. Seems more comfortable. -New left heel area of erythema, monitor. Encouraged patient to wear heel protectors & educated on benefits, as she repeatedly removes. -PT/OT rec SNF. Pt resistant to SNF at [place] at this time, but would markedly benefit from rehab. Limited timeframe of family assistance at home (daughter available until May). Assessment & Plan (02/12/2021 8:00 AM CDT): Chronic now worsening/increasing Right sided pain & drainage x 6 days. Followed by wound at [place] previously. CT pelvis showing large decubitus ulcers involving the posterior lateral aspect of the proximal right lower extremity and the posterior medial aspect of the left lower extremity (with extension into the left perineum) but no evidence of associated fluid collections or involvement of the underlying osseous structures. - wound consulted, rec ACCS for debridement. -S/b ACCS, plan wound debridements 02/11. IPAP consulted. NPO p MN tonight. - abx as above -Pain management with titration. -PT/OT. Pt resistant to SNF at ut at this time, but would markedly benefit from rehab. Limited timeframe of family assistance at home (daughter available until May). Assessment & Plan (02/10/2021 11:44 AM CDT): Chronic now worsening/increasing Right sided pain & drainage x 6 days. Followed by wound at [place] previously. CT pelvis showing large decubitus ulcers involving the posterior lateral aspect of the proximal right lower extremity and the posterior medial aspect of the left lower extremity (with extension into the left perineum) but no evidence of associated fluid collections or involvement of the underlying osseous structures. - wound consulted, rec ACCS for debridement. -S/b ACCS, plan wound debridements 02/11. IPAP consulted. NPO p JEFFREY colunga. - abx as above -Pain management with titration. -PT/OT. Pt resistant to SNF at ut at this time, but would markedly benefit from rehab. Limited timeframe of family assistance at home. Assessment & Plan (02/09/2021 3:00 PM CDT): Chronic now worsening/increasing Right sided pain & drainage x 6 days. Followed by wound at [place] previously. CT pelvis showing large decubitus ulcers involving the posterior lateral aspect of the proximal right lower extremity and the posterior medial aspect of the left lower extremity (with extension into the left perineum) but no evidence of associated fluid collections or involvement of the underlying osseous structures. - wound consulted, rec ACCS for debridement. - abx as above -Pain management with titration. Tobacco dependence syndrome 10/29/2020 Overview (10/25/2022): As of 10/25/2022 message from [facility] radiology, patient is declining lung cancer screening that was ordered. Assessment & Plan (02/11/2025 8:33 PM CDT): See [facility] HPI/AP. Assessment & Plan (07/29/2024 1:07 PM RADIO SCRIPT WRITER): Uncontrolled, she is still smoking. We encouraged cessation. Assessment & Plan (04/28/2024 3:47 PM CDT): Chronic, uncontrolled. She is still smoking cigarettes and probably will never quit. We nevertheless encouraged her to try and gave her some phone resources. She says it is difficult for her to comply with preventive care recommendations in general, including lung cancer screening, due to her physical condition including right BKA and a diverting colostomy. Assessment & Plan (01/22/2024 2:14 PM CDT): Chronic, uncontrolled. We again encouraged smoking cessation. Assessment & Plan (01/05/2023 3:04 PM CDT): We strongly encouraged smoking cessation. This might be a prerequisite to have her colostomy taken down. Assessment & Plan (07/14/2022 1:37 PM RADIO SCRIPT WRITER): She is still smoking cigarettes. We strongly encouraged smoking cessation. Assessment & Plan (04/13/2022 3:27 PM CDT): Unfortunately, she relapsed with her smoking after getting out of the hospital. We encouraged attempts at cessation. She has tried multiple medications to help her quit in the past, and was intolerant of all of them. She qualifies for low-dose CT scan screen for lung cancer. We will get that scheduled. Assessment & Plan (11/05/2021 11:10 AM RADIO SCRIPT WRITER): She says she quit smoking cigarettes when she was admitted to [facility], and has stayed off of them since then. Hopefully she will not relapse. Assessment & Plan (05/07/2021 2:00 PM CDT): She has smoked heavily for many years. We encouraged smoking cessation. Seasonal allergies 08/18/2020 Neuropathy 05/30/2018 Overview (06/14/2023): [facility]. >>OVERVIEW FOR SENSORY POLYNEUROPATHY WRITTEN ON 06/14/2023 1:52 PM BY DINORAH KUMAR MD [facility]. EMG 05/22, details lacking. Patient reports it is due to her spinal problems, S/P cervical surgery. Other insomnia 03/04/2018 Overview (06/14/2023): Sleep walk behavior with Ambien, amitriptyline makes her grumpy, also intolerant of trazodone, Benadryl works. Assessment & Plan (02/12/2025 11:55 AM CDT): See [facility] HPI/AP. Assessment & Plan (04/25/2024 3:06 PM CDT): She has chronic insomnia, present for more than five years. She takes Benadryl but is worried about side effects and overdose. We reviewed appropriate use and potential toxic levels. Follow-up in three months. Assessment & Plan (06/14/2023 2:21 PM CDT): She has trouble sleeping. The amitriptyline made her grumpy and she does not want to take it. She was intolerant of trazodone in the past although she does not remember the side effect. With Ambien, she had sleep walk behaviors. Choices are limited and we recommended a trial of Benadryl which she says has worked in the past. Hx of spinal cord injury 03/04/2015 Overview (05/07/2021): Surgery by Dr. Morales, [facility]. Assessment & Plan (02/03/2022 3:54 PM CDT): She has a chronic Bowser and a diverting colostomy. We will order appropriate supplies for this as well as her wound care. Mixed hyperlipidemia 05/17/2012 Assessment & Plan (02/11/2025 8:28 PM CDT): See [facility] HPI/AP. Assessment & Plan (07/29/2024 1:06 PM RADIO SCRIPT WRITER): Chronic, uncontrolled due to not being on medication for this condition. She reports multiple medication intolerances. We ordered follow-up lipids to be done today to give her feedback on her diet. Assessment & Plan (01/22/2024 2:10 PM CDT): Chronic, uncontrolled. She is intolerant of multiple medications. We will monitor labs periodically to give her feedback on her diet. Assessment & Plan (10/18/2023 2:24 PM RADIO SCRIPT WRITER): We will monitor lipids periodically to give her feedback on her diet. Assessment & Plan (10/17/2022 1:57 PM RADIO SCRIPT WRITER): We are monitoring labs periodically to give her feedback on her diet. Assessment & Plan (07/14/2022 1:36 PM RADIO SCRIPT WRITER): She is intolerant of statins. We will monitor labs periodically to give her feedback on her diet. Assessment & Plan (12/06/2021 4:56 PM CDT): She says she is intolerant of statins. We will check her lipid profile which was drawn this morning. Most likely we will recommend alternative therapy such as Zetia, Repatha, or fish oil. Insurance coverage could be a significant impediment to treatment. Assessment & Plan (05/25/2021 4:42 PM CDT): She is intolerant of statins. There is no current lipid profile in her record. We will check lipids to give her feedback on her diet. Ischemic heart disease due to coronary artery ob struction 03/04/1995 Overview (05/07/2021): Stents in [place], details lacking. Assessment & Plan (02/11/2025 8:33 PM CDT): See [facility] HPI/AP. Assessment & Plan (11/03/2024 12:54 PM RADIO SCRIPT WRITER): Chronic, present for 30 or more years, details lacking, as intervention took place [place] ago [place]. She is intolerant the usual medical therapy including antiplatelet agents which caused serious bleeding, and statins which caused weakness and dizziness. Recommend continued clinical monitoring. We recommended smoking cessation. Assessment & Plan (07/30/2024 5:53 AM RADIO SCRIPT WRITER): Chronic, uncontrolled although she denies having chest pain at this time. History is a little unclear dating to more than 30 years ago when she reported having stents placed while still living in [place]. The patient declines antiplatelet therapy due to past bleeding complications. She is allergic to or intolerant of multiple medications including statins. We will monitor for symptoms. Assessment & Plan (10/18/2023 2:24 PM RADIO SCRIPT WRITER): She denies chest pain or pressure. She is intolerant of multiple cardiac medications. Continue minimal therapy consisting of cilostazol which is primarily for her peripheral vascular disease. Assessment & Plan (01/22/2023 12:29 PM CDT): She is on minimal medical therapy due to numerous medication intolerances, but has no new complaints at this time. Assessment & Plan (10/17/2022 1:57 PM RADIO SCRIPT WRITER): She has multiple medication intolerances, so therapeutic intervention is constrained. She denies having any chest pain or pressure. Assessment & Plan (07/14/2022 1:36 PM RADIO SCRIPT WRITER): She denies chest pain or pressure. She is intolerant of multiple cardiac medications. She does take cilostazol for peripheral artery disease, so this might also be helping her heart. Assessment & Plan (04/13/2022 3:22 PM CDT): She is intolerant of all anti-platelet medications and statins. She denies any significant new symptoms. We will monitor clinically. Assessment & Plan (12/06/2021 4:57 PM CDT): She gets chest pains which are poorly described. Ideally she should be on several medications, but is intolerant to most of them or refuses that take them for other reasons. Assessment & Plan (11/05/2021 11:12 AM RADIO SCRIPT WRITER): She had stents placed in [place] years ago. She currently denies having chest pain. She should be on some anti-platelet drug and she is allergic to aspirin and all salicylates, so we put her back on Plavix. Ideally she should be on a cholesterol medicine. Statins are listed as an allergy due to liya nazario. We will address this at her next visit. Assessment & Plan (05/07/2021 2:08 PM CDT): She had stents placed in her heart over 20 years ago, details are lacking. The intervention took place in [place]. She says everything has been fine since then. She is intolerant of aspirin, Plavix, and statins. Assessment & Plan (02/24/2021 10:40 AM CDT): s/p 5x VADIM in distant past while living in [place]. Not on plavix due to allergy. Also reports salicylate allergy - restarted atorvastatin, low fat diet. Assessment & Plan (02/22/2021 5:30 PM CDT): s/p 5x VADIM in distant past while living in [place]. Not on plavix due to allergy. Also reports salicylate allergy - restarted atorvastatin, low fat diet. Assessment & Plan (02/15/2021 1:57 PM CDT): s/p 5x VADIM in distant past while living in [place]. Not on plavix due to allergy. Also reports salicylate allergy - restarted atorvastatin, low fat diet. - follows with [facility] - minimal information in their notes but not on meds per most recent note 10/2020, suspect med noncompliance. -Stress test 02/10 preop, canceled d/t refusal. Pt further counseled, now agreeable. -Performed 02/11 maximal dobutamine stress neg for ischemia, normal LVEF. -Plan OP f/u primary provider. No anginal symptoms. Continue current medications at [place]. Assessment & Plan (02/14/2021 5:05 PM CDT): s/p 5x VADIM in distant past while living in [place]. Not on plavix due to allergy. Also reports salicylate allergy - restarted atorvastatin, low fat diet. - follows with [facility] - minimal information in their notes but not on meds per most recent note 10/2020, suspect med noncompliance. -Stress test 02/10 preop, canceled d/t refusal. Pt further counseled, now agreeable. -Performed 6/10 maximal dobutamine stress neg for ischemia, normal LVEF. -Plan OP f/u primary provider. No anginal symptoms. Assessment & Plan (02/13/2021 5:46 PM CDT): s/p 5x VADIM in distant past while living in [place]. Not on plavix due to allergy. Also reports salicylate allergy - restarted atorvastatin, low fat diet. - follows with [facility] - minimal information in their notes but not on meds per most recent note 10/2020, suspect med noncompliance. -Stress test 02/10 preop, canceled d/t refusal. Pt further counseled, now agreeable. -Performed 10 maximal dobutamine stress neg for ischemia, normal LVEF. -Plan OP f/u primary provider. Assessment & Plan (02/12/2021 1:45 PM CDT): s/p 5x VADIM in distant past while living in [place]. Not on plavix due to allergy. Also reports salicylate allergy - restarted atorvastatin, low fat diet. - follows with [facility] - minimal information in their notes but not on meds per most recent note 10/2020, suspect med noncompliance. -Stress test 02/10 preop, canceled d/t refusal. Pt further counseled, now agreeable. -Performed 10 maximal dobutamine stress neg for ischemia, normal LVEF. Assessment & Plan (02/12/2021 7:56 AM CDT): s/p 5x VADIM in distant past while living in [place]. Not on plavix due to allergy. Also reports salicylate allergy - restarted atorvastatin, low fat diet. - follows with [facility] - minimal information in their notes but not on meds per most recent note 10/2020, suspect med noncompliance. -Stress test 6 preop, canceled d/t refusal. Pt further counseled, now agreeable. Assessment & Plan (02/10/2021 11:41 AM CDT): s/p 5x VADIM in distant past while living in [place]. Not on plavix due to allergy. Also reports salicylate allergy - restarted atorvastatin, low fat diet. - follows with [facility] - minimal information in their notes but not on meds per most recent note 10/2020, suspect med noncompliance. -Stress test 02/10 preop. Assessment & Plan (02/09/2021 2:56 PM CDT): s/p 5x VADIM in distant past while living in [place]. Not on plavix due to allergy. Also reports salicylate allergy - restarted atorvastatin - follows with [facility] - minimal information in their notes but not on meds per most recent note 10/2020, suspect med noncompliance. Resolved Problems Problem Noted Date Diagnosed Date Resolved Date Acute cystitis with hematuria 12/30/2024 02/24/2025 Assessment & Plan (02/11/2025 8:29 PM CDT): See [facility] HPI/AP. Gross hematuria 12/25/2024 02/24/2025 Overview (12/25/2024): Pt [id number] states there was bright red blood and a lot of sediment in tubing of bowser catheter when she woke up this morning. Pt states now the urine is clear with no blood and no sediment. Pt DENIES any pain or fever. Acute cystitis without hematuria 10/31/2024 12/30/2024 Assessment & Plan (11/03/2024 12:52 PM RADIO SCRIPT WRITER): Persistent/recurrent, treated recently with nitrofurantoin which resulted in improvement in the appearance of the urine, but she is still having discomfort including sharp pains. We suggested resuming the antibiotic and getting the Bowser catheter changed which unfortunately is not scheduled for another 18 days or so. Skin lesions 08/04/2023 02/24/2025 Overview (10/18/2023): Inflamed and superficially excoriated papule, right ear mid helix, present for about two months. Several papules on face, left cheek near zygoma and right upper eyelid, longstanding. Assessment & Plan (01/22/2024 2:13 PM CDT): Chronic, uncontrolled. The fibrous papule on the right ear mid helix is unchanged. We referred her to Plastic surgery, but no one will see her because she still smokes cigarettes. Exam shows no overall change in this 2-3 mm mildly erythematous and fibrotic papule with a slightly rough surface. Assessment & Plan (10/30/2023 4:10 PM RADIO SCRIPT WRITER): She was evaluated in Plastic surgery for subcutaneous papules on the right upper eyelid and left cheek area. Due to being on cilostazol, she was told she could not have these removed. Details are little unclear. I will review the note. She also has a relatively new area of chronic appearing inflammation of the right ear mid helix. She denies local trauma. The excoriated area measures 2 mm or so with some mild surrounding chronic appearing inflammation. She says she is allergic to steroids. She did try topical antibiotics which did not help. We will refer her back to plastic surgery for evaluation. Upper respiratory infection with cough and congestion 04/06/2023 04/28/2023 Assessment & Plan (04/06/2023 3:51 PM CDT): URI symptoms x 3-4 days. Cough most bothersome symptom. Patient states that she is urinating around her catheter when she coughs. Patient refused in-office covid/flu test today. PE today most consistent with allergies or acute viral illness. Lungs clear. Treat symptomatically at this time. If symptoms persist, consider infectious cause given patient's comorbidities. -Rx for Promethazine DM- 5mLs prn every 6 hours as needed (patient allergic to benzonatate). -Continue to take benadryl at night for sleep and symptom relief -Flonase daily for allergies/post-nasal drainage -Afrin twice daily for 3 days only (longer than 3 days can cause worsening of congestion). -Start Mucinex twice daily -If symptoms are not improved in 7-10 days or cough worsens, call the office Acute postoperative pulmonary insufficiency 03/14/2023 03/14/2023 Overview (03/14/2023): [facility] Acute blood loss as cause of postoperative anemia 03/14/2023 03/14/2023 Overview (03/14/2023): [facility] Foul smelling urine 12/05/2022 04/28/20 Assessment & Plan (12/06/2022 6:34 PM CDT): Urine in bag today is dark yellow and clear. Will order UA with reflex culture, instructed patient to give sample directly from catheter, not from bag. Will call with results. ADDENDUM: urine is growing yeast. Rxd Diflucan 150mg weekly x4. Repeat UA before follow next month. Right leg pain 12/05/2022 04/28/2023 Assessment & Plan (12/06/2022 6:36 PM CDT): Likely due to swelling or venous insufficiency. Assessment as noted above. Will order venous doppler to r/o DVT. Elevate leg as much as possible. Compression sock may help also. ADDENDUM: doppler negative for DVT. Will order 20mg lasix daily x7 to alleviate swelling. Call with update after lasix burst. Keep follow and repeat labs next month. Critical lower limb ischemia 06/06/2021 03/14/2023 Overview (03/14/2023): [facility] Hypokalemia 05/31/2021 02/24/2025 Cellulitis of right leg 02/10/2021 06/2 09/2020 Assessment & Plan (02/16/2021 11:58 AM CDT): Source due to gangrenous toe. On IV vanco/cefe (02/08-now po augmetin 02/15/21. Clinical exam with initial erythema resolved. Blood cxs NGTD. Seen by vascular and podiatryto manage dry gangrene of R 2nd toe. -Completed 7d course (thru 02/15). Resolved. -See additional PO regimen for infected decub as below, which will additionally cover for cellulitis at DC. Assessment & Plan (02/15/2021 1:53 PM CDT): Source due to gangrenous toe. On IV vanco/cefe (02/08-c). Vanco dosing advanced to 1750mg BID. Clinical exam with initial erythema resolved. Blood cxs NGTD. Vascular and podiatry evaluation underway to manage dry gangrene of R 2nd toe. Following Vanco serial troughs, most recent 14.3. Stable renal function on abx. Clinically resolved. Completed 7d course (thru 02/15). Resolved. See additional PO regimen for infected decub as below, which will additionally cover for cellulitis at DC. Assessment & Plan (02/14/2021 5:05 PM CDT): Source due to gangrenous toe. On IV vanco/cefe (02/08-c). Vanco dosing advanced to 1750mg BID. Clinical exam with initial erythema resolved. Blood cxs NGTD. Vascular and podiatry evaluation underway to manage dry gangrene of R 2nd toe. Following Vanco serial troughs, most recent 14.3. Stable renal function on abx. Clinically resolved. Plan to complete 7d course (thru 02/15), can transition to PO at DC. Assessment & Plan (02/13/2021 5:47 PM CDT): Source due to gangrenous toe. On IV vanco/cefe (02/08-c). Vanco dosing advanced to 1750mg BID. Clinical exam with initial erythema resolved. Blood cxs NGTD. Vascular and podiatry evaluation underway to manage dry gangrene of R 2nd toe. Following Vanco serial troughs, most recent 14.3. Stable renal function on abx. Clinically resolved. Plan to complete 7d course (thru 02/15). Assessment & Plan (02/12/2021 1:46 PM CDT): Source due to gangrenous toe. On IV vanco/cefe (02/08-). Vanco dosing advanced to 1750mg BID. Clinical exam with initial erythema resolved. Blood cxs NGTD. Vascular and podiatry evaluation underway to manage dry gangrene of R 2nd toe. Following Vanco serial troughs, most recent 14.3. Stable renal function on abx. Assessment & Plan (02/12/2021 7:56 AM CDT): Source due to gangrenous toe. On IV vanco/cefe. Clinical exam with initial erythema resolved. Blood cxs NGTD. Vascular and podiatry evaluation underway to manage dry gangrene of R 2nd toe. Vanco dosing adjusting PRN troughs. Stable renal function on abx. Assessment & Plan (02/10/2021 11:39 AM CDT): On IV vanco/cefe. Clinical exam with initial erythema resolved. Blood cxs NGTD. Vascular and podiatry evaluation underway to manage dry gangrene of R 2nd toe. 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 Assessment & Plan (05/25/2021 4:41 PM CDT): She has dry ischemic gangrene of the right second and third toes. The remainder of the foot exhibits moderate rubor. We are referring her to [place] vascular. Follow-up here in one month. Assessment & Plan (02/25/2021 6:57 PM CDT): R 2nd toe &3rd lateral area of toe with dry gangrene. WBC 13.9, afebrile, HDS. Xrays showing Right second toe soft tissue swelling with a distal skin defect/wound. - podiatry recs: No pressure on the toe & paint with Betadine solution both the second and third toes right foot DAILY some gauze to keep the second and third toes from rubbing. - vasc surgery consulted, rec CT angio to eval for possible angioplasty, bypass or amputation options. CT angio 02/09 with signif bilateral Aorto-iliac PAD and recommended bypass but patient declining - Plan conservative measures and eventually dry gangrene will detach. Patient feels as though risks outweigh benefits -appreciate palliative care assistance -PT/OT rec SNF/rehab but patient declined, planning d/c to home with HH but today left AMA Assessment & Plan (02/23/2021 7:09 PM CDT): R 2nd toe &3rd lateral area of toe with dry gangrene. WBC 13.9, afebrile, HDS. Xrays showing Right second toe soft tissue swelling with a distal skin defect/wound. - podiatry recs: No pressure on the toe & paint with Betadine solution both the second and third toes right foot DAILY some gauze to keep the second and third toes from rubbing. - vasc surgery consulted, rec CT angio to eval for possible angioplasty, bypass or amputation options. CT angio 02/09 with signif bilateral Aorto-iliac PAD and recommended bypass but patient declining - Plan conservative measures and eventually dry gangrene will detach. Patient feels as though risks outweigh benefits -appreciate palliative care assistance -PT/OT rec SNF/rehab, SW following for needs. Assessment & Plan (02/15/2021 1:44 PM CDT): R 2nd toe &3rd lateral area of toe with dry gangrene. WBC 13.9, afebrile, HDS. Xrays showing Right second toe soft tissue swelling with a distal skin defect/wound. Possible second distal phalanx osteolysis but no osteomyelitis. Seen by podiatry in the ED. Concern for poor perfusion to foot, vasc surgery consulted & following. - IV vanc/cefe for associated RLE cellulitis. Monitoring troughs, therapeutic on adjusted vancomycin. - podiatry recs: No pressure on the toe & paint with Betadine solution both the second and third toes right foot DAILY some gauze to keep the second and third toes from rubbing. Vascular supply evaluation prior to toe amputation. - vasc surgery consulted, rec CT angio to eval for possible angioplasty, bypass or amputation options. CT angio with signif bilateral Aorto-iliac PAD. Would require bilatereral Ao-iliac bypass. Workup as below. -Counseled patient extensively on findings and possible outcomes at length. -Reatttempted stress echo testing & neg for ischemia. -vascular surgery plan conservative measures and eventually dry gangrene will detach. Reviewed this expectation with patient and daughter. Began GOC discussions. Pt notes not interested in doing something surgical w/o known outcome. -Addressing code status. Ongoing GOC discussions. Given pt's professed intolerance for multitasking Just one thing at a time and underlying anxiety, suspect better addressed as OP when she will have less external stressors. Discussed with vascular surgery, palliative care service consulted at his request. Spoke with Dr Monica Montejo & Palliative care unable to see today, will attempt to see 02/16. -PT/OT rec SNF, SW following for needs. Encouraged OOB. I have yet to see patient out of bed except for testing. -R heel nonblanchable erythema. Continues to refuse pressure boot d/t heat discomfort. Reviewed propping up of heels, but noncompliant. -Discussed SNF, pt still reluctant despite family support, now considering. -Plan DC with HHC vs SNF once stable from surgical viewpoint. Assessment & Plan (02/14/2021 5:04 PM CDT): R 2nd toe &3rd lateral area of toe with dry gangrene. WBC 13.9, afebrile, HDS. Xrays showing Right second toe soft tissue swelling with a distal skin defect/wound. Possible second distal phalanx osteolysis but no osteomyelitis. Seen by podiatry in the ED. Concern for poor perfusion to foot, vasc surgery consulted & following. - IV vanc/cefe for associated RLE cellulitis. Monitoring troughs, therapeutic on adjusted vancomycin. - podiatry recs: No pressure on the toe & paint with Betadine solution both the second and third toes right foot DAILY some gauze to keep the second and third toes from rubbing. Vascular supply evaluation prior to toe amputation. - vasc surgery consulted, rec CT angio to eval for possible angioplasty, bypass or amputation options. CT angio with signif bilateral Aorto-iliac PAD. Would require bilatereral Ao-iliac bypass. Workup as below. -Counseled patient extensively on findings and possible outcomes at length. -Reatttempted stress echo testing & neg for ischemia. -vascular surgery plan conservative measures and eventually dry gangrene will detach. Reviewed this expectation with patient and daughter. Began GOC discussions. Pt notes not interested in doing something surgical w/o known outcome. Addressing code status. -PT/OT rec SNF, SW following for needs. Encouraged OOB. I have yet to see patient out of bed. -R heel nonblanchable erythema. Continues to refuse pressure boot d/t heat discomfort. Reviewed propping up of heel. -Discussed SNF, pt still reluctant despite family support. -Plan DC with [facility] once stable from surgical viewpoint. Assessment & Plan (02/13/2021 5:46 PM CDT): R 2nd toe discoloration/3rd toe. WBC 13.9, afebrile, HDS. Dry gangrene. Xrays showing Right second toe soft tissue swelling with a distal skin defect/wound. Possible second distal phalanx osteolysis but no osteomyelitis. Seen by podiatry in the ED. Concern for poor perfusion to foot, vasc surgery consulted & following. - IV vanc/cefe for associated RLE cellulitis. Monitoring troughs. - podiatry recs: no pressure on the toe & paint with Betadine solution both the second and third toes right foot DAILY some gauze to keep the second and third toes from rubbing. Vascular supply evaluation prior to toe amputation. - vasc surgery consulted, rec CT angio to eval for possible angioplasty, bypass or amputation options. CT angio with signif bilateral Aorto-iliac PAD. Would require bilatereral Ao-iliac bypass. Workup as below. -Counseled patient extensively on findings and possible outcomes at length. -Reatttempted stress testing & neg for ischemia. -Final vascular surgery recs are for no plans for bypass, plan conservative measures and eventually dry gangrene will detach. Reviewed this expectation with patient and daughter. Began GOC discussion, but patietn very focused on results of upcoming procedure (wound debridement, as elsewhere) -PT/OT rec SNF, SW following for needs. Encouraged OOB. I have yet to see patient out of bed. -R heel nonblanchable erythema. Continues to refuse pressure boot d/t heat discomfort. Reviewed propping up of heel. -Discussed SNF, pt still reluctant despite family support. Assessment & Plan (02/12/2021 1:50 PM CDT): R 2nd toe discoloration/3rd toe. WBC 13.9, afebrile, HDS. Dry gangrene. Xrays showing Right second toe soft tissue swelling with a distal skin defect/wound. Possible second distal phalanx osteolysis but no osteomyelitis. Seen by podiatry in the ED. Concern for poor perfusion to foot, vasc surgery consulted & following. - IV vanc/cefe for associated RLE cellulitis. Monitoring troughs. - podiatry recs: no pressure on the toe & paint with Betadine solution both the second and third toes right foot DAILY some gauze to keep the second and third toes from rubbing. Vascular supply evaluation prior to toe amputation. - vasc surgery consulted, rec CT angio to eval for possible angioplasty, bypass or amputation options. CT angio with signif bilateral Aorto-iliac PAD. Would require bilatereral Ao-iliac bypass. Workup as below. -Counseled patient extensively on findings and possible outcomes at length. -Reatttempted stress testing & neg for ischemia. -Awaiting final vascular surgery plan. If no plans for bypass, plan conservative measures and eventually dry gangrene will detach. -PT/OT rec SNF, SW following for needs. Encouraged OOB. Assessment & Plan (02/12/2021 7:55 AM CDT): R 2nd toe discoloration/3rd toe. WBC 13.9, afebrile, HDS. Dry gangrene. Xrays showing Right second toe soft tissue swelling with a distal skin defect/wound. Possible second distal phalanx osteolysis but no osteomyelitis. Seen by podiatry in the ED. Concern for poor perfusion to foot, vasc surgery consulted. - IV vanc/cefe for associated RLE cellulitis. - podiatry recs: no pressure on the toe paint with Betadine solution both the second and third toes right foot foot some gauze to keep the second and third toes from rubbing. Vascular supply evaluation prior to toe amputation. - vasc surgery consulted, rec CT angio to eval for possible angioplasty, bypass or amputation options. CT angio with signif bilateral Aorto-iliac PAD. Would require bilatereral Ao-iliac bypass. Workup as below. -Counseled patient extensively on findings and possible outcomes at length. -Reatttempt stress testing today Assessment & Plan (02/10/2021 11:37 AM CDT): R 2nd toe discoloration/3rd toe. WBC 13.9, afebrile, HDS. Dry gangrene. Xrays showing Right second toe soft tissue swelling with a distal skin defect/wound. Possible second distal phalanx osteolysis but no osteomyelitis. Seen by podiatry in the ED. Concern for poor perfusion to foot, vasc surgery consulted. - IV vanc/cefe for associated RLE cellulitis. - podiatry recs: no pressure on the toe paint with Betadine solution both the second and third toes right foot foot some gauze to keep the second and third toes from rubbing. Vascular supply evaluation prior to toe amputation. - vasc surgery consulted, rec CT angio to eval for possible angioplasty, bypass or amputation options. CT angio with signif bilateral Aorto-iliac PAD. Would require bilatereral Ao-iliac bypass. Workup as below. -Counseled patient extensively on findings and possible outcomes at length. Assessment & Plan (02/09/2021 2:55 PM CDT): R 2nd toe discoloration/3rd toe. WBC 13.9, afebrile, HDS. Dry gangrene. Xrays showing Right second toe soft tissue swelling with a distal skin defect/wound. Possible second distal phalanx osteolysis but no osteomyelitis. Seen by podiatry in the ED. Concern for poor perfusion to foot, vasc surgery consulted. - IV vanc/cefe - podiatry recs: no pressure on the toe paint with Betadine solution both the second and third toes right foot foot some gauze to keep the second and third toes from rubbing - vasc surgery consulted, rec CT angio to eval for possible angioplasty, bypass or amputation options. -Counseled patient extensively on findings and possible outcomes at length. Blood in urine 08/07/2020 04/28/2023 Overview (10/17/2022): [facility] entry, details lacking. Probably from chronic Bowser. 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 There is no visible blood in the urine today. We will monitor clinically. A follow-up urinalysis may be appropriate at the next change of Bowser catheters. Cervical radiculopathy 07/26/201703/14 Overview (03/14/2023): [facility], details lacking. Muscle spasm of both lower legs 03/04/2016 02/24/2025 Assessment & Plan (05/07/2021 2:05 PM CDT): She gets muscle spasms in her legs from her spinal cord injury. Tizanidine does not help. We will put her on baclofen and assess benefit at her follow-up. Cardiac disease 06/11/2014 05/07/2021 Overview (05/07/2021): CAD, S/P stents. Allergic to ASA and Plavix per previous records. Peptic ulcer 03/04/2001 05/07/2021 Overview (05/07/2021): In [place], details lacking. Encounters Date Type Department Care Team Description 04/28/2025 Telephone [facility] [address] [place] [address] Dinorah Kumar MD 02/24/2025 10:00 AM CDT Office Visit [facility] [address] [place] [address] Brandie Ba NP Subacute cough (Primary Dx); Bowser catheter present; Pressure injury of sacral region, stage 3 (HCC) 02/19/2025 Telephone [facility] [address] [place] [address] Dinorah Kumar MD 02/19/2025 Results [facility] [address] [place] [address] Dinorah Kumar MD XR Chest Pa Lateral 2 Views 02/17/2025 1:00 PM CDT Lab [facility] [address] [place] [address] Ischemic heart disease due to coronary artery obstruction (HCC) 02/17/2025 12:45 PM CDT Ancillary Procedure [facility] [address] [facility] [address] [place] [address] Subacute cough 02/17/2025 [facility] [address] [place] [address] Dinorah Kumar MD 02/14/2025 Telephone [facility] [address] [place] [address] Dinorah Kumar MD 02/12/2025 11:30 AM CDT Office Visit [facility] [address] [place] [address] Dinorah Kumar MD Mixed hyperlipidemia (Primary Dx); Tobacco dependence syndrome; Urinary retention; Pressure injury of skin of contiguous region involving back, buttock, and hip, unspecified injury stage, unspecified laterality; Ischemic heart disease due to coronary artery obstruction (HCC); Other insomnia; Subacute cough; Nicotine dependence, cigarettes, uncomplicated; Breast cancer screening by mammogram 01/28/2025 [facility]phone [facility] [address] [place] [address] Dinorah Kumar MD from Last 3 Months Immunizations Immunization Administration Dates Next Due Influenza, Unspecified 10/31/2024(Deferr ed: Patient Refused),06/14/2023(Deferred: Patient Refused) Tdap 09/27/2018,10/26/2017 Surgical History Surgery Date Site/Laterality Comments CARDIAC STENT PLACEMENT In setting of ACS - pt states to have had total of 16 stents - done several years ago in [place] ECTOPIC SURGERY MULTIPLE TOOTH EXTRACTIONS ABDOMINAL ADHESION SURGERY 1980s ANTERIOR CERVICAL DISCECTOMY W/ FUSION C3-7 PRESSURE ULCER DEBRIDEMENT 02/13/2021 Eugenia. PORT PLACEMENT CHEST >5 YEARS 07/01/2021 N/A Medical History Medical History Date Comments CAD (coronary artery disease) HTN (hypertension) Spinal stenosis 'entire spine' p er pt report Hyperlipidemia 05/17/2012 Cardiac disease 06/11/2014 CAD, S/P stents. Allergic to ASA and Plavix per previous records. Peptic ulcer 03/04/2001 In [place], d etails lacking. 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 Critical lower limb ischemia 06/06/2021 [facility] Acute blood loss as cause of postoperative anemia 03/14/[address] [facility] Acute postoperative pulmonar y insufficiency 03/14/[address] [facility] Cervical radiculopathy 07/26/2017 [facility], details lacking. Acute cystitis without hematuria 10/31/2024 Family History Medical History Relation Name Comments Melanoma Father Melanoma (or me sothelioma?) mesothelioma Father Details lacking . Colon cancer Mother Liver cancer Mother Cancer, liver ( metastatic colon?) Anesthesia problems Neg Hx Relation Name Status Comments Father Mother Social History Tobacco Use Types Packs/Day Years Used Date Smoking Tobacco: Every Day Cigarettes 1 53.2 Started: 03/04/1972 Smokeless Tobacco: Never Comments:Stopped smoking whe n she was in the hospital for 3 months in 2020, started smoking again when she got out. PHQ-2 Answer Date Recorded PHQ-2 Total Score (If total score is 3 or more points, staff should administer the PHQ-9) 0 02/24/2025 Comments No Sex and Gender Information Value Date Recorded Sex Assigned at Not on file Legal Sex Female 3:25 AM RADIO SCRIPT WRITER Gender Identity Female 04/11/2022 4:56 PM CDT Sexual Orientation Straight 04/11/2022 4: 56 PM CDT Obstetrics History Last Filed Vital Signs Vital Sign Reading Time Taken Comments Blood Pressure 104/60 02/24/2025 9:48 AM CDT Pulse 72 02/24/2025 9:48 AM CDT Temperature 36 C (96.8 F) 02/24/2025 9:48 AM CDT Respiratory Rate 18 02/24/2025 9:48 AM CDT Oxygen Saturation 94% 02/24/2025 9:48 AM CDT Inhaled Oxygen Concentration - - Weight 90.7 kg (200 lb) 10/17/2022 1:10 PM RADIO SCRIPT WRITER Height 160 cm (5' 2.99) 10/31/2024 11:08 AM RADIO SCRIPT WRITER Body Mass Index 35.43 10/17/2022 1:10 PM RADIO SCRIPT WRITER Plan of Treatment Health Maintenance Due Date Last Done Comments Breast Cancer Screening-Mammogram 1963 Cervical Cancer Screening 1963 Colon Cancer Screening-Colonoscopy 1963 Pneumococcal vaccine <65 (1 of 2 - PCV) 1982 Lung Cancer Screening 2013 Zoster Vaccine (1 of 2) 2013 Influenza Vaccine (#1) 2025 Regular Well Visit/Exam 18-64 10/31/2025, 10/18/2023, 07/14/2022 Depression Screening 02/24/2026 02/24/2025, 10/31/2024, 10/18/2023, Additional history exists DTaP/Tdap/Td Vaccine (3 - Td or Tdap) 09/27/2028 09/27/2018, 10/26/2017 Hepatitis C Screening Completed 05/31/2021 Hepatitis B Screening Completed 07/29/2024 Procedures Procedure Name Priority Date/Time Associated Diagnosis Comments XR CHEST PA LATERAL 2 VIEWS Schedule Routine, Read Routine (OP Routine) 02/17/2025 12:59 PM CDT Subacute cough EGFR Routine 02/17/2025 12:34 PM CDT Ischemic heart disease due to coronary artery obstruction (HCC) DIFFERENTIAL AUTO Routine 02/17/2025 12:34 PM CDT Ischemic heart disease due to coronary artery obstruction (HCC) BASIC METABOLIC PANEL Routine 02/17/2025 12:34 PM CDT Ischemic heart disease due to coronary artery obstruction (HCC) CBC WITH AUTO DIFFERENTIAL Routine 02/17/2025 12:34 PM CDT Ischemic heart disease due to coronary artery obstruction (HCC) HEPATITIS C ANTIBODY Routine 05/31/2021 12:11 PM CDT Mixed hyperlipidemia from Last 3 Months or Most Recently Relevant to Health Maintenance Results * XR Chest Pa Lateral 2 Views (02/17/2025 12:59 PM CDT) Anatomical Region Laterality Modality Body, Chest N/A Computed Radiogr aphy 02/19/2025 12:3 0 PM CDT Narrative 02/19/2025 12:31 PM CDT EXAM DESCRIPTION: XR CHEST PA LATERAL 2 VIEWS REASON FOR STUDY: Shortness of breath for one week Smokes 1 1/2 packs per day for 51 years No surgery to chest No history of any cancer Patient was done in wheelchair she is unable to stand TECHNIQUE: Frontal and lateral radiographic views of the chest were acquired. COMPARISON: None Available FINDINGS: LUNGS/PLEURA: There is no focal infiltrate or evidence of pneumothorax. No significant pleural effusion. HEART/MEDIASTINUM: The heart size is normal. Normal mediastinal and hilar contours. LINES/TUBES: None. BONES: Multilevel degenerative change of the spine. OTHER: No other significant finding. IMPRESSION: No acute cardiopulmonary abnormality. THIS IS AN ELECTRONICALLY VERIFIED FINAL REPORT 02/19/2025 12:31 PM - Electronically signed by Aleks Dominguez M.D. RW: LUZ ELENA Report ID: [id number] Reading Location: [id number] Procedure Note Aleks Dominguez MD - 02/19/2025 EXAM DESCRIPTION: XR CHEST PA LATERAL 2 VIEWS REASON FOR STUDY: Shortness of breath for one week Smokes 1 1/2 packs per day for 51 yearsNo surgery to chest No history of any cancer Patient was done in wheelchairshe is unable to stand TECHNIQUE: Frontal and lateral radiographic views of the chest wereacquired. COMPARISON: None Available FINDINGS: LUNGS/PLEURA: There is no focal infiltrate or evidence of pneumothorax.No significant pleural effusion. HEART/MEDIASTINUM: The heart size is normal. Normal mediastinal and hilar contours. LINES/TUBES: None. BONES: Multilevel degenerative change of the spine. OTHER: No other significant finding. IMPRESSION: No acute cardiopulmonary abnormality. THIS IS AN ELECTRONICALLY VERIFIED FINAL REPORT 02/19/2025 12:31 PM - Electronically signed by Aleks Dominguez M.D. RW: LUZ ELENA Report ID: [id number] Reading Location: [place] [address] us Dinorah Kumar MD IMG XR PROCEDURES Final Resul t * eGFR (02/17/2025 12:34 PM CDT) eGFR >90 >=60 mL/min/1. 73 m2 Comment: Interpretive Data Reference Interval Normal >/= 90 mL/min/1.73m2 Mildly decreased* 60 - 89 mL/min/1.73m2 Mildly to moderately decreased 45 - 59 mL/min/1.73m2 Moderately to severely decreased 30 - 44 mL/min/1.73m2 Severely decreased 15 - 29 mL/min/1.73m2 Kidney Failure < 15 mL/min/1.73m2 *Relative to young adult level Estimated glomerular filtration rate is determined by the 2020 CKD-EPI equation recommended by the National Kidney Foundation (A Unifying Approach to GFR Estimation: Recommendations of the NKF-ASK Task Force on Reassessing the Inclusion of Race in Diagnosing Kidney Disease, JASN 2020). The CKD-EPI equation should not be used for patients with unstable renal function and has not been validated in children and those over 70. Current interpretive data was last reviewed 2021. Testing performed by: [facility], [address] [place] [address], [place]., [address] Blood 02/17/2025 12:3 4 PM CDT 02/17/2025 8:30 PM CDT us Dinorah Kumar MD LAB BLOOD ORDERABLES Final Re sult [address] Department [place] [address] * (ABNORMAL) Differential, auto (02/17/2025 12:34 PM CDT) Neutrophil abs 12.78(H) 1.50 - 6.50 K/cumm Comment:Testing performed by : [facility], [address] [place] [address]., [address] Imm gran abs 0.07 0.00 - 0.10 K/cumm [facility] Comment:Testing performed by : [facility], [address] [place] [address]., [address] Lymphocyte abs 1.84 0.80 - 3.30 K/cumm CERNER Comment:Testing performed by : [facility], [address] [place] [address]., [address] Monocyte abs 0.91(H) 0.20 - 0.80 K/cumm [facility] Comment:Testing performed by : [facility], [address] [place] [address]., [address] Eosinophil abs 0.09 0.00 - 0.50 K/cumm [facility] Comment:Testing performed by : [address] [address] Basophil abs 0.06 0.00 - 0.10 K/cumm [facility] Comment:Testing performed by : [address] [address] Neutrophil pct 81.1 % CERNER Comment: Interpretive Data Percent cell count reference ranges are not reported, since discordance with absolute values may lead to misinterpretation of CBC data. Current Interpretive Data was last revised on 2017. Testing performed by: [facility], [address] [place] [address]., [address] Imm gran pct 0.4 % CERNER Comment: Interpretive Data Percent cell count reference ranges are not reported, since discordance with absolute values may lead to misinterpretation of CBC data. Current Interpretive Data was last revised on 2017. Testing performed by: [facility], [address] [place] [address]., [address] Lymphocyte pct 11.7 % CERNER Comment: Interpretive Data Percent cell count reference ranges are not reported, since discordance with absolute values may lead to misinterpretation of CBC data. Current Interpretive Data was last revised on 2017. Testing performed by: [address] [address] Monocyte pct 5.8 % MARCELA Comment: Interpretive Data Percent cell count reference ranges are not reported, since discordance with absolute values may lead to misinterpretation of CBC data. Current Interpretive Data was last revised on 2017. Testing performed by: [address] [address] Eosinophil pct 0.6 % MARCELA Comment: Interpretive Data Percent cell count reference ranges are not reported, since discordance with absolute values may lead to misinterpretation of CBC data. Current Interpretive Data was last revised on 2017. Testing performed by: [address] [address] Basophil pct 0.4 % MARCELA Comment: Interpretive Data Percent cell count reference ranges are not reported, since discordance with absolute values may lead to misinterpretation of CBC data. Current Interpretive Data was last revised on 2017. Testing performed by: [address] [address] Blood 02/17/2025 12:3 4 PM CDT 02/17/2025 8:16 PM CDT us Dinorah Kumar MD LAB BLOOD ORDERABLES Final Re sult MARCELA [address] Department [place] [address] * (ABNORMAL) CBC with auto differential (02/17/2025 12:34 PM CDT) WBC 15.75(H) 3.80 - 9.90 K/cumm Comment:Testing performed by : [address] [address] Hgb 14.3 11.9 - 15.5 g/dL MARCELA PERLA Comment:Testing performed by : [address], [address] Hct 43.2 35.6 - 45.5 % CERNER CH Comment:Testing performed by : [facility], [address] [place] [address]., [address] Plt 346 150 - 400 K/cumm CERN[facility] CH Comment:Testing performed by : [facility], [address] [place] [address], [address] MPV 9.6 9.1 - 12.3 fL CERNER CH Comment:Testing performed by : [facility], [address] [place] [address], [address] RBC 4.99 3.90 - 5.20 M/cumm CERNER CH Comment:Testing performed by : [facility], [address] [place] [address], [address] MCV 86.6 81.3 - 96.4 fL CERNER CH Comment:Testing performed by : [facility], [address] [place] [address], [address] MCH 28.7 27.1 - 33.3 pg CERNER CH Comment:Testing performed by : [address], [address] MCHC 33.1 32.3 - 35.7 g/dL CERNER CH Comment:Testing performed by : [address], [address] RDW CV 14.3 11.1 - 14.9 % CERNER CH Comment:Testing performed by : [address], [address] RDW SD 45.1 35.7 - 48.1 fL CERNER CH Comment:Testing performed by : [address], [address] NRBC abs 0.00 0.00 - 0.01 K/cumm CERNER CH Comment:Testing performed by : [address], [address] Blood 02/17/2025 12:3 4 PM CDT 02/17/2025 8:16 PM CDT us Dinorah Kumar MD LAB BLOOD ORDERABLES Final Re sult [address] Department [place] [address] * Basic metabolic panel (02/17/2025 12:34 PM CDT) Sodium 136 135 - 145 mmol/L Comment:Testing performed by : [facility], [address] [place] [address]., [address] Potassium, pl 3.4 3.3 - 4.9 mmol/L CERNER CH Comment:Testing performed by : [address], [address] Chloride 100 97 - 110 mmol/L CERNER CH Comment:Testing performed by : [facility], [address] [place] [address], [address] CO2 22 22 - 32 mmol/L CERNER CH Comment:Testing performed by : [address], [address] Anion gap 14 2 - 15 mmol/L CERNER CH Comment:Testing performed by : [address], [address] BUN 9 6 - 25 mg/dL CERNER CH Comment:Testing performed by : [address], [address] Creatinine 0.63 0.60 - 1.10 mg/dL CERNER CH Comment:Testing performed by : [address], [address] Glucose 166 70 - 199 mg/dL CERNER CH Comment: Interpretive Data Fasting glucose >/= 126 mg/dl is diagnostic for diabetes. Fasting is defined as no caloric intake for at least 8 hours. Fasting glucose between 100 mg/dl to 125 mg/dl is diagnostic of prediabetes. In a patient with classic symptoms of hyperglycemia or hyperglycemic crisis, a random glucose >/= 200 mg/dl is diagnostic for diabetes. In the absence of unequivocal hyperglycemia, results should be confirmed by repeat testing. The classification and Diagnosis of Diabetes Diabetes Care 202; 46: S19-S40. Current interpretive data was last revised 2022. Testing performed by: [address] [address] Calcium 9.2 8.5 - 10.3 mg/dL CERNER CH Comment:Testing performed by : [address], [address] Blood 02/17/2025 12:3 4 PM CDT 02/17/2025 8:16 PM CDT Dinorah Kumar MD LAB BLOOD ORDERABLES Final Re sult Performing Organization Address [facility] Co de Phone Number MARCELA PERLA [address] [place] [address] * Hepatitis C antibody (05/31/2021 12:11 PM CDT) Hep C Ab Nonreactive Nonreactive MARCELA PERLA Comment: Interpretive Data Nonreactive: Antibodies to HCV not detected. Does NOT exclude the possibility of recent exposure to HCV. Equivocal: Equivocal for HCV antibodies. Supplemental molecular testing will be automatically performed to determine infection status in accordance with current CDC screening recommendations. Reactive: Positive for HCV antibodies. This may represent current or past HCV infection. Supplemental molecular testing will be automatically performed to determine current infection status in accordance with current CDC screening recommendations. Interpretive data was last revised on 2019. Blood 05/31/2021 12:1 1 PM CDT 05/31/2021 7:56 PM CDT Dinorah Kumar MD LAB MICROBIOLOGY - GENERAL OR DERABLES Final Result Performing Organization Address [facility] de Phone Number MARCELA PERLA [address] [place] [address] from Last 3 Months or Most Recently Relevant to Health Maintenance Insurance [facility] IDPA [id number] [place] [id number] [place] [address] Advance Directives For more information, please contact: [phone] * Full Code (Latest Code Status on File) Date Activated Date Inactivated Comments 02/08/2021 10:29 PM 02/25/2021 5:39 PM Care Teams Faceter Relationship Specialty Start Date End Date Dinorah Kumar MD [address] [place] [address] PCP - General Internal Medicine 05/07/21 Maria Victoria Felix NP [address] [place] [address] Nurse Practitioner Nurse Practitioner 04/12/22 Keshia Coleman NP [address] [place] [address] Nurse Practitioner General Surgery 01/24/23 Tony Keene MD [address] [place] [address] [address] Consulting Physician Colon and Rectal Surgery 03/14/23
--- OUTSIDE RECORDS SUMMARY | 2025-04-28 13:33 | XMS_ITS | Encounter Summary ---
Author Organization [facility] Address [address] [place] [address] Phone Care Team Providers Care Anatomic Pathology Manager Name Role Phone Ana Cruz MD Primary Care Provider [phone] Arnie Brush MD Primary Care Provider [phone] Maria Victoria Felix PLANTING SUPERVISOR Unavailable [phone] Chyna Coleman NP Unavailable [phone] Panda Schafer MD Unavailable Tony Keene MD Unavailable Encounter Details Date Type Department Care Team (Late st Contact Info) Description 03/18/2021 Telephone [facility] 8th [place] [address] [place] [address] Rimma Vargas RMA Social History Tobacco Use Types Packs/Day Years Used Date Smoking Tobacco: Every Day Smokeless Tobacco: Never Comments No Sex and Gender Information Value Date Recorded Sex Assigned at Not on file Legal Sex Female 3:25 AM 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 Gender Identity Female 04/11/2022 4:56 PM CDT Sexual Orientation Straight 04/11/2022 4: 56 PM CDT documented as of this encounter Plan of Treatment Not on file documented as of this encounter Visit Diagnoses Not on filedocumented in this encounter Additional Health Concerns Infection Onset Date Last Indicated Resolved Time COVID: Suspected 04/06/2023 04/06/2023 04/06/2023 3:50 PM CDT documented as of this encounter Care Teams Anatomic Pathology Manager Relationship Specialty Start Date End Date Ana Cruz MD [address] [place] [address] PCP - General Internal Medicine 08/12/20 05/06/21 Arnie Brush MD [address] [place] [address] PCP - General Internal Medicine 05/07/21 Maria Victoria Felix NP [address] [place] [address] Nurse Practitioner Nurse Practitioner 04/12/22 Chyna Coleman NP [address] [place] [address] Nurse Practitioner General Surgery 01/24/23 Panda Schafer MD [address] [place] [address] Consulting Physician General Surgery 02/02/23 04/26/23 Tony Keene MD 2 [facility] [address] [address] Consulting Physician Colon and Rectal Surgery 03/14/23 documented as of this encounter
--- OUTSIDE RECORDS SUMMARY | 2025-04-28 13:33 | XMS_ITS | Encounter Summary ---
Author Organization [facility] Healthcare Address [address] [place] [address] Care Team Providers Care Chemical Recovery Operator Name Role Phone Arnie Brush MD Primary Care Provider [phone] Maria Victoria Felix HYDRAULIC OIL TOOL OPERATOR Unavailable [phone] Chyna Coleman HYDRAULIC OIL TOOL OPERATOR Unavailable [phone] Tony Keene MD Unavailable Encounter Details Date Type Department Care Team (Late st Contact Info) Description 04/28/2025 Telephone [facility] [address] [place] [phone] Arnie Brush MD [address] [facility] [address] [place] [address] Social History Tobacco Use Types Packs/Day Years [...] on file Legal Sex Female 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 CUTTER 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 Gender Identity Female 04/11/2022 4:56 PM CDT Sexual Orientation Straight 04/11/2022 4: 56 PM CDT documented as of this encounter Miscellaneous Notes * Telephone Encounter - Mercedez Lakhani RN - 04/28/2025 10:35 AM CDT Called and spoke with the pt She states that she has been ill for 3 to 4 days Vomiting No bowel in the ostomy back Abdominal dentition getting worst Urine is dark and cloudy Pt instructed to go to [facility] for treatment Report given to erin in the er at [place] * Telephone Encounter - Lexie Scanlon - 04/28/2025 10:20 AM CDT Pt has been vomiting and having cold sweats and there has been nothing in her ostomy bag for 3 daysnow. Pt states her urine is very dark in color and smells horrible. Patient's stomach is swollen and hard and when she coughs her stomach is very painful. [facility]#[id number] patient documented in this encounter Plan of Treatment Not on file documented as of this encounter Visit Diagnoses Not on filedocumented in this encounter Care Teams Chemical Recovery Operator Relationship Specialty Start Date End Date Arnie Brush MD [address] [place] [address] PCP - General Internal Medicine 05/07/21 Maria Victoria Felix NP [address] [place] [address] Nurse Practitioner Nurse Practitioner 04/12/22 Chyna Coleman NP [address] [place] [address] Nurse Practitioner General Surgery 01/24/23 Tony Keene MD 2 [facility] [address] [address] Consulting Physician Colon and Rectal Surgery 03/14/23 documented as of this encounter
--- OUTSIDE RECORDS SUMMARY | 2025-04-28 13:34 | XMS_ITS | Encounter Summary ---
Author Organization [facility] Health Address [address] [place] [address] Care Team Providers Care Globe Tester Name Role Phone Arnie Brush MD Primary Care Provider [phone] Encounter Details Date Type Department Care Team (Late st Contact Info) Description 08/17/2021 Lab Requisition [facility] [address] [place] [address] Gilbert George MD [address] [facility] [address] [place] [address] Social History Tobacco Use Types Packs/Day Years [...] Associated Diagnosis Comments COMPREHENSIVE METABOLIC PANEL STAT 08/17/2021 4:30 AM SPECIAL MAKEUP FX ARTIST INSTRUCTOR MAGNESIUM BLOOD STAT 08/17/2021 4:30 AM SPECIAL MAKEUP FX ARTIST INSTRUCTOR documented in this encounter Results * MAGNESIUM BLOOD (08/17/2021 4:30 AM SPECIAL MAKEUP FX ARTIST INSTRUCTOR) [facility] Magnesium 2.2 1.6 - 2.6 mg/dL 08/17/2021 10:52 AM SPECIAL MAKEUP FX ARTIST INSTRUCTOR [facility] Blood BLOOD SPECIMEN / Unknown Venipuncture / Unknown 08/17/2021 4:30 AM SPECIAL MAKEUP FX ARTIST INSTRUCTOR 08/17/2021 10:01 AM SPECIAL MAKEUP FX ARTIST INSTRUCTOR us Gilbert George MD LAB - CHEMISTRY ORDERABLES Final Result [facility] [address] [place] [address] * (ABNORMAL) COMPREHENSIVE METABOLIC PANEL (08/17/2021 4:30 AM SPECIAL MAKEUP FX ARTIST INSTRUCTOR) Pathologist [facility] Glucose 78 70 - 105 mg/dL 08/17/2021 10:53 AM SPECIAL MAKEUP FX ARTIST INSTRUCTOR [facility] Sodium 135(L) 136 - 145 mmol/L 08/17/2021 10:53 AM [facility] Potassium 4.2 3.5 - 5.1 mmol/L 08/17/2021 10:53 AM [facility] Chloride 97(L) 98 - 107 mmol/L 08/17/2021 10:53 AM [facility] CO2 27 23 - 31 mmol/L 08/17/2021 10:53 AM [facility] Calcium 7.5(L) 8.4 - 10.4 mg/dL 08/17/2021 10:53 AM [facility] Anion Gap 11 8 - 18 mmol/L 08/17/2021 10:53 AM [facility] BUN 15 9.8 - 20.1 mg/dL 08/17/2021 10:53 AM [facility] Creatinine 0.44(L) 0.57 - 1.11 mg/dL 08/17/2021 10:53 AM [facility] Alkaline Phosphatase 119 40 - 150 U/L 08/17/2021 10:53 AM [facility] ALT <6 0 - 61 U/L 08/17/2021 10:53 AM [facility] AST 7 5 - 34 U/L 08/17/2021 10:53 AM [facility] Protein Total 4.6(L) 6.4 - 8.3 gm/dL 08/17/2021 10:53 AM [facility] Albumin 1.9(L) 3.5 - 5.2 gm/dL 08/17/2021 10:53 AM [facility] Bilirubin Total 0.2 0.2 - 1.2 mg/dL 08/17/2021 10:53 AM [facility] eGFR by MDRD >60 >60 mL/min/1.7 3m2 08/17/2021 10:53 AM [facility] eGFR by MDRD >60 >60 mL/min/1.7 3m2 08/17/2021 10:53 AM [facility] Blood BLOOD SPECIMEN / Unknown Venipuncture / Unknown 08/17/2021 4:30 AM SPECIAL MAKEUP FX ARTIST INSTRUCTOR 08/17/2021 10:01 AM [facility] Gilbert George MD LAB - CHEMISTRY ORDERABLES Final Result [facility] [address] [place] [address] documented in this encounter Visit Diagnoses Not on filedocumented in this encounter Additional Health Concerns Infection Onset Date Last Indicated Resolved Time MDRO 07/27/2021 07/27/2021 documented as of this encounter Care Teams Globe Tester Relationship Specialty Start Date End Date Arnie Brush MD [address] [place] [phone] PCP - General 05/21/21 documented as of this encounter
--- OUTSIDE RECORDS SUMMARY | 2025-04-28 13:34 | XMS_ITS | Encounter Summary ---
Author Organization [facility] Health Address [address] [place] [address] Care Team Providers Care Wire Insulator Name Role Phone Arnie Brush MD Primary Care Provider [phone] Encounter Details Date Type Department Care Team (Late st Contact Info) Description 08/12/2021 Lab Requisition [facility] [address] [place] [address] Romain Booth MD [facility] [place] [address] Social History Tobacco Use Types Packs/Day Years [...] Entry Date Author No 06/06/2021 2:17 PM iVcenta Joyner RN documented in this encounter Plan of Treatment Not on file documented as of this encounter Procedures Procedure Name Priority Date/Time Associated Diagnosis Comments CBC W AUTO DIFFERENTIAL STAT 08/12/2021 3:00 AM FOOD SERVICE KITCHEN SUPERVISOR COMPREHENSIVE METABOLIC PANEL STAT 08/12/2021 3:00 AM FOOD SERVICE KITCHEN SUPERVISOR documented in this encounter Results * (ABNORMAL) CBC WITH DIFFERENTIAL (08/12/2021 3:00 AM FOOD SERVICE KITCHEN SUPERVISOR) [facility] WBC 7.8 4.4 - 10.7 x10E9/L 08/12/2021 11:49 AM FOOD SERVICE KITCHEN SUPERVISOR [facility] WBC Corrected 08/12/2021 11:49 AM FOOD SERVICE KITCHEN SUPERVISOR [facility] RBC 2.98(L) 3.80 - 5.20 x10E12/L 08/12/2021 11:49 AM FOOD SERVICE KITCHEN SUPERVISOR [facility] Hemoglobin 8.1(L) 12.0 - 15.6 gm/dL 08/12/2021 11:49 AM FOOD SERVICE KITCHEN SUPERVISOR [facility] Hematocrit 27.8(L) 35.9 - 45.5 % 08/12/2021 11:49 AM FOOD SERVICE KITCHEN SUPERVISOR [facility] MCV 93.3 80.7 - 98.3 fl 08/12/2021 11:49 AM FOOD SERVICE KITCHEN SUPERVISOR [facility] MCH 27.2 26.7 - 34.0 pg 08/12/2021 11:49 AM [facility] MCHC 29.1(L) 30.8 - 35.9 gm/dL 08/12/2021 11:49 AM [facility] Platelet Count 497(H) 153 - 416 x10E9/L 08/12/2021 11:49 AM [facility] RDW-CV 15.7(H) 12.1 - 14.9 % 08/12/2021 11:49 AM [facility] MPV 8.5(L) 9.4 - 12.9 fl 08/12/2021 11:49 AM [facility] Neutrophils % 53.6 44.0 - 73.0 % 08/12/2021 11:49 AM [facility] Lymphocytes % 31.1 20.0 - 43.0 % 08/12/2021 11:49 AM [facility] Monocytes % 8.4 5.0 - 13.0 % 08/12/2021 11:49 AM [facility] Eosinophils % 5.4 0.0 - 6.0 % 08/12/2021 11:49 AM [facility] Basophils % 1.0 0.0 - 2.0 % 08/12/2021 11:49 AM [facility] Immature Granulocytes 0.5 0 - 1 % 08/12/2021 11:49 AM [facility] Neutrophil Absolute 4.19 2.01 - 7.14 x10E9/L 08/12/2021 11:49 AM [facility] Lymphocytes Absolute 2.43 1.07 - 3.94 x10E9/L 08/12/2021 11:49 AM [facility] Monocytes Absolute 0.66 0.26 - 1.07 x10E9/L 08/12/2021 11:49 AM [facility] Eosinophils Absolute 0.42 0 - 0.47 x10E9/L 08/12/2021 11:49 AM [facility] Basophils Absolute 0.08 0 - 0.08 x10E9/L 08/12/2021 11:49 AM [facility] Immature Granulocytes Absolute 0.04 0.00 - 0.06 x10E9/L 08/12/2021 11:49 AM [facility] nRBC Auto 0 /100 WBC 08/12/2021 11:49 AM [facility] Blood BLOOD SPECIMEN / Unknown Venipuncture / Unknown 08/12/2021 3:00 AM FOOD SERVICE KITCHEN SUPERVISOR 08/12/2021 11:33 AM FOOD SERVICE KITCHEN SUPERVISOR us Romain Booth MD LAB - HEMATOLOGY ORDERABL ES Final Result [facility] [address] [place] [address] * (ABNORMAL) COMPREHENSIVE METABOLIC PANEL (08/12/2021 3:00 AM FOOD SERVICE KITCHEN SUPERVISOR) Pathologist [facility] Glucose 74 70 - 105 mg/dL 08/12/2021 12:09 PM [facility] Sodium 133(L) 136 - 145 mmol/L 08/12/2021 12:09 PM [facility] Potassium 4.6 3.5 - 5.1 mmol/L 08/12/2021 12:09 PM [facility] Chloride 97(L) 98 - 107 mmol/L 08/12/2021 12:09 PM [facility] CO2 24 23 - 31 mmol/L 08/12/2021 12:09 PM [facility] Calcium 7.6(L) 8.4 - 10.4 mg/dL 08/12/2021 12:09 PM [facility] Anion Gap 12 8 - 18 mmol/L 08/12/2021 12:09 PM [facility] BUN 17 9.8 - 20.1 mg/dL 08/12/2021 12:09 PM [facility] Creatinine 0.42(L) 0.57 - 1.11 mg/dL 08/12/2021 12:09 PM [facility] Alkaline Phosphatase 116 40 - 150 U/L 08/12/2021 12:09 PM [facility] ALT <6 0 - 61 U/L 08/12/2021 12:09 PM [facility] AST 7 5 - 34 U/L 08/12/2021 12:09 PM [facility] Protein Total 4.8(L) 6.4 - 8.3 gm/dL 08/12/2021 12:09 PM [facility] Albumin 2.1(L) 3.5 - 5.2 gm/dL 08/12/2021 12:09 PM [facility] Bilirubin Total <0.1(L) 0.2 - 1.2 mg/dL 08/12/2021 12:09 PM FOOD SERVICE KITCHEN SUPERVISOR [facility] eGFR by MDRD >60 >60 mL/min/1.7 3m2 08/12/2021 12:09 PM FOOD SERVICE KITCHEN SUPERVISOR [facility] eGFR by MDRD >60 >60 mL/min/1.7 3m2 08/12/2021 12:09 PM FOOD SERVICE KITCHEN SUPERVISOR [facility] Blood BLOOD SPECIMEN / Unknown Venipuncture / Unknown 08/12/2021 3:00 AM FOOD SERVICE KITCHEN SUPERVISOR 08/12/2021 11:33 AM FOOD SERVICE KITCHEN SUPERVISOR us Romain Booth MD LAB - CHEMISTRY ORDERABLE S Final Result [facility] [address] [place] [address] documented in this encounter Visit Diagnoses Not on filedocumented in this encounter Additional Health Concerns Infection Onset Date Last Indicated Resolved Time MDRO 07/27/2021 07/27/2021 documented as of this encounter Care Teams Wire Insulator Relationship Specialty Start Date End Date Arnie Brush MD [address] [id number] PCP - General 05/21/21 documented as of this encounter
--- OUTSIDE RECORDS SUMMARY | 2025-04-28 13:34 | XMS_ITS | Encounter Summary ---
Author Organization [facility] Health Address [address] [place] [address] Care Team Providers Care Operations Research Scientist Name Role Phone Arnie Brush MD Primary Care Provider [phone] Encounter Details Date Type Department Care Team (Late st Contact Info) Description 08/05/2021 Lab Requisition [facility] [address] [place] [address] Romain Booth MD [facility] [place] [address] Social History Tobacco Use Types Packs/Day Years [...] Diagnosis Comments CBC W AUTO DIFFERENTIAL STAT 08/05/2021 5:56 AM ENGAGEMENT LEAD COMPREHENSIVE METABOLIC PANEL STAT 08/05/2021 5:56 AM ENGAGEMENT LEAD documented in this encounter Results * (ABNORMAL) CBC WITH DIFFERENTIAL (08/05/2021 5:56 AM ENGAGEMENT LEAD) [facility] WBC 9.1 4.4 - 10.7 x10E9/L 08/05/2021 11:53 AM ENGAGEMENT LEAD [facility] WBC Corrected 08/05/2021 11:53 AM ENGAGEMENT LEAD [facility] RBC 3.28(L) 3.80 - 5.20 x10E12/L 08/05/2021 11:53 AM ENGAGEMENT LEAD [facility] Hemoglobin 9.0(L) 12.0 - 15.6 gm/dL 08/05/2021 11:53 AM ENGAGEMENT LEAD [facility] Hematocrit 30.7(L) 35.9 - 45.5 % 08/05/2021 11:53 AM ENGAGEMENT LEAD [facility] MCV 93.6 80.7 - 98.3 fl 08/05/2021 11:53 AM ENGAGEMENT LEAD [facility] MCH 27.4 26.7 - 34.0 pg 08/05/2021 11:[address] [facility] MCHC 29.3(L) 30.8 - 35.9 gm/dL 08/05/2021 11:[address] [facility] Platelet Count 579(H) 153 - 416 x10E9/L 08/05/2021 11:[address] [facility] RDW-CV 16.0(H) 12.1 - 14.9 % 08/05/2021 11:[address] [facility] MPV 8.8(L) 9.4 - 12.9 fl 08/05/2021 11:[address] [facility] Neutrophils % 62.8 44.0 - 73.0 % 08/05/2021 11:[address] [facility] Lymphocytes % 24.7 20.0 - 43.0 % 08/05/2021 11:[address] [facility] Monocytes % 8.2 5.0 - 13.0 % 08/05/2021 11:[address] [facility] Eosinophils % 2.8 0.0 - 6.0 % 08/05/2021 11:[address] [facility] Basophils % 1.1 0.0 - 2.0 % 08/05/2021 11:[address] [facility] Immature Granulocytes 0.4 0 - 1 % 08/05/2021 11:[address] [facility] Neutrophil Absolute 5.73 2.01 - 7.14 x10E9/L 08/05/2021 11:[address] [facility] Lymphocytes Absolute 2.26 1.07 - 3.94 x10E9/L 08/05/2021 11:[address] [facility] Monocytes Absolute 0.75 0.26 - 1.07 x10E9/L 08/05/2021 11:[address] [facility] Eosinophils Absolute 0.26 0 - 0.47 x10E9/L 08/05/2021 11:[address] [facility] Basophils Absolute 0.10(H) 0 - 0.08 x10E9/L 08/05/2021 11:[address] [facility] Immature Granulocytes Absolute 0.04 0.00 - 0.06 x10E9/L 08/05/2021 11:[address] [facility] nRBC Auto 0 /100 WBC 08/05/2021 11:[address] [facility] Blood BLOOD SPECIMEN / Unknown Venipuncture / Unknown 08/05/2021 5:56 AM ENGAGEMENT LEAD 08/05/2021 11:25 AM ENGAGEMENT LEAD us Romain Booth MD LAB - HEMATOLOGY ORDERABL ES Final Result [facility] [address] [place] [address] * (ABNORMAL) COMPREHENSIVE METABOLIC PANEL (08/05/2021 5:56 AM ENGAGEMENT LEAD) Glucose 84 70 - 105 mg/dL 08/05/2021 12:[address] [facility] Sodium 133(L) 136 - 145 mmol/L 08/05/2021 12:[address] [facility] Potassium 4.6 3.5 - 5.1 mmol/L 08/05/2021 12:[address] [facility] Chloride 94(L) 98 - 107 mmol/L 08/05/2021 12:[address] [facility] CO2 26 23 - 31 mmol/L 08/05/2021 12:[address] [facility] Calcium 8.4 8.4 - 10.4 mg/dL 08/05/2021 12:[address] [facility] Anion Gap 13 8 - 18 mmol/L 08/05/2021 12:[address] [facility] BUN 17 9.8 - 20.1 mg/dL 08/05/2021 12:[address] [facility] Creatinine 0.49(L) 0.57 - 1.11 mg/dL 08/05/2021 12:[address] [facility] Alkaline Phosphatase 111 40 - 150 U/L 08/05/2021 12:[address] [facility] ALT <6 0 - 61 U/L 08/05/2021 12:[address] [facility] AST 7 5 - 34 U/L 08/05/2021 12:[address] [facility] Protein Total 6.2(L) 6.4 - 8.3 gm/dL 08/05/2021 12:[address] [facility] Albumin 2.8(L) 3.5 - 5.2 gm/dL 08/05/2021 12:39 PM ENGAGEMENT LEAD [facility] Bilirubin Total 0.2 0.2 - 1.2 mg/dL 08/05/2021 12:39 PM ENGAGEMENT LEAD [facility] eGFR by MDRD >60 >60 mL/min/1.7 3m2 08/05/2021 12:39 PM ENGAGEMENT LEAD [facility] eGFR by MDRD >60 >60 mL/min/1.7 3m2 08/05/2021 12:39 PM ENGAGEMENT LEAD [facility] Blood BLOOD SPECIMEN / Unknown Venipuncture / Unknown 08/05/2021 5:56 AM ENGAGEMENT LEAD 08/05/2021 11:25 AM ENGAGEMENT LEAD us Romain Booth MD LAB - CHEMISTRY ORDERABLE S Final Result [facility] [address] [place] [address] documented in this encounter Visit Diagnoses Not on filedocumented in this encounter Additional Health Concerns Infection Onset Date Last Indicated Resolved Time MDRO 07/27/2021 07/27/2021 documented as of this encounter Care Teams Operations Research Scientist Relationship Specialty Start Date End Date Arnie Brush MD [address] [place] [id number] PCP - General 05/21/21 documented as of this encounter
--- OUTSIDE RECORDS SUMMARY | 2025-04-28 13:34 | XMS_ITS | Encounter Summary ---
Author Organization [facility] Health Address [address] [place] [address] Care Team Providers Care [employer] Combination Teacher Name Role Phone Arnie Brush MD Primary Care Provider [phone] Encounter Details Date Type Department Care Team (Late st Contact Info) Description 08/19/2021 Lab Requisition [facility] [address] [place] [address] Romain Booth MD [facility] [place] [address] Social History Tobacco Use Types Packs/Day Years [...] Diagnosis Comments CBC W AUTO DIFFERENTIAL STAT 08/19/2021 4:00 AM SLICING MACHINE FEEDER COMPREHENSIVE METABOLIC PANEL STAT 08/19/2021 4:00 AM SLICING MACHINE FEEDER documented in this encounter Results * (ABNORMAL) CBC WITH DIFFERENTIAL (08/19/2021 4:00 AM SLICING MACHINE FEEDER) [facility] WBC 7.3 4.4 - 10.7 x10E9/L 08/19/2021 10:58 AM SLICING MACHINE FEEDER [facility] WBC Corrected 08/19/2021 10:58 AM SLICING MACHINE FEEDER [facility] RBC 3.64(L) 3.80 - 5.20 x10E12/L 08/19/2021 10:58 AM SLICING MACHINE FEEDER [facility] Hemoglobin 9.8(L) 12.0 - 15.6 gm/dL 08/19/2021 10:58 AM SLICING MACHINE FEEDER [facility] Hematocrit 34.1(L) 35.9 - 45.5 % 08/19/2021 10:58 AM SLICING MACHINE FEEDER [facility] MCV 93.7 80.7 - 98.3 fl 08/19/2021 10:58 AM SLICING MACHINE FEEDER [facility] MCH 26.9 26.7 - 34.0 pg 08/19/2021 10:[address] [facility] MCHC 28.7(L) 30.8 - 35.9 gm/dL 08/19/2021 10:[address] [facility] Platelet Count 512(H) 153 - 416 x10E9/L 08/19/2021 10:[address] [facility] RDW-CV 15.6(H) 12.1 - 14.9 % 08/19/2021 10:[address] [facility] MPV 8.0(L) 9.4 - 12.9 fl 08/19/2021 10:[address] [facility] Neutrophils % 71.2 44.0 - 73.0 % 08/19/2021 10:[address] [facility] Lymphocytes % 19.5(L) 20.0 - 43.0 % 08/19/2021 10:[address] [facility] Monocytes % 5.2 5.0 - 13.0 % 08/19/2021 10:[address] [facility] Eosinophils % 3.0 0.0 - 6.0 % 08/19/2021 10:[address] [facility] Basophils % 0.8 0.0 - 2.0 % 08/19/2021 10:[address] [facility] Immature Granulocytes 0.3 0 - 1 % 08/19/2021 10:[address] [facility] Neutrophil Absolute 5.17 2.01 - 7.14 x10E9/L 08/19/2021 10:[address] [facility] Lymphocytes Absolute 1.42 1.07 - 3.94 x10E9/L 08/19/2021 10:[address] [facility] Monocytes Absolute 0.38 0.26 - 1.07 x10E9/L 08/19/2021 10:[address] [facility] Eosinophils Absolute 0.22 0 - 0.47 x10E9/L 08/19/2021 10:[address] [facility] Basophils Absolute 0.06 0 - 0.08 x10E9/L 08/19/2021 10:[address] [facility] Immature Granulocytes Absolute 0.02 0.00 - 0.06 x10E9/L 08/19/2021 10:[address] [facility] nRBC Auto 0 /100 WBC 08/19/2021 10:[address] [facility] Blood BLOOD SPECIMEN / Unknown Venipuncture / Unknown 08/19/2021 4:00 AM SLICING MACHINE FEEDER 08/19/2021 10:32 AM [facility] us Romain Booth MD LAB - HEMATOLOGY ORDERABL ES Final Result [facility] [address] [place] [address] * (ABNORMAL) COMPREHENSIVE METABOLIC PANEL (08/19/2021 4:00 AM SLICING MACHINE FEEDER) Glucose 80 70 - 105 mg/dL 08/19/2021 11:[address] [facility] Sodium 133(L) 136 - 145 mmol/L 08/19/2021 11:[address] [facility] Potassium 4.4 3.5 - 5.1 mmol/L 08/19/2021 11:[address] [facility] Chloride 94(L) 98 - 107 mmol/L 08/19/2021 11:[address] [facility] CO2 27 23 - 31 mmol/L 08/19/2021 11:[address] [facility] Calcium 8.1(L) 8.4 - 10.4 mg/dL 08/19/2021 11:[address] [facility] Anion Gap 12 8 - 18 mmol/L 08/19/2021 11:[address] [facility] BUN 13 9.8 - 20.1 mg/dL 08/19/2021 11:[address] [facility] Creatinine 0.45(L) 0.57 - 1.11 mg/dL 08/19/2021 11:[address] [facility] Alkaline Phosphatase 142 40 - 150 U/L 08/19/2021 11:[address] [facility] ALT <6 0 - 61 U/L 08/19/2021 11:[address] [facility] AST 10 5 - 34 U/L 08/19/2021 11:[address] [facility] Protein Total 5.6(L) 6.4 - 8.3 gm/dL 08/19/2021 11:[address] [facility] Albumin 2.3(L) 3.5 - 5.2 gm/dL 08/19/2021 11:31 AM SLICING MACHINE FEEDER [facility] Bilirubin Total 0.2 0.2 - 1.2 mg/dL 08/19/2021 11:31 AM SLICING MACHINE FEEDER [facility] eGFR by MDRD >60 >60 mL/min/1.7 3m2 08/19/2021 11:31 AM SLICING MACHINE FEEDER [facility] eGFR by MDRD >60 >60 mL/min/1.7 3m2 08/19/2021 11:31 AM SLICING MACHINE FEEDER [facility] Blood BLOOD SPECIMEN / Unknown Venipuncture / Unknown 08/19/2021 4:00 AM SLICING MACHINE FEEDER 08/19/2021 10:32 AM SLICING MACHINE FEEDER us Romain Booth MD LAB - CHEMISTRY ORDERABLE S Final Result [facility] [address] [place] [address] documented in this encounter Visit Diagnoses Not on filedocumented in this encounter Additional Health Concerns Infection Onset Date Last Indicated Resolved Time MDRO 07/27/2021 07/27/2021 documented as of this encounter Care Teams [employer] Combination Teacher Relationship Specialty Start Date End Date Arnie Brush MD [address] [id number] PCP - General 05/21/21 documented as of this encounter
--- OUTSIDE RECORDS SUMMARY | 2025-04-28 13:34 | XMS_ITS | Encounter Summary ---
Author Organization [facility] Health Address [address] [place] [address] Care Team Providers Care Warp Trucker Name Role Phone Arnie Brush MD Primary Care Provider [phone] Encounter Details Date Type Department Care Team (Late st Contact Info) Description 08/30/2021 Lab Requisition [facility] [address] [place] [address] Romain Booth MD [facility] [place] [address] Social History Tobacco Use Types Packs/Day Years [...] Diagnosis Comments CBC W AUTO DIFFERENTIAL STAT 08/30/2021 4:12 AM OFFICE SYSTEMS TECHNOLOGY INSTRUCTOR COMPREHENSIVE METABOLIC PANEL STAT 08/30/2021 4:12 AM OFFICE SYSTEMS TECHNOLOGY INSTRUCTOR documented in this encounter Results * (ABNORMAL) CBC WITH DIFFERENTIAL (08/30/2021 4:12 AM OFFICE SYSTEMS TECHNOLOGY INSTRUCTOR) [facility] WBC 8.9 4.4 - 10.7 x10E9/L 08/30/2021 11:41 AM OFFICE SYSTEMS TECHNOLOGY INSTRUCTOR [facility] WBC Corrected 08/30/2021 11:41 AM OFFICE SYSTEMS TECHNOLOGY INSTRUCTOR [facility] RBC 3.86 3.80 - 5.20 x10E12/L 08/30/2021 11:41 AM OFFICE SYSTEMS TECHNOLOGY INSTRUCTOR [facility] Hemoglobin 10.0(L) 12.0 - 15.6 gm/dL 08/30/2021 11:41 AM OFFICE SYSTEMS TECHNOLOGY INSTRUCTOR [facility] Hematocrit 34.9(L) 35.9 - 45.5 % 08/30/2021 11:41 AM OFFICE SYSTEMS TECHNOLOGY INSTRUCTOR [facility] MCV 90.4 80.7 - 98.3 fl 08/30/2021 11:41 AM OFFICE SYSTEMS TECHNOLOGY INSTRUCTOR [facility] MCH 25.9(L) 26.7 - 34.0 pg 08/30/2021 11:41 AM [facility] MCHC 28.7(L) 30.8 - 35.9 gm/dL 08/30/2021 11:41 AM [facility] Platelet Count 488(H) 153 - 416 x10E9/L 08/30/2021 11:41 AM [facility] RDW-CV 15.9(H) 12.1 - 14.9 % 08/30/2021 11:41 AM [facility] MPV 8.0(L) 9.4 - 12.9 fl 08/30/2021 11:41 AM [facility] Neutrophils % 61.2 44.0 - 73.0 % 08/30/2021 11:41 AM [facility] Lymphocytes % 26.4 20.0 - 43.0 % 08/30/2021 11:41 AM [facility] Monocytes % 8.3 5.0 - 13.0 % 08/30/2021 11:41 AM [facility] Eosinophils % 2.7 0.0 - 6.0 % 08/30/2021 11:41 AM [facility] Basophils % 0.8 0.0 - 2.0 % 08/30/2021 11:41 AM [facility] Immature Granulocytes 0.6 0 - 1 % 08/30/2021 11:41 AM [facility] Neutrophil Absolute 5.45 2.01 - 7.14 x10E9/L 08/30/2021 11:41 AM [facility] Lymphocytes Absolute 2.35 1.07 - 3.94 x10E9/L 08/30/2021 11:41 AM [facility] Monocytes Absolute 0.74 0.26 - 1.07 x10E9/L 08/30/2021 11:41 AM [facility] Eosinophils Absolute 0.24 0 - 0.47 x10E9/L 08/30/2021 11:41 AM [facility] Basophils Absolute 0.07 0 - 0.08 x10E9/L 08/30/2021 11:41 AM [facility] Immature Granulocytes Absolute 0.05 0.00 - 0.06 x10E9/L 08/30/2021 11:41 AM [facility] nRBC Auto 0 /100 WBC 08/30/2021 11:41 AM [facility] Blood BLOOD SPECIMEN / Unknown Venipuncture / Unknown 08/30/2021 4:12 AM [employer] IN[employer] 08/30/2021 9:18 AM [facility] us Romain Booth MD LAB - HEMATOLOGY ORDERABL ES Final Result [facility] [address] [place] [address] * (ABNORMAL) COMPREHENSIVE METABOLIC PANEL (08/30/2021 4:12 AM OFFICE SYSTEMS TECHNOLOGY INSTRUCTOR) [facility] Glucose 74 70 - 105 mg/dL 08/30/2021 11:07 AM [facility] Sodium 134(L) 136 - 145 mmol/L 08/30/2021 11:07 AM [facility] Potassium 4.7 3.5 - 5.1 mmol/L 08/30/2021 11:07 AM [facility] Chloride 93(L) 98 - 107 mmol/L 08/30/2021 11:07 AM [facility] CO2 25 23 - 31 mmol/L 08/30/2021 11:07 AM [facility] Calcium 8.1(L) 8.4 - 10.4 mg/dL 08/30/2021 11:07 AM [facility] Anion Gap 16 8 - 18 mmol/L 08/30/2021 11:07 AM [facility] BUN 12 9.8 - 20.1 mg/dL 08/30/2021 11:07 AM [facility] Creatinine 0.42(L) 0.57 - 1.11 mg/dL 08/30/2021 11:07 AM [facility] Alkaline Phosphatase 129 40 - 150 U/L 08/30/2021 11:07 AM [facility] ALT <6 0 - 61 U/L 08/30/2021 11:07 AM [facility] AST 17 5 - 34 U/L 08/30/2021 11:07 AM [facility] Protein Total 6.0(L) 6.4 - 8.3 gm/dL 08/30/2021 11:07 AM [facility] Albumin 2.5(L) 3.5 - 5.2 gm/dL 08/30/2021 11:07 AM OFFICE SYSTEM[employer] TECHNOLOGY INSTRUCTOR [facility] Bilirubin Total 0.2 0.2 - 1.2 mg/dL 08/30/2021 11:07 AM OFFICE [employer] TECHN[employer]Y INSTRUCTOR [facility] eGFR by MDRD >60 >60 mL/min/1.7 3m2 08/30/2021 11:07 AM [employer]ICE [employer] TECH[employer]Y IN[employer]CTOR [facility] eGFR by MDRD >60 >60 mL/min/1.7 3m2 08/30/2021 11:07 AM OFFICE SYSTEMS TECHNOLOGY INSTRUCTOR [facility] Blood BLOOD SPECIMEN / Unknown Venipuncture / Unknown 08/30/2021 4:12 AM [employer]ICE [employer] TECHNOLOGY INSTRUCTOR 08/30/2021 9:18 AM [employer] IN[employer] us Romain Booth MD LAB - CHEMISTRY ORDERABLE S Final Result [facility] [address] [place] [address] documented in this encounter Visit Diagnoses Not on filedocumented in this encounter Additional Health Concerns Infection Onset Date Last Indicated Resolved Time MDRO 07/27/2021 07/27/2021 documented as of this encounter Care Teams [employer] Relationship Specialty Start Date End Date Arnie Brush MD [address] [place] [id number] PCP - General 05/21/21 documented as of this encounter
--- OUTSIDE RECORDS SUMMARY | 2025-04-28 13:34 | XMS_ITS | Encounter Summary ---
Author Organization [facility] Health Address [address] [facility] [place] [address] Care Team Providers Care Nursing Professor Name Role Phone Arnie Brush MD Primary Care Provider [phone] Encounter Details Date Type Department Care Team (Late st Contact Info) Description 08/16/2021 Lab Requisition [facility] [address] [place] [address] Romain Booth MD [facility] [place] [address] Social History Tobacco Use Types Packs/Day Years [...] Diagnosis Comments CBC W AUTO DIFFERENTIAL STAT 08/16/2021 4:00 AM ROOM DESIGNER COMPREHENSIVE METABOLIC PANEL STAT 08/16/2021 4:00 AM ROOM DESIGNER documented in this encounter Results * (ABNORMAL) COMPREHENSIVE METABOLIC PANEL (08/16/2021 4:00 AM ROOM DESIGNER) [facility] Glucose 86 70 - 105 mg/dL 08/16/2021 1:52 PM ROOM DESIGNER [facility] Sodium 132(L) 136 - 145 mmol/L 08/16/2021 1:52 PM ROOM DESIGNER [facility] Potassium 4.3 3.5 - 5.1 mmol/L 08/16/2021 1:52 PM ROOM DESIGNER [facility] Chloride 95(L) 98 - 107 mmol/L 08/16/2021 1:52 PM ROOM DESIGNER [facility] CO2 26 23 - 31 mmol/L 08/16/2021 1:52 PM ROOM DESIGNER [facility] Calcium 7.8(L) 8.4 - 10.4 mg/dL 08/16/2021 1:52 PM ROOM DESIGNER [facility] Anion Gap 11 8 - 18 mmol/L 08/16/2021 1:52 PM ROOM DESIGNER [facility] BUN 15 9.8 - 20.1 mg/dL 08/16/2021 1:52 PM ROOM DESIGNER [facility] Creatinine 0.42(L) 0.57 - 1.11 mg/dL 08/16/2021 1:52 PM ROOM DESIGNER [facility] Alkaline Phosphatase 129 40 - 150 U/L 08/16/2021 1:52 PM ROOM DESIGNER [facility] ALT <6 0 - 61 U/L 08/16/2021 1:52 PM ROOM DESIGNER [facility] AST 8 5 - 34 U/L 08/16/2021 1:52 PM [facility] Protein Total 5.2(L) 6.4 - 8.3 gm/dL 08/16/2021 1:52 PM ROOM DESIGNER [facility] Albumin 2.2(L) 3.5 - 5.2 gm/dL 08/16/2021 1:52 PM [facility] Bilirubin Total 0.1(L) 0.2 - 1.2 mg/dL 08/16/2021 1:52 PM [facility] eGFR by MDRD >60 >60 mL/min/1.7 3m2 08/16/2021 1:52 PM [facility] eGFR by MDRD >60 >60 mL/min/1.7 3m2 08/16/2021 1:52 PM [facility] Blood BLOOD SPECIMEN / Unknown Venipuncture / Unknown 08/16/2021 4:00 AM ROOM DESIGNER 08/16/2021 1:15 PM ROOM DESIGNER us Romain Booth MD LAB - CHEMISTRY ORDERABLE S Final Result Performing Organization Address City/State/[facility] Co de Phone Number [facility] [address] [place], [place] [id number] * (ABNORMAL) CBC WITH DIFFERENTIAL (08/16/2021 4:00 AM ROOM DESIGNER) [facility] Signature WBC 8.4 4.4 - 10.7 x10E9/L 08/16/2021 1:28 PM [facility] WBC Corrected 08/16/2021 1:28 PM ROOM DESIGNER [facility] RBC 3.26(L) 3.80 - 5.20 x10E12/L 08/16/2021 1:28 PM [facility] Hemoglobin 8.8(L) 12.0 - 15.6 gm/dL 08/16/2021 1:28 PM [facility] Hematocrit 30.4(L) 35.9 - 45.5 % 08/16/2021 1:28 PM [facility] MCV 93.3 80.7 - 98.3 fl 08/16/2021 1:28 PM [facility] MCH 27.0 26.7 - 34.0 pg 08/16/2021 1:28 PM [facility] MCHC 28.9(L) 30.8 - 35.9 gm/dL 08/16/2021 1:28 PM [facility] Platelet Count 469(H) 153 - 416 x10E9/L 08/16/2021 1:28 PM [facility] RDW-CV 15.7(H) 12.1 - 14.9 % 08/16/2021 1:28 PM [facility] MPV 8.2(L) 9.4 - 12.9 fl 08/16/2021 1:28 PM [facility] Neutrophils % 67.0 44.0 - 73.0 % 08/16/2021 1:28 PM [facility] Lymphocytes % 21.9 20.0 - 43.0 % 08/16/2021 1:28 PM [facility] Monocytes % 6.8 5.0 - 13.0 % 08/16/2021 1:28 PM [facility] Eosinophils % 3.2 0.0 - 6.0 % 08/16/2021 1:28 PM [facility] Basophils % 0.6 0.0 - 2.0 % 08/16/2021 1:28 PM [facility] Immature Granulocytes 0.5 0 - 1 % 08/16/2021 1:28 PM [facility] Neutrophil Absolute 5.63 2.01 - 7.14 x10E9/L 08/16/2021 1:28 PM [facility] Lymphocytes Absolute 1.84 1.07 - 3.94 x10E9/L 08/16/2021 1:28 PM [facility] Monocytes Absolute 0.57 0.26 - 1.07 x10E9/L 08/16/2021 1:28 PM [facility] Eosinophils Absolute 0.27 0 - 0.47 x10E9/L 08/16/2021 1:28 PM ROOM DESIGNER [facility] Basophils Absolute 0.05 0 - 0.08 x10E9/L 08/16/2021 1:28 PM ROOM DESIGNER [facility] Immature Granulocytes Absolute 0.04 0.00 - 0.06 x10E9/L 08/16/2021 1:28 PM ROOM DESIGNER [facility] nRBC Auto 0 /100 WBC 08/16/2021 1:28 PM ROOM DESIGNER [facility] Blood BLOOD SPECIMEN / Unknown Venipuncture / Unknown 08/16/2021 4:00 AM ROOM DESIGNER 08/16/2021 1:15 PM ROOM DESIGNER us Romain Booth MD LAB - HEMATOLOGY ORDERABL ES Final Result [facility] [address] [place] [address] documented in this encounter Visit Diagnoses Not on filedocumented in this encounter Additional Health Concerns Infection Onset Date Last Indicated Resolved Time MDRO 07/27/2021 07/27/2021 documented as of this encounter Care Teams Nursing Professor Relationship Specialty Start Date End Date Arnie Brush MD [address] [phone] PCP - General 05/21/21 documented as of this encounter
--- OUTSIDE RECORDS SUMMARY | 2025-04-28 13:34 | XMS_ITS | Encounter Summary ---
Author Organization [facility] Health Address [address] [place] [address] Care Team Providers Care Facilities Mechanical Design Engineer Name Role Phone Arnie Brush MD Primary Care Provider [phone] Encounter Details Date Type Department Care Team (Late st Contact Info) Description 09/02/2021 Lab Requisition [facility] [address] [place] [address] Romain Booth MD [facility] [place] [address] Social History Tobacco Use Types Packs/Day Years [...] Assessment Author Yes 06/06/2021 2:17 PM Vicenta Joynre RN documented as of this encounter Mental Status * Does person have difficulty concentrating/remembering/making decisions? Answer Entry Date Author No 06/06/2021 2:17 PM Vicenta Joyner RN documented in this encounter Plan of Treatment Not on file documented as of this encounter Procedures Procedure Name Priority Date/Time Associated Diagnosis Comments CBC W AUTO DIFFERENTIAL STAT 09/02/2021 3:30 AM PET RESORT CONCIERGE COMPREHENSIVE METABOLIC PANEL STAT 09/02/2021 3:30 AM PET RESORT CONCIERGE documented in this encounter Results * (ABNORMAL) CBC WITH DIFFERENTIAL (09/02/2021 3:30 AM PET RESORT CONCIERGE) WBC 8.7 4.4 - 10.7 x10E9/L 09/02/2021 1:00 PM PET RESORT CONCIERGE [facility] WBC Corrected 09/02/2021 1:00 PM PET RESORT CONCIERGE [facility] RBC 3.26(L) 3.80 - 5.20 x10E12/L 09/02/2021 1:00 PM PET RESORT CONCIERGE [facility] Hemoglobin 8.6(L) 12.0 - 15.6 gm/dL 09/02/2021 1:00 PM PET RESORT CONCIERGE [facility] Hematocrit 29.8(L) 35.9 - 45.5 % 09/02/2021 1:00 PM PET RESORT CONCIERGE [facility] MCV 91.4 80.7 - 98.3 fl 09/02/2021 1:00 PM PET RESORT CONCIERGE [facility] MCH 26.4(L) 26.7 - 34.0 pg 09/02/2021 1:00 PM [facility] MCHC 28.9(L) 30.8 - 35.9 gm/dL 09/02/2021 1:00 PM [facility] Platelet Count 532(H) 153 - 416 x10E9/L 09/02/2021 1:00 PM [facility] RDW-CV 15.7(H) 12.1 - 14.9 % 09/02/2021 1:00 PM [facility] MPV 8.1(L) 9.4 - 12.9 fl 09/02/2021 1:00 PM [facility] Neutrophils % 58.8 44.0 - 73.0 % 09/02/2021 1:00 PM [facility] Lymphocytes % 29.1 20.0 - 43.0 % 09/02/2021 1:00 PM [facility] Monocytes % 7.3 5.0 - 13.0 % 09/02/2021 1:00 PM [facility] Eosinophils % 3.2 0.0 - 6.0 % 09/02/2021 1:00 PM [facility] Basophils % 0.9 0.0 - 2.0 % 09/02/2021 1:00 PM [facility] Immature Granulocytes 0.7 0 - 1 % 09/02/2021 1:00 PM [facility] Neutrophil Absolute 5.09 2.01 - 7.14 x10E9/L 09/02/2021 1:00 PM [facility] Lymphocytes Absolute 2.52 1.07 - 3.94 x10E9/L 09/02/2021 1:00 PM [facility] Monocytes Absolute 0.63 0.26 - 1.07 x10E9/L 09/02/2021 1:00 PM [facility] Eosinophils Absolute 0.28 0 - 0.47 x10E9/L 09/02/2021 1:00 PM [facility] Basophils Absolute 0.08 0 - 0.08 x10E9/L 09/02/2021 1:00 PM [facility] Immature Granulocytes Absolute 0.06 0.00 - 0.06 x10E9/L 09/02/2021 1:00 PM [facility] nRBC Auto 0 /100 WBC 09/02/2021 1:00 PM [facility] Blood BLOOD SPECIMEN / Unknown Venipuncture / Unknown 09/02/2021 3:30 AM PET RESORT CONCIERGE 09/02/2021 11:47 AM PET RESORT CONCIERGE us Romain Booth MD LAB - HEMATOLOGY ORDERABL ES Final Result [facility] [address] [place] [address] * (ABNORMAL) COMPREHENSIVE METABOLIC PANEL (09/02/2021 3:30 AM PET RESORT CONCIERGE) Glucose 89 70 - 105 mg/dL 09/02/2021 1:21 PM [facility] Sodium 136 136 - 145 mmol/L 09/02/2021 1:21 PM [facility] Potassium 3.9 3.5 - 5.1 mmol/L 09/02/2021 1:21 PM [facility] Chloride 95(L) 98 - 107 mmol/L 09/02/2021 1:21 PM [facility] CO2 30 23 - 31 mmol/L 09/02/2021 1:21 PM [facility] Calcium 8.1(L) 8.4 - 10.4 mg/dL 09/02/2021 1:21 PM [facility] Anion Gap 11 8 - 18 mmol/L 09/02/2021 1:21 PM [facility] BUN 13 9.8 - 20.1 mg/dL 09/02/2021 1:21 PM [facility] Creatinine 0.45(L) 0.57 - 1.11 mg/dL 09/02/2021 1:21 PM [facility] Alkaline Phosphatase 120 40 - 150 U/L 09/02/2021 1:21 PM [facility] ALT <6 0 - 61 U/L 09/02/2021 1:21 PM [facility] AST 11 5 - 34 U/L 09/02/2021 1:21 PM [facility] Protein Total 5.6(L) 6.4 - 8.3 gm/dL 09/02/2021 1:21 PM [facility] Albumin 2.6(L) 3.5 - 5.2 gm/dL 09/02/2021 1:21 PM [facility] Bilirubin Total 0.1(L) 0.2 - 1.2 mg/dL 09/02/2021 1:21 PM PET RESORT CONCIERGE [facility] eGFR by MDRD >60 >60 mL/min/1.7 3m2 09/02/2021 1:21 PM PET RESORT CONCIERGE [facility] eGFR by MDRD >60 >60 mL/min/1.7 3m2 09/02/2021 1:21 PM PET RESORT CONCIERGE [facility] Blood BLOOD SPECIMEN / Unknown Venipuncture / Unknown 09/02/2021 3:30 AM PET RESORT CONCIERGE 09/02/2021 11:47 AM PET RESORT CONCIERGE us Romain Booth MD LAB - CHEMISTRY ORDERABLE S Final Result [facility] [address] [place] [address] documented in this encounter Visit Diagnoses Not on filedocumented in this encounter Additional Health Concerns Infection Onset Date Last Indicated Resolved Time MDRO 07/27/2021 07/27/2021 documented as of this encounter Care Teams Facilities Mechanical Design Engineer Relationship Specialty Start Date End Date Arnie Brush MD [address] [id number] PCP - General 05/21/21 documented as of this encounter
--- OUTSIDE RECORDS SUMMARY | 2025-04-28 13:34 | XMS_ITS | Encounter Summary ---
Author Organization [facility] Health Address [address] [facility] [place] [address] Care Team Providers Care Dietitian Teaching Name Role Phone Arnie Brush MD Primary Care Provider [phone] Encounter Details Date Type Department Care Team (Late st Contact Info) Description 08/23/2021 Lab Requisition [facility] [address] [place] [address] Romain Booth MD [facility] [place] [address] Social History Tobacco Use Types Packs/Day Years [...] Diagnosis Comments CBC W AUTO DIFFERENTIAL STAT 08/23/2021 4:30 AM PLANISHER COMPREHENSIVE METABOLIC PANEL STAT 08/23/2021 4:30 AM PLANISHER documented in this encounter Results * (ABNORMAL) COMPREHENSIVE METABOLIC PANEL (08/23/2021 4:30 AM PLANISHER) [facility] Glucose 79 70 - 105 mg/dL 08/23/2021 11:34 AM PLANISHER [facility] Sodium 130(L) 136 - 145 mmol/L 08/23/2021 11:34 AM PLANISHER [facility] Potassium 4.0 3.5 - 5.1 mmol/L 08/23/2021 11:34 AM PLANISHER [facility] Chloride 92(L) 98 - 107 mmol/L 08/23/2021 11:34 AM PLANISHER [facility] CO2 26 23 - 31 mmol/L 08/23/2021 11:34 AM PLANISHER [facility] Calcium 8.0(L) 8.4 - 10.4 mg/dL 08/23/2021 11:34 AM PLANISHER [facility] Anion Gap 12 8 - 18 mmol/L 08/23/2021 11:34 AM PLANISHER [facility] BUN 10 9.8 - 20.1 mg/dL 08/23/2021 11:[address] [facility] Creatinine 0.40(L) 0.57 - 1.11 mg/dL 08/23/2021 11:[address] [facility] Alkaline Phosphatase 136 40 - 150 U/L 08/23/2021 11:[address] [facility] ALT <6 0 - 61 U/L 08/23/2021 11:[address] [facility] AST 8 5 - 34 U/L 08/23/2021 11:[address] [facility] Protein Total 5.5(L) 6.4 - 8.3 gm/dL 08/23/2021 11:[address] [facility] Albumin 2.3(L) 3.5 - 5.2 gm/dL 08/23/2021 11:[address] [facility] Bilirubin Total 0.1(L) 0.2 - 1.2 mg/dL 08/23/2021 11:[address] [facility] eGFR by MDRD >60 >60 mL/min/1.7 3m2 08/23/2021 11:[address] [facility] eGFR by MDRD >60 >60 mL/min/1.7 3m2 08/23/2021 11:[address] [facility] Blood BLOOD SPECIMEN / Unknown Venipuncture / Unknown 08/23/2021 4:30 AM PLANISHER 08/23/2021 10:08 AM [facility] us Romain Booth MD LAB - CHEMISTRY ORDERABLE S Final Result Performing Organization Address City/State/[facility] Co de Phone Number [facility] [address] [place], [place] [id number] * (ABNORMAL) CBC WITH DIFFERENTIAL (08/23/2021 4:30 AM PLANISHER) [facility] WBC 8.0 4.4 - 10.7 x10E9/L 08/23/2021 11:[address] [facility] WBC Corrected 08/23/2021 11:[address] [facility] RBC 3.37(L) 3.80 - 5.20 x10E12/L 08/23/2021 11:[address] [facility] Hemoglobin 8.9(L) 12.0 - 15.6 gm/dL 08/23/2021 11:[address] [facility] Hematocrit 30.2(L) 35.9 - 45.5 % 08/23/2021 11:[address] [facility] MCV 89.6 80.7 - 98.3 fl 08/23/2021 11:[address] [facility] MCH 26.4(L) 26.7 - 34.0 pg 08/23/2021 11:[address] [facility] MCHC 29.5(L) 30.8 - 35.9 gm/dL 08/23/2021 11:[address] [facility] Platelet Count 421(H) 153 - 416 x10E9/L 08/23/2021 11:[address] [facility] RDW-CV 15.4(H) 12.1 - 14.9 % 08/23/2021 11:[address] [facility] MPV 8.5(L) 9.4 - 12.9 fl 08/23/2021 11:[address] [facility] Neutrophils % 63.5 44.0 - 73.0 % 08/23/2021 11:[address] [facility] Lymphocytes % 22.7 20.0 - 43.0 % 08/23/2021 11:[address] [facility] Monocytes % 8.6 5.0 - 13.0 % 08/23/2021 11:[address] [facility] Eosinophils % 3.9 0.0 - 6.0 % 08/23/2021 11:[address] [facility] Basophils % 0.7 0.0 - 2.0 % 08/23/2021 11:[address] [facility] Immature Granulocytes 0.6 0 - 1 % 08/23/2021 11:[address] [facility] Neutrophil Absolute 5.08 2.01 - 7.14 x10E9/L 08/23/2021 11:[address] [facility] Lymphocytes Absolute 1.82 1.07 - 3.94 x10E9/L 08/23/2021 11:[address] [facility] Monocytes Absolute 0.69 0.26 - 1.07 x10E9/L 08/23/2021 11:[address] [facility] Eosinophils Absolute 0.31 0 - 0.47 x10E9/L 08/23/2021 11:06 AM PLANISHER [facility] Basophils Absolute 0.06 0 - 0.08 x10E9/L 08/23/2021 11:06 AM PLANISHER [facility] Immature Granulocytes Absolute 0.05 0.00 - 0.06 x10E9/L 08/23/2021 11:06 AM PLANISHER [facility] nRBC Auto 0 /100 WBC 08/23/2021 11:06 AM PLANISHER [facility] Blood BLOOD SPECIMEN / Unknown Venipuncture / Unknown 08/23/2021 4:30 AM PLANISHER 08/23/2021 10:08 AM PLANISHER us Romain Booth MD LAB - HEMATOLOGY ORDERABL ES Final Result Performing Organization Address City/State/[facility] Co de Phone Number [facility] [address] [place] [address] documented in this encounter Visit Diagnoses Not on filedocumented in this encounter Additional Health Concerns Infection Onset Date Last Indicated Resolved Time MDRO 07/27/2021 07/27/2021 documented as of this encounter Care Teams Dietitian Teaching Relationship Specialty Start Date End Date Arnie Brush MD [address] [place] [phone] PCP - General 05/21/21 documented as of this encounter
--- NOTE | 2025-04-28 14:10 | ECG_ITS ---
Test Date: 2025-04-28 15:32:56 Measurements Intervals [place] Rate: 119 P: 50 MD: 163 QRS: 25 QRSD: 100 T: 56 QT: 433 QTc: 610 Interpretive Statements SINUS TACHYCARDIA LEFT ATRIAL ENLARGEMENT LOW QRS VOLTAGE IN PRECORDIAL LEADS ANTEROSEPTAL INFARCT, AGE INDETERMINATE CONSIDER INFERIOR INFARCT, AGE INDETERMINATE BORDERLINE ST-T WAVE ABNORMALITY- HIGH LATERAL LEADS BASELINE ARTIFACT- I, II, III, AVR, AVL, AVF, V1-V6 ABNORMAL ECG No previous ECG available for comparison Electronically Signed On 04-28-2025 16:04:14 CDT by Timur Delgado D.O.
--- OUTSIDE RECORDS SUMMARY | 2025-04-28 14:14 | XMS_ITS | Encounter Summary ---
Author Organization [facility] Health Address [address] [facility] [place] [address] Care Team Providers Care Wheel Aligner Name Role Phone Arnie Brush MD Primary Care Provider [phone] Encounter Details Date Type Department Care Team (Late st Contact Info) Description 07/28/2021 Lab Requisition [facility] [address] [place] [address] Norman Muhammad MD [address] [place] [address] Social History Tobacco Use Types [...] W AUTO DIFFERENTIAL STAT 07/28/2021 5:05 AM FLOW 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 documented in this encounter Results * (ABNORMAL) CBC WITH DIFFERENTIAL (07/28/2021 5:05 AM FLOW 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) WBC 11.7(H) 4.4 - 10.7 x10E9/L 07/28/2021 8:59 AM FLOW 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 [facility] WBC Corrected 07/28/2021 8:59 AM FLOW 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 [facility] RBC 3.47(L) 3.80 - 5.20 x10E12/L 07/28/2021 8:59 AM FLOW 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 [facility] Hemoglobin 9.4(L) 12.0 - 15.6 gm/dL 07/28/2021 8:59 AM FLOW 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 [facility] Hematocrit 31.4(L) 35.9 - 45.5 % 07/28/2021 8:59 AM FLOW 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 [facility] MCV 90.5 80.7 - 98.3 fl 07/28/2021 8:59 AM FLOW 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 [facility] MCH 27.1 26.7 - 34.0 pg 07/28/2021 8:59 AM FLOW 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 [facility] MCHC 29.9(L) 30.8 - 35.9 gm/dL 07/28/2021 8:[address] [facility] Platelet Count 497(H) 153 - 416 x10E9/L 07/28/2021 8:[address] [facility] RDW-CV 15.9(H) 12.1 - 14.9 % 07/28/2021 8:[address] [facility] MPV 9.0(L) 9.4 - 12.9 fl 07/28/2021 8:[address] [facility] Neutrophils % 70.5 44.0 - 73.0 % 07/28/2021 8:[address] [facility] Lymphocytes % 16.0(L) 20.0 - 43.0 % 07/28/2021 8:[address] [facility] Monocytes % 9.6 5.0 - 13.0 % 07/28/2021 8:[address] [facility] Eosinophils % 2.1 0.0 - 6.0 % 07/28/2021 8:[address] [facility] Basophils % 0.9 0.0 - 2.0 % 07/28/2021 8:[address] [facility] Immature Granulocytes 0.9 0 - 1 % 07/28/2021 8:[address] [facility] Neutrophil Absolute 8.27(H) 2.01 - 7.14 x10E9/L 07/28/2021 8:[address] [facility] Lymphocytes Absolute 1.88 1.07 - 3.94 x10E9/L 07/28/2021 8:[address] [facility] Monocytes Absolute 1.12(H) 0.26 - 1.07 x10E9/L 07/28/2021 8:[address] [facility] Eosinophils Absolute 0.25 0 - 0.47 x10E9/L 07/28/2021 8:[address] [facility] Basophils Absolute 0.10(H) 0 - 0.08 x10E9/L 07/28/2021 8:[address] [facility] Immature Granulocytes Absolute 0.10(H) 0.00 - 0.06 x10E9/L 07/28/2021 8:[address] [facility] nRBC Auto 0 /100 WBC 07/28/2021 8:[address] [facility] Blood BLOOD SPECIMEN / Unknown Venipuncture / Unknown 07/28/2021 5:05 AM FLOW 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 07/28/2021 8:37 AM FLOW 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 Norman Muhammad MD LAB - HEMATOLOGY ORDERABLES Bonnie forrest Result [facility] [address] [place] [address] documented in this encounter Visit Diagnoses Not on filedocumented in this encounter Additional Health Concerns Infection Onset Date Last Indicated Resolved Time MDRO 07/27/2021 07/27/2021 documented as of this encounter Care Teams Wheel Aligner Relationship Specialty Start Date End Date Arnie Brush MD [address]ACON [address] [place] [id number] PCP - General 05/21/21 documented as of this encounter
--- OUTSIDE RECORDS SUMMARY | 2025-04-28 14:14 | XMS_ITS | Encounter Summary ---
Author Organization [facility] Health Address [address] [place] [address] Care Team Providers Care Traffic Court Referee Name Role Phone Arnie Brush MD Primary Care Provider [phone] Encounter Details Date Type Department Care Team (Late st Contact Info) Description 07/14/2021 Lab Requisition [facility] [address] [place] [address] Romain Booth MD [facility] [place] [address] Social History Tobacco Use Types Packs/Day Years [...] MICROSCOPIC NO CULTURE STAT 07/14/2021 3:45 AM INTERNAL MEDICINE PHYSICIAN ASSISTANT URINE MICROSCOPIC ONLY STAT 07/14/2021 3:45 AM INTERNAL MEDICINE PHYSICIAN ASSISTANT PTT STAT 07/14/2021 3:45 AM INTERNAL MEDICINE PHYSICIAN ASSISTANT CBC W AUTO DIFFERENTIAL STAT 07/14/2021 3:45 AM INTERNAL MEDICINE PHYSICIAN ASSISTANT documented in this encounter Results * (ABNORMAL) URINE MICROSCOPIC ONLY (07/14/2021 3:45 AM INTERNAL MEDICINE PHYSICIAN ASSISTANT) RBC UA 3-5 None Seen, 0-2, 3-5 # /hpf 07/14/2021 9:35 AM INTERNAL MEDICINE PHYSICIAN ASSISTANT [facility] WBC UA 51-100(A) None Seen, 0-5 # /hpf 07/14/2021 9:35 AM INTERNAL MEDICINE PHYSICIAN ASSISTANT [facility] Bacteria UA Trace(A) None Seen 07/14/2021 9:35 AM INTERNAL MEDICINE PHYSICIAN ASSISTANT [facility] Squamous Epithelial Cells 0-2 None Seen, 0-2, 3-5 /hpf 07/14/2021 9:35 AM INTERNAL MEDICINE PHYSICIAN ASSISTANT [facility] Mucus UA 2+ /LPF 07/14/2021 9:35 AM [facility] Urine URINE SPECIMEN OBTAINED BY CLEAN CATCH PROCEDURE / Unknown Collection / Unknown 07/14/2021 3:45 AM INTERNAL MEDICINE PHYSICIAN ASSISTANT 07/14/2021 8:58 AM INTERNAL MEDICINE PHYSICIAN ASSISTANT Narrative [facility] - 07/14/2021 9:35 AM INTERNAL MEDICINE PHYSICIAN ASSISTANT us Romain Booth MD LAB - URINALYSIS ORDERABL ES Final Result [facility] [address] [place] [address] * (ABNORMAL) URINALYSIS REFLEX TO MICROSCOPIC NO CULTURE (07/14/2021 3:45 AM INTERNAL MEDICINE PHYSICIAN ASSISTANT) Color UA Yellow Straw, Yellow 07/14/2021 9:35 AM [facility] Clarity UA Slt Cloudy(A) Clear 07/14/2021 9:35 AM [facility] Glucose UA Negative Negative 07/14/2021 9:35 AM [facility] Bilirubin UA Negative Negative 07/14/2021 9:35 AM [facility] Ketone UA Negative Negative 07/14/2021 9:35 AM [facility] Specific [place] UA 1.018 1.005 - 1.030 07/14/2021 9:35 AM [facility] Blood UA 1+(A) Negative 07/14/2021 9:35 AM [facility] pH UA 7.0 5.0 - 8.0 pH 07/14/2021 9:35 AM [facility] Protein UA Negative Negative 07/14/2021 9:35 AM [facility] Urobilinogen UA Negative Negative mg/dL 07/14/2021 9:35 AM [facility] Nitrite UA Positive(A) Negative 07/14/2021 9:35 AM [facility] Leukocyte Esterase UA 1+(A) Negative 07/14/2021 9:35 AM [facility] Urine Microscopy Urine microscopy to follow 07/14/2021 9:35 AM [facility] Urine URINE SPECIMEN OBTAINED BY CLEAN CATCH PROCEDURE / Unknown Collection / Unknown 07/14/2021 3:45 AM INTERNAL MEDICINE PHYSICIAN ASSISTANT 07/14/2021 8:58 AM INTERNAL MEDICINE PHYSICIAN ASSISTANT [facility] - 07/14/2021 9:35 AM INTERNAL MEDICINE PHYSICIAN ASSISTANT Romain Booth MD LAB - URINALYSIS ORDERABL ES Final Result Performing Organization Address [facility] Co de Phone Number [facility] [address] [place], [place] [id number] * PTT (07/14/2021 3:45 AM INTERNAL MEDICINE PHYSICIAN ASSISTANT) [facility] PTT 34.4 23.0 - 38.4 sec 07/14/2021 9:36 AM INTERNAL MEDICINE PHYSICIAN ASSISTANT [facility] Blood BLOOD SPECIMEN / Unknown Venipuncture / Unknown 07/14/2021 3:45 AM INTERNAL MEDICINE PHYSICIAN ASSISTANT 07/14/2021 8:58 AM INTERNAL MEDICINE PHYSICIAN ASSISTANT [facility] - 07/14/2021 9:36 AM INTERNAL MEDICINE PHYSICIAN ASSISTANT Heparin Therapeutic Range for PTT: 69.0 - 110.0 seconds. Romain Booth MD LAB - COAGULATION ORDERAB LES Final Result Performing Organization Address [facility] Co de Phone Number [facility] [address] [place] [address] * (ABNORMAL) CBC WITH DIFFERENTIAL (07/14/2021 3:45 AM INTERNAL MEDICINE PHYSICIAN ASSISTANT) [facility] WBC 8.8 4.4 - 10.7 x10E9/L 07/14/2021 9:27 AM [facility] WBC Corrected 07/14/2021 9:27 AM [facility] RBC 3.07(L) 3.80 - 5.20 x10E12/L 07/14/2021 9:27 AM [facility] Hemoglobin 8.4(L) 12.0 - 15.6 gm/dL 07/14/2021 9:27 AM [facility] Hematocrit 28.6(L) 35.9 - 45.5 % 07/14/2021 9:27 AM [facility] MCV 93.2 80.7 - 98.3 fl 07/14/2021 9:27 AM [facility] MCH 27.4 26.7 - 34.0 pg 07/14/2021 9:27 AM [facility] MCHC 29.4(L) 30.8 - 35.9 gm/dL 07/14/2021 9:27 AM [facility] Platelet Count 535(H) 153 - 416 x10E9/L 07/14/2021 9:27 AM [facility] RDW-CV 17.4(H) 12.1 - 14.9 % 07/14/2021 9:27 AM [facility] MPV 8.7(L) 9.4 - 12.9 fl 07/14/2021 9:27 AM [facility] Neutrophils % 61.0 44.0 - 73.0 % 07/14/2021 9:27 AM [facility] Lymphocytes % 24.9 20.0 - 43.0 % 07/14/2021 9:27 AM [facility] Monocytes % 9.0 5.0 - 13.0 % 07/14/2021 9:27 AM [facility] Eosinophils % 3.5 0.0 - 6.0 % 07/14/2021 9:27 AM [facility] Basophils % 1.0 0.0 - 2.0 % 07/14/2021 9:27 AM [facility] Immature Granulocytes 0.6 0 - 1 % 07/14/2021 9:27 AM [facility] Neutrophil Absolute 5.39 2.01 - 7.14 x10E9/L 07/14/2021 9:27 AM [facility] Lymphocytes Absolute 2.20 1.07 - 3.94 x10E9/L 07/14/2021 9:27 AM [facility] Monocytes Absolute 0.80 0.26 - 1.07 x10E9/L 07/14/2021 9:27 AM [facility] Eosinophils Absolute 0.31 0 - 0.47 x10E9/L 07/14/2021 9:27 AM [facility] Basophils Absolute 0.09(H) 0 - 0.08 x10E9/L 07/14/2021 9:27 AM [facility] Immature Granulocytes Absolute 0.05 0.00 - 0.06 x10E9/L 07/14/2021 9:27 AM [facility] nRBC Auto 0 /100 WBC 07/14/2021 9:27 AM [facility] Blood BLOOD SPECIMEN / Unknown Venipuncture / Unknown 07/14/2021 3:45 AM INTERNAL MEDICINE PHYSICIAN ASSISTANT 07/14/2021 8:58 AM INTERNAL MEDICINE PHYSICIAN ASSISTANT us Romain Booth MD LAB - HEMATOLOGY ORDERABL ES Final Result [facility] [address] [place] [address] documented in this encounter Visit Diagnoses Not on filedocumented in this encounter Additional Health Concerns Infection Onset Date Last Indicated Resolved Time MDRO 07/27/2021 07/27/2021 documented as of this encounter Care Teams Traffic Court Referee Relationship Specialty Start Date End Date Arnie Brush MD [address]ACON [address] [place] [phone] PCP - General 05/21/21 documented as of this encounter
--- OUTSIDE RECORDS SUMMARY | 2025-04-28 14:14 | XMS_ITS | Encounter Summary ---
Author Organization [facility] Health Address [address] [place] [address] Care Team Providers Care Traveling Operator Name Role Phone Arnie Brush MD Primary Care Provider [phone] Encounter Details Date Type Department Care Team (Late st Contact Info) Description 07/27/2021 Lab Requisition [facility] [address] [place] [address] [address]Andrea [address] [place] [address] Social History Tobacco Use Types Packs/Day Years [...] REFLEX TO CULTURE Routine 07/27/2021 4:20 AM GENERAL MANAGER FARM URINALYSIS REFLEX MICROSCOPIC REFLEX CULTURE STAT 07/27/2021 4:20 AM GENERAL MANAGER [employer]ARM CULTURE URINE Routine 07/27/2021 4:20 AM GENERAL MANAGER [employer]ARM CBC W AUTO DIFFERENTIAL STAT 07/27/2021 4:20 AM GENERAL MANAGER [employer]ARM COMPREHENSIVE METABOLIC PANEL STAT 07/27/2021 4:20 AM GENERAL MANAGER [employer]ARM documented in this encounter Results * (ABNORMAL) CULTURE URINE (07/27/2021 4:20 AM GENERAL MANAGER [employer]ARM) Culture Urine >100,000 CFU/mL Pseudomonas aeruginosa(A) YVON 07/30/2021 6:30 AM GENERAL MANAGER FARM [facility] Comment: Isolate is multi drug resistant organism (MDRO). Carbapenem-resistant Enterobacteriaciae (CRE) isolated Urine MID-STREAM URINE SPECIMEN / Unknown Collection / Unknown 07/27/2021 4:20 AM GENERAL MANAGER FARM 07/27/2021 8:44 AM GENERAL MANAGER FARM Narrative [facility] - 07/30/2021 6:30 AM GENERAL MANAGER FARM This isolate is a multidrug resistant organism [...] MICROBIOLOGY ORDERABLES Ed ited Result - Final [facility] [address] [place] [address], [facility] [phone] * (ABNORMAL) URINE MICROSCOPIC ONLY REFLEX TO CULTURE (07/27/2021 4:20 AM GENERAL MANAGER [employer]ARM) Reflex Status Culture to follow 07/27/2021 10:08 AM [facility] RBC UA 11-20(A) None Seen, 0-2, 3-5 # /hpf 07/27/2021 10:08 AM [facility] WBC UA >100(A) None Seen, 0-5 # /hpf 07/27/2021 10:08 AM [facility] WBC Clumps UA Many(A) None Seen /HPF 07/27/2021 10:08 AM [facility] Bacteria UA 1+(A) None Seen 07/27/2021 10:08 AM [facility] Squamous Epithelial Cells None Seen None Seen, 0-2, 3-5 /hpf 07/27/2021 10:08 AM [facility] Mucus UA 4+ /LPF 07/27/2021 10:08 AM [facility] Urine MID-STREAM URINE SPECIMEN / Unknown Collection / Unknown 07/27/2021 4:20 AM GENERAL MANAGER FARM 07/27/2021 8:44 AM GENERAL MANAGER FARM Narrative [facility] - 07/27/2021 10:08 AM GENERAL MANAGER [employer]ARM Andrea Archer LAB - URINALYSIS ORDERABLES Bonnie forrest Result [facility] [address] [place] [phone] * (ABNORMAL) COMPREHENSIVE METABOLIC PANEL (07/27/2021 4:20 AM [facility]) Glucose 98 70 - 105 mg/dL 07/27/2021 10:09 AM [facility] Sodium 132(L) 136 - 145 mmol/L 07/27/2021 10:09 AM [facility] Potassium 4.2 3.5 - 5.1 mmol/L 07/27/2021 10:09 AM [facility] Chloride 93(L) 98 - 107 mmol/L 07/27/2021 10:09 AM [facility] CO2 26 23 - 31 mmol/L 07/27/2021 10:09 AM [facility] Calcium 8.5 8.4 - 10.4 mg/dL 07/27/2021 10:09 AM [facility] Anion Gap 13 8 - 18 mmol/L 07/27/2021 10:09 AM [facility] BUN 25(H) 9.8 - 20.1 mg/dL 07/27/2021 10:09 AM [facility] Creatinine 0.46(L) 0.57 - 1.11 mg/dL 07/27/2021 10:09 AM [facility] Alkaline Phosphatase 120 40 - 150 U/L 07/27/2021 10:09 AM [facility] ALT <6 0 - 61 U/L 07/27/2021 10:09 AM [facility] AST 7 5 - 34 U/L 07/27/2021 10:09 AM [facility] Protein Total 6.5 6.4 - 8.3 gm/dL 07/27/2021 10:09 AM [facility] Albumin 2.9(L) 3.5 - 5.2 gm/dL 07/27/2021 10:09 AM [facility] Bilirubin Total 0.5 0.2 - 1.2 mg/dL 07/27/2021 10:09 AM [facility] eGFR by MDRD >60 >60 mL/min/1.7 3m2 07/27/2021 10:09 AM [facility] eGFR by MDRD >60 >60 mL/min/1.7 3m2 07/27/2021 10:09 AM [facility] Blood BLOOD SPECIMEN / Unknown Venipuncture / Unknown 07/27/2021 4:20 AM [employer]AL [employer]ARM 07/27/2021 8:44 AM [employer]AL [employer]ARM Andrea Archer LAB - CHEMISTRY ORDERABLES Final Result [facility] [address] [place] [address] * (ABNORMAL) CBC WITH DIFFERENTIAL (07/27/2021 4:20 AM GENERAL MANAGER FARM) WBC 12.9(H) 4.4 - 10.7 x10E9/L 07/27/2021 9:42 AM [facility] WBC Corrected 07/27/2021 9:42 AM [facility] RBC 3.35(L) 3.80 - 5.20 x10E12/L 07/27/2021 9:42 AM [facility] Hemoglobin 9.2(L) 12.0 - 15.6 gm/dL 07/27/2021 9:42 AM [facility] Hematocrit 30.6(L) 35.9 - 45.5 % 07/27/2021 9:42 AM [facility] MCV 91.3 80.7 - 98.3 fl 07/27/2021 9:42 AM [facility] MCH 27.5 26.7 - 34.0 pg 07/27/2021 9:42 AM [facility] MCHC 30.1(L) 30.8 - 35.9 gm/dL 07/27/2021 9:42 AM [facility] Platelet Count 469(H) 153 - 416 x10E9/L 07/27/2021 9:42 AM [facility] RDW-CV 16.0(H) 12.1 - 14.9 % 07/27/2021 9:42 AM [facility] MPV 9.3(L) 9.4 - 12.9 fl 07/27/2021 9:42 AM [facility] Neutrophils % 64.3 44.0 - 73.0 % 07/27/2021 9:42 AM [facility] Lymphocytes % 20.4 20.0 - 43.0 % 07/27/2021 9:42 AM [facility] Monocytes % 10.1 5.0 - 13.0 % 07/27/2021 9:42 AM [facility] Eosinophils % 3.1 0.0 - 6.0 % 07/27/2021 9:42 AM [facility] Basophils % 1.1 0.0 - 2.0 % 07/27/2021 9:42 AM [facility] Immature Granulocytes 1.0 0 - 1 % 07/27/2021 9:42 AM [facility] Neutrophil Absolute 8.28(H) 2.01 - 7.14 x10E9/L 07/27/2021 9:42 AM [facility] Lymphocytes Absolute 2.63 1.07 - 3.94 x10E9/L 07/27/2021 9:42 AM [facility] Monocytes Absolute 1.30(H) 0.26 - 1.07 x10E9/L 07/27/2021 9:42 AM [facility] Eosinophils Absolute 0.40 0 - 0.47 x10E9/L 07/27/2021 9:42 AM [facility] Basophils Absolute 0.14(H) 0 - 0.08 x10E9/L 07/27/2021 9:42 AM [facility] Immature Granulocytes Absolute 0.13(H) 0.00 - 0.06 x10E9/L 07/27/2021 9:42 AM [facility] nRBC Auto 0 /100 WBC 07/27/2021 9:42 AM [facility] Blood BLOOD SPECIMEN / Unknown Venipuncture / Unknown 07/27/2021 4:20 AM GENERAL MANA[employer]ARM 07/27/2021 8:44 AM GENERAL [employer]ARM Andrea Archer LAB - HEMATOLOGY ORDERABLES Bonnie forrest Result [facility] [address] [place] [address] * (ABNORMAL) URINALYSIS REFLEX MICROSCOPIC REFLEX CULTURE (07/27/2021 4:20 AM GENERAL [employer]ARM) Color UA [place](A) Straw, Yellow 07/27/2021 10:02 AM [facility] Clarity UA Cloudy(A) Clear 07/27/2021 10:02 AM [facility] Glucose UA Negative Negative 07/27/2021 10:02 AM [facility] Bilirubin UA Negative Negative 07/27/2021 10:02 AM [facility] Ketone UA Negative Negative 07/27/2021 10:02 AM [facility] Specific [place] UA 1.031(H) 1.005 - 1.030 07/27/2021 10:02 AM [facility] Blood UA 1+(A) Negative 07/27/2021 10:02 AM [facility] pH UA 5.0 5.0 - 8.0 pH 07/27/2021 10:02 AM [facility] Protein UA 1+(A) Negative 07/27/2021 10:02 AM [facility] Urobilinogen UA Negative Negative mg/dL 07/27/2021 10:02 AM [facility] Nitrite UA Positive(A) Negative 07/27/2021 10:02 AM [facility] Leukocyte Esterase UA 3+(A) Negative 07/27/2021 10:02 AM [facility] Urine Microscopy Urine microscopy to follow 07/27/2021 10:02 AM [facility] Reflex Status Culture to follow 07/27/2021 10:02 AM [facility] Urine MID-STREAM URINE SPECIMEN / Unknown Collection / Unknown 07/27/2021 4:20 AM [employer]ARM 07/27/2021 8:44 AM GENERAL MANA[employer]ARM Narrative [facility] - 07/27/2021 10:02 AM GENERAL [employer]ARM us Andrea Archer LAB - URINALYSIS ORDERABLES Bonnie forrest Result [facility] [address] [place] [address] documented in this encounter Visit Diagnoses Not on filedocumented in this encounter Additional Health Concerns Infection Onset Date Last Indicated Resolved Time MDRO 07/27/2021 07/27/2021 documented as of this encounter Care Teams Traveling Operator Relationship Specialty Start Date End Date Arnie Brush MD [address] [place] [address] [phone] PCP - General 05/21/21 documented as of this encounter
--- OUTSIDE RECORDS SUMMARY | 2025-04-28 14:14 | XMS_ITS | Clinical Summary ---
Author Organization [facility] Address [address] [place] [address] Care Team Providers Care Surfacing Technician Name Role Phone Dinorah Kumar MD Primary Care Provider [phone] Maria Victoria Felix RENTAL REPRESENTATIVE Unavailable [phone] Keshia Coleman RENTAL REPRESENTATIVE Unavailable [phone] Tony Keene MD Unavailable Allergies Active Allergy [...] Other (See comments) Low Reaction: GI Bleed, Cftnzdh-Wkm-Cql Reductase Inhibitors Other (See comments) Low 06/14/2023 [...] stenosis of lumbar region 02/11/2025 Overview (02/11/2025): [facility] Subacute cough 01/27/2025 Assessment & Plan (02/12/2025 11:55 AM CDT): See [facility] HPI/AP. Calculus of gallbladder with out cholecystitis without obstruction 05/01/2023 Overview (06/13/2023): RUQ USN for pain, AMS: 6.5 mm non mobile gallstone noted. Assessment & Plan (07/30/2024 5:52 AM HEAT SEALING 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): Chronic, noted on imaging from over a year ago, but likely asymptomatic. However, she did have 36 hours of nausea, vomiting, and reported fever recently. Symptoms resolved about 12 hours ago although she still has a little bit of nausea. She reports that symptoms started after having a cup of coffee at [employer] with [employer] that tasted bad. Abdominal exam [...] ongoing smoking. We will refer her to [facility] for their opinion and advice. RUQ pain [...] 10/22/2021 Assessment & Plan (10/31/2024 4:41 AM HEAT SEALING 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): Chronic, present for three or more years, controlled. She had a diverting colostomy to facilitate decubitus wound care. Recommend continued ostomy care. Assessment & Plan (05/01/2023 8:10 AM CDT): Colostomy present for years. See consult note from Dr. Keene at [facility], he would like more testing before [...] evaluation. Assessment & Plan (10/22/2021 1:53 PM HEAT SEALING 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): While in hospital patient had exploratory lap which revealed necrotic and perforated descending colon. She now has colostomy in place. Fistula appears to be healed well. She will need home nursing to help her learn to care for on her own and to obtain home supplies. Bowser catheter present 10/22/2021 Assessment & Plan (10/22/2021 1:56 PM HEAT SEALING 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): Patient has bowser catheter which remains in [...] with a seat. Will send order to [facility]. Assessment & Plan (10/22/2021 1:49 PM HEAT SEALING 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): Patient has weakness and abnormal gait s/p rt BKA. She has had prolonged hospital, LTAC, and long-term stays. She has had limited PT/OT which [...] right Assessment & Plan (10/31/2024 4:45 AM HEAT SEALING 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): Chronic, present for three years or so, she has a prosthesis but still has poor mobility. Recommend continued wheelchair ambulation. Assessment & Plan (10/18/2023 2:27 PM HEAT SEALING 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): The BKA stump looks healthy. Assessment & Plan (02/13/2023 7:45 PM CDT): Contributing to altered gait, see plan above. Assessment & Plan (10/29/2022 11:12 AM HEAT SEALING 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): The patient plans to follow up with her sql bi developer for appropriate footwear and requested a referral [...] order. Assessment & Plan (10/22/2021 1:51 PM HEAT SEALING 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): Patient is s/p BKA in the setting of PAD. She will need home PT/OT to help with mobility and in home transfers. Patient is home bound at this time. Aortoiliac occlusive disease 05/20/2021 Overview (06/13/2023): From [facility]. Assessment & Plan (11/03/2024 12:53 PM HEAT SEALING 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): Chronic, present for 3-4 or more years, uncontrolled due to intolerance of multiple medications, currently treated with cilostazol 50 mg twice daily. Antiplatelet therapy is relatively contraindicated due to past intolerance and bleeding complications. Assessment & Plan (10/18/2023 2:23 PM HEAT SEALING 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): She is concerned about worsening circulation. The [...] 02/24/2021 Assessment & Plan (10/18/2023 2:24 PM HEAT SEALING 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): She says she is eating well. We [...] HPI/AP. Assessment & Plan (10/29/2022 11:08 AM HEAT SEALING 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): She has a chronic Bowser catheter for [...] informed. Assessment & Plan (11/05/2021 11:08 AM HEAT SEALING 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): She has a Bowser catheter for a [...] (05/07/2021 2:00 PM CDT): She was at [place] in February for wound care and vascular [...] healing. Assessment & Plan (11/03/2024 12:55 PM HEAT SEALING 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): Chronic, present for 3-4 years, uncontrolled but currently uncomplicated by secondary infection. Due to insurance restrictions and other psychosocial factors, we have been unable to provide her with some of the recommended therapy including wound VAC. Recommend continuing appropriate dressing changes and clinical monitoring. Assessment & Plan (07/30/2024 5:56 AM HEAT SEALING 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): Images from the original note were not [...] job. Assessment & Plan (10/30/2023 4:08 PM HEAT SEALING 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): She has 5 small ulcers that are [...] off. Please contact the Team 3 ID RENTAL REPRESENTATIVE M-F, 8-4; or the Attending at the phone numbers in care team with any questions or concerns. After hours, please contact the ID fellow quality control director. Assessment & Plan (02/23/2021 7:08 PM CDT): [...] course given PAD. Plan wound vac at [place], Wound RN consulted. Likely HHC at [place] for wound care, still encouraging patient re [...] proteus. Await sensitivities. Plan wound vac at [place], Wound RN consulted. Likely HHC at [place] for wound care, continue wet to dry BID dressings. Pt counseled on importance of not doing more frequently & verbalized understanding. Paraparesis of both lower limbs 02/10/2021 Assessment & Plan (11/03/2024 12:54 PM HEAT SEALING 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): Chronic, present for 3-4 years, suspected cause is vascular. She is status post right BKA. She ambulates using a wheelchair. Recommend continuing supportive care including homeworker. Assessment & Plan (10/30/2023 4:09 PM HEAT SEALING 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): She was able to stand using the [...] in the ankle plantar- and dorsiflexors. Hand solder leveler printed circuit boards strength is normal. Reflexes are rather brisk at the knees, normal at the ankles, absent in the arms. The spinal cord injury has resulted in multiple pressure wounds which are quite extensive at this time. There could be a significant ischemic component to these wounds and inability to heal. We will have her evaluated in vascular surgery at [place]. Assessment & Plan (02/25/2021 [...] 02/08/2021 Assessment & Plan (07/29/2024 1:05 PM HEAT SEALING 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): Chronic, uncontrolled due to a large sacral [...] same. Assessment & Plan (10/29/2022 11:04 AM HEAT SEALING 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): She is functioning well with fairly minimal medications at this time including baclofen 10 mg 3 times a day, and gabapentin 600 mg which she breaks in half to take 300 mg 3 times a day. She also takes ibuprofen as needed. Assessment & Plan (07/14/2022 1:35 PM HEAT SEALING 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): She is been having difficulty getting her [...] sleep. Assessment & Plan (11/05/2021 11:12 AM HEAT SEALING 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): She was on some pain medicine for [...] PM CDT): S/p wound debridement 02/13 for nursing home healing. -c/w Oxycotin 10 BID, oxy 10 q4 -c/w adjunctives luther 100 TID, lidocaine patch, naloxogel -discussed with patient that no pain meds would be provided with AMA discharge Assessment & Plan (02/23/2021 7:11 PM CDT): S/p wound debridement 02/13 for nursing home healing. -still depended on IV diluadid and [...] improved comfort. S/p wound debridement 02/13 for nursing home healing. PT/OT and encouraged OOB BID for improved mobility, encouraged SNF at [place]. Resistant to both ideas, unfortunately. Trial of [...] to proceed with wound debridement 02/13 for nursing home healing. PT/OT and encouraged OOB BID for [...] to proceed with wound debridement 02/13 for nursing home healing. PT/OT and encouraged OOB BID for [...] encourage patient to proceed with debridement for nursing home healing. PT/OT and encouraged OOB BID for [...] by anxiety, poorly controlled. Peripheral artery disease ([facility]) 02/08/2021 Overview (05/07/2021): CT AIF on 02/09/2021, [place]: 1. Aorta: Severe stenosis of the infrarenal aorta due to atherosclerosis. 2. Right lower extremity: Near occlusion of the right common iliac artery. [id number] multifocal superficial femoral artery stenoses. Normal three- vessel runoff. 3. Left lower extremity: Occluded left common iliac artery with reconstitution of flow at the external iliac artery. Mild to moderate multifocal superficial femoral artery stenoses. Normal three-vessel runoff. 4. Bilateral decubitus ulcers of the right lateral hip and thigh, and left medial thigh. Assessment & Plan (07/30/2024 5:54 AM HEAT SEALING 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): Chronic, fair control on cilostazol 50 mg [...] clinically. Assessment & Plan (10/18/2023 2:26 PM HEAT SEALING 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): She is on cilostazol. We sent in [...] devices. Assessment & Plan (10/17/2022 1:58 PM HEAT SEALING 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): She had a right BKA which has healed well. She has a prosthesis. She denies any new problems with her left leg. We will see her back in three months. Assessment & Plan (07/30/2022 11:01 AM HEAT SEALING 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): She is status post right BKA. Her left foot has a strong dorsal pedal pulse. I do not detect a posterior tibial pulse, but the foot is well perfused. She will continue the cilostazol. Assessment & Plan (04/13/2022 3:23 PM CDT): She had a follow-up at [facility] last month. Dopplers were performed but [...] primarily the right leg. She was at [facility] and had to have a right [...] was bad when she was hospitalized at [facility], but she says her appetite is good now and she has intermittent pain. We will put her on Pepcid to protect her from possible gastritis/ulceration. Assessment & Plan (10/22/2021 1:54 PM HEAT SEALING 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): Patient has severe peripheral artery disease and [...] CDT): She had a CT AIF at [place] about three months ago which showed severe [...] her to the vascular surgery Department at [place] for evaluation and potential interventions such as [...] periodically. Assessment & Plan (10/30/2023 4:09 PM HEAT SEALING 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): She reports that her various wounds are [...] empiric Diflucan therapy. We will request a dining service inspector evaluation. Assessment & Plan (10/29/2022 11:06 AM HEAT SEALING 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): She says the wounds have decreased in size and in number. She originally had five decubiti, and is now down to three. She gets wound care from home health. She did not want me to evaluate her wounds in the office today. Assessment & Plan (07/30/2022 11:01 AM HEAT SEALING 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): She has a sacral decubitus which is [...] sided pain & drainage x 6 days [employer]. Followed by wound at [facility] previously. CT pelvis showing large decubitus ulcers [...] sided pain & drainage x 6 days REGIONAL ECONOMIC LIAISON. Followed by wound at [facility] previously. CT pelvis showing large decubitus ulcers [...] health or wound clinic arrangements but preliminarily [facility] home health accepting Assessment & Plan (02/15/2021 1:57 PM CDT): Chronic now worsening/increasing Right sided pain & drainage x 6 days. Followed by wound at [place] previously. CT pelvis showing large decubitus ulcers [...] rec SNF. Pt resistant to SNF at [place] at this time, but would markedly benefit from rehab. Limited timeframe of family assistance at home (daughter available until May). Reviewed concerns for recurrent infections with poor perfusion further complicating matters. Assessment & Plan (02/14/2021 5:13 PM CDT): Chronic now worsening/increasing Right sided pain & drainage x 6 days. Followed by wound at [facility] previously. CT pelvis showing large decubitus ulcers [...] rec SNF. Pt resistant to SNF at [place] at this time, but would markedly benefit from rehab. Limited timeframe of family assistance at home (daughter available until May). Assessment & Plan (02/13/2021 5:51 PM CDT): Chronic now worsening/increasing Right sided pain & drainage x 6 days. Followed by wound at [place] previously. CT pelvis showing large decubitus ulcers [...] rec SNF. Pt resistant to SNF at [place] at this time, but would markedly benefit from rehab. Limited timeframe of family assistance at home (daughter available until May). Assessment & Plan (02/12/2021 1:53 PM CDT): Chronic now worsening/increasing Right sided pain & drainage x 6 days. Followed by wound at [place] previously. CT pelvis showing large decubitus ulcers [...] rec SNF. Pt resistant to SNF at [place] at this time, but would markedly benefit from rehab. Limited timeframe of family assistance at home (daughter available until May). Assessment & Plan (02/12/2021 8:00 AM CDT): Chronic now worsening/increasing Right sided pain & drainage x 6 days. Followed by wound at [place] previously. CT pelvis showing large decubitus ulcers [...] titration. -PT/OT. Pt resistant to SNF at [place] at this time, but would markedly benefit from rehab. Limited timeframe of family assistance at home (daughter available until May). Assessment & Plan (02/10/2021 11:44 AM CDT): Chronic now worsening/increasing Right sided pain & drainage x 6 days. Followed by wound at [facility] previously. CT pelvis showing large decubitus ulcers [...] titration. -PT/OT. Pt resistant to SNF at [place] at this time, but would markedly benefit from rehab. Limited timeframe of family assistance at home. Assessment & Plan (02/09/2021 3:00 PM CDT): Chronic now worsening/increasing Right sided pain & drainage x 6 days. Followed by wound at [place] previously. CT pelvis showing large decubitus ulcers [...] Overview (10/25/2022): As of 10/25/2022 message from [facility] radiology, patient is declining lung cancer screening that was ordered. Assessment & Plan (02/11/2025 8:33 PM CDT): See [facility] HPI/AP. Assessment & Plan (07/29/2024 1:07 PM HEAT SEALING 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): Uncontrolled, she is still smoking. We encouraged [...] down. Assessment & Plan (07/14/2022 1:37 PM HEAT SEALING 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): She is still smoking cigarettes. We strongly [...] scheduled. Assessment & Plan (11/05/2021 11:10 AM HEAT SEALING 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): She says she quit smoking cigarettes when she was admitted to [facility], and has stayed off of them since then. Hopefully she will not relapse. Assessment & Plan (05/07/2021 2:00 PM CDT): She has smoked heavily for many years. We encouraged smoking cessation. Seasonal allergies 08/18/2020 Neuropathy 05/30/2018 Overview (06/14/2023): [facility]. >>OVERVIEW FOR SENSORY POLYNEUROPATHY WRITTEN ON 06/14/2023 1:52 PM BY DINORAH KUMAR MD [facility]. EMG 05/22, details lacking. Patient reports [...] 03/04/2015 Overview (05/07/2021): Surgery by Dr. Morales, [facility]. Assessment & Plan (02/03/2022 3:54 PM CDT): She has a chronic Bowser and a diverting colostomy. We will order appropriate supplies for this as well as her wound care. Mixed hyperlipidemia 05/17/2012 Assessment & Plan (02/11/2025 8:28 PM CDT): See [facility] HPI/AP. Assessment & Plan (07/29/2024 1:06 PM HEAT SEALING 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): Chronic, uncontrolled due to not being on [...] diet. Assessment & Plan (10/18/2023 2:24 PM HEAT SEALING 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): We will monitor lipids periodically to give her feedback on her diet. Assessment & Plan (10/17/2022 1:57 PM HEAT SEALING 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): We are monitoring labs periodically to give her feedback on her diet. Assessment & Plan (07/14/2022 1:36 PM HEAT SEALING 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): She is intolerant of statins. We will [...] ob struction 03/04/1995 Overview (05/07/2021): Stents in [place], details lacking. Assessment & Plan (02/11/2025 8:33 PM CDT): See [facility] HPI/AP. Assessment & Plan (11/03/2024 12:54 PM HEAT SEALING 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): Chronic, present for 30 or more years, details lacking, as intervention took place [place] ago and [place]. She is intolerant the usual medical therapy including antiplatelet agents which caused serious bleeding, and statins which caused weakness and dizziness. Recommend continued clinical monitoring. We recommended smoking cessation. Assessment & Plan (07/30/2024 5:53 AM HEAT SEALING 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): Chronic, uncontrolled although she denies having chest pain at this time. History is a little unclear dating to more than 30 years ago when she reported having stents placed while still living in [place]. The patient declines antiplatelet therapy due to past bleeding complications. She is allergic to or intolerant of multiple medications including statins. We will monitor for symptoms. Assessment & Plan (10/18/2023 2:24 PM HEAT SEALING 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): She denies chest pain or pressure. She is intolerant of multiple cardiac medications. Continue minimal therapy consisting of cilostazol which is primarily for her peripheral vascular disease. Assessment & Plan (01/22/2023 12:29 PM CDT): She is on minimal medical therapy due to numerous medication intolerances, but has no new complaints at this time. Assessment & Plan (10/17/2022 1:57 PM HEAT SEALING 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): She has multiple medication intolerances, so therapeutic intervention is constrained. She denies having any chest pain or pressure. Assessment & Plan (07/14/2022 1:36 PM HEAT SEALING 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): She denies chest pain or pressure. She [...] reasons. Assessment & Plan (11/05/2021 11:12 AM HEAT SEALING 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): She had stents placed in [place] years ago. She currently denies having chest [...] are lacking. The intervention took place in [place]. She says everything has been fine since then. She is intolerant of aspirin, Plavix, and statins. Assessment & Plan (02/24/2021 10:40 AM CDT): s/p 5x VADIM in distant past while living in [place]. Not on plavix due to allergy. Also reports salicylate allergy - restarted atorvastatin, low fat diet. Assessment & Plan (02/22/2021 5:30 PM CDT): s/p 5x VADIM in distant past while living in [place]. Not on plavix due to allergy. Also reports salicylate allergy - restarted atorvastatin, low fat diet. Assessment & Plan (02/15/2021 1:57 PM CDT): s/p 5x VADIM in distant past while living in [place]. Not on plavix due to allergy. Also reports salicylate allergy - restarted atorvastatin, low fat diet. - follows with [facility] vascular - minimal information in their notes but not on meds per most recent note 10/2020, suspect med noncompliance. -Stress test 02/10 preop, canceled d/t refusal. Pt further counseled, now agreeable. -Performed 02/11 maximal dobutamine stress neg for ischemia, normal LVEF. -Plan OP f/u primary provider. No anginal symptoms. Continue current medications at [place]. Assessment & Plan (02/14/2021 5:05 PM CDT): s/p 5x VADIM in distant past while living in [place]. Not on plavix due to allergy. Also reports salicylate allergy - restarted atorvastatin, low fat diet. - follows with [facility] - minimal information in [...] VADIM in distant past while living in [place]. Not on plavix due to allergy. Also reports salicylate allergy - restarted atorvastatin, low fat diet. - follows with [facility] - minimal information in [...] VADIM in distant past while living in [place]. Not on plavix due to allergy. Also reports salicylate allergy - restarted atorvastatin, low fat diet. - follows with [facility] - minimal information in their notes but not on meds per most recent note 10/2020, suspect med noncompliance. -Stress test 02/10 preop, canceled d/t refusal. Pt further counseled, now agreeable. -Performed 10 maximal dobutamine stress neg for ischemia, normal LVEF. Assessment & Plan (02/12/2021 7:56 AM CDT): s/p 5x VADIM in distant past while living in [place]. Not on plavix due to allergy. Also reports salicylate allergy - restarted atorvastatin, low fat diet. - follows with [facility] - minimal information in their notes but not on meds per most recent note 10/2020, suspect med noncompliance. -Stress test 6 preop, canceled d/t refusal. Pt further counseled, now agreeable. Assessment & Plan (02/10/2021 11:41 AM CDT): s/p 5x VADIM in distant past while living in [place]. Not on plavix due to allergy. Also reports salicylate allergy - restarted atorvastatin, low fat diet. - follows with [facility] - minimal information in their notes but not on meds per most recent note 10/2020, suspect med noncompliance. -Stress test 02/10 preop. Assessment & Plan (02/09/2021 2:56 PM CDT): s/p 5x VADIM in distant past while living in [place]. Not on plavix due to allergy. Also reports salicylate allergy - restarted atorvastatin - follows with [facility] - minimal information in their notes but not on meds per most recent note 10/2020, suspect med noncompliance. Resolved Problems Problem Noted Date Diagnosed Date Resolved Date Acute cystitis with hematuria 12/30/2024 02/24/2025 Assessment & Plan (02/11/2025 8:29 PM CDT): See [facility] HPI/AP. Gross hematuria 12/25/2024 02/24/2025 Overview (12/25/2024): Pt [id number] states there was bright red blood and a lot of sediment in tubing of bowser catheter when she woke up this morning. Pt states now the urine is clear with no blood and no sediment. Pt DENIES any pain or fever. Acute cystitis without hematuria 10/31/2024 12/30/2024 Assessment & Plan (11/03/2024 12:52 PM HEAT SEALING 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): Persistent/recurrent, treated recently with nitrofurantoin which resulted [...] surface. Assessment & Plan (10/30/2023 4:10 PM HEAT SEALING 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): She was evaluated in Plastic surgery for [...] postoperative pulmonary insufficiency 03/14/2023 03/14/2023 Overview (03/14/2023): [facility] Acute blood loss as cause of postoperative anemia 03/14/2023 03/14/2023 Overview (03/14/2023): [facility] Foul smelling urine 12/05/2022 04/28/20 Assessment & [...] lower limb ischemia 06/06/2021 03/14/2023 Overview (03/14/2023): [facility] Hypokalemia 05/31/2021 02/24/2025 Cellulitis of right leg [...] toe. Gangrene of toe of right foot ([facility]) 02/08/2021 10/17/2022 Overview (10/17/2022): S/P R BKA 06/08/2021. Assessment & Plan (05/25/2021 4:41 PM CDT): She has dry ischemic gangrene of the right second and third toes. The remainder of the foot exhibits moderate rubor. We are referring her to [place] vascular. Follow-up here in [...] reluctant despite family support. -Plan DC with [facility] once stable from surgical viewpoint. Assessment [...] Blood in urine 08/07/2020 04/28/2023 Overview (10/17/2022): [facility] entry, details lacking. Probably from chronic Bowser. Assessment & Plan (10/29/2022 11:03 AM HEAT SEALING 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): She has had some intermittent microscopic hematuria, probably from a chronic Bowser that was placed to facilitate wound healing of her sacroiliac pressure sores. There is no visible blood in the urine today. We will monitor clinically. A follow-up urinalysis may be appropriate at the next change of Bowser catheters. Cervical radiculopathy 07/26/201703/14 Overview (03/14/2023): [facility], details lacking. Muscle spasm of both lower [...] Peptic ulcer 03/04/2001 05/07/2021 Overview (05/07/2021): In [place], details lacking. Encounters Date Type Department Care Team Description 04/28/2025 [facility] [address] [place] [address] Dinorah Kumar MD 02/24/2025 10:00 AM CDT [facility] [address] [place] [address] Brandie Ba NP Subacute cough (Primary Dx); Bowser catheter present; Pressure injury of sacral region, stage 3 (HCC) 02/19/2025 Telephone [facility] [address] [place] [address] Dinorah Kumar MD 02/19/2025 Results [facility] [address] [place] [address] Dinorah Kumar MD XR Chest Pa Lateral 2 Views 02/17/2025 1:00 PM CDT Lab [facility] [address] [place] [address] Ischemic heart disease due to coronary artery obstruction (HCC) 02/17/2025 12:45 PM CDT Ancillary Procedure [facility] [address] [facility] [address] [place] [address] Subacute cough 02/17/2025 Telephone [facility] [address] [place] [address] Dinorah Kumar MD 02/14/2025 Telephone [facility] [address] [place] [address] Dinorah Kumar MD 02/12/2025 11:30 AM CDT Office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
--- OUTSIDE RECORDS SUMMARY | 2025-04-28 14:14 | XMS_ITS | Encounter Summary ---
Author Organization [facility] Health Address [address] [place] [address] Care Team Providers Care Corporate Security Officer Name Role Phone Arnie Brush MD Primary Care Provider [phone] Encounter Details Date Type Department Care Team (Late st Contact Info) Description 07/18/2021 Lab Requisition [facility] [address] [place] [address] Andrea Gutierrez MD [address] [place], [place] [id number] Social History Tobacco Use Types Packs/Day Years [...] ERYTHROCYTE SEDIMENTATION RATE Routine 07/18/2021 4:00 AM MANAGER TELEMARKETING documented in this encounter Results * (ABNORMAL) ERYTHROCYTE SEDIMENTATION RATE (07/18/2021 4:00 AM MANAGER TELEMARKETING) Erythrocyte Sedimentation Rate Automated 82(H) 0 - 30 MM/HR 07/18/2021 9:42 AM MANAGER TELEMARKETING [facility] Blood BLOOD SPECIMEN / Unknown Venipuncture / Unknown 07/18/2021 4:00 AM MANAGER TELEMARKETING 07/18/2021 9:20 AM MANAGER TELEMARKETING us Andrea Gutierrez MD LAB - HEMATOLOGY ORDERABLES F inal Result [facility] [address] [place] [address] documented in this encounter Visit Diagnoses Not on filedocumented in this encounter Additional Health Concerns Infection Onset Date Last Indicated Resolved Time MDRO 07/27/2021 07/27/2021 documented as of this encounter Care Teams Corporate Security Officer Relationship Specialty Start Date End Date Arnie Brush MD [address] [place] [phone] PCP - General 05/21/21 documented as of this encounter
--- OUTSIDE RECORDS SUMMARY | 2025-04-28 14:14 | XMS_ITS | Encounter Summary ---
Author Organization [facility] Health Address [address] [place] [address] Care Team Providers Care Infection Prevention Practitioner Name Role Phone Arnie rBush MD Primary Care Provider [phone] Encounter Details Date Type Department Care Team (Late st Contact Info) Description 07/19/2021 Lab Requisition [facility] [address] [place] [address] Brandon Booth MD [address] [place] [address] Social History Tobacco Use Types [...] W AUTO DIFFERENTIAL STAT 07/19/2021 4:05 AM COUNTY COMMISSIONER COMPREHENSIVE METABOLIC PANEL STAT 07/19/2021 4:05 AM COUNTY COMMISSIONER documented in this encounter Results * (ABNORMAL) COMPREHENSIVE METABOLIC PANEL (07/19/2021 4:05 AM COUNTY COMMISSIONER) Glucose 92 70 - 105 mg/dL 07/19/2021 2:36 PM COUNTY COMMISSIONER [facility] Sodium 134(L) 136 - 145 mmol/L 07/19/2021 2:36 PM COUNTY COMMISSIONER [facility] Potassium 5.3(H) 3.5 - 5.1 mmol/L 07/19/2021 2:36 PM COUNTY COMMISSIONER [facility] Chloride 96(L) 98 - 107 mmol/L 07/19/2021 2:36 PM COUNTY COMMISSIONER [facility] CO2 25 23 - 31 mmol/L 07/19/2021 2:36 PM COUNTY COMMISSIONER [facility] Calcium 8.3(L) 8.4 - 10.4 mg/dL 07/19/2021 2:36 PM COUNTY COMMISSIONER [facility] Anion Gap 13 8 - 18 mmol/L 07/19/2021 2:36 PM COUNTY COMMISSIONER [facility] BUN 17 9.8 - 20.1 mg/dL 07/19/2021 2:36 PM COUNTY COMMISSIONER [facility] Creatinine 0.44(L) 0.57 - 1.11 mg/dL 07/19/2021 2:36 PM COUNTY COMMISSIONER [facility] Alkaline Phosphatase 107 40 - 150 U/L 07/19/2021 2:[address] [facility] ALT 6 0 - 61 U/L 07/19/2021 2:[address] [facility] AST 21 5 - 34 U/L 07/19/2021 2:[address] [facility] Protein Total 6.5 6.4 - 8.3 gm/dL 07/19/2021 2:[address] [facility] Albumin 2.8(L) 3.5 - 5.2 gm/dL 07/19/2021 2:[address] [facility] Bilirubin Total 0.2 0.2 - 1.2 mg/dL 07/19/2021 2:[address] [facility] eGFR by MDRD >60 >60 mL/min/1.7 3m2 07/19/2021 2:[address] [facility] eGFR by MDRD >60 >60 mL/min/1.7 3m2 07/19/2021 2:[address] [facility] Blood BLOOD SPECIMEN / Unknown Venipuncture / Unknown 07/19/2021 4:05 AM COUNTY COMMISSIONER 07/19/2021 1:04 PM COUNTY COMMISSIONER us Brandon Booth MD LAB - CHEMISTRY ORDERABLES Fin al Result Performing Organization Address City/State/[facility] Co de Phone Number [facility] [address] [place] [address] * (ABNORMAL) CBC WITH DIFFERENTIAL (07/19/2021 4:05 AM COUNTY COMMISSIONER) WBC 8.3 4.4 - 10.7 x10E9/L 07/19/2021 1:[address] [facility] WBC Corrected 07/19/2021 1:[address] [facility] RBC 3.30(L) 3.80 - 5.20 x10E12/L 07/19/2021 1:[address] [facility] Hemoglobin 9.1(L) 12.0 - 15.6 gm/dL 07/19/2021 1:[address] [facility] Hematocrit 32.0(L) 35.9 - 45.5 % 07/19/2021 1:[address] [facility] MCV 97.0 80.7 - 98.3 fl 07/19/2021 1:[address] [facility] MCH 27.6 26.7 - 34.0 pg 07/19/2021 1:[address] [facility] MCHC 28.4(L) 30.8 - 35.9 gm/dL 07/19/2021 1:[address] [facility] Platelet Count 568(H) 153 - 416 x10E9/L 07/19/2021 1:[address] [facility] RDW-CV 17.5(H) 12.1 - 14.9 % 07/19/2021 1:[address] [facility] MPV 9.1(L) 9.4 - 12.9 fl 07/19/2021 1:[address] [facility] Neutrophils % 49.4 44.0 - 73.0 % 07/19/2021 1:[address] [facility] Lymphocytes % 32.5 20.0 - 43.0 % 07/19/2021 1:[address] [facility] Monocytes % 10.2 5.0 - 13.0 % 07/19/2021 1:[address] [facility] Eosinophils % 5.2 0.0 - 6.0 % 07/19/2021 1:[address] [facility] Basophils % 1.9 0.0 - 2.0 % 07/19/2021 1:[address] [facility] Immature Granulocytes 0.8 0 - 1 % 07/19/2021 1:[address] [facility] Neutrophil Absolute 4.09 2.01 - 7.14 x10E9/L 07/19/2021 1:[address] [facility] Lymphocytes Absolute 2.70 1.07 - 3.94 x10E9/L 07/19/2021 1:[address] [facility] Monocytes Absolute 0.85 0.26 - 1.07 x10E9/L 07/19/2021 1:[address] [facility] Eosinophils Absolute 0.43 0 - 0.47 x10E9/L 07/19/2021 1:44 PM COUNTY COMMISSIONER [facility] Basophils Absolute 0.16(H) 0 - 0.08 x10E9/L 07/19/2021 1:44 PM COUNTY COMMISSIONER [facility] Immature Granulocytes Absolute 0.07(H) 0.00 - 0.06 x10E9/L 07/19/2021 1:44 PM COUNTY COMMISSIONER [facility] nRBC Auto 0 /100 WBC 07/19/2021 1:44 PM COUNTY COMMISSIONER [facility] Blood BLOOD SPECIMEN / Unknown Venipuncture / Unknown 07/19/2021 4:05 AM COUNTY COMMISSIONER 07/19/2021 1:04 PM COUNTY COMMISSIONER Brandon Booth MD LAB - HEMATOLOGY ORDERABLES Fi nal Result Performing Organization Address City/State/[facility] Co de Phone Number [facility] [address] [place], [place] [id number] documented in this encounter Visit Diagnoses Not on filedocumented in this encounter Additional Health Concerns Infection Onset Date Last Indicated Resolved Time MDRO 07/27/2021 07/27/2021 documented as of this encounter Care Teams Infection Prevention Practitioner Relationship Specialty Start Date End Date Arnie Brush MD [address] [place] [phone] PCP - General 05/21/21 documented as of this encounter
--- OUTSIDE RECORDS SUMMARY | 2025-04-28 14:14 | XMS_ITS | Encounter Summary ---
Author Organization [facility] Health Address [address] [place] [address] Care Team Providers Care Bulldozer Press Operator Name Role Phone Arnie Brush MD Primary Care Provider [phone] Encounter Details Date Type Department Care Team (Late st Contact Info) Description 07/21/2021 Lab Requisition [facility] [address] [place] [address] [address] [place] [id number] Social History Tobacco Use Types Packs/Day Years [...] W AUTO DIFFERENTIAL STAT 07/21/2021 3:05 AM DATA LEAD COMPREHENSIVE METABOLIC PANEL STAT 07/21/2021 3:05 AM DATA LEAD documented in this encounter Results * (ABNORMAL) CBC WITH DIFFERENTIAL (07/21/2021 3:05 AM DATA LEAD) WBC 8.8 4.4 - 10.7 x10E9/L 07/21/2021 9:29 AM DATA LEAD [facility] WBC Corrected 07/21/2021 9:29 AM DATA LEAD [facility] RBC 3.47(L) 3.80 - 5.20 x10E12/L 07/21/2021 9:29 AM DATA LEAD [facility] Hemoglobin 9.6(L) 12.0 - 15.6 gm/dL 07/21/2021 9:29 AM DATA LEAD [facility] Hematocrit 33.0(L) 35.9 - 45.5 % 07/21/2021 9:29 AM DATA LEAD [facility] MCV 95.1 80.7 - 98.3 fl 07/21/2021 9:29 AM DATA LEAD [facility] MCH 27.7 26.7 - 34.0 pg 07/21/2021 9:29 AM DATA LEAD [facility] MCHC 29.1(L) 30.8 - 35.9 gm/dL 07/21/2021 9:29 AM [facility] Platelet Count 498(H) 153 - 416 x10E9/L 07/21/2021 9:29 AM [facility] RDW-CV 17.0(H) 12.1 - 14.9 % 07/21/2021 9:29 AM [facility] MPV 8.9(L) 9.4 - 12.9 fl 07/21/2021 9:29 AM [facility] Neutrophils % 58.2 44.0 - 73.0 % 07/21/2021 9:29 AM [facility] Lymphocytes % 23.8 20.0 - 43.0 % 07/21/2021 9:29 AM [facility] Monocytes % 11.8 5.0 - 13.0 % 07/21/2021 9:29 AM [facility] Eosinophils % 4.5 0.0 - 6.0 % 07/21/2021 9:29 AM [facility] Basophils % 1.0 0.0 - 2.0 % 07/21/2021 9:29 AM [facility] Immature Granulocytes 0.7 0 - 1 % 07/21/2021 9:29 AM [facility] Neutrophil Absolute 5.13 2.01 - 7.14 x10E9/L 07/21/2021 9:29 AM [facility] Lymphocytes Absolute 2.10 1.07 - 3.94 x10E9/L 07/21/2021 9:29 AM [facility] Monocytes Absolute 1.04 0.26 - 1.07 x10E9/L 07/21/2021 9:29 AM [facility] Eosinophils Absolute 0.40 0 - 0.47 x10E9/L 07/21/2021 9:29 AM [facility] Basophils Absolute 0.09(H) 0 - 0.08 x10E9/L 07/21/2021 9:29 AM [facility] Immature Granulocytes Absolute 0.06 0.00 - 0.06 x10E9/L 07/21/2021 9:29 AM [facility] nRBC Auto 0 /100 WBC 07/21/2021 9:29 AM [facility] Blood BLOOD SPECIMEN / Unknown Venipuncture / Unknown 07/21/2021 3:05 AM DATA LEAD 07/21/2021 9:24 AM [facility] Andrea Archer LAB - HEMATOLOGY ORDERABLES Bonnie forrest Result [facility] [address] [place] [address] * (ABNORMAL) COMPREHENSIVE METABOLIC PANEL (07/21/2021 3:05 AM [facility]) Glucose 111(H) 70 - 105 mg/dL 07/21/2021 10:00 AM [facility] Sodium 135(L) 136 - 145 mmol/L 07/21/2021 10:00 AM [facility] Potassium 4.4 3.5 - 5.1 mmol/L 07/21/2021 10:00 AM [facility] Chloride 95(L) 98 - 107 mmol/L 07/21/2021 10:00 AM [facility] CO2 26 23 - 31 mmol/L 07/21/2021 10:00 AM [facility] Calcium 8.5 8.4 - 10.4 mg/dL 07/21/2021 10:00 AM [facility] Anion Gap 14 8 - 18 mmol/L 07/21/2021 10:00 AM [facility] BUN 19 9.8 - 20.1 mg/dL 07/21/2021 10:00 AM [facility] Creatinine 0.47(L) 0.57 - 1.11 mg/dL 07/21/2021 10:00 AM [facility] Alkaline Phosphatase 104 40 - 150 U/L 07/21/2021 10:00 AM [facility] ALT <6 0 - 61 U/L 07/21/2021 10:00 AM [facility] AST 8 5 - 34 U/L 07/21/2021 10:00 AM [facility] Protein Total 6.5 6.4 - 8.3 gm/dL 07/21/2021 10:00 AM [facility] Albumin 3.0(L) 3.5 - 5.2 gm/dL 07/21/2021 10:00 AM [facility] Bilirubin Total 0.3 0.2 - 1.2 mg/dL 07/21/2021 10:00 AM DATA LEAD [facility] eGFR by MDRD >60 >60 mL/min/1.7 3m2 07/21/2021 10:00 AM DATA LEAD [facility] eGFR by MDRD >60 >60 mL/min/1.7 3m2 07/21/2021 10:00 AM DATA LEAD [facility] Blood BLOOD SPECIMEN / Unknown Venipuncture / Unknown 07/21/2021 3:05 AM DATA LEAD 07/21/2021 9:24 AM DATA LEAD Andrea Archer LAB - CHEMISTRY ORDERABLES Final Result Performing Organization Address City/State/[facility] Co de Phone Number [facility] [address] [place] [employer], [place] [phone] documented in this encounter Visit Diagnoses Not on filedocumented in this encounter Additional Health Concerns Infection Onset Date Last Indicated Resolved Time MDRO 07/27/2021 07/27/2021 documented as of this encounter Care Teams Bulldozer Press Operator Relationship Specialty Start Date End Date Arnie Brush MD [address] [place] [phone] PCP - General 05/21/21 documented as of this encounter
--- OUTSIDE RECORDS SUMMARY | 2025-04-28 14:14 | XMS_ITS | Encounter Summary ---
Author Organization [facility] Health Address [address] [place] [address] Care Team Providers Care Manager Cost Name Role Phone Arnie Brush MD Primary Care Provider [phone] Encounter Details Date Type Department Care Team (Late st Contact Info) Description 07/22/2021 Lab Requisition [facility] [address] [place] [address] Romain Booth MD [facility] [place] [address] Social History Tobacco Use Types Packs/Day Years [...] W AUTO DIFFERENTIAL STAT 07/22/2021 4:46 AM CITY PLANNING ENGINEER COMPREHENSIVE METABOLIC PANEL STAT 07/22/2021 4:46 AM CITY PLANNING ENGINEER documented in this encounter Results * (ABNORMAL) CBC WITH DIFFERENTIAL (07/22/2021 4:46 AM CITY PLANNING ENGINEER) WBC 8.8 4.4 - 10.7 x10E9/L 07/22/2021 7:10 PM CITY PLANNING ENGINEER [facility] WBC Corrected 07/22/2021 7:10 PM CITY PLANNING ENGINEER [facility] RBC 3.36(L) 3.80 - 5.20 x10E12/L 07/22/2021 7:10 PM CITY PLANNING ENGINEER [facility] Hemoglobin 9.3(L) 12.0 - 15.6 gm/dL 07/22/2021 7:10 PM CITY PLANNING ENGINEER [facility] Hematocrit 33.0(L) 35.9 - 45.5 % 07/22/2021 7:10 PM CITY PLANNING ENGINEER [facility] MCV 98.2 80.7 - 98.3 fl 07/22/2021 7:10 PM CITY PLANNING ENGINEER [facility] MCH 27.7 26.7 - 34.0 pg 07/22/2021 7:10 PM [facility] MCHC 28.2(L) 30.8 - 35.9 gm/dL 07/22/2021 7:10 PM [facility] Platelet Count 453(H) 153 - 416 x10E9/L 07/22/2021 7:10 PM [facility] RDW-CV 16.9(H) 12.1 - 14.9 % 07/22/2021 7:10 PM [facility] MPV 9.1(L) 9.4 - 12.9 fl 07/22/2021 7:10 PM [facility] Neutrophils % 50.4 44.0 - 73.0 % 07/22/2021 7:10 PM [facility] Lymphocytes % 32.8 20.0 - 43.0 % 07/22/2021 7:10 PM [facility] Monocytes % 9.9 5.0 - 13.0 % 07/22/2021 7:10 PM [facility] Eosinophils % 5.2 0.0 - 6.0 % 07/22/2021 7:10 PM [facility] Basophils % 1.0 0.0 - 2.0 % 07/22/2021 7:10 PM [facility] Immature Granulocytes 0.7 0 - 1 % 07/22/2021 7:10 PM [facility] Neutrophil Absolute 4.43 2.01 - 7.14 x10E9/L 07/22/2021 7:10 PM [facility] Lymphocytes Absolute 2.88 1.07 - 3.94 x10E9/L 07/22/2021 7:10 PM [facility] Monocytes Absolute 0.87 0.26 - 1.07 x10E9/L 07/22/2021 7:10 PM [facility] Eosinophils Absolute 0.46 0 - 0.47 x10E9/L 07/22/2021 7:10 PM [facility] Basophils Absolute 0.09(H) 0 - 0.08 x10E9/L 07/22/2021 7:10 PM [facility] Immature Granulocytes Absolute 0.06 0.00 - 0.06 x10E9/L 07/22/2021 7:10 PM [facility] nRBC Auto 0 /100 WBC 07/22/2021 7:10 PM [facility] Blood BLOOD SPECIMEN / Unknown Venipuncture / Unknown 07/22/2021 4:46 AM CITY PLANNING ENGINEER 07/22/2021 6:57 PM CITY PLANNING ENGINEER us Romain Booth MD LAB - HEMATOLOGY ORDERABL ES Final Result [facility] [address] [place] [address] * (ABNORMAL) COMPREHENSIVE METABOLIC PANEL (07/22/2021 4:46 AM CITY PLANNING ENGINEER) Glucose 93 70 - 105 mg/dL 07/22/2021 7:19 PM [facility] Sodium 135(L) 136 - 145 mmol/L 07/22/2021 7:19 PM [facility] Potassium 5.0 3.5 - 5.1 mmol/L 07/22/2021 7:19 PM [facility] Comment:Hemolyzed sample Chloride 96(L) 98 - 107 mmol/L 07/22/2021 7:19 PM [facility] CO2 24 23 - 31 mmol/L 07/22/2021 7:19 PM [facility] Calcium 8.6 8.4 - 10.4 mg/dL 07/22/2021 7:19 PM [facility] Anion Gap 15 8 - 18 mmol/L 07/22/2021 7:19 PM [facility] BUN 17 9.8 - 20.1 mg/dL 07/22/2021 7:19 PM [facility] Creatinine 0.49(L) 0.57 - 1.11 mg/dL 07/22/2021 7:19 PM [facility] Alkaline Phosphatase 101 40 - 150 U/L 07/22/2021 7:19 PM [facility] ALT <6 0 - 61 U/L 07/22/2021 7:19 PM [facility] AST 21 5 - 34 U/L 07/22/2021 7:19 PM [facility] Protein Total 6.8 6.4 - 8.3 gm/dL 07/22/2021 7:19 PM [facility] Albumin 2.9(L) 3.5 - 5.2 gm/dL 07/22/2021 7:19 PM CITY PLANNING ENGINEER [facility] Bilirubin Total 0.2 0.2 - 1.2 mg/dL 07/22/2021 7:19 PM CITY PLANNING ENGINEER [facility] eGFR by MDRD >60 >60 mL/min/1.7 3m2 07/22/2021 7:19 PM CITY PLANNING ENGINEER [facility] eGFR by MDRD >60 >60 mL/min/1.7 3m2 07/22/2021 7:19 PM CITY PLANNING ENGINEER [facility] Blood BLOOD SPECIMEN / Unknown Venipuncture / Unknown 07/22/2021 4:46 AM CITY PLANNING ENGINEER 07/22/2021 6:57 PM CITY PLANNING ENGINEER us Romain Booth MD LAB - CHEMISTRY ORDERABLE S Final Result [facility] [address] [place] [address] documented in this encounter Visit Diagnoses Not on filedocumented in this encounter Additional Health Concerns Infection Onset Date Last Indicated Resolved Time MDRO 07/27/2021 07/27/2021 documented as of this encounter Care Teams Manager Cost Relationship Specialty Start Date End Date Arnie Brush MD [address] [id number] PCP - General 05/21/21 documented as of this encounter
--- OUTSIDE RECORDS SUMMARY | 2025-04-28 14:14 | XMS_ITS | Encounter Summary ---
Author Organization [facility] Health Address [address] [place] [address] Care Team Providers Care Rn Med Surg Name Role Phone Arnie Brush MD Primary Care Provider [phone] Encounter Details Date Type Department Care Team (Late st Contact Info) Description 07/26/2021 Lab Requisition [facility] [address] [place] [address] Romain Booth MD [facility] [place] [address] Social History Tobacco Use Types Packs/Day Years [...] W AUTO DIFFERENTIAL STAT 07/26/2021 4:50 AM BUMP GRADER OPERATOR COMPREHENSIVE METABOLIC PANEL STAT 07/26/2021 4:50 AM BUMP GRADER OPERATOR documented in this encounter Results * (ABNORMAL) CBC WITH DIFFERENTIAL (07/26/2021 4:50 AM BUMP GRADER OPERATOR) WBC 14.5(H) 4.4 - 10.7 x10E9/L 07/26/2021 11:22 AM BUMP GRADER OPERATOR [facility] WBC Corrected 07/26/2021 11:22 AM BUMP GRADER OPERATOR [facility] RBC 3.56(L) 3.80 - 5.20 x10E12/L 07/26/2021 11:22 AM BUMP GRADER OPERATOR [facility] Hemoglobin 9.6(L) 12.0 - 15.6 gm/dL 07/26/2021 11:22 AM BUMP GRADER OPERATOR [facility] Hematocrit 32.2(L) 35.9 - 45.5 % 07/26/2021 11:22 AM BUMP GRADER OPERATOR [facility] MCV 90.4 80.7 - 98.3 fl 07/26/2021 11:22 AM BUMP GRADER OPERATOR [facility] MCH 27.0 26.7 - 34.0 pg 07/26/2021 11:22 AM [facility] MCHC 29.8(L) 30.8 - 35.9 gm/dL 07/26/2021 11:22 AM [facility] Platelet Count 473(H) 153 - 416 x10E9/L 07/26/2021 11:22 AM [facility] RDW-CV 16.0(H) 12.1 - 14.9 % 07/26/2021 11:22 AM [facility] MPV 9.3(L) 9.4 - 12.9 fl 07/26/2021 11:22 AM [facility] Neutrophils % 67.2 44.0 - 73.0 % 07/26/2021 11:22 AM [facility] Lymphocytes % 19.2(L) 20.0 - 43.0 % 07/26/2021 11:22 AM [facility] Monocytes % 9.9 5.0 - 13.0 % 07/26/2021 11:22 AM [facility] Eosinophils % 1.8 0.0 - 6.0 % 07/26/2021 11:22 AM [facility] Basophils % 0.9 0.0 - 2.0 % 07/26/2021 11:22 AM [facility] Immature Granulocytes 1.0 0 - 1 % 07/26/2021 11:22 AM [facility] Neutrophil Absolute 9.72(H) 2.01 - 7.14 x10E9/L 07/26/2021 11:22 AM [facility] Lymphocytes Absolute 2.77 1.07 - 3.94 x10E9/L 07/26/2021 11:22 AM [facility] Monocytes Absolute 1.43(H) 0.26 - 1.07 x10E9/L 07/26/2021 11:22 AM [facility] Eosinophils Absolute 0.26 0 - 0.47 x10E9/L 07/26/2021 11:22 AM [facility] Basophils Absolute 0.13(H) 0 - 0.08 x10E9/L 07/26/2021 11:22 AM [facility] Immature Granulocytes Absolute 0.14(H) 0.00 - 0.06 x10E9/L 07/26/2021 11:22 AM [facility] nRBC Auto 0 /100 WBC 07/26/2021 11:22 AM [facility] Blood BLOOD SPECIMEN / Unknown Venipuncture / Unknown 07/26/2021 4:50 AM BUMP GRADER OPERATOR 07/26/2021 10:10 AM BUMP GRADER OPERATOR us Romain Booth MD LAB - HEMATOLOGY ORDERABL ES Final Result [facility] [address] [place], [place] [id number] * (ABNORMAL) COMPREHENSIVE METABOLIC PANEL (07/26/2021 4:50 AM BUMP GRADER OPERATOR) Glucose 114(H) 70 - 105 mg/dL 07/26/2021 11:43 AM [facility] Sodium 134(L) 136 - 145 mmol/L 07/26/2021 11:43 AM [facility] Potassium 4.1 3.5 - 5.1 mmol/L 07/26/2021 11:43 AM [facility] Chloride 95(L) 98 - 107 mmol/L 07/26/2021 11:43 AM [facility] CO2 24 23 - 31 mmol/L 07/26/2021 11:43 AM [facility] Calcium 8.6 8.4 - 10.4 mg/dL 07/26/2021 11:43 AM [facility] Anion Gap 15 8 - 18 mmol/L 07/26/2021 11:43 AM [facility] BUN 25(H) 9.8 - 20.1 mg/dL 07/26/2021 11:43 AM [facility] Creatinine 0.49(L) 0.57 - 1.11 mg/dL 07/26/2021 11:43 AM [facility] Alkaline Phosphatase 116 40 - 150 U/L 07/26/2021 11:43 AM [facility] ALT <6 0 - 61 U/L 07/26/2021 11:43 AM [facility] AST 8 5 - 34 U/L 07/26/2021 11:43 AM [facility] Protein Total 6.8 6.4 - 8.3 gm/dL 07/26/2021 11:43 AM [facility] Albumin 3.1(L) 3.5 - 5.2 gm/dL 07/26/2021 11:43 AM BUMP GRADER OPERATOR [facility] Bilirubin Total 0.3 0.2 - 1.2 mg/dL 07/26/2021 11:43 AM BUMP GRADER OPERATOR [facility] eGFR by MDRD >60 >60 mL/min/1.7 3m2 07/26/2021 11:43 AM BUMP GRADER OPERATOR [facility] eGFR by MDRD >60 >60 mL/min/1.7 3m2 07/26/2021 11:43 AM BUMP GRADER OPERATOR [facility] Blood BLOOD SPECIMEN / Unknown Venipuncture / Unknown 07/26/2021 4:50 AM BUMP GRADER OPERATOR 07/26/2021 10:10 AM BUMP GRADER OPERATOR us Romain Booth MD LAB - CHEMISTRY ORDERABLE S Final Result [facility] [address] [place] [address] documented in this encounter Visit Diagnoses Not on filedocumented in this encounter Additional Health Concerns Infection Onset Date Last Indicated Resolved Time MDRO 07/27/2021 07/27/2021 documented as of this encounter Care Teams Rn Med Surg Relationship Specialty Start Date End Date Arnie Brush MD [address] [place] [id number] PCP - General 05/21/21 documented as of this encounter
--- OUTSIDE RECORDS SUMMARY | 2025-04-28 14:14 | XMS_ITS | Encounter Summary ---
Author Organization [facility] Health Address [address] [place] [address] Care Team Providers Care Engineering Technician Name Role Phone Arnie Brush MD Primary Care Provider [phone] Encounter Details Date Type Department Care Team (Late st Contact Info) Description 08/02/2021 Lab Requisition [facility] [address] [place] [address] Romain Booth MD [facility] [place] [address] Social History Tobacco Use Types Packs/Day Years [...] W AUTO DIFFERENTIAL Routine 08/02/2021 5:00 AM RAG ROOM SUPERVISOR COMPREHENSIVE METABOLIC PANEL Routine 08/02/2021 5:00 AM RAG ROOM SUPERVISOR documented in this encounter Results * (ABNORMAL) COMPREHENSIVE METABOLIC PANEL (08/02/2021 5:00 AM RAG ROOM SUPERVISOR) [facility] Glucose 82 70 - 105 mg/dL 08/02/2021 5:35 PM RAG ROOM SUPERVISOR [facility] Sodium 133(L) 136 - 145 mmol/L 08/02/2021 5:35 PM RAG ROOM SUPERVISOR [facility] Potassium 4.5 3.5 - 5.1 mmol/L 08/02/2021 5:35 PM RAG ROOM SUPERVISOR [facility] Chloride 94(L) 98 - 107 mmol/L 08/02/2021 5:35 PM RAG ROOM SUPERVISOR [facility] CO2 25 23 - 31 mmol/L 08/02/2021 5:35 PM RAG ROOM SUPERVISOR [facility] Calcium 8.6 8.4 - 10.4 mg/dL 08/02/2021 5:35 PM RAG ROOM SUPERVISOR [facility] Anion Gap 14 8 - 18 mmol/L 08/02/2021 5:35 PM RAG ROOM SUPERVISOR [facility] BUN 23(H) 9.8 - 20.1 mg/dL 08/02/2021 5:35 PM RAG ROOM SUPERVISOR [facility] Creatinine 0.51(L) 0.57 - 1.11 mg/dL 08/02/2021 5:35 PM RAG ROOM SUPERVISOR [facility] Alkaline Phosphatase 112 40 - 150 U/L 08/02/2021 5:35 PM RAG ROOM SUPERVISOR [facility] ALT <6 0 - 61 U/L 08/02/2021 5:35 PM RAG ROOM SUPERVISOR [facility] AST 10 5 - 34 U/L 08/02/2021 5:35 PM [facility] Protein Total 6.5 6.4 - 8.3 gm/dL 08/02/2021 5:35 PM RAG ROOM SUPERVISOR [facility] Albumin 2.9(L) 3.5 - 5.2 gm/dL 08/02/2021 5:35 PM [facility] Bilirubin Total 0.2 0.2 - 1.2 mg/dL 08/02/2021 5:35 PM [facility] eGFR by MDRD >60 >60 mL/min/1.7 3m2 08/02/2021 5:35 PM [facility] eGFR by MDRD >60 >60 mL/min/1.7 3m2 08/02/2021 5:35 PM [facility] Blood BLOOD SPECIMEN / Unknown Venipuncture / Unknown 08/02/2021 5:00 AM RAG ROOM SUPERVISOR 08/02/2021 4:35 PM RAG ROOM SUPERVISOR us Romain Booth MD LAB - CHEMISTRY ORDERABLE S Final Result [facility] [address] [place], [place] [id number] * (ABNORMAL) CBC WITH DIFFERENTIAL (08/02/2021 5:00 AM RAG ROOM SUPERVISOR) [facility] Signature WBC 11.3(H) 4.4 - 10.7 x10E9/L 08/02/2021 5:09 PM RAG ROOM SUPERVISOR [facility] WBC Corrected 08/02/2021 5:09 PM RAG ROOM SUPERVISOR [facility] RBC 3.41(L) 3.80 - 5.20 x10E12/L 08/02/2021 5:09 PM RAG ROOM SUPERVISOR [facility] Hemoglobin 9.3(L) 12.0 - 15.6 gm/dL 08/02/2021 5:09 PM [facility] Hematocrit 31.8(L) 35.9 - 45.5 % 08/02/2021 5:09 PM [facility] MCV 93.3 80.7 - 98.3 fl 08/02/2021 5:09 PM RAG ROOM SUPERVISOR [facility] MCH 27.3 26.7 - 34.0 pg 08/02/2021 5:09 PM [facility] MCHC 29.2(L) 30.8 - 35.9 gm/dL 08/02/2021 5:09 PM [facility] Platelet Count 559(H) 153 - 416 x10E9/L 08/02/2021 5:09 PM [facility] RDW-CV 15.9(H) 12.1 - 14.9 % 08/02/2021 5:09 PM [facility] MPV 9.0(L) 9.4 - 12.9 fl 08/02/2021 5:09 PM [facility] Neutrophils % 65.9 44.0 - 73.0 % 08/02/2021 5:09 PM [facility] Lymphocytes % 21.6 20.0 - 43.0 % 08/02/2021 5:09 PM [facility] Monocytes % 7.0 5.0 - 13.0 % 08/02/2021 5:09 PM [facility] Eosinophils % 3.8 0.0 - 6.0 % 08/02/2021 5:09 PM [facility] Basophils % 1.0 0.0 - 2.0 % 08/02/2021 5:09 PM [facility] Immature Granulocytes 0.7 0 - 1 % 08/02/2021 5:09 PM [facility] Neutrophil Absolute 7.47(H) 2.01 - 7.14 x10E9/L 08/02/2021 5:09 PM [facility] Lymphocytes Absolute 2.44 1.07 - 3.94 x10E9/L 08/02/2021 5:09 PM [facility] Monocytes Absolute 0.79 0.26 - 1.07 x10E9/L 08/02/2021 5:09 PM [facility] Eosinophils Absolute 0.43 0 - 0.47 x10E9/L 08/02/2021 5:09 PM RAG ROOM SUPERVISOR [facility] Basophils Absolute 0.11(H) 0 - 0.08 x10E9/L 08/02/2021 5:09 PM RAG ROOM SUPERVISOR [facility] Immature Granulocytes Absolute 0.08(H) 0.00 - 0.06 x10E9/L 08/02/2021 5:09 PM RAG ROOM SUPERVISOR [facility] nRBC Auto 0 /100 WBC 08/02/2021 5:09 PM RAG ROOM SUPERVISOR [facility] Blood BLOOD SPECIMEN / Unknown Venipuncture / Unknown 08/02/2021 5:00 AM RAG ROOM SUPERVISOR 08/02/2021 4:35 PM RAG ROOM SUPERVISOR us Romain Booth MD LAB - HEMATOLOGY ORDERABL ES Final Result Performing Organization Address City/State/[facility] Co de Phone Number [facility] [address] [place] [address] documented in this encounter Visit Diagnoses Not on filedocumented in this encounter Additional Health Concerns Infection Onset Date Last Indicated Resolved Time MDRO 07/27/2021 07/27/2021 documented as of this encounter Care Teams Engineering Technician Relationship Specialty Start Date End Date Arnie Brush MD [address] [place] [phone] PCP - General 05/21/21 documented as of this encounter
--- OUTSIDE RECORDS SUMMARY | 2025-04-28 14:14 | XMS_ITS | Encounter Summary ---
Author Organization [facility] Health Address [address] [place] [address] Care Team Providers Care Audit Mgr Name Role Phone Arnie Brush MD Primary Care Provider [phone] Encounter Details Date Type Department Care Team (Late st Contact Info) Description 07/15/[address] [facility] [address] [place] [address] Romain Booth MD [facility] [facility] [place] [address] Social History Tobacco Use Types Packs/Day Years [...] W AUTO DIFFERENTIAL STAT 07/15/2021 3:25 AM DRUM PLATER COMPREHENSIVE METABOLIC PANEL STAT 07/15/2021 3:25 AM DRUM PLATER documented in this encounter Results * (ABNORMAL) CBC WITH DIFFERENTIAL (07/15/2021 3:25 AM DRUM PLATER) [facility] WBC 8.2 4.4 - 10.7 x10E9/L 07/15/2021 12:58 PM DRUM PLATER [facility] WBC Corrected 07/15/2021 12:58 PM DRUM PLATER [facility] RBC 2.80(L) 3.80 - 5.20 x10E12/L 07/15/2021 12:58 PM DRUM PLATER [facility] Hemoglobin 7.7(L) 12.0 - 15.6 gm/dL 07/15/2021 12:58 PM DRUM PLATER [facility] Hematocrit 26.9(L) 35.9 - 45.5 % 07/15/2021 12:58 PM DRUM PLATER [facility] MCV 96.1 80.7 - 98.3 fl 07/15/2021 12:58 PM DRUM PLATER [facility] MCH 27.5 26.7 - 34.0 pg 07/15/2021 12:58 PM [facility] MCHC 28.6(L) 30.8 - 35.9 gm/dL 07/15/2021 12:58 PM [facility] Platelet Count 585(H) 153 - 416 x10E9/L 07/15/2021 12:58 PM [facility] RDW-CV 17.4(H) 12.1 - 14.9 % 07/15/2021 12:58 PM [facility] MPV 9.0(L) 9.4 - 12.9 fl 07/15/2021 12:58 PM [facility] Neutrophils % 61.5 44.0 - 73.0 % 07/15/2021 12:58 PM [facility] Lymphocytes % 24.2 20.0 - 43.0 % 07/15/2021 12:58 PM [facility] Monocytes % 8.4 5.0 - 13.0 % 07/15/2021 12:58 PM [facility] Eosinophils % 4.3 0.0 - 6.0 % 07/15/2021 12:58 PM [facility] Basophils % 1.1 0.0 - 2.0 % 07/15/2021 12:58 PM [facility] Immature Granulocytes 0.5 0 - 1 % 07/15/2021 12:58 PM [facility] Neutrophil Absolute 5.02 2.01 - 7.14 x10E9/L 07/15/2021 12:58 PM [facility] Lymphocytes Absolute 1.98 1.07 - 3.94 x10E9/L 07/15/2021 12:58 PM [facility] Monocytes Absolute 0.69 0.26 - 1.07 x10E9/L 07/15/2021 12:58 PM [facility] Eosinophils Absolute 0.35 0 - 0.47 x10E9/L 07/15/2021 12:58 PM [facility] Basophils Absolute 0.09(H) 0 - 0.08 x10E9/L 07/15/2021 12:58 PM [facility] Immature Granulocytes Absolute 0.04 0.00 - 0.06 x10E9/L 07/15/2021 12:58 PM [facility] nRBC Auto 0 /100 WBC 07/15/2021 12:58 PM [facility] Blood BLOOD SPECIMEN / Unknown Venipuncture / Unknown 07/15/2021 3:25 AM DRUM PLATER 07/15/2021 12:50 PM DRUM PLATER us Romain Booth MD LAB - HEMATOLOGY ORDERABL ES Final Result [facility] [address] [place] [address] * (ABNORMAL) COMPREHENSIVE METABOLIC PANEL (07/15/2021 3:25 AM DRUM PLATER) Glucose 98 70 - 105 mg/dL 07/15/2021 1:22 PM [facility] Sodium 136 136 - 145 mmol/L 07/15/2021 1:22 PM [facility] Potassium 4.6 3.5 - 5.1 mmol/L 07/15/2021 1:22 PM [facility] Chloride 97(L) 98 - 107 mmol/L 07/15/2021 1:22 PM [facility] CO2 25 23 - 31 mmol/L 07/15/2021 1:22 PM [facility] Calcium 7.7(L) 8.4 - 10.4 mg/dL 07/15/2021 1:22 PM [facility] Anion Gap 14 8 - 18 mmol/L 07/15/2021 1:22 PM [facility] BUN 11 9.8 - 20.1 mg/dL 07/15/2021 1:22 PM [facility] Creatinine 0.41(L) 0.57 - 1.11 mg/dL 07/15/2021 1:22 PM [facility] Alkaline Phosphatase 104 40 - 150 U/L 07/15/2021 1:22 PM [facility] ALT 6 0 - 61 U/L 07/15/2021 1:22 PM [facility] AST 9 5 - 34 U/L 07/15/2021 1:22 PM [facility] Protein Total 5.4(L) 6.4 - 8.3 gm/dL 07/15/2021 1:22 PM [facility] Albumin 2.4(L) 3.5 - 5.2 gm/dL 07/15/2021 1:22 PM DRUM PLATER [facility] Bilirubin Total 0.1(L) 0.2 - 1.2 mg/dL 07/15/2021 1:22 PM DRUM PLATER [facility] eGFR by MDRD >60 >60 mL/min/1.7 3m2 07/15/2021 1:22 PM DRUM PLATER [facility] eGFR by MDRD >60 >60 mL/min/1.7 3m2 07/15/2021 1:[address] [facility] Blood BLOOD SPECIMEN / Unknown Venipuncture / Unknown 07/15/2021 3:25 AM DRUM PLATER 07/15/2021 12:50 PM DRUM PLATER us Romain Booth MD LAB - CHEMISTRY ORDERABLE S Final Result [facility] [address] [place] [address] documented in this encounter Visit Diagnoses Not on filedocumented in this encounter Additional Health Concerns Infection Onset Date Last Indicated Resolved Time MDRO 07/27/2021 07/27/2021 documented as of this encounter Care Teams Audit Mgr Relationship Specialty Start Date End Date Arnie Brush MD [address] [id number] PCP - General 05/21/21 documented as of this encounter
--- OUTSIDE RECORDS SUMMARY | 2025-04-28 14:14 | XMS_ITS | Encounter Summary ---
Author Organization [facility] Health Address [address] [facility] [place] [address] Care Team Providers Care Document Control Manager Name Role Phone Arnie Brush MD Primary Care Provider [phone] Encounter Details Date Type Department Care Team (Late st Contact Info) Description 07/29/2021 Lab Requisition [facility] [address] [place] [address] Romain Booth MD [facility] [place] [address] Social History Tobacco Use Types Packs/Day Years [...] W AUTO DIFFERENTIAL STAT 07/29/2021 4:00 AM PRIMARY GRADE TEACHER COMPREHENSIVE METABOLIC PANEL STAT 07/29/2021 4:00 AM PRIMARY GRADE TEACHER documented in this encounter Results * (ABNORMAL) CBC WITH DIFFERENTIAL (07/29/2021 4:00 AM PRIMARY GRADE TEACHER) WBC 12.7(H) 4.4 - 10.7 x10E9/L 07/29/2021 12:17 PM PRIMARY GRADE TEACHER [facility] WBC Corrected 07/29/2021 12:17 PM PRIMARY GRADE TEACHER [facility] RBC 3.45(L) 3.80 - 5.20 x10E12/L 07/29/2021 12:17 PM PRIMARY GRADE TEACHER [facility] Hemoglobin 9.4(L) 12.0 - 15.6 gm/dL 07/29/2021 12:17 PM PRIMARY GRADE TEACHER [facility] Hematocrit 32.3(L) 35.9 - 45.5 % 07/29/2021 12:17 PM PRIMARY GRADE TEACHER [facility] MCV 93.6 80.7 - 98.3 fl 07/29/2021 12:17 PM PRIMARY GRADE TEACHER [facility] MCH 27.2 26.7 - 34.0 pg 07/29/2021 12:17 PM [facility] MCHC 29.1(L) 30.8 - 35.9 gm/dL 07/29/2021 12:17 PM [facility] Platelet Count 545(H) 153 - 416 x10E9/L 07/29/2021 12:17 PM [facility] RDW-CV 15.8(H) 12.1 - 14.9 % 07/29/2021 12:17 PM [facility] MPV 9.3(L) 9.4 - 12.9 fl 07/29/2021 12:17 PM [facility] Neutrophils % 68.3 44.0 - 73.0 % 07/29/2021 12:17 PM [facility] Lymphocytes % 20.3 20.0 - 43.0 % 07/29/2021 12:17 PM [facility] Monocytes % 6.1 5.0 - 13.0 % 07/29/2021 12:17 PM [facility] Eosinophils % 3.9 0.0 - 6.0 % 07/29/2021 12:17 PM [facility] Basophils % 0.7 0.0 - 2.0 % 07/29/2021 12:17 PM [facility] Immature Granulocytes 0.7 0 - 1 % 07/29/2021 12:17 PM [facility] Neutrophil Absolute 8.68(H) 2.01 - 7.14 x10E9/L 07/29/2021 12:17 PM [facility] Lymphocytes Absolute 2.59 1.07 - 3.94 x10E9/L 07/29/2021 12:17 PM [facility] Monocytes Absolute 0.78 0.26 - 1.07 x10E9/L 07/29/2021 12:17 PM [facility] Eosinophils Absolute 0.50(H) 0 - 0.47 x10E9/L 07/29/2021 12:17 PM [facility] Basophils Absolute 0.09(H) 0 - 0.08 x10E9/L 07/29/2021 12:17 PM [facility] Immature Granulocytes Absolute 0.09(H) 0.00 - 0.06 x10E9/L 07/29/2021 12:17 PM [facility] nRBC Auto 0 /100 WBC 07/29/2021 12:17 PM [facility] Blood BLOOD SPECIMEN / Unknown Venipuncture / Unknown 07/29/2021 4:00 AM PRIMARY GRADE TEACHER 07/29/2021 11:47 AM PRIMARY GRADE TEACHER us Romain Booth MD LAB - HEMATOLOGY ORDERABL ES Final Result [facility] [address] [place] [id number] * (ABNORMAL) COMPREHENSIVE METABOLIC PANEL (07/29/2021 4:00 AM PRIMARY GRADE TEACHER) Glucose 94 70 - 105 mg/dL 07/29/2021 12:46 PM [facility] Sodium 133(L) 136 - 145 mmol/L 07/29/2021 12:46 PM [facility] Potassium 5.1 3.5 - 5.1 mmol/L 07/29/2021 12:46 PM [facility] Chloride 90(L) 98 - 107 mmol/L 07/29/2021 12:46 PM [facility] CO2 26 23 - 31 mmol/L 07/29/2021 12:46 PM [facility] Calcium 8.8 8.4 - 10.4 mg/dL 07/29/2021 12:46 PM [facility] Anion Gap 17 8 - 18 mmol/L 07/29/2021 12:46 PM [facility] BUN 20 9.8 - 20.1 mg/dL 07/29/2021 12:46 PM [facility] Creatinine 0.49(L) 0.57 - 1.11 mg/dL 07/29/2021 12:46 PM [facility] Alkaline Phosphatase 121 40 - 150 U/L 07/29/2021 12:46 PM [facility] ALT <6 0 - 61 U/L 07/29/2021 12:46 PM [facility] AST 27 5 - 34 U/L 07/29/2021 12:46 PM [facility] Protein Total 7.3 6.4 - 8.3 gm/dL 07/29/2021 12:46 PM [facility] Albumin 2.9(L) 3.5 - 5.2 gm/dL 07/29/2021 12:46 PM PRIMARY GRADE TEACHER [facility] Bilirubin Total 0.2 0.2 - 1.2 mg/dL 07/29/2021 12:46 PM PRIMARY GRADE TEACHER [facility] eGFR by MDRD >60 >60 mL/min/1.7 3m2 07/29/2021 12:46 PM PRIMARY GRADE TEACHER [facility] eGFR by MDRD >60 >60 mL/min/1.7 3m2 07/29/2021 12:46 PM PRIMARY GRADE TEACHER [facility] Blood BLOOD SPECIMEN / Unknown Venipuncture / Unknown 07/29/2021 4:00 AM PRIMARY GRADE TEACHER 07/29/2021 11:47 AM PRIMARY GRADE TEACHER Narrative [facility] - 07/29/2021 12:46 PM PRIMARY GRADE TEACHER Moderately hemolyzed us Romain Booth MD LAB - CHEMISTRY ORDERABLE S Final Result [facility] [address] [place] [address] documented in this encounter Visit Diagnoses Not on filedocumented in this encounter Additional Health Concerns Infection Onset Date Last Indicated Resolved Time MDRO 07/27/2021 07/27/2021 documented as of this encounter Care Teams Document Control Manager Relationship Specialty Start Date End Date Arnie Brush MD [address] [place] [phone] PCP - General 05/21/21 documented as of this encounter
--- OUTSIDE RECORDS SUMMARY | 2025-04-28 14:14 | XMS_ITS | Encounter Summary ---
Author Organization [facility] Health Address [address] [facility] [facility] [place] [address] Care Team Providers Care Beverage Host Name Role Phone Arnie Brush MD Primary Care Provider [phone] Encounter Details Date Type Department Care Team (Late st Contact Info) Description 08/01/2021 Lab Requisition [facility] [address] [place] [address] [place] [address] [place] [address] Social History Tobacco Use Types Packs/Day Years [...] ERYTHROCYTE SEDIMENTATION RATE STAT 08/01/2021 4:20 AM PACKING SUPERVISOR documented in this encounter Results * (ABNORMAL) ERYTHROCYTE SEDIMENTATION RATE (08/01/2021 4:20 AM PACKING SUPERVISOR) Erythrocyte Sedimentation Rate Automated 72(H) 0 - 30 MM/HR 08/01/2021 9:55 AM PACKING SUPERVISOR [facility] Blood BLOOD SPECIMEN / Unknown Venipuncture / Unknown 08/01/2021 4:20 AM PACKING SUPERVISOR 08/01/2021 9:12 AM PACKING SUPERVISOR us Richmond Mayes MD LAB - HEMATOLOGY ORDERABLES Bonnie l Result [facility] [address] [place] [address] documented in this encounter Visit Diagnoses Not on filedocumented in this encounter Additional Health Concerns Infection Onset Date Last Indicated Resolved Time MDRO 07/27/2021 07/27/2021 documented as of this encounter Care Teams Beverage Host Relationship Specialty Start Date End Date Arnie Brush MD [address] [place] [id number] PCP - General 05/21/21 documented as of this encounter
--- OUTSIDE RECORDS SUMMARY | 2025-04-28 14:14 | XMS_ITS | Clinical Summary ---
Author Organization [facility] Address [address] [place] [address] Care Team Providers Care Finisher Map And Chart Name Role Phone Ana Cruz MD Primary Care Provider [phone] Social History Tobacco Use Types Packs/Day Years [...] to complete this topic Insurance Care Teams Finisher Map And Chart Relationship Specialty Start Date End Date Ana Cruz MD PCP - General INTERNAL MEDICINE 01/17/19
--- OUTSIDE RECORDS SUMMARY | 2025-04-28 14:14 | XMS_ITS | Encounter Summary ---
Author Organization [facility] Health Address [address] [address] Care Team Providers Care Welder Fitter Name Role Phone Arnie Brush MD Primary Care Provider [phone] Encounter Details Date Type Department Care Team (Late st Contact Info) Description 08/03/2021 Lab Requisition [facility] [address] [place] [address] Andrae Gutierrez MD [address] [place], [place] [id number] Social History Tobacco Use Types Packs/Day Years [...] ERYTHROCYTE SEDIMENTATION RATE STAT 08/03/2021 4:20 AM FINISH SPECIALIST RETIC COUNT STAT 08/03/2021 4:20 AM FINISH SPECIALIST documented in this encounter Results * (ABNORMAL) ERYTHROCYTE SEDIMENTATION RATE (08/03/2021 4:20 AM FINISH SPECIALIST) [facility] Erythrocyte Sedimentation Rate Automated 108(H) 0 - 30 MM/HR 08/03/2021 12:39 PM FINISH SPECIALIST [facility] Blood BLOOD SPECIMEN / Unknown Venipuncture / Unknown 08/03/2021 4:20 AM FINISH SPECIALIST 08/03/2021 12:24 PM FINISH SPECIALIST us Andrea Gutierrez MD LAB - HEMATOLOGY ORDERABLES F inal Result [facility] [address] [place] [address] * (ABNORMAL) RETIC COUNT (08/03/2021 4:20 AM FINISH SPECIALIST) [facility] Reticulocyte Count 3.92(H) 0.5 - 1.7 % 08/03/2021 12:38 PM FINISH SPECIALIST [facility] Reticulocyte Absolute 0.1313(H) 0.0041 - 0.0971 x10E6/uL 08/03/2021 12:38 PM FINISH SPECIALIST [facility] Reticulocyte Immature Fractionated 30.4(H) 0.9 - 14.3 % 08/03/2021 12:38 PM FINISH SPECIALIST [facility] Hemoglobin Retic 30.0 27.8 - 36.8 pg 08/03/2021 12:38 PM FINISH SPECIALIST [facility] Blood BLOOD SPECIMEN / Unknown Venipuncture / Unknown 08/03/2021 4:20 AM FINISH SPECIALIST 08/03/2021 12:24 PM FINISH SPECIALIST us Andrea Gutierrez MD LAB - HEMATOLOGY ORDERABLES F inal Result [facility] [address] [place], [place] [id number] documented in this encounter Visit Diagnoses Not on filedocumented in this encounter Additional Health Concerns Infection Onset Date Last Indicated Resolved Time MDRO 07/27/2021 07/27/2021 documented as of this encounter Care Teams 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
--- OUTSIDE RECORDS SUMMARY | 2025-04-28 14:15 | XMS_ITS | Encounter Summary ---
Author Organization [facility] Health Address [address] [place] [address] Care Team Providers Care Financial Quantitative Analyst Name Role Phone Arnie Brush MD Primary Care Provider [phone] Encounter Details Date Type Department Care Team (Late st Contact Info) Description 08/17/2021 Lab Requisition [facility] [address] [place] [address] Gilbert George MD [address] [facility] [address] [place] [address] Social History Tobacco Use Types [...] COMPREHENSIVE METABOLIC PANEL STAT 08/17/2021 4:30 AM NEWS REPORTER MAGNESIUM BLOOD STAT 08/17/2021 4:30 AM NEWS REPORTER documented in this encounter Results * MAGNESIUM BLOOD (08/17/2021 4:30 AM NEWS REPORTER) [facility] Magnesium 2.2 1.6 - 2.6 mg/dL 08/17/2021 10:52 AM NEWS REPORTER [facility] Blood BLOOD SPECIMEN / Unknown Venipuncture / Unknown 08/17/2021 4:30 AM NEWS REPORTER 08/17/2021 10:01 AM NEWS REPORTER us Gilbert George MD LAB - CHEMISTRY ORDERABLES Final Result [facility] [address] [place] [address] * (ABNORMAL) COMPREHENSIVE METABOLIC PANEL (08/17/2021 4:30 AM NEWS REPORTER) Pathologist [facility] Glucose 78 70 - 105 mg/dL 08/17/2021 10:53 AM NEWS REPORTER [facility] Sodium 135(L) 136 - 145 mmol/L 08/17/2021 10:53 AM [facility] Potassium 4.2 3.5 - 5.1 mmol/L 08/17/2021 10:53 AM [facility] Chloride 97(L) 98 - 107 mmol/L 08/17/2021 10:53 AM [facility] CO2 27 23 - 31 mmol/L 08/17/2021 10:53 AM [facility] Calcium 7.5(L) 8.4 - 10.4 mg/dL 08/17/2021 10:53 AM [facility] Anion Gap 11 8 - 18 mmol/L 08/17/2021 10:53 AM [facility] BUN 15 9.8 - 20.1 mg/dL 08/17/2021 10:53 AM [facility] Creatinine 0.44(L) 0.57 - 1.11 mg/dL 08/17/2021 10:53 AM [facility] Alkaline Phosphatase 119 40 - 150 U/L 08/17/2021 10:53 AM [facility] ALT <6 0 - 61 U/L 08/17/2021 10:53 AM [facility] AST 7 5 - 34 U/L 08/17/2021 10:53 AM [facility] Protein Total 4.6(L) 6.4 - 8.3 gm/dL 08/17/2021 10:53 AM [facility] Albumin 1.9(L) 3.5 - 5.2 gm/dL 08/17/2021 10:53 AM [facility] Bilirubin Total 0.2 0.2 - 1.2 mg/dL 08/17/2021 10:53 AM [facility] eGFR by MDRD >60 >60 mL/min/1.7 3m2 08/17/2021 10:53 AM [facility] eGFR by MDRD >60 >60 mL/min/1.7 3m2 08/17/2021 10:53 AM [facility] Blood BLOOD SPECIMEN / Unknown Venipuncture / Unknown 08/17/2021 4:30 AM NEWS REPORTER 08/17/2021 10:01 AM [facility]UST Gilbert George MD LAB - CHEMISTRY ORDERABLES Final Result [facility] [address] [place] [address] documented in this encounter Visit Diagnoses Not on filedocumented in this encounter Additional Health Concerns Infection Onset Date Last Indicated Resolved Time MDRO 07/27/2021 07/27/2021 documented as of this encounter Care Teams Financial Quantitative Analyst Relationship Specialty Start Date End Date Arnie Brush MD [address] [place] [phone] PCP - General 05/21/21 documented as of this encounter
--- OUTSIDE RECORDS SUMMARY | 2025-04-28 14:15 | XMS_ITS | Encounter Summary ---
Author Organization [facility] Health Address [address] [facility] [place] [address] Care Team Providers Care Waterproofer Name Role Phone Arnie Brush MD Primary Care Provider Encounter Details Date Type Department Care Team (Late st Contact Info) Description 09/06/2021 Lab Requisition [facility] [address] [place] [address] [place] [address] [place] [address] Social History Tobacco Use Types [...] Assessment Author Yes 06/06/2021 2:17 PM CDVicenta Diza RN * Does person have difficulty doing [...] MICROSCOPIC NO CULTURE Routine 09/06/2021 3:25 AM GAS BRAZER URINE MICROSCOPIC ONLY Routine 3:25 AM GAS BRAZER CBC W AUTO DIFFERENTIAL Routine 09/06/2021 3:25 AM GAS BRAZER COMPREHENSIVE METABOLIC PANEL STAT 09/06/2021 3:25 AM GAS BRAZER documented in this encounter Results * (ABNORMAL) CBC WITH DIFFERENTIAL (09/06/2021 3:25 AM GAS BRAZER) [facility] WBC 8.5 4.4 - 10.7 x10E9/L 09/06/2021 10:49 AM GAS BRAZER [facility] WBC Corrected 09/06/2021 10:49 AM GAS BRAZER [facility] RBC 3.49(L) 3.80 - 5.20 x10E12/L 09/06/2021 10:49 AM GAS BRAZER [facility] Hemoglobin 9.2(L) 12.0 - 15.6 gm/dL 09/06/2021 10:49 AM GAS BRAZER [facility] Hematocrit 32.0(L) 35.9 - 45.5 % 09/06/2021 10:49 AM [facility] MCV 91.7 80.7 - 98.3 fl 09/06/2021 10:49 AM [facility] MCH 26.4(L) 26.7 - 34.0 pg 09/06/2021 10:49 AM [facility] MCHC 28.8(L) 30.8 - 35.9 gm/dL 09/06/2021 10:49 AM [facility] Platelet Count 492(H) 153 - 416 x10E9/L 09/06/2021 10:49 AM [facility] RDW-CV 16.2(H) 12.1 - 14.9 % 09/06/2021 10:49 AM [facility] MPV 8.1(L) 9.4 - 12.9 fl 09/06/2021 10:49 AM [facility] Neutrophils % 55.3 44.0 - 73.0 % 09/06/2021 10:49 AM [facility] Lymphocytes % 30.0 20.0 - 43.0 % 09/06/2021 10:49 AM [facility] Monocytes % 8.8 5.0 - 13.0 % 09/06/2021 10:49 AM [facility] Eosinophils % 4.2 0.0 - 6.0 % 09/06/2021 10:49 AM [facility] Basophils % 1.1 0.0 - 2.0 % 09/06/2021 10:49 AM [facility] Immature Granulocytes 0.6 0 - 1 % 09/06/2021 10:49 AM [facility] Neutrophil Absolute 4.71 2.01 - 7.14 x10E9/L 09/06/2021 10:49 AM [facility] Lymphocytes Absolute 2.55 1.07 - 3.94 x10E9/L 09/06/2021 10:49 AM [facility] Monocytes Absolute 0.75 0.26 - 1.07 x10E9/L 09/06/2021 10:49 AM [facility] Eosinophils Absolute 0.36 0 - 0.47 x10E9/L 09/06/2021 10:49 AM [facility] Basophils Absolute 0.09(H) 0 - 0.08 x10E9/L 09/06/2021 10:49 AM [facility] Immature Granulocytes Absolute 0.05 0.00 - 0.06 x10E9/L 09/06/2021 10:49 AM [facility] nRBC Auto 0 /100 WBC 09/06/2021 10:49 AM [facility] Blood BLOOD SPECIMEN / Unknown Venipuncture / Unknown 09/06/2021 3:25 AM GAS BRAZER 09/06/2021 10:38 AM [facility] Keagan Montgomery MD LAB - HEMATOLOGY ORDERABLES F inal Result [facility] [address] [place] [address] * (ABNORMAL) COMPREHENSIVE METABOLIC PANEL (09/06/2021 3:25 AM [facility]) Glucose 95 70 - 105 mg/dL 09/06/2021 11:01 AM [facility] Sodium 134(L) 136 - 145 mmol/L 09/06/2021 11:01 AM [facility] Potassium 3.4(L) 3.5 - 5.1 mmol/L 09/06/2021 11:01 AM [facility] Chloride 91(L) 98 - 107 mmol/L 09/06/2021 11:01 AM [facility] CO2 30 23 - 31 mmol/L 09/06/2021 11:01 AM [facility] Calcium 8.5 8.4 - 10.4 mg/dL 09/06/2021 11:01 AM [facility] Anion Gap 13 8 - 18 mmol/L 09/06/2021 11:01 AM [facility] BUN 15 9.8 - 20.1 mg/dL 09/06/2021 11:01 AM [facility] Creatinine 0.44(L) 0.57 - 1.11 mg/dL 09/06/2021 11:01 AM [facility] Alkaline Phosphatase 115 40 - 150 U/L 09/06/2021 11:01 AM [facility] ALT 6 0 - 61 U/L 09/06/2021 11:01 AM [facility] AST 10 5 - 34 U/L 09/06/2021 11:01 AM [facility] Protein Total 6.3(L) 6.4 - 8.3 gm/dL 09/06/2021 11:01 AM [facility] Albumin 3.0(L) 3.5 - 5.2 gm/dL 09/06/2021 11:01 AM [facility] Bilirubin Total 0.2 0.2 - 1.2 mg/dL 09/06/2021 11:01 AM [facility] eGFR by MDRD >60 >60 mL/min/1.7 3m2 09/06/2021 11:01 AM [facility] eGFR by MDRD >60 >60 mL/min/1.7 3m2 09/06/2021 11:01 AM [facility] Blood BLOOD SPECIMEN / Unknown Venipuncture / Unknown 09/06/2021 3:25 AM GAS BRAZER 09/06/2021 10:38 AM GAS BRAZER Keagan Montgomery MD LAB - CHEMISTRY ORDERABLES Fi nal Result [facility] [address] [place] [address] * (ABNORMAL) URINE MICROSCOPIC ONLY (09/06/2021 3:25 AM GAS BRAZER) RBC UA 3-5 None Seen, 0-2, 3-5 # /hpf 09/06/2021 9:28 AM [facility] WBC UA >100(A) None Seen, 0-5 # /hpf 09/06/2021 9:28 AM [facility] Bacteria UA 2+(A) None Seen 09/06/2021 9:28 AM [facility] Squamous Epithelial Cells 0-2 None Seen, 0-2, 3-5 /hpf 09/06/2021 9:28 AM [facility] Mucus UA 2+ /LPF 09/06/2021 9:28 AM [facility] Urine URINE SPECIMEN OBTAINED BY CLEAN CATCH PROCEDURE / Unknown Collection / Unknown 09/06/2021 3:25 AM GAS BRAZER 09/06/2021 8:50 AM GAS BRAZER Keagan Montgomery MD LAB - URINALYSIS ORDERABLES F inal Result Performing Organization Address [facility] Co de Phone Number [facility] [address] [place] [address] * (ABNORMAL) URINALYSIS REFLEX TO MICROSCOPIC NO CULTURE (09/06/2021 3:25 AM GAS BRAZER) Color UA Yellow Straw, Yellow 09/06/2021 9:10 AM GAS BRAZER [facility] Clarity UA Turbid(A) Clear 09/06/2021 9:10 AM GAS BRAZER [facility] Glucose UA Negative Negative 09/06/2021 9:10 AM GAS BRAZER [facility] Bilirubin UA Negative Negative 09/06/2021 9:10 AM GAS BRAZER [facility] Ketone UA Negative Negative 09/06/2021 9:10 AM [facility] Specific [place] UA 1.025 1.005 - 1.030 09/06/2021 9:10 AM [facility] Blood UA 3+(A) Negative 09/06/2021 9:10 AM [facility] pH UA 7.5 5.0 - 8.0 pH 09/06/2021 9:10 AM [facility] Protein UA 2+(A) Negative 09/06/2021 9:10 AM [facility] Urobilinogen UA Negative Negative mg/dL 09/06/2021 9:10 AM [facility] Nitrite UA Positive(A) Negative 09/06/2021 9:10 AM [facility] Leukocyte Esterase UA 1+(A) Negative 09/06/2021 9:10 AM [facility] Urine Microscopy Urine microscopy to follow 09/06/2021 9:10 AM [facility] Urine URINE SPECIMEN OBTAINED BY CLEAN CATCH PROCEDURE / Unknown Collection / Unknown 09/06/2021 3:25 AM GAS BRAZER 09/06/2021 8:50 AM GAS BRAZER Keagan Montgomery MD LAB - URINALYSIS ORDERABLES F inal Result Performing Organization Address [facility] Co de Phone Number [facility] [address] [place], [place] [id number] documented in this encounter Visit Diagnoses Not on filedocumented in this encounter Additional Health Concerns Infection Onset Date Last Indicated Resolved Time MDRO 07/27/2021 07/27/2021 documented as of this encounter Care Teams Waterproofer Relationship Specialty Start Date End Date Arnie Brush MD [address] [place] [id number] PCP - General 05/21/21 documented as of this encounter
--- OUTSIDE RECORDS SUMMARY | 2025-04-28 14:15 | XMS_ITS | Encounter Summary ---
Author Organization [facility] Health Address [address] [place] [address] Care Team Providers Care Gamemaster Name Role Phone Arnie Brush MD Primary Care Provider [phone] Encounter Details Date Type Department Care Team (Late st Contact Info) Description 09/02/2021 Lab Requisition [facility] [address] [place] [address] Romain Booth MD [facility] [place] [address] Social History Tobacco Use Types Packs/Day Years [...] W AUTO DIFFERENTIAL STAT 09/02/2021 3:30 AM MUSIC SPECIALIST COMPREHENSIVE METABOLIC PANEL STAT 09/02/2021 3:30 AM MUSIC SPECIALIST documented in this encounter Results * (ABNORMAL) CBC WITH DIFFERENTIAL (09/02/2021 3:30 AM MUSIC SPECIALIST) WBC 8.7 4.4 - 10.7 x10E9/L 09/02/2021 1:00 PM MUSIC SPECIALIST [facility] WBC Corrected 09/02/2021 1:00 PM MUSIC SPECIALIST [facility] RBC 3.26(L) 3.80 - 5.20 x10E12/L 09/02/2021 1:00 PM MUSIC SPECIALIST [facility] Hemoglobin 8.6(L) 12.0 - 15.6 gm/dL 09/02/2021 1:00 PM MUSIC SPECIALIST [facility] Hematocrit 29.8(L) 35.9 - 45.5 % 09/02/2021 1:00 PM MUSIC SPECIALIST [facility] MCV 91.4 80.7 - 98.3 fl 09/02/2021 1:00 PM MUSIC SPECIALIST [facility] MCH 26.4(L) 26.7 - 34.0 pg 09/02/2021 1:00 PM [facility] MCHC 28.9(L) 30.8 - 35.9 gm/dL 09/02/2021 1:00 PM [facility] Platelet Count 532(H) 153 - 416 x10E9/L 09/02/2021 1:00 PM [facility] RDW-CV 15.7(H) 12.1 - 14.9 % 09/02/2021 1:00 PM [facility] MPV 8.1(L) 9.4 - 12.9 fl 09/02/2021 1:00 PM [facility] Neutrophils % 58.8 44.0 - 73.0 % 09/02/2021 1:00 PM [facility] Lymphocytes % 29.1 20.0 - 43.0 % 09/02/2021 1:00 PM [facility] Monocytes % 7.3 5.0 - 13.0 % 09/02/2021 1:00 PM [facility] Eosinophils % 3.2 0.0 - 6.0 % 09/02/2021 1:00 PM [facility] Basophils % 0.9 0.0 - 2.0 % 09/02/2021 1:00 PM [facility] Immature Granulocytes 0.7 0 - 1 % 09/02/2021 1:00 PM [facility] Neutrophil Absolute 5.09 2.01 - 7.14 x10E9/L 09/02/2021 1:00 PM [facility] Lymphocytes Absolute 2.52 1.07 - 3.94 x10E9/L 09/02/2021 1:00 PM [facility] Monocytes Absolute 0.63 0.26 - 1.07 x10E9/L 09/02/2021 1:00 PM [facility] Eosinophils Absolute 0.28 0 - 0.47 x10E9/L 09/02/2021 1:00 PM [facility] Basophils Absolute 0.08 0 - 0.08 x10E9/L 09/02/2021 1:00 PM [facility] Immature Granulocytes Absolute 0.06 0.00 - 0.06 x10E9/L 09/02/2021 1:00 PM [facility] nRBC Auto 0 /100 WBC 09/02/2021 1:00 PM [facility] Blood BLOOD SPECIMEN / Unknown Venipuncture / Unknown 09/02/2021 3:30 AM MUSIC SPECIALIST 09/02/2021 11:47 AM MUSIC SPECIALIST us Romain Booth MD LAB - HEMATOLOGY ORDERABL ES Final Result [facility] [address] [place] [address] * (ABNORMAL) COMPREHENSIVE METABOLIC PANEL (09/02/2021 3:30 AM MUSIC SPECIALIST) Glucose 89 70 - 105 mg/dL 09/02/2021 1:21 PM [facility] Sodium 136 136 - 145 mmol/L 09/02/2021 1:21 PM [facility] Potassium 3.9 3.5 - 5.1 mmol/L 09/02/2021 1:21 PM [facility] Chloride 95(L) 98 - 107 mmol/L 09/02/2021 1:21 PM [facility] CO2 30 23 - 31 mmol/L 09/02/2021 1:21 PM [facility] Calcium 8.1(L) 8.4 - 10.4 mg/dL 09/02/2021 1:21 PM [facility] Anion Gap 11 8 - 18 mmol/L 09/02/2021 1:21 PM [facility] BUN 13 9.8 - 20.1 mg/dL 09/02/2021 1:21 PM [facility] Creatinine 0.45(L) 0.57 - 1.11 mg/dL 09/02/2021 1:21 PM [facility] Alkaline Phosphatase 120 40 - 150 U/L 09/02/2021 1:21 PM [facility] ALT <6 0 - 61 U/L 09/02/2021 1:21 PM [facility] AST 11 5 - 34 U/L 09/02/2021 1:21 PM [facility] Protein Total 5.6(L) 6.4 - 8.3 gm/dL 09/02/2021 1:21 PM [facility] Albumin 2.6(L) 3.5 - 5.2 gm/dL 09/02/2021 1:21 PM [facility] Bilirubin Total 0.1(L) 0.2 - 1.2 mg/dL 09/02/2021 1:21 PM MUSIC SPECIALIST [facility] eGFR by MDRD >60 >60 mL/min/1.7 3m2 09/02/2021 1:21 PM MUSIC SPECIALIST [facility] eGFR by MDRD >60 >60 mL/min/1.7 3m2 09/02/2021 1:21 PM MUSIC SPECIALIST [facility] Blood BLOOD SPECIMEN / Unknown Venipuncture / Unknown 09/02/2021 3:30 AM MUSIC SPECIALIST 09/02/2021 11:47 AM MUSIC SPECIALIST us Romain Booth MD LAB - CHEMISTRY ORDERABLE S Final Result [facility] [address] [place] [address] documented in this encounter Visit Diagnoses Not on filedocumented in this encounter Additional Health Concerns Infection Onset Date Last Indicated Resolved Time MDRO 07/27/2021 07/27/2021 documented as of this encounter Care Teams Gamemaster Relationship Specialty Start Date End Date Arnie Brush MD [address] [address] PCP - General 05/21/21 documented as of this encounter
--- OUTSIDE RECORDS SUMMARY | 2025-04-28 14:15 | XMS_ITS | Encounter Summary ---
Author Organization [facility] Health Address [address] [place] [address] Care Team Providers Care Assembly Inspector Helper Name Role Phone rAnie Brush MD Primary Care Provider [phone] Encounter Details Date Type Department Care Team (Late st Contact Info) Description 08/19/2021 Lab Requisition [facility] [address] [place] [address] Romain Booth MD [facility] [place] [address] Social History Tobacco Use Types Packs/Day Years [...] W AUTO DIFFERENTIAL STAT 08/19/2021 4:00 AM GENERATOR SWITCHBOARD OPERATOR COMPREHENSIVE METABOLIC PANEL STAT 08/19/2021 4:00 AM GENERATOR SWITCHBOARD OPERATOR documented in this encounter Results * (ABNORMAL) CBC WITH DIFFERENTIAL (08/19/2021 4:00 AM GENERATOR SWITCHBOARD OPERATOR) [facility] WBC 7.3 4.4 - 10.7 x10E9/L 08/19/2021 10:58 AM GENERATOR SWITCHBOARD OPERATOR [facility] WBC Corrected 08/19/2021 10:58 AM GENERATOR SWITCHBOARD OPERATOR [facility] RBC 3.64(L) 3.80 - 5.20 x10E12/L 08/19/2021 10:58 AM GENERATOR SWITCHBOARD OPERATOR [facility] Hemoglobin 9.8(L) 12.0 - 15.6 gm/dL 08/19/2021 10:58 AM GENERATOR SWITCHBOARD OPERATOR [facility] Hematocrit 34.1(L) 35.9 - 45.5 % 08/19/2021 10:58 AM GENERATOR SWITCHBOARD OPERATOR [facility] MCV 93.7 80.7 - 98.3 fl 08/19/2021 10:58 AM GENERATOR SWITCHBOARD OPERATOR [facility] MCH 26.9 26.7 - 34.0 pg 08/19/2021 10:58 AM [facility] MCHC 28.7(L) 30.8 - 35.9 gm/dL 08/19/2021 10:58 AM [facility] Platelet Count 512(H) 153 - 416 x10E9/L 08/19/2021 10:58 AM [facility] RDW-CV 15.6(H) 12.1 - 14.9 % 08/19/2021 10:58 AM [facility] MPV 8.0(L) 9.4 - 12.9 fl 08/19/2021 10:58 AM [facility] Neutrophils % 71.2 44.0 - 73.0 % 08/19/2021 10:58 AM [facility] Lymphocytes % 19.5(L) 20.0 - 43.0 % 08/19/2021 10:58 AM [facility] Monocytes % 5.2 5.0 - 13.0 % 08/19/2021 10:58 AM [facility] Eosinophils % 3.0 0.0 - 6.0 % 08/19/2021 10:58 AM [facility] Basophils % 0.8 0.0 - 2.0 % 08/19/2021 10:58 AM [facility] Immature Granulocytes 0.3 0 - 1 % 08/19/2021 10:58 AM [facility] Neutrophil Absolute 5.17 2.01 - 7.14 x10E9/L 08/19/2021 10:58 AM [facility] Lymphocytes Absolute 1.42 1.07 - 3.94 x10E9/L 08/19/2021 10:58 AM [facility] Monocytes Absolute 0.38 0.26 - 1.07 x10E9/L 08/19/2021 10:58 AM [facility] Eosinophils Absolute 0.22 0 - 0.47 x10E9/L 08/19/2021 10:58 AM [facility] Basophils Absolute 0.06 0 - 0.08 x10E9/L 08/19/2021 10:58 AM [facility] Immature Granulocytes Absolute 0.02 0.00 - 0.06 x10E9/L 08/19/2021 10:58 AM [facility] nRBC Auto 0 /100 WBC 08/19/2021 10:58 AM [facility] Blood BLOOD SPECIMEN / Unknown Venipuncture / Unknown 08/19/2021 4:00 AM GENERATOR SWITCHBOARD OPERATOR 08/19/2021 10:32 AM [facility] us Romain Booth MD LAB - HEMATOLOGY ORDERABL ES Final Result [facility] [address] [place] [address] * (ABNORMAL) COMPREHENSIVE METABOLIC PANEL (08/19/2021 4:00 AM GENERATOR SWITCHBOARD OPERATOR) Glucose 80 70 - 105 mg/dL 08/19/2021 11:31 AM [facility] Sodium 133(L) 136 - 145 mmol/L 08/19/2021 11:31 AM [facility] Potassium 4.4 3.5 - 5.1 mmol/L 08/19/2021 11:31 AM [facility] Chloride 94(L) 98 - 107 mmol/L 08/19/2021 11:31 AM [facility] CO2 27 23 - 31 mmol/L 08/19/2021 11:31 AM [facility] Calcium 8.1(L) 8.4 - 10.4 mg/dL 08/19/2021 11:31 AM [facility] Anion Gap 12 8 - 18 mmol/L 08/19/2021 11:31 AM [facility] BUN 13 9.8 - 20.1 mg/dL 08/19/2021 11:31 AM [facility] Creatinine 0.45(L) 0.57 - 1.11 mg/dL 08/19/2021 11:31 AM [facility] Alkaline Phosphatase 142 40 - 150 U/L 08/19/2021 11:31 AM [facility] ALT <6 0 - 61 U/L 08/19/2021 11:31 AM [facility] AST 10 5 - 34 U/L 08/19/2021 11:31 AM [facility] Protein Total 5.6(L) 6.4 - 8.3 gm/dL 08/19/2021 11:31 AM [facility] Albumin 2.3(L) 3.5 - 5.2 gm/dL 08/19/2021 11:31 AM GENERATOR SWITCHBOARD OPERATOR [facility] Bilirubin Total 0.2 0.2 - 1.2 mg/dL 08/19/2021 11:31 AM GENERATOR SWITCHBOARD OPERATOR [facility] eGFR by MDRD >60 >60 mL/min/1.7 3m2 08/19/2021 11:31 AM GENERATOR SWITCHBOARD OPERATOR [facility] eGFR by MDRD >60 >60 mL/min/1.7 3m2 08/19/2021 11:31 AM GENERATOR SWITCHBOARD OPERATOR [facility] Blood BLOOD SPECIMEN / Unknown Venipuncture / Unknown 08/19/2021 4:00 AM GENERATOR SWITCHBOARD OPERATOR 08/19/2021 10:32 AM GENERATOR SWITCHBOARD OPERATOR us Romain Booth MD LAB - CHEMISTRY ORDERABLE S Final Result [facility] [address] [place] [address] documented in this encounter Visit Diagnoses Not on filedocumented in this encounter Additional Health Concerns Infection Onset Date Last Indicated Resolved Time MDRO 07/27/2021 07/27/2021 documented as of this encounter Care Teams Assembly Inspector Helper Relationship Specialty Start Date End Date Arnie Brush MD [address] [id number] PCP - General 05/21/21 documented as of this encounter
--- OUTSIDE RECORDS SUMMARY | 2025-04-28 14:15 | XMS_ITS | Clinical Summary ---
Author Organization [facility] Address [address], [place] [address] Phone Care Team Providers Care Merchant Banker Name Role Phone Arnie Brush MD Primary Care Provider Tony Keene MD Unavailable Allergies Active Allergy [...] age to complete this topic Insurance MEDICAID [facility] Care Teams Merchant Banker Relationship Specialty Start Date End Date Arnie Brush MD [address] [place] [address] PCP - General Infectious Disease 07/04/22 Tony Keene MD [address] [address] Consulting Physician Colon and Rectal Surgery 03/09/23
--- OUTSIDE RECORDS SUMMARY | 2025-04-28 14:15 | XMS_ITS | Encounter Summary ---
Author Organization [facility] Healthcare Address [address] [place] [address] Care Team Providers Care Supervisor Assembly Room Name Role Phone Arnie Brush MD Primary Care Provider [phone] Maria Victoria Felix PERSONNEL INTERVIEWER Unavailable [phone] Chyna Coleman PERSONNEL INTERVIEWER Unavailable [phone] Tony Keene MD Unavailable Encounter Details Date Type Department Care Team (Late st Contact Info) Description 04/28/2025 Telephone [facility] [address] [place] [id number] Arnie Brush MD [address] [facility] [address] [place] [address] Social History Tobacco Use Types [...] on file Legal Sex Female 3:25 AM HOME THEATER EXPERT Gender Identity Female 04/11/2022 4:56 PM CDT [...] and cloudy Pt instructed to go to [facility] for treatment Report given to erin in the er at [place] * Telephone Encounter - Lexie Scanlon - 04/28/2025 10:20 AM CDT Pt has been vomiting and having cold sweats and there has been nothing in her ostomy bag for 3 daysnow. Pt states her urine is very dark in color and smells horrible. Patient's stomach is swollen and hard and when she coughs her stomach is very painful. [facility]#[phone] patient documented in this encounter Plan of Treatment Not on file documented as of this encounter Visit Diagnoses Not on filedocumented in this encounter Care Teams Supervisor Assembly Room Relationship Specialty Start Date End Date Arnie Brush MD [address] [place] [address] [place] [id number] PCP - General Internal Medicine 05/07/21 Maria Victoria Felix NP [address] [place] [id number] Nurse Practitioner Nurse Practitioner 04/12/22 Chyna Coleman NP [address] [place] [id number] Nurse Practitioner General Surgery 01/24/23 Tony Keene MD 2 [facility] [id number] [id number] Consulting Physician Colon and Rectal Surgery 03/14/23 documented as of this encounter
--- OUTSIDE RECORDS SUMMARY | 2025-04-28 14:15 | XMS_ITS | Encounter Summary ---
Author Organization [facility] Address [address] [place] [address] Care Team Providers Care Insurance Claims Examiner Name Role Phone Arnie Brush MD Primary Care Provider [phone] Encounter Details Date Type Department Care Team (Late st Contact Info) Description 08/16/2021 Lab Requisition [facility] [address] [place] [address] Romain Booth MD [facility] [place] [address] Social History Tobacco Use Types Packs/Day Years [...] W AUTO DIFFERENTIAL STAT 08/16/2021 4:00 AM ELEMENTARY VOCAL MUSIC TEACHER COMPREHENSIVE METABOLIC PANEL STAT 08/16/2021 4:00 AM ELEMENTARY VOCAL MUSIC TEACHER documented in this encounter Results * (ABNORMAL) COMPREHENSIVE METABOLIC PANEL (08/16/2021 4:00 AM ELEMENTARY VOCAL MUSIC TEACHER) [facility] Glucose 86 70 - 105 mg/dL 08/16/2021 1:52 PM ELEMENTARY VOCAL MUSIC TEACHER [facility] Sodium 132(L) 136 - 145 mmol/L 08/16/2021 1:52 PM ELEMENTARY VOCAL MUSIC TEACHER [facility] Potassium 4.3 3.5 - 5.1 mmol/L 08/16/2021 1:52 PM ELEMENTARY VOCAL MUSIC TEACHER [facility] Chloride 95(L) 98 - 107 mmol/L 08/16/2021 1:52 PM ELEMENTARY VOCAL MUSIC TEACHER [facility] CO2 26 23 - 31 mmol/L 08/16/2021 1:52 PM ELEMENTARY VOCAL MUSIC TEACHER [facility] Calcium 7.8(L) 8.4 - 10.4 mg/dL 08/16/2021 1:52 PM ELEMENTARY VOCAL MUSIC TEACHER [facility] Anion Gap 11 8 - 18 mmol/L 08/16/2021 1:52 PM ELEMENTARY VOCAL MUSIC TEACHER [facility] BUN 15 9.8 - 20.1 mg/dL 08/16/2021 1:52 PM ELEMENTARY VOCAL MUSIC TEACHER [facility] Creatinine 0.42(L) 0.57 - 1.11 mg/dL 08/16/2021 1:52 PM ELEMENTARY VOCAL MUSIC TEACHER [facility] Alkaline Phosphatase 129 40 - 150 U/L 08/16/2021 1:52 PM ELEMENTARY VOCAL MUSIC TEACHER [facility] ALT <6 0 - 61 U/L 08/16/2021 1:52 PM ELEMENTARY VOCAL MUSIC TEACHER [facility] AST 8 5 - 34 U/L 08/16/2021 1:[address] [facility] Protein Total 5.2(L) 6.4 - 8.3 gm/dL 08/16/2021 1:52 PM ELEMENTARY VOCAL MUSIC TEACHER [facility] Albumin 2.2(L) 3.5 - 5.2 gm/dL 08/16/2021 1:[address] [facility] Bilirubin Total 0.1(L) 0.2 - 1.2 mg/dL 08/16/2021 1:[address] [facility] eGFR by MDRD >60 >60 mL/min/1.7 3m2 08/16/2021 1:[address] [facility] eGFR by MDRD >60 >60 mL/min/1.7 3m2 08/16/2021 1:[address] [facility] Blood BLOOD SPECIMEN / Unknown Venipuncture / Unknown 08/16/2021 4:00 AM ELEMENTARY VOCAL MUSIC TEACHER 08/16/2021 1:15 PM ELEMENTARY VOCAL MUSIC TEACHER us Romain Booth MD LAB - CHEMISTRY ORDERABLE S Final Result Performing Organization Address City/State/[facility] Co de Phone Number [facility] [address] [place], [place] [id number] * (ABNORMAL) CBC WITH DIFFERENTIAL (08/16/2021 4:00 AM ELEMENTARY VOCAL MUSIC TEACHER) [facility] Signature WBC 8.4 4.4 - 10.7 x10E9/L 08/16/2021 1:[address] [facility] WBC Corrected 08/16/2021 1:28 PM ELEMENTARY VOCAL MUSIC TEACHER [facility] RBC 3.26(L) 3.80 - 5.20 x10E12/L 08/16/2021 1:[address] [facility] Hemoglobin 8.8(L) 12.0 - 15.6 gm/dL 08/16/2021 1:[address] [facility] Hematocrit 30.4(L) 35.9 - 45.5 % 08/16/2021 1:[address] [facility] MCV 93.3 80.7 - 98.3 fl 08/16/2021 1:[address] [facility] MCH 27.0 26.7 - 34.0 pg 08/16/2021 1:[address] [facility] MCHC 28.9(L) 30.8 - 35.9 gm/dL 08/16/2021 1:[address] [facility] Platelet Count 469(H) 153 - 416 x10E9/L 08/16/2021 1:[address] [facility] RDW-CV 15.7(H) 12.1 - 14.9 % 08/16/2021 1:[address] [facility] MPV 8.2(L) 9.4 - 12.9 fl 08/16/2021 1:[address] [facility] Neutrophils % 67.0 44.0 - 73.0 % 08/16/2021 1:[address] [facility] Lymphocytes % 21.9 20.0 - 43.0 % 08/16/2021 1:[address] [facility] Monocytes % 6.8 5.0 - 13.0 % 08/16/2021 1:[address] [facility] Eosinophils % 3.2 0.0 - 6.0 % 08/16/2021 1:[address] [facility] Basophils % 0.6 0.0 - 2.0 % 08/16/2021 1:[address] [facility] Immature Granulocytes 0.5 0 - 1 % 08/16/2021 1:[address] [facility] Neutrophil Absolute 5.63 2.01 - 7.14 x10E9/L 08/16/2021 1:[address] [facility] Lymphocytes Absolute 1.84 1.07 - 3.94 x10E9/L 08/16/2021 1:[address] [facility] Monocytes Absolute 0.57 0.26 - 1.07 x10E9/L 08/16/2021 1:[address] [facility] Eosinophils Absolute 0.27 0 - 0.47 x10E9/L 08/16/2021 1:28 PM ELEMENTARY VOCAL MUSIC TEACHER [facility] Basophils Absolute 0.05 0 - 0.08 x10E9/L 08/16/2021 1:28 PM ELEMENTARY VOCAL MUSIC TEACHER [facility] Immature Granulocytes Absolute 0.04 0.00 - 0.06 x10E9/L 08/16/2021 1:28 PM ELEMENTARY VOCAL MUSIC TEACHER [facility] nRBC Auto 0 /100 WBC 08/16/2021 1:28 PM ELEMENTARY VOCAL MUSIC TEACHER [facility] Blood BLOOD SPECIMEN / Unknown Venipuncture / Unknown 08/16/2021 4:00 AM ELEMENTARY VOCAL MUSIC TEACHER 08/16/2021 1:15 PM ELEMENTARY VOCAL MUSIC TEACHER us Romain Booth MD LAB - HEMATOLOGY ORDERABL ES Final Result [facility] [address] [place] [address] documented in this encounter Visit Diagnoses Not on filedocumented in this encounter Additional Health Concerns Infection Onset Date Last Indicated Resolved Time MDRO 07/27/2021 07/27/2021 documented as of this encounter Care Teams Insurance Claims Examiner Relationship Specialty Start Date End Date Arnie Brush MD [address] [phone] PCP - General 05/21/21 documented as of this encounter
--- OUTSIDE RECORDS SUMMARY | 2025-04-28 14:15 | XMS_ITS | Encounter Summary ---
Author Organization [facility] Address [address] [place] [address] Phone Care Team Providers Care Aircraft Captain Name Role Phone Ana Cruz MD Primary Care Provider [phone] Arnie Brush MD Primary Care Provider [phone] Maria Victoria Felix BAG MAKER Unavailable [phone] Chyna Coleman NP Unavailable [phone] Panda Schafer MD Unavailable Tony Keene MD Unavailable Encounter Details Date Type Department Care Team (Late st Contact Info) Description 03/18/2021 Telephone [facility] Advanced Medicine 8th [place] [address] [place] [address] Rimma Vargas RMA Social History Tobacco Use Types Packs/Day Years Used Date Smoking Tobacco: Every Day Smokeless Tobacco: Never Comments No Sex and Gender Information Value Date Recorded Sex Assigned at Not on file Legal Sex Female 3:25 AM LAMP SHADE MAKER Gender Identity Female 04/11/2022 4:56 PM CDT [...] documented as of this encounter Care Teams Aircraft Captain Relationship Specialty Start Date End Date Ana Cruz MD [address] [place] [address] PCP - General Internal Medicine 08/12/20 05/06/21 Arnie Brush MD [address] [place] [id number] PCP - General Internal Medicine 05/07/21 Maria Victoria Felix NP [address] [place] [id number] Nurse Practitioner Nurse Practitioner 04/12/22 Chyna Coleman NP [address] [place] [address] Nurse Practitioner General Surgery 01/24/23 Panda Schafer MD [address] [place] [phone] Consulting Physician General Surgery 02/02/23 04/26/23 Tony Keene MD [address] [facility] [address] [address] Consulting Physician Colon and Rectal Surgery 03/14/23 documented as of this encounter
--- OUTSIDE RECORDS SUMMARY | 2025-04-28 14:15 | XMS_ITS | Encounter Summary ---
Author Organization [facility] Address [address] [place] [address] Care Team Providers Care Iphone Developer Name Role Phone Arnie Brush MD Primary Care Provider [phone] Encounter Details Date Type Department Care Team (Late st Contact Info) Description 08/30/2021 Lab Requisition [facility] [address] [place] [address] Romain Booth MD [facility] [place] [address] Social History Tobacco Use Types Packs/Day Years [...] of Assessment Author No 06/06/2021 2:17 PM CDiVcenta Diaz RN * Is person blind or [...] W AUTO DIFFERENTIAL STAT 08/30/2021 4:12 AM SPECIAL AGENT SECRET SERVICE COMPREHENSIVE METABOLIC PANEL STAT 08/30/2021 4:12 AM SPECIAL AGENT SECRET SERVICE documented in this encounter Results * (ABNORMAL) CBC WITH DIFFERENTIAL (08/30/2021 4:12 AM SPECIAL AGENT SECRET SERVICE) [facility] WBC 8.9 4.4 - 10.7 x10E9/L 08/30/2021 11:41 AM SPECIAL AGENT SECRET SERVICE [facility] WBC Corrected 08/30/2021 11:41 AM SPECIAL AGENT SECRET SERVICE [facility] RBC 3.86 3.80 - 5.20 x10E12/L 08/30/2021 11:41 AM SPECIAL AGENT SECRET SERVICE [facility] Hemoglobin 10.0(L) 12.0 - 15.6 gm/dL 08/30/2021 11:41 AM SPECIAL AGENT SECRET SERVICE [facility] Hematocrit 34.9(L) 35.9 - 45.5 % 08/30/2021 11:41 AM SPECIAL AGENT SECRET SERVICE [facility] MCV 90.4 80.7 - 98.3 fl 08/30/2021 11:41 AM SPECIAL AGENT SECRET SERVICE [facility] MCH 25.9(L) 26.7 - 34.0 pg 08/30/2021 11:41 AM [facility] MCHC 28.7(L) 30.8 - 35.9 gm/dL 08/30/2021 11:41 AM [facility] Platelet Count 488(H) 153 - 416 x10E9/L 08/30/2021 11:41 AM [facility] RDW-CV 15.9(H) 12.1 - 14.9 % 08/30/2021 11:41 AM [facility] MPV 8.0(L) 9.4 - 12.9 fl 08/30/2021 11:41 AM [facility] Neutrophils % 61.2 44.0 - 73.0 % 08/30/2021 11:41 AM [facility] Lymphocytes % 26.4 20.0 - 43.0 % 08/30/2021 11:41 AM [facility] Monocytes % 8.3 5.0 - 13.0 % 08/30/2021 11:41 AM [facility] Eosinophils % 2.7 0.0 - 6.0 % 08/30/2021 11:41 AM [facility] Basophils % 0.8 0.0 - 2.0 % 08/30/2021 11:41 AM [facility] Immature Granulocytes 0.6 0 - 1 % 08/30/2021 11:41 AM [facility] Neutrophil Absolute 5.45 2.01 - 7.14 x10E9/L 08/30/2021 11:41 AM [facility] Lymphocytes Absolute 2.35 1.07 - 3.94 x10E9/L 08/30/2021 11:41 AM [facility] Monocytes Absolute 0.74 0.26 - 1.07 x10E9/L 08/30/2021 11:41 AM [facility] Eosinophils Absolute 0.24 0 - 0.47 x10E9/L 08/30/2021 11:41 AM [facility] Basophils Absolute 0.07 0 - 0.08 x10E9/L 08/30/2021 11:41 AM [facility] Immature Granulocytes Absolute 0.05 0.00 - 0.06 x10E9/L 08/30/2021 11:41 AM [facility] nRBC Auto 0 /100 WBC 08/30/2021 11:41 AM [facility] Blood BLOOD SPECIMEN / Unknown Venipuncture / Unknown 08/30/2021 4:12 AM SPECIAL AGENT SECRET SERVICE 08/30/2021 9:18 AM [facility] us Romain Booth MD LAB - HEMATOLOGY ORDERABL ES Final Result [facility] [address] [place] [address] * (ABNORMAL) COMPREHENSIVE METABOLIC PANEL (08/30/2021 4:12 AM SPECIAL AGENT SECRET SERVICE) [facility] Glucose 74 70 - 105 mg/dL 08/30/2021 11:07 AM [facility] Sodium 134(L) 136 - 145 mmol/L 08/30/2021 11:07 AM [facility] Potassium 4.7 3.5 - 5.1 mmol/L 08/30/2021 11:07 AM [facility] Chloride 93(L) 98 - 107 mmol/L 08/30/2021 11:07 AM [facility] CO2 25 23 - 31 mmol/L 08/30/2021 11:07 AM [facility] Calcium 8.1(L) 8.4 - 10.4 mg/dL 08/30/2021 11:07 AM [facility] Anion Gap 16 8 - 18 mmol/L 08/30/2021 11:07 AM [facility] BUN 12 9.8 - 20.1 mg/dL 08/30/2021 11:07 AM [facility] Creatinine 0.42(L) 0.57 - 1.11 mg/dL 08/30/2021 11:07 AM [facility] Alkaline Phosphatase 129 40 - 150 U/L 08/30/2021 11:07 AM [facility] ALT <6 0 - 61 U/L 08/30/2021 11:07 AM [facility] AST 17 5 - 34 U/L 08/30/2021 11:07 AM [facility] Protein Total 6.0(L) 6.4 - 8.3 gm/dL 08/30/2021 11:07 AM [facility] Albumin 2.5(L) 3.5 - 5.2 gm/dL 08/30/2021 11:07 AM SPECIAL AGENT SECRET SERVICE [facility] Bilirubin Total 0.2 0.2 - 1.2 mg/dL 08/30/2021 11:07 AM SPECIAL AGENT SECRET SERVICE [facility] eGFR by MDRD >60 >60 mL/min/1.7 3m2 08/30/2021 11:07 AM SPECIAL AGENT SECRET SERVICE [facility] eGFR by MDRD >60 >60 mL/min/1.7 3m2 08/30/2021 11:07 AM SPECIAL AGENT SECRET SERVICE [facility] Blood BLOOD SPECIMEN / Unknown Venipuncture / Unknown 08/30/2021 4:12 AM SPECIAL AGENT SECRET SERVICE 08/30/2021 9:18 AM SPECIAL AGENT SECRET SERVICE us Romain Booth MD LAB - CHEMISTRY ORDERABLE S Final Result [facility] [address] [place] [address] documented in this encounter Visit Diagnoses Not on filedocumented in this encounter Additional Health Concerns Infection Onset Date Last Indicated Resolved Time MDRO 07/27/2021 07/27/2021 documented as of this encounter Care Teams Iphone Developer Relationship Specialty Start Date End Date Arnie Brush MD [address] [place] [phone] PCP - General 05/21/21 documented as of this encounter
--- OUTSIDE RECORDS SUMMARY | 2025-04-28 14:15 | XMS_ITS | Encounter Summary ---
Author Organization [facility] Address [address] [place] [address] Care Team Providers Care World Designer Name Role Phone Arnie Brush MD Primary Care Provider [phone] Encounter Details Date Type Department Care Team (Late st Contact Info) Description 08/23/2021 Lab Requisition [facility] [address] [place] [address] Romain Booth MD [facility] [place] [address] Social History Tobacco Use Types Packs/Day Years [...] W AUTO DIFFERENTIAL STAT 08/23/2021 4:30 AM LITHOGRAPHIC STRIPPER COMPREHENSIVE METABOLIC PANEL STAT 08/23/2021 4:30 AM LITHOGRAPHIC STRIPPER documented in this encounter Results * (ABNORMAL) COMPREHENSIVE METABOLIC PANEL (08/23/2021 4:30 AM LITHOGRAPHIC STRIPPER) [facility] Glucose 79 70 - 105 mg/dL 08/23/2021 11:34 AM LITHOGRAPHIC STRIPPER [facility] Sodium 130(L) 136 - 145 mmol/L 08/23/2021 11:34 AM LITHOGRAPHIC STRIPPER [facility] Potassium 4.0 3.5 - 5.1 mmol/L 08/23/2021 11:34 AM LITHOGRAPHIC STRIPPER [facility] Chloride 92(L) 98 - 107 mmol/L 08/23/2021 11:34 AM LITHOGRAPHIC STRIPPER [facility] CO2 26 23 - 31 mmol/L 08/23/2021 11:34 AM LITHOGRAPHIC STRIPPER [facility] Calcium 8.0(L) 8.4 - 10.4 mg/dL 08/23/2021 11:34 AM LITHOGRAPHIC STRIPPER [facility] Anion Gap 12 8 - 18 mmol/L 08/23/2021 11:34 AM LITHOGRAPHIC STRIPPER [facility] BUN 10 9.8 - 20.1 mg/dL 08/23/2021 11:34 AM [facility] Creatinine 0.40(L) 0.57 - 1.11 mg/dL 08/23/2021 11:34 AM [facility] Alkaline Phosphatase 136 40 - 150 U/L 08/23/2021 11:34 AM [facility] ALT <6 0 - 61 U/L 08/23/2021 11:34 AM [facility] AST 8 5 - 34 U/L 08/23/2021 11:34 AM [facility] Protein Total 5.5(L) 6.4 - 8.3 gm/dL 08/23/2021 11:34 AM [facility] Albumin 2.3(L) 3.5 - 5.2 gm/dL 08/23/2021 11:34 AM [facility] Bilirubin Total 0.1(L) 0.2 - 1.2 mg/dL 08/23/2021 11:34 AM [facility] eGFR by MDRD >60 >60 mL/min/1.7 3m2 08/23/2021 11:34 AM [facility] eGFR by MDRD >60 >60 mL/min/1.7 3m2 08/23/2021 11:34 AM [facility] Blood BLOOD SPECIMEN / Unknown Venipuncture / Unknown 08/23/2021 4:30 AM LITHOGRAPHIC STRIPPER 08/23/2021 10:08 AM [facility] us Romain Booth MD LAB - CHEMISTRY ORDERABLE S Final Result Performing Organization Address City/State/[facility] Co de Phone Number [facility] [address] [place], [place] [id number] * (ABNORMAL) CBC WITH DIFFERENTIAL (08/23/2021 4:30 AM LITHOGRAPHIC STRIPPER) [facility] WBC 8.0 4.4 - 10.7 x10E9/L 08/23/2021 11:06 AM [facility] WBC Corrected 08/23/2021 11:06 AM [facility] RBC 3.37(L) 3.80 - 5.20 x10E12/L 08/23/2021 11:06 AM [facility] Hemoglobin 8.9(L) 12.0 - 15.6 gm/dL 08/23/2021 11:06 AM [facility] Hematocrit 30.2(L) 35.9 - 45.5 % 08/23/2021 11:06 AM [facility] MCV 89.6 80.7 - 98.3 fl 08/23/2021 11:06 AM [facility] MCH 26.4(L) 26.7 - 34.0 pg 08/23/2021 11:06 AM [facility] MCHC 29.5(L) 30.8 - 35.9 gm/dL 08/23/2021 11:06 AM [facility] Platelet Count 421(H) 153 - 416 x10E9/L 08/23/2021 11:06 AM [facility] RDW-CV 15.4(H) 12.1 - 14.9 % 08/23/2021 11:06 AM [facility] MPV 8.5(L) 9.4 - 12.9 fl 08/23/2021 11:06 AM [facility] Neutrophils % 63.5 44.0 - 73.0 % 08/23/2021 11:06 AM [facility] Lymphocytes % 22.7 20.0 - 43.0 % 08/23/2021 11:06 AM [facility] Monocytes % 8.6 5.0 - 13.0 % 08/23/2021 11:06 AM [facility] Eosinophils % 3.9 0.0 - 6.0 % 08/23/2021 11:06 AM [facility] Basophils % 0.7 0.0 - 2.0 % 08/23/2021 11:06 AM [facility] Immature Granulocytes 0.6 0 - 1 % 08/23/2021 11:06 AM [facility] Neutrophil Absolute 5.08 2.01 - 7.14 x10E9/L 08/23/2021 11:06 AM [facility] Lymphocytes Absolute 1.82 1.07 - 3.94 x10E9/L 08/23/2021 11:06 AM [facility] Monocytes Absolute 0.69 0.26 - 1.07 x10E9/L 08/23/2021 11:06 AM [facility] Eosinophils Absolute 0.31 0 - 0.47 x10E9/L 08/23/2021 11:06 AM LITHOGRAPHIC STRIPPER [facility] Basophils Absolute 0.06 0 - 0.08 x10E9/L 08/23/2021 11:06 AM LITHOGRAPHIC STRIPPER [facility] Immature Granulocytes Absolute 0.05 0.00 - 0.06 x10E9/L 08/23/2021 11:06 AM LITHOGRAPHIC STRIPPER [facility] nRBC Auto 0 /100 WBC 08/23/2021 11:06 AM LITHOGRAPHIC STRIPPER [facility] Blood BLOOD SPECIMEN / Unknown Venipuncture / Unknown 08/23/2021 4:30 AM LITHOGRAPHIC STRIPPER 08/23/2021 10:08 AM LITHOGRAPHIC STRIPPER us Romain Booth MD LAB - HEMATOLOGY ORDERABL ES Final Result Performing Organization Address City/State/[facility] Co de Phone Number [facility] [address] [place] [address] documented in this encounter Visit Diagnoses Not on filedocumented in this encounter Additional Health Concerns Infection Onset Date Last Indicated Resolved Time MDRO 07/27/2021 07/27/2021 documented as of this encounter Care Teams World Designer Relationship Specialty Start Date End Date Arnie Brush MD [address] [place] [phone] PCP - General 05/21/21 documented as of this encounter
--- OUTSIDE RECORDS SUMMARY | 2025-04-28 14:15 | XMS_ITS | Clinical Summary ---
Author Organization [facility] Address [address] [place] [address] Care Team Providers Care Grain Merchandising Manager Name Role Phone Arnie Brush MD Primary Care Provider [phone] Source Comments [facility],non-owned Affiliates and Associated Physician Practices is amultiple site organization consisting of ambulatory clinics and hospital sitesin [place], [place], [place] and [place]. This disclosure is being madepursuant to the Care Everywhere program and may not contain all information available regarding this patient. Last updated 18.[facility] [employer] Allergies Active Allergy Reactions Criticality Noted Date [...] this topic Medical Devices Implanted Type Area Injection Wax Molder Device Identifier Shelf Expiration Date Model / Serial / Lot Patch Repair Yudith-Gurd 8.0cm X 14cm Implanted:Qty: 1 on 06/07/2021 by Panda De La Cruz MD at [facility] N/A: Aorta [employer] 01/05/2026 [id number] / / [id number] Graft Cv 8mm [facility] [facility] Polystr 2 Vlr Implanted:Qty: 1 on 06/07/2021 by Panda De La Cruz MD at [facility] Left: Yana Mccrary 01/01/2026 [id number] E Procedures Procedure Name Priority Date/Time Associated Diagnosis Comments COMPREHENSIVE METABOLIC PANEL STAT 09/06/2021 3:25 AM BASKET FILLER HEPATITIS C AB SCREEN RFLX NAAT QUANT STAT 06/29/2021 3:10 AM CDT Acute postoperative pulmonary insufficiency HIV-1 HIV-2 ANTIBODY + HIV P24 AG PANEL STAT 06/29/2021 3:10 AM CDT Acute postoperative pulmonary insufficiency from Last 3 Months or Most Recently Relevant to Health Maintenance Results * (ABNORMAL) COMPREHENSIVE METABOLIC PANEL (09/06/2021 3:25 AM BASKET FILLER) Glucose 95 70 - 105 mg/dL 09/06/2021 11:01 AM [facility] Sodium 134(L) 136 - 145 mmol/L 09/06/2021 11:01 AM [facility] Potassium 3.4(L) 3.5 - 5.1 mmol/L 09/06/2021 11:01 AM [facility] Chloride 91(L) 98 - 107 mmol/L 09/06/2021 11:01 AM [facility] CO2 30 23 - 31 mmol/L 09/06/2021 11:01 AM [facility] Calcium 8.5 8.4 - 10.4 mg/dL 09/06/2021 11:01 AM [facility] Anion Gap 13 8 - 18 mmol/L 09/06/2021 11:01 AM [facility] BUN 15 9.8 - 20.1 mg/dL 09/06/2021 11:01 AM [facility] Creatinine 0.44(L) 0.57 - 1.11 mg/dL 09/06/2021 11:01 AM [facility] Alkaline Phosphatase 115 40 - 150 U/L 09/06/2021 11:01 AM [facility] ALT 6 0 - 61 U/L 09/06/2021 11:01 AM [facility] AST 10 5 - 34 U/L 09/06/2021 11:01 AM [facility] Protein Total 6.3(L) 6.4 - 8.3 gm/dL 09/06/2021 11:01 AM [facility] Albumin 3.0(L) 3.5 - 5.2 gm/dL 09/06/2021 11:01 AM [facility] Bilirubin Total 0.2 0.2 - 1.2 mg/dL 09/06/2021 11:01 AM [facility] eGFR by MDRD >60 >60 mL/min/1.7 3m2 09/06/2021 11:01 AM [facility] eGFR by MDRD >60 >60 mL/min/1.7 3m2 09/06/2021 11:01 AM [facility] Blood BLOOD SPECIMEN / Unknown Venipuncture / Unknown 09/06/2021 3:25 AM BASKET FILLER 09/06/2021 10:38 AM BASKET FILLER us Keagan Montgomery MD LAB - CHEMISTRY ORDERABLES Fi nal Result Performing Organization Address City/[facility] [place] [address] * HEPATITIS C AB SCREEN RFLX NAAT QUANT (06/29/2021 3:10 AM CDT) [facility] Hepatitis C Antibody Non-react helen Non-reac tive 06/29/2021 4:44 AM CDT [facility] Comment:Hepatitis C Antibody screen indicates no serologic [...] ORDERABLES Fi nal Result Performing Organization Address City/[facility]/ZIP Co de Phone Number [facility] [address] [place] [phone], [place] [phone] * HIV-1 HIV-2 ANTIBODY + HIV P24 AG PANEL (06/29/2021 3:10 AM CDT) HIV Antigen/Antibod y 1 & 2 Non-reacti ve Non-react helen 06/29/2021 4:44 AM CDT [facility] Comment:Neither HIV-1 p24 An tigen nor HIV-1/HIV-2 Antibodies are detected. Blood BLOOD SPECIMEN / Unknown Venipuncture / Unknown 06/29/2021 3:10 AM CDT 06/29/2021 3:14 AM CDT Panda De La Cruz MD LAB - CHEMISTRY ORDERABLES Fi nal Result [facility] [address] [place] [address], [place] [phone] from Last 3 Months or Most Recently Relevant to Health Maintenance Additional Health Concerns Infection Onset Date Last Indicated MDRO 07/27/2021 07/27/2021 Insurance [facility] Advance Directives * Full Code (Latest Code Status on File) Date Activated Date Inactivated Comments 06/06/2021 1:26 PM 07/13/2021 8:32 PM Care Teams Grain Merchandising Manager Relationship Specialty Start Date End Date Arnie Brush MD [address]ON [address] [place] [phone] PCP - General 05/21/21
--- OUTSIDE RECORDS SUMMARY | 2025-04-28 14:15 | XMS_ITS | Encounter Summary ---
Author Organization [facility] Address [address] [place] [address] Care Team Providers Care Network Security Officer Name Role Phone Arnie Brush MD Primary Care Provider [phone] Encounter Details Date Type Department Care Team (Late st Contact Info) Description 08/05/2021 Lab Requisition [facility] [address] [place] [address] Romain Booth MD [facility] [place] [address] Social History Tobacco Use Types Packs/Day Years [...] W AUTO DIFFERENTIAL STAT 08/05/2021 5:56 AM PROPERTY MAN COMPREHENSIVE METABOLIC PANEL STAT 08/05/2021 5:56 AM PROPERTY MAN documented in this encounter Results * (ABNORMAL) CBC WITH DIFFERENTIAL (08/05/2021 5:56 AM PROPERTY MAN) [facility] WBC 9.1 4.4 - 10.7 x10E9/L 08/05/2021 11:53 AM PROPERTY MAN [facility] WBC Corrected 08/05/2021 11:53 AM PROPERTY MAN [facility] RBC 3.28(L) 3.80 - 5.20 x10E12/L 08/05/2021 11:53 AM PROPERTY MAN [facility] Hemoglobin 9.0(L) 12.0 - 15.6 gm/dL 08/05/2021 11:53 AM PROPERTY MAN [facility] Hematocrit 30.7(L) 35.9 - 45.5 % 08/05/2021 11:53 AM PROPERTY MAN [facility] MCV 93.6 80.7 - 98.3 fl 08/05/2021 11:53 AM PROPERTY MAN [facility] MCH 27.4 26.7 - 34.0 pg 08/05/2021 11:53 AM [facility] MCHC 29.3(L) 30.8 - 35.9 gm/dL 08/05/2021 11:53 AM [facility] Platelet Count 579(H) 153 - 416 x10E9/L 08/05/2021 11:53 AM [facility] RDW-CV 16.0(H) 12.1 - 14.9 % 08/05/2021 11:53 AM [facility] MPV 8.8(L) 9.4 - 12.9 fl 08/05/2021 11:53 AM [facility] Neutrophils % 62.8 44.0 - 73.0 % 08/05/2021 11:53 AM [facility] Lymphocytes % 24.7 20.0 - 43.0 % 08/05/2021 11:53 AM [facility] Monocytes % 8.2 5.0 - 13.0 % 08/05/2021 11:53 AM [facility] Eosinophils % 2.8 0.0 - 6.0 % 08/05/2021 11:53 AM [facility] Basophils % 1.1 0.0 - 2.0 % 08/05/2021 11:53 AM [facility] Immature Granulocytes 0.4 0 - 1 % 08/05/2021 11:53 AM [facility] Neutrophil Absolute 5.73 2.01 - 7.14 x10E9/L 08/05/2021 11:53 AM [facility] Lymphocytes Absolute 2.26 1.07 - 3.94 x10E9/L 08/05/2021 11:53 AM [facility] Monocytes Absolute 0.75 0.26 - 1.07 x10E9/L 08/05/2021 11:53 AM [facility] Eosinophils Absolute 0.26 0 - 0.47 x10E9/L 08/05/2021 11:53 AM [facility] Basophils Absolute 0.10(H) 0 - 0.08 x10E9/L 08/05/2021 11:53 AM [facility] Immature Granulocytes Absolute 0.04 0.00 - 0.06 x10E9/L 08/05/2021 11:53 AM [facility] nRBC Auto 0 /100 WBC 08/05/2021 11:53 AM [facility] Blood BLOOD SPECIMEN / Unknown Venipuncture / Unknown 08/05/2021 5:56 AM PROPERTY MAN 08/05/2021 11:25 AM PROPERTY MAN us Romain Booth MD LAB - HEMATOLOGY ORDERABL ES Final Result [facility] [address] [place] [address] * (ABNORMAL) COMPREHENSIVE METABOLIC PANEL (08/05/2021 5:56 AM PROPERTY MAN) Glucose 84 70 - 105 mg/dL 08/05/2021 12:39 PM [facility] Sodium 133(L) 136 - 145 mmol/L 08/05/2021 12:39 PM [facility] Potassium 4.6 3.5 - 5.1 mmol/L 08/05/2021 12:39 PM [facility] Chloride 94(L) 98 - 107 mmol/L 08/05/2021 12:39 PM [facility] CO2 26 23 - 31 mmol/L 08/05/2021 12:39 PM [facility] Calcium 8.4 8.4 - 10.4 mg/dL 08/05/2021 12:39 PM [facility] Anion Gap 13 8 - 18 mmol/L 08/05/2021 12:39 PM [facility] BUN 17 9.8 - 20.1 mg/dL 08/05/2021 12:39 PM [facility] Creatinine 0.49(L) 0.57 - 1.11 mg/dL 08/05/2021 12:39 PM [facility] Alkaline Phosphatase 111 40 - 150 U/L 08/05/2021 12:39 PM [facility] ALT <6 0 - 61 U/L 08/05/2021 12:39 PM [facility] AST 7 5 - 34 U/L 08/05/2021 12:39 PM [facility] Protein Total 6.2(L) 6.4 - 8.3 gm/dL 08/05/2021 12:39 PM [facility] Albumin 2.8(L) 3.5 - 5.2 gm/dL 08/05/2021 12:39 PM PROPERTY MAN [facility] Bilirubin Total 0.2 0.2 - 1.2 mg/dL 08/05/2021 12:39 PM PROPERTY MAN [facility] eGFR by MDRD >60 >60 mL/min/1.7 3m2 08/05/2021 12:39 PM PROPERTY MAN [facility] eGFR by MDRD >60 >60 mL/min/1.7 3m2 08/05/2021 12:39 PM PROPERTY MAN [facility] Blood BLOOD SPECIMEN / Unknown Venipuncture / Unknown 08/05/2021 5:56 AM PROPERTY MAN 08/05/2021 11:25 AM PROPERTY MAN us Romain Booth MD LAB - CHEMISTRY ORDERABLE S Final Result [facility] [address] [place] [address] documented in this encounter Visit Diagnoses Not on filedocumented in this encounter Additional Health Concerns Infection Onset Date Last Indicated Resolved Time MDRO 07/27/2021 07/27/2021 documented as of this encounter Care Teams Network Security Officer Relationship Specialty Start Date End Date Arnie Brush MD [address] [place] [phone] PCP - General 05/21/21 documented as of this encounter
--- OUTSIDE RECORDS SUMMARY | 2025-04-28 14:15 | XMS_ITS | Encounter Summary ---
Author Organization [facility] Address [address] [place] [address] Care Team Providers Care Supervisor Drapery Hanging Name Role Phone Arnie Brush MD Primary Care Provider [phone] Encounter Details Date Type Department Care Team (Late st Contact Info) Description 08/12/2021 Lab Requisition [facility] [address] [place] [address] Romain Booth MD [facility] [place] [address] Social History Tobacco Use Types Packs/Day Years [...] W AUTO DIFFERENTIAL STAT 08/12/2021 3:00 AM SHADING PAINTER COMPREHENSIVE METABOLIC PANEL STAT 08/12/2021 3:00 AM SHADING PAINTER documented in this encounter Results * (ABNORMAL) CBC WITH DIFFERENTIAL (08/12/2021 3:00 AM SHADING PAINTER) [facility] WBC 7.8 4.4 - 10.7 x10E9/L 08/12/2021 11:49 AM SHADING PAINTER [facility] WBC Corrected 08/12/2021 11:49 AM SHADING PAINTER [facility] RBC 2.98(L) 3.80 - 5.20 x10E12/L 08/12/2021 11:49 AM SHADING PAINTER [facility] Hemoglobin 8.1(L) 12.0 - 15.6 gm/dL 08/12/2021 11:49 AM SHADING PAINTER [facility] Hematocrit 27.8(L) 35.9 - 45.5 % 08/12/2021 11:49 AM SHADING PAINTER [facility] MCV 93.3 80.7 - 98.3 fl 08/12/2021 11:49 AM SHADING PAINTER [facility] MCH 27.2 26.7 - 34.0 pg 08/12/2021 11:[address] [facility] MCHC 29.1(L) 30.8 - 35.9 gm/dL 08/12/2021 11:[address] [facility] Platelet Count 497(H) 153 - 416 x10E9/L 08/12/2021 11:[address] [facility] RDW-CV 15.7(H) 12.1 - 14.9 % 08/12/2021 11:[address] [facility] MPV 8.5(L) 9.4 - 12.9 fl 08/12/2021 11:[address] [facility] Neutrophils % 53.6 44.0 - 73.0 % 08/12/2021 11:[address] [facility] Lymphocytes % 31.1 20.0 - 43.0 % 08/12/2021 11:[address] [facility] Monocytes % 8.4 5.0 - 13.0 % 08/12/2021 11:[address] [facility] Eosinophils % 5.4 0.0 - 6.0 % 08/12/2021 11:[address] [facility] Basophils % 1.0 0.0 - 2.0 % 08/12/2021 11:[address] [facility] Immature Granulocytes 0.5 0 - 1 % 08/12/2021 11:[address] [facility] Neutrophil Absolute 4.19 2.01 - 7.14 x10E9/L 08/12/2021 11:[address] [facility] Lymphocytes Absolute 2.43 1.07 - 3.94 x10E9/L 08/12/2021 11:[address] [facility] Monocytes Absolute 0.66 0.26 - 1.07 x10E9/L 08/12/2021 11:[address] [facility] Eosinophils Absolute 0.42 0 - 0.47 x10E9/L 08/12/2021 11:[address] [facility] Basophils Absolute 0.08 0 - 0.08 x10E9/L 08/12/2021 11:[address] [facility] Immature Granulocytes Absolute 0.04 0.00 - 0.06 x10E9/L 08/12/2021 11:[address] [facility] nRBC Auto 0 /100 WBC 08/12/2021 11:[address] [facility] Blood BLOOD SPECIMEN / Unknown Venipuncture / Unknown 08/12/2021 3:00 AM SHADING PAINTER 08/12/2021 11:33 AM SHADING PAINTER us Romain Booth MD LAB - HEMATOLOGY ORDERABL ES Final Result [facility] [address] [place] [address] * (ABNORMAL) COMPREHENSIVE METABOLIC PANEL (08/12/2021 3:00 AM SHADING PAINTER) Pathologist [facility] [place] Glucose 74 70 - 105 mg/dL 08/12/2021 12:[address] [facility] Sodium 133(L) 136 - 145 mmol/L 08/12/2021 12:[address] [facility] Potassium 4.6 3.5 - 5.1 mmol/L 08/12/2021 12:[address] [facility] Chloride 97(L) 98 - 107 mmol/L 08/12/2021 12:[address] [facility] CO2 24 23 - 31 mmol/L 08/12/2021 12:[address] [facility] Calcium 7.6(L) 8.4 - 10.4 mg/dL 08/12/2021 12:[address] [facility] Anion Gap 12 8 - 18 mmol/L 08/12/2021 12:[address] [facility] BUN 17 9.8 - 20.1 mg/dL 08/12/2021 12:[address] [facility] Creatinine 0.42(L) 0.57 - 1.11 mg/dL 08/12/2021 12:[address] [facility] Alkaline Phosphatase 116 40 - 150 U/L 08/12/2021 12:[address] [facility] ALT <6 0 - 61 U/L 08/12/2021 12:[address] [facility] AST 7 5 - 34 U/L 08/12/2021 12:[address] [facility] Protein Total 4.8(L) 6.4 - 8.3 gm/dL 08/12/2021 12:[address] [facility] Albumin 2.1(L) 3.5 - 5.2 gm/dL 08/12/2021 12:[address] [facility] Bilirubin Total <0.1(L) 0.2 - 1.2 mg/dL 08/12/2021 12:09 PM SHADING PAINTER [facility] eGFR by MDRD >60 >60 mL/min/1.7 3m2 08/12/2021 12:09 PM SHADING PAINTER [facility] eGFR by MDRD >60 >60 mL/min/1.7 3m2 08/12/2021 12:09 PM SHADING PAINTER [facility] Blood BLOOD SPECIMEN / Unknown Venipuncture / Unknown 08/12/2021 3:00 AM SHADING PAINTER 08/12/2021 11:33 AM SHADING PAINTER us Romain Booth MD LAB - CHEMISTRY ORDERABLE S Final Result [facility] [address] [place] [address] documented in this encounter Visit Diagnoses Not on filedocumented in this encounter Additional Health Concerns Infection Onset Date Last Indicated Resolved Time MDRO 07/27/2021 07/27/2021 documented as of this encounter Care Teams Supervisor Drapery Hanging Relationship Specialty Start Date End Date Arnie Brush MD [address] [phone] PCP - General 05/21/21 documented as of this encounter
--- OUTSIDE RECORDS SUMMARY | 2025-04-28 14:15 | XMS_ITS | Encounter Summary ---
Author Organization [facility] Address [address] [place] [address] Care Team Providers Care Client Engagement Manager Name Role Phone Arnie Brush MD Primary Care Provider [phone] Encounter Details Date Type Department Care Team (Late st Contact Info) Description 08/09/2021 Lab Requisition [facility] [address] [place] [address] Romain Booth MD [facility] [place] [address] Social History Tobacco Use Types Packs/Day Years [...] W AUTO DIFFERENTIAL Routine 08/09/2021 5:15 AM TELEPHONE MAINTAINER COMPREHENSIVE METABOLIC PANEL Routine 08/09/2021 5:15 AM TELEPHONE MAINTAINER documented in this encounter Results * (ABNORMAL) COMPREHENSIVE METABOLIC PANEL (08/09/2021 5:15 AM TELEPHONE MAINTAINER) Pathologist [facility] Glucose 85 70 - 105 mg/dL 08/09/2021 2:06 PM TELEPHONE MAINTAINER [facility] Sodium 131(L) 136 - 145 mmol/L 08/09/2021 2:06 PM TELEPHONE MAINTAINER [facility] Potassium 4.4 3.5 - 5.1 mmol/L 08/09/2021 2:06 PM TELEPHONE MAINTAINER [facility] Chloride 98 98 - 107 mmol/L 08/09/2021 2:06 PM TELEPHONE MAINTAINER [facility] CO2 23 23 - 31 mmol/L 08/09/2021 2:06 PM TELEPHONE MAINTAINER [facility] Calcium 7.6(L) 8.4 - 10.4 mg/dL 08/09/2021 2:06 PM [facility] Anion Gap 10 8 - 18 mmol/L 08/09/2021 2:06 PM [facility] BUN 14 9.8 - 20.1 mg/dL 08/09/2021 2:[address] [facility] Creatinine 0.37(L) 0.57 - 1.11 mg/dL 08/09/2021 2:[address] [facility] Alkaline Phosphatase 99 40 - 150 U/L 08/09/2021 2:[address] [facility] ALT <6 0 - 61 U/L 08/09/2021 2:[address] [facility] AST 5 5 - 34 U/L 08/09/2021 2:[address] [facility] Protein Total 4.9(L) 6.4 - 8.3 gm/dL 08/09/2021 2:[address] [facility] Albumin 2.1(L) 3.5 - 5.2 gm/dL 08/09/2021 2:[address] [facility] Bilirubin Total 0.1(L) 0.2 - 1.2 mg/dL 08/09/2021 2:[address] [facility] eGFR by MDRD >60 >60 mL/min/1.7 3m2 08/09/2021 2:[address] [facility] eGFR by MDRD >60 >60 mL/min/1.7 3m2 08/09/2021 2:[address] [facility] Blood BLOOD SPECIMEN / Unknown Venipuncture / Unknown 08/09/2021 5:15 AM TELEPHONE MAINTAINER 08/09/2021 12:58 PM TELEPHONE MAINTAINER us Romain Booth MD LAB - CHEMISTRY ORDERABLE S Final Result Performing Organization Address City/State/[facility] Co de Phone Number [facility] [address] [place] [address] * (ABNORMAL) CBC WITH DIFFERENTIAL (08/09/2021 5:15 AM TELEPHONE MAINTAINER) WBC 8.1 4.4 - 10.7 x10E9/L 08/09/2021 1:[address] [facility] WBC Corrected 08/09/2021 1:[address] [facility] RBC 2.98(L) 3.80 - 5.20 x10E12/L 08/09/2021 1:[address] [facility] Hemoglobin 8.2(L) 12.0 - 15.6 gm/dL 08/09/2021 1:[address] [facility] Hematocrit 27.5(L) 35.9 - 45.5 % 08/09/2021 1:[address] [facility] MCV 92.3 80.7 - 98.3 fl 08/09/2021 1:[address] [facility] MCH 27.5 26.7 - 34.0 pg 08/09/2021 1:[address] [facility] MCHC 29.8(L) 30.8 - 35.9 gm/dL 08/09/2021 1:[address] [facility] Platelet Count 489(H) 153 - 416 x10E9/L 08/09/2021 1:[address] [facility] RDW-CV 15.7(H) 12.1 - 14.9 % 08/09/2021 1:[address] [facility] MPV 8.7(L) 9.4 - 12.9 fl 08/09/2021 1:[address] [facility] Neutrophils % 53.3 44.0 - 73.0 % 08/09/2021 1:[address] [facility] Lymphocytes % 28.1 20.0 - 43.0 % 08/09/2021 1:[address] [facility] Monocytes % 12.8 5.0 - 13.0 % 08/09/2021 1:[address] [facility] Eosinophils % 4.3 0.0 - 6.0 % 08/09/2021 1:[address] [facility] Basophils % 1.0 0.0 - 2.0 % 08/09/2021 1:[address] [facility] Immature Granulocytes 0.5 0 - 1 % 08/09/2021 1:[address] [facility] Neutrophil Absolute 4.31 2.01 - 7.14 x10E9/L 08/09/2021 1:[address] [facility] Lymphocytes Absolute 2.28 1.07 - 3.94 x10E9/L 08/09/2021 1:[address] [facility] Monocytes Absolute 1.04 0.26 - 1.07 x10E9/L 08/09/2021 1:[address] [facility] Eosinophils Absolute 0.35 0 - 0.47 x10E9/L 08/09/2021 1:15 PM TELEPHONE MAINTAINER [facility] Basophils Absolute 0.08 0 - 0.08 x10E9/L 08/09/2021 1:15 PM TELEPHONE MAINTAINER [facility] Immature Granulocytes Absolute 0.04 0.00 - 0.06 x10E9/L 08/09/2021 1:15 PM TELEPHONE MAINTAINER [facility] nRBC Auto 0 /100 WBC 08/09/2021 1:15 PM TELEPHONE MAINTAINER [facility] Blood BLOOD SPECIMEN / Unknown Venipuncture / Unknown 08/09/2021 5:15 AM TELEPHONE MAINTAINER 08/09/2021 12:58 PM TELEPHONE MAINTAINER us Romain Booth MD LAB - HEMATOLOGY ORDERABL ES Final Result Performing Organization Address City/State/[facility] Co de Phone Number [facility] [address] [place] [address] documented in this encounter Visit Diagnoses Not on filedocumented in this encounter Additional Health Concerns Infection Onset Date Last Indicated Resolved Time MDRO 07/27/2021 07/27/2021 documented as of this encounter Care Teams Client Engagement Manager Relationship Specialty Start Date End Date Arnie Brush MD [address] [place] [phone] PCP - General 05/21/21 documented as of this encounter
--- NOTE | 2025-04-28 15:30 | ED.ABDPAIN ---
HPI - Abdominal Pain General Chief Complaint: Abdominal Pain <Sabra Murguia MD - Last Filed: 04/28/25 18:03> Stated Complaint: N/V, abdominal pain <Sabra Murguia MD - Last Filed: 04/28/25 18:03> Time Seen by Provider: 04/28/25 14:08 <Sabra Murguia MD - Last Filed: 04/28/25 18:03> History of Present Illness HPI narrative: Patient presenting here with nausea, vomiting, abdominal pain. She does have an ostomy, feels like there has not been much output from her ostomy. Ongoing for the last 3 days. <Sabra Murguia MD - Last Filed: 04/28/25 18:03> Related Data Home Medications: Home Medications ?Medication ?Instructions ?Recorded ?Confirmed ?Last Taken ?Type ibuprofen 600 mg tablet 600 mg PO Q6H PRN Pain 02/04/21 09/24/21 Unknown History acetaminophen 650 mg tablet 650 mg PO Q6H 09/22/21 09/23/21 Unknown History apixaban 5 mg tablet (Eliquis) 5 mg PO BID 09/22/21 09/23/21 Unknown History arginine 7 gram-glutamine 7 1 ea PO BID 09/22/21 09/23/21 Unknown History gram-calcium HMB 1.5 gram oral powder pack (Kalyan) atorvastatin 10 mg tablet 10 mg PO HS 09/22/21 09/23/21 Unknown History calcium carbonate 500 mg PO Q6H PRN Indigestion 09/22/21 09/23/21 Unknown History diphenhydramine HCl 25 mg tablet 25 mg PO Q6H PRN Itching 09/22/21 09/23/21 Unknown History doxepin 50 mg PO Q6H PRN Mouth Pain 09/22/21 09/23/21 Unknown History duloxetine 60 mg capsule,delayed 90 mg PO DAILY 09/22/21 09/23/21 Unknown History release famotidine 20 mg tablet 20 mg PO DAILY 09/22/21 09/23/21 Unknown History gabapentin 300 mg capsule 300 mg PO Q8H 09/22/21 09/23/21 Unknown History hydroxyzine HCl 25 mg tablet 25 mg PO Q12-24H PRN Itching 09/22/21 09/23/21 Unknown History magnesium oxide 400 mg PO Q12H 09/22/21 09/23/21 Unknown History mexiletine 200 mg capsule 200 mg PO Q12H 09/22/21 09/23/21 Unknown History midodrine 10 mg tablet 10 mg PO Q12H 09/22/21 09/23/21 Unknown History olanzapine 2.5 mg tablet 2.5 mg PO HS 09/22/21 09/23/21 Unknown History ondansetron 4 mg disintegrating 4 mg PO Q4H PRN Nausea 09/22/21 09/23/21 Unknown History tablet cyclobenzaprine 10 mg tablet 10 mg PO TID 09/23/21 09/23/21 09/22/21 History melatonin 3 mg tablet 3 mg PO HS PRN Sleep 09/23/21 09/23/21 Unknown History polyethylene glycol 3350 17 gram 17 g PO DAILY 09/23/21 09/23/21 09/22/21 History oral powder packet ropinirole 2 mg tablet 2 mg PO HS 09/23/21 09/23/21 09/22/21 History simethicone 80 mg chewable tablet 80 mg PO BID 09/23/21 09/23/21 09/22/21 History (Gas Relief 80 (simethicone)) trazodone 50 mg tablet 50 mg PO HS 09/23/21 09/23/21 09/22/21 History <Sabra Murguia MD - Last Filed: 04/28/25 18:03> Allergies/Adverse Reactions: Allergies Allergy/AdvReac Type Severity Reaction Status Date / Time aspirin Allergy Unknown Unknown Verified 04/28/25 13:27 bupropion Allergy Unknown Unknown Verified 04/28/25 13:27 cephalexin Allergy Unknown Unknown Verified 04/28/25 13:27 clopidogrel Allergy Unknown Unknown Verified 04/28/25 13:27 codeine Allergy Unknown Unknown Verified 04/28/25 13:27 hydrocodone Allergy Unknown Unknown Verified 04/28/25 13:27 moxifloxacin Allergy Unknown Unknown Verified 04/28/25 13:27 procaine Allergy Unknown Unknown Verified 04/28/25 13:27 tramadol Allergy Unknown Unknown Verified 04/28/25 13:27 <Sabra Murguia MD - Last Filed: 04/28/25 18:03> Review of Systems Review of Systems: All systems reviewed & are unremarkable except as noted in HPI and below <Sabra Murguia MD - Last Filed: 04/28/25 18:03> [facility] Past Medical History Medical History: Medical History Chronic, continuous use of opioids Dyslipidemia History of coronary artery disease Peripheral arterial disease with history of revascularization Peripheral vascular disease Spinal cord injury Cervical spinal cord injury about 6 years ago per daughter <Sabra Murguia MD - Last Filed: 04/28/25 18:03> Surgical History Surgical History: Surgical History History of cervical spinal surgery History of colon resection History of right below knee amputation <Sabra Murguia MD - Last Filed: 04/28/25 18:03> Family History Family History: Family History Mother Colon cancer Father Acute myocardial infarction Congestive heart failure <Sabra Murguia MD - Last Filed: 04/28/25 18:03> Social History Social History: Social History Social History: The patient was living at home alone up until June of 2021 when she was hospitalized at [facility]. Following this hospitalization, she has resided in a fdc. Her daughter, Mary, is her healthcare [id number], which the daughter reports the paperwork is at her mother's house. Her daughter recently moved to [place] a few months ago. She was a smoker up until June of 2021, when she was hospitalized. Her daughter denies the patient having history of illicit drug or alcohol abuse. 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 EYES: EOMI, conjunctiva normal ENT: Hearing grossly intact LUNGS: Nonlabored breathing. HEART: Tachycardic ABD: [Soft], ostomy intact, slightly distended abdomen without any focal tenderness EXT: Normal range of motion SKIN: [No rashes or lesions.] NEURO: [Alert and oriented x 3. No gross focal sensory or strength deficits.] PSYCH: Normal affect <Sabra Murguia MD - Last Filed: 04/28/25 18:03> Course Course Emergency Course: Discussed lab and imaging results with patient. Will admit for observation. General surgery consulted. Patient also reports cough for 3 days. Azithromycin added on to antibiotic coverage. <Keven Moon MD - Last Filed: 04/28/25 20:19> Vital Signs Vital signs: Vital Signs Temperature 97.6 F 04/28/25 13:27 Pulse Rate 116 H 04/28/25 13:27 Respiratory Rate 20 04/28/25 13:27 Blood Pressure 127/77 04/28/25 13:27 Pulse Oximetry 94 04/28/25 13:27 Oxygen Delivery Room Air 04/28/25 13:27 Temperature 97.6 F 04/28/25 13:27 Pulse Rate 102 H 04/28/25 19:00 Respiratory Rate 20 04/28/25 19:00 Blood Pressure 94/57 L 04/28/25 14:47 Pulse Oximetry 100 04/28/25 19:00 Oxygen Delivery Room Air 04/28/25 13:27 <Sabra Murguia MD - Last Filed: 04/28/25 18:03> Vital Signs Temperature 97.6 F 04/28/25 13:27 Pulse Rate 116 H 04/28/25 13:27 Respiratory Rate 20 04/28/25 13:27 Blood Pressure 127/77 04/28/25 13:27 Pulse Oximetry 94 04/28/25 13:27 Oxygen Delivery Room Air 04/28/25 13:27 Temperature 97.6 F 04/28/25 13:27 Pulse Rate 102 H 04/28/25 19:00 Respiratory Rate 20 04/28/25 19:00 Blood Pressure 94/57 L 04/28/25 14:47 Pulse Oximetry 100 04/28/25 19:00 Oxygen Delivery Room Air 04/28/25 13:27 <Keven Moon MD - Last Filed: 04/28/25 20:19> MDM - Abdominal Pain MDM Narrative Medical decision making narrative: Electronic medical record was reviewed. Patient presented to the ED with complaint of [abdominal pain and vomiting]. Vitals [were within acceptable limits]. Physical exam revealed abdomen soft without any focal tenderness.. Based on the patient's history and physical exam, my differential includes but is not limited to [gastritis, gastroenteritis, SBO]. [IV access was established by nursing staff. Patient was given zofran, IV fluids, Dilaudid so she can tolerate CT]. CBC, BMP, lipase, LFTs, bilirubin and alk phos were obtained. Labs were pertinent for elevated white count 13, potassium 3.3, what appears to be UTI. [Decision was made to obtain a CT-abdomen to evaluate for acute abdominal process. ] Patient signed out to oncoming ER physician pending imaging. Antibiotics and potassium supplementation ordered. <Sabra Murguia MD - Last Filed: 04/28/25 18:03> Lab Data Result diagrams: 04/28/25 15:51 04/28/25 15:51 <Sabra Murguia MD - Last Filed: 04/28/25 18:03> Labs: Lab Results 04/28/25 Range/Units 15:51 WBC 13.0 H (4.5-10.0) K/mm3 RBC 5.77 H (4.2-5.4) M/mm3 Hgb 16.5 H D (12.0-15.0) g/dL Hct 48.8 H (37.0-47.0) % MCV 84.6 (80-100) fl MCH 28.6 (26-34) pg MCHC 33.8 (32-36) g/dl RDW 14.3 (11.5-14.5) % Plt Count 368 (150-375) k/mm3 MPV 9.5 (7.4-10.4) fl Immature Gran % (Auto) 0.3 (0-0.5) % Neut % (Auto) 69.3 (45.5-73.1) % Lymph % (Auto) 20.8 (18.3-44.2) % [place] % (Auto) 8.1 (2.6-8.5) % Eos % (Auto) 0.7 (0-4.4) % Baso % (Auto) 0.8 (0.2-1.2) % Lymph # (Auto) 2.70 (0.9-3.2) K/mm3 [place] # (Auto) 1.1 H (0.1-0.6) K/mm3 Eos # (Auto) 0.1 (0-0.3) K/mm3 Baso # (Auto) 0.1 (0.0-0.1) K/mm3 Abs Immat Gran (auto) 0.04 H (0.00-0.031) K/mm3 Absolute Neuts (auto) 9.0 H (1.3-6.7) K/mm3 Absolute Nucleated RBC 0.000 (0.0-0.012) K/mm3 Nucleated RBC % 0.0 (0.0-0.2) % Sodium 133 L (137-145) mmol/L Potassium 3.3 L (3.4-5.0) mmol/L Chloride 92 L (98-107) mmol/L Carbon Dioxide 30 (22-30) mmol/L Anion Gap 11 (4-12) mmol/L BUN 17 (7-17) mg/dL Creatinine 0.82 (0.7-1.0) mg/dL Estim Creat Clear Calc Not Reportable Estimated GFR > 60 (59 - ) Glucose 129 H (65-110) mg/dL Lactic Acid 1.4 (0.7-2.0) mmol/L Calcium 11.3 H (8.4-10.2) mg/dL Total Bilirubin 0.9 (0.2-1.3) mg/dL AST 36 (14-36) U/L ALT 30 (6-35) U/L Alkaline Phosphatase 94 (38-126) U/L Total Protein 9.1 H (6.3-8.2) g/dL Albumin 4.7 (3.5-5.1) g/dL Lipase 108 (23-300) U/L Urine Color Yellow (Yellow) Urine Appearance Turbid H (Clear) Urine pH 6.0 (5.0-9.0) Ur Specific [place] 1.014 (1.001-1.035) Urine Protein 1+ H (Negative) mg/dL Urine Glucose (UA) Negative (Negative) mg/dL Urine Ketones Negative (Negative) mg/dL Ur Blood (Man) 2+ H (Negative) Urine Nitrate Negative (Negative) Urine Bilirubin Negative (Negative) Urine Urobilinogen 0.2 (<2.0) mg/dL Add Ur Microanalysis Reviewed Leukocyte Esterase Rfl 3+ H (Negative) MARISOL/UL Urine RBC 3-5 H (0-2) /hpf Urine WBC >100 H (0-3) /hpf Ur Squamous Epith Cells Few (Few) /hpf Urine Bacteria 4+ H /hpf Urine Casts >20 <Sabra Murguia MD - Last Filed: 04/28/25 18:03> Lab Results 04/28/25 Range/Units 15:51 WBC 13.0 H (4.5-10.0) K/mm3 RBC 5.77 H (4.2-5.4) M/mm3 Hgb 16.5 H D (12.0-15.0) g/dL Hct 48.8 H (37.0-47.0) % MCV 84.6 (80-100) fl MCH 28.6 (26-34) pg MCHC 33.8 (32-36) g/dl RDW 14.3 (11.5-14.5) % Plt Count 368 (150-375) k/mm3 MPV 9.5 (7.4-10.4) fl Immature Gran % (Auto) 0.3 (0-0.5) % Neut % (Auto) 69.3 (45.5-73.1) % Lymph % (Auto) 20.8 (18.3-44.2) % [place] % (Auto) 8.1 (2.6-8.5) % Eos % (Auto) 0.7 (0-4.4) % Baso % (Auto) 0.8 (0.2-1.2) % Lymph # (Auto) 2.70 (0.9-3.2) K/mm3 [place] # (Auto) 1.1 H (0.1-0.6) K/mm3 Eos # (Auto) 0.1 (0-0.3) K/mm3 Baso # (Auto) 0.1 (0.0-0.1) K/mm3 Abs Immat Gran (auto) 0.04 H (0.00-0.031) K/mm3 Absolute Neuts (auto) 9.0 H (1.3-6.7) K/mm3 Absolute Nucleated RBC 0.000 (0.0-0.012) K/mm3 Nucleated RBC % 0.0 (0.0-0.2) % Sodium 133 L (137-145) mmol/L Potassium 3.3 L (3.4-5.0) mmol/L Chloride 92 L (98-107) mmol/L Carbon Dioxide 30 (22-30) mmol/L Anion Gap 11 (4-12) mmol/L BUN 17 (7-17) mg/dL Creatinine 0.82 (0.7-1.0) mg/dL Estim Creat Clear Calc Not Reportable Estimated GFR > 60 (59 - ) Glucose 129 H (65-110) mg/dL Lactic Acid 1.4 (0.7-2.0) mmol/L Calcium 11.3 H (8.4-10.2) mg/dL Total Bilirubin 0.9 (0.2-1.3) mg/dL AST 36 (14-36) U/L ALT 30 (6-35) U/L Alkaline Phosphatase 94 (38-126) U/L Total Protein 9.1 H (6.3-8.2) g/dL Albumin 4.7 (3.5-5.1) g/dL Lipase 108 (23-300) U/L Urine Color Yellow (Yellow) Urine Appearance Turbid H (Clear) Urine pH 6.0 (5.0-9.0) Ur Specific [place] 1.014 (1.001-1.035) Urine Protein 1+ H (Negative) mg/dL Urine Glucose (UA) Negative (Negative) mg/dL Urine Ketones Negative (Negative) mg/dL Ur Blood (Man) 2+ H (Negative) Urine Nitrate Negative (Negative) Urine Bilirubin Negative (Negative) Urine Urobilinogen 0.2 (<2.0) mg/dL Add Ur Microanalysis Reviewed Leukocyte Esterase Rfl 3+ H (Negative) MARISOL/UL Urine RBC 3-5 H (0-2) /hpf Urine WBC >100 H (0-3) /hpf Ur Squamous Epith Cells Few (Few) /hpf Urine Bacteria 4+ H /hpf Urine Casts >20 <Keven Moon MD - Last Filed: 04/28/25 20:19> Imaging Data Radiologist's impression: ITS Impressions Abdomen/Pelvis CT 04/28/25 17:48 IMPRESSION: 1. Left lower lobe pneumonia. 2. Partial colectomy with right right lower quadrant and colostomy with parastomal hernia containing the more proximal cecum, terminal ileum and portion of the appendix. 3. Distal small bowel transition point in the right hemipelvis with fluid filling but not frankly dilated more proximal bowel and with decompressed more distal bowel suggestive of a likely mild intermittent/partial obstruction. 4. Additional supraumbilical ventral hernias containing small portion of the anterior aspect of the left hepatic lobe and the more caudal containing fat. 5. Cholelithiasis. 6. Diffuse hepatic steatosis. 7. Deep sacral decubitus ulcer with underlying chronic osteomyelitis which appears to have stabilized since 09/22/2021. <Sabra Murguia MD - Last Filed: 04/28/25 18:03> ITS Impressions Abdomen/Pelvis CT 04/28/25 17:48 IMPRESSION: 1. Left lower lobe pneumonia. 2. Partial colectomy with right right lower quadrant and colostomy with parastomal hernia containing the more proximal cecum, terminal ileum and portion of the appendix. 3. Distal small bowel transition point in the right hemipelvis with fluid filling but not frankly dilated more proximal bowel and with decompressed more distal bowel suggestive of a likely mild intermittent/partial obstruction. 4. Additional supraumbilical ventral hernias containing small portion of the anterior aspect of the left hepatic lobe and the more caudal containing fat. 5. Cholelithiasis. 6. Diffuse hepatic steatosis. 7. Deep sacral decubitus ulcer with underlying chronic osteomyelitis which appears to have stabilized since 09/22/2021. <Keven Moon MD - Last Filed: 04/28/25 20:19> Discharge Plan Discharge Clinical Impression: UTI (urinary tract infection), Pneumonia, Partial bowel obstruction <Sabra Murguia MD - Last Filed: 04/28/25 18:03> Patient Disposition: Still a Patient <Sabra Murguia MD - Last Filed: 04/28/25 18:03> Condition: Stable <Sabra Murguia MD - Last Filed: 04/28/25 18:03>
[2025-04-28 15:58] LABS: Hematocrit 48.8 % (37.0-47.0); Hemoglobin 16.5 g/dL (12.0-15.0); Immature Granulocyte Percent A 0.3 % (0-0.5); Lymphocytes Absolute Auto 2.70 K/mm3 (0.9-3.2); Mean Corpuscular HGB Conc 33.8 g/dl (32-36); Mean Corpuscular Hemoglobin 28.6 pg (26-34); Mean Corpuscular Volume 84.6 fl (80-100); Nucleated Red Blood Cells Absolute Auto 0.000 K/mm3 (0.0-0.012); Nucleated Red Blood Cells Perc 0.0 % (0.0-0.2); Platelet Count Result 368 k/mm3 (150-375); Red Blood Count 5.77 M/mm3 (4.2-5.4); White Blood Count 13.0 K/mm3 (4.5-10.0)
[2025-04-28 16:12] LABS: Alanine Aminotransferase 30 U/L (6-35); Albumin Level 4.7 g/dL (3.5-5.1); Alkaline Phosphatase 94 U/L (38-126); Anion Gap 11 mmol/L (4-12); Aspartate Amino Transferase 36 U/L (14-36); Bilirubin,Total 0.9 mg/dL (0.2-1.3); Blood Urea Nitrogen 17 mg/dL (7-17); Calcium 11.3 mg/dL (8.4-10.2); Carbon Dioxide 30 mmol/L (22-30); Chloride 92 mmol/L (98-107); Estimated Glomerular Filt Rate > 60; Glucose 129 mg/dL (65-110); Lipase 108 U/L (23-300); Potassium 3.3 mmol/L (3.4-5.0); Sodium 133 mmol/L (137-145); Total Protein 9.1 g/dL (6.3-8.2)
[2025-04-28 16:19] LABS: Add Urine Microscopic? YES; Appearance Urine Turbid (Clear); Glucose Urine UA Negative (Negative); Leukocyte Esterase Ur 3+ LEU/UL (Negative); Need Manual Microscopic Reviewed; Nitrate Urine Negative (Negative); Non Pathogenic Casts >20; Specific Grav Ur 1.014 (1.001-1.035)
[2025-04-28] MEDS: SODIUM CHLORIDE 0.9% IV 500 ML 999 ML IV CONT (16:44)
[2025-04-28] MEDS: ONDANSETRON INJ 4 MG/2 ML VIAL IV PUSH (16:45)
[2025-04-28] MEDS: HYDROmorphone HCL INJ (*CRX) 1 MG/ML SYR 0.5 MG IV PUSH ×2 (16:47→23:18)
[2025-04-28] MEDS: cefTRIAXone 2 GM in SODIUM CHLORIDE 0.9% IV 100 ML 200 ML IVPB (17:53)
[2025-04-28] MEDS: SODIUM CHLORIDE 0.9% IV 1,000 ML 999 ML IV CONT (17:53)
[2025-04-28] MEDS: POTASSIUM CHLORIDE 20 MEQ PACKET (FOR LIQUID) 40 MEQ PO (18:54)
--- NOTE | 2025-04-28 20:57 | ADMGEN ---
This patient, Natalia Cohn, was admitted to 3 [facility] Surg Room 326-01. Patient/family oriented to hospital policies and general routines including ID bracelet, bed and alarms, visiting hours, pain management, procedures, bathroom and other care routines, personal items, smoking policy, room service/diet, and visiting hours. Information on how to activate the Rapid Response Team has been discussed. Patient/Family are encouraged to report perceived risks to care and to ask questions if they do not understand what they are told or what they should do.
[2025-04-28 21:44] LABS: MRSA (PCR) NOT DETECTED (NOT DETECTE)
--- NOTE | 2025-04-28 22:01 | PM.IMHP ---
H&P: HPI History of Present Illness Date/Time: 04/28/25 22:01 Chief Complaint: Nausea, vomiting, abdominal pain, small-bowel obstruction Narrative: Natalia Cohn is a 59-year-old female with a history of an ileostomy and an abdominal hernia, who presents with a three-day history of abdominal pain, nausea, and vomiting. She reports that her symptoms began after eating corn, and she has noticed a subsequent decrease in her stoma output. There was a small amount of only liquid drainage in colostomy bag in ER. She also reports a cough and denies any fevers. CT scan shows a left lower-lobe pneumonia and findings consistent with a partial small bowel obstruction. There is a transition point with decompressed distal bowel and fluid-filled proximal bowel loops that are not pathologically enlarged or super dilated. Dr. Booth stated that no NG tube is needed at this time but keep patient NPO for now. Patient is bed-bound due to spinal cord injury and has right BKA. She has chronic indwelling Boyle catheter and UA in ER was concerning for UTI. She received Rocephin for UTI and azithromycin added when CT report also mentioned Left lower lobe pneumonia. CXR 1 view added and no upper lobe pneumonia noted on CXR. Patient reports that she had essentially no output from her ostomy or indwelling Boyle catheter for a couple of days before coming to the hospital for evaluation. She states that about once a week she moves her bowels through her rectum and she has not been able to do that either. Patient acknowledges that with the ostomy she did not believe she should be able to move her bowels rectally but this has been happening since her surgery multiple years ago. She had spoken to a surgeon about reversal of her ostomy but was told she would not be able to survive that length of surgery--14.5 hours at least. I discussed with patient that if she continues to significant nausea or further vomiting while NPO then she would probably need an NG tube. Patient stated that she did not want to have surgery but she DID want to get the stuck stuff out of me. I explained how bowel rest Review of Systems Review of Systems: All systems reviewed & are unremarkable except as noted in HPI and below PMFSH Past Medical History Medical History Chronic, continuous use of opioids Dyslipidemia History of coronary artery disease Peripheral arterial disease with history of revascularization Peripheral vascular disease Spinal cord injury Cervical spinal cord injury about 6 years ago per daughter Surgical History Surgical History History of right below knee amputation History of colon resection History of cervical spinal surgery Family History Family History Mother Liver cancer Father No problems noted. Other Acute myocardial infarction Colon cancer Congestive heart failure Social History Social History Social History: The patient was living at home alone up until June of 2021 when she was hospitalized at [facility]. Following this hospitalization, she has resided in a jail. Her daughter, Mary, is her healthcare [id number], which the daughter reports the paperwork is at her mother's house. Her daughter recently moved to [place] a few months ago. She was a smoker up until June of 2021, when she was hospitalized. Her daughter denies the patient having history of illicit drug or alcohol abuse. 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 250 1 applic topical Q12HR #90 grams 10/04/21 04/28/25 Rx unit/gram topical ointment (Santyl) silver 200 mcg/gram topical gel 1 applic topical DAILY #90 grams 10/04/21 04/28/25 Rx (Silver-Sept) amoxicillin 875 mg-potassium 1 tablet PO Q12H #14 tabs 04/28/25 Rx clavulanate 125 mg tablet cilostazol 50 mg tablet 50 mg PO DAILY 04/28/25 04/28/25 History furosemide 20 mg tablet 20 mg PO DAILY 04/28/25 04/28/25 History ibuprofen 200 mg capsule 600 mg PO BID 04/28/25 04/28/25 History Allergies Allergy/AdvReac Type Severity Reaction Status Date / Time aspirin Allergy Unknown Unknown Verified 04/28/25 21:19 bacitracin (From Triple Allergy Unknown Unknown Verified 04/28/25 21:19 Antibiotic) bupropion Allergy Unknown Unknown Verified 04/28/25 21:19 cephalexin Allergy Unknown Unknown Verified 04/28/25 21:19 clopidogrel Allergy Unknown Unknown Verified 04/28/25 21:19 codeine Allergy Unknown Unknown Verified 04/28/25 21:19 hydrocodone Allergy Unknown Unknown Verified 04/28/25 21:19 latex Allergy Unknown Unknown Verified 04/28/25 21:19 moxifloxacin Allergy Unknown Unknown Verified 04/28/25 21:19 neomycin (From Triple Allergy Unknown Unknown Verified 04/28/25 21:19 Antibiotic) polymyxin B (From Triple Allergy Unknown Unknown Verified 04/28/25 21:19 Antibiotic) procaine Allergy Unknown Unknown Verified 04/28/25 21:19 tramadol Allergy Unknown Unknown Verified 04/28/25 21:19 Vital Signs Vital Signs - 24 hr 04/28/25 13:27 04/28/25 14:07 04/28/25 14:17 Temperature 36.4 C Pulse Rate 116 H 116 H 121 H Respiratory Rate 20 21 H 15 Blood Pressure 127/77 131/83 126/115 H Pulse Oximetry 94 97 97 Oxygen Delivery Room Air 04/28/25 14:32 04/28/25 14:47 04/28/25 17:19 Temperature Pulse Rate 117 H 110 H 115 H Respiratory Rate 14 19 17 Blood Pressure 93/72 L 94/57 L Pulse Oximetry 94 95 91 Oxygen Delivery 04/28/25 17:30 04/28/25 17:45 04/28/25 18:00 Temperature Pulse Rate 121 H 110 H 108 H Respiratory Rate 17 22 H 19 Blood Pressure Pulse Oximetry 96 95 97 Oxygen Delivery 04/28/25 18:15 04/28/25 18:30 04/28/25 18:45 Temperature Pulse Rate 107 H 104 H 106 H Respiratory Rate 22 H 18 15 Blood Pressure Pulse Oximetry 100 95 95 Oxygen Delivery 04/28/25 19:00 04/28/25 20:30 04/28/25 21:46 Temperature 35.8 C L Pulse Rate 102 H 81 99 Respiratory Rate 20 18 20 Blood Pressure 137/84 96/81 L Pulse Oximetry 100 99 94 Oxygen Delivery Exam Narrative: GENERAL: Chronically ill-appearing, no acute distress noted HEAD: Normocephalic, atraumatic. ENT:? Mucous membranes moist. CHEST: Clear to auscultation.? No respiratory distress. HEART: Borderline tachycardic rate, regular rhythm ABDOMEN: Mildly distended tender epigastrium diminished bowel sounds, chronic indwelling Boyle catheter in place EXTREMITIES: Right BKA SKIN: Warm dry normal color NEURO: Alert and oriented x3. No movement of lower extremities due to prior spinal cord injury. PSYCH: Normal mood and affect H&P: Results Labs Labs: Short CBC 04/28/25 Range/Units 15:51 WBC 13.0 H (4.5-10.0) K/mm3 Hgb 16.5 H D (12.0-15.0) g/dL Hct 48.8 H (37.0-47.0) % Plt Count 368 (150-375) k/mm3 BMP 04/28/25 15:51 Sodium 133 L Potassium 3.3 L Chloride 92 L Carbon Dioxide 30 BUN 17 Creatinine 0.82 Glucose 129 H Calcium 11.3 H Liver Function 04/28/25 Range/Units 15:51 Total Bilirubin 0.9 (0.2-1.3) mg/dL AST 36 (14-36) U/L ALT 30 (6-35) U/L Alkaline Phosphatase 94 (38-126) U/L Albumin 4.7 (3.5-5.1) g/dL Urine 04/28/25 Range/Units 15:51 Urine Color Yellow (Yellow) Urine Appearance Turbid H (Clear) Urine pH 6.0 (5.0-9.0) Ur Specific [place] 1.014 (1.001-1.035) Urine Protein 1+ H (Negative) mg/dL Urine Glucose (UA) Negative (Negative) mg/dL Pulse Oximetry SpO2 results: 94-99% on room air Attestation: I personally reviewed and interpreted this pulse oximetry as follows: Interpretation: No need for supplemental oxygenation at this time ECG Attestation: I personally reviewed and interpreted this ECG as follows: ECG completion date: 04/28/25 ECG completion time: 15:32 Prior ECG tracings: not available for review Interpretation: Sinus tachycardia rate of 119 WV interval 163 QRS duration 100 QTC 610 QRS axis 25, no STEMI, prolonged QTC Imaging Chest x-ray: Radiologist's impression: EXAMINATION: XR chest 1V portable DATE: 04/28/2025 20:10 INDICATION: Left lower lobe pneumonia TECHNIQUE: frontal view of the chest was obtained. COMPARISON: Chest radiograph dated 09/30/2021 FINDINGS: Airspace opacities along the elevated left hemidiaphragm which could represent atelectasis or pneumonia. Or possible small left pleural effusion. Right lung remains clear. No pulmonary edema, pneumothorax or right-sided pleural effusion. Heart size is normal. Instrumented anterior spinal fusion, likely at either C6-C7 or C7-T1. IMPRESSION: 1. Opacities at the left lower lung zone along side the elevated left hemidiaphragm which could represent atelectasis, pneumonia, small left pleural effusion or some combination thereof. Reviewed, dictated and finalized at location A. CT scan - abdomen: Radiologist's impression: EXAMINATION: CT abdomen pelvis w con DATE: 04/28/2025 17:13 INDICATION: Nausea, vomiting and abdominal distention TECHNIQUE: Computed tomography (CT) of the abdomen and pelvis was performed with 100 mL Omnipaque-350 intravenous contrast. Automated exposure control and iterative reconstruction technique were employed. The dose-length product was 1087.81 mGy-cm. COMPARISON: None FINDINGS: Consolidation and bronchial mucous plugging in the basilar segments of the left lower lobe consistent with pneumonia. Linear band of atelectasis/scarring in the lingula. No pleural effusion. Heart size is normal. No pericardial effusion. Mitral annular calcific lesion. There is a density along the mitral valve plane, likely a mitraclip. Prominent diffuse hepatic steatosis. A few small calcite gallstones at the dependent aspect of the normal nondilated gallbladder. Spleen, bilateral adrenal glands, pancreas and left kidney are normal. There are a few scattered small regions of cortical scarring at the right kidney. Midline anterior abdominal wall surgical scar. There are a couple supraumbilical midline ventral hernias. A portion of the left hepatic lobe protrudes into the more cephalad hernia. The more caudal hernia contains a bilobed collection of herniated fat. Partial colectomy with long Red's pouch in the pelvis and a right lower quadrant and colostomy. Parastomal hernia containing fat and the more proximal cecum, terminal ileum and base of the appendix. The tip of the normal appendix remains intra-abdominal. There is fluid filling the small bowel which is not frankly dilated but which extends to a discrete transition point in the right pelvis with more distal decompressed small bowel extending to the ileocecal valve. Boyle catheter in the bladder. Uterus and bilateral adnexa are unremarkable. There is mild stranding at the inferior right paracolic gutter which is not directly associated with any bowel and could represent postoperative scarring. No abscess or free intraperitoneal gas. No pathologically enlarged abdominal or pelvic lymphadenopathy. There is calcified atherosclerosis of the aorta and many of the other arteries. Moderate lower thoracic and lumbosacral spondylosis with mild spondylosis of the intervening lumbar spine. There is a deep sacral decubitus ulcer with erosion along the posterior margin of the underlying S4, S5 and a 6 coccygeal segments consistent with secondary osteomyelitis. This appears chronic with some cortication along the ostial lysis which is new since 09/22/2021. IMPRESSION: 1. Left lower lobe pneumonia. 2. Partial colectomy with right right lower quadrant and colostomy with parastomal hernia containing the more proximal cecum, terminal ileum and portion of the appendix. 3. Distal small bowel transition point in the right hemipelvis with fluid filling but not frankly dilated more proximal bowel and with decompressed more distal bowel suggestive of a likely mild intermittent/partial obstruction. 4. Additional supraumbilical ventral hernias containing small portion of the anterior aspect of the left hepatic lobe and the more caudal containing fat. 5. Cholelithiasis. 6. Diffuse hepatic steatosis. 7. Deep sacral decubitus ulcer with underlying chronic osteomyelitis which appears to have stabilized since 09/22/2021. Reviewed, dictated and finalized at location A. Assessment and Plan Assessment and plan (1) Partial bowel obstruction: Code(s): K56.600 - Partial intestinal obstruction, unspecified as to cause Status: Acute Assessment and Plan: -Dr. oBoth with General Surgery consulted, no NG tube for now -NPO diet -IV fluids in place (2) Colostomy in place: Code(s): Z93.3 - Colostomy status Status: Chronic Assessment and Plan: -S/P colon cancer resection -Decreased drainage with nausea/vomiting -Partial SBO on CT scan (3) UTI (urinary tract infection): Code(s): N39.0 - Urinary tract infection, site not specified Status: Acute Assessment and Plan: -Boyle catheter dependent due to prior spinal cord injury, bed-bound status and unable to self cath -UA appears infected with WBCs, leukocyte esterase and bacteria present -ER gave IV Rocephin -Prior cultures with E. coli and Group B Strep (4) Pneumonia: Code(s): J18.9 - Pneumonia, unspecified organism Status: Acute Assessment and Plan: -Left lower lobe pneumonia identified on CT imaging -PCXR obtained with similar finding but no upper lobes involved -On room air currently -Azithromycin ordered by ER, changed to Doxycycline due to EKG finding of prolonged QTC of 610 (5) Sacral decubitus ulcer, stage IV: Code(s): L89.154 - Pressure ulcer of sacral region, stage 4 Status: Chronic Assessment and Plan: -Bed confined due to spinal cord injury -Sacral wound noted -Wound care consulted (6) Hypokalemia: Code(s): E87.6 - Hypokalemia Status: Acute Assessment and Plan: -Potassium 3.3 in ER, replaced orally before identification of SBO -Check labs in AM (7) Nausea and vomiting: Code(s): R11.2 - Nausea with vomiting, unspecified Status: Acute Assessment and Plan: -Presenting complaint which led to identification of partial SBO -Zofran given in ER, surgery stated no NG tube for now -Monitor use of anti-emetics due to prolonged QTC -Cardiac monitoring ordered for the floor (8) Below-knee amputation of right lower extremity: Code(s): S88.111A - Complete traumatic amputation at level between knee and ankle, right lower leg, initial encounter Status: Acute Assessment and Plan: -Noted history including bed bound status and peripheral vascular disease (9) Anxiety: Code(s): F41.9 - Anxiety disorder, unspecified Status: Acute Assessment and Plan: -Patient requests pain medication frequently (10) QT prolongation: Code(s): R94.31 - Abnormal electrocardiogram [ECG] [EKG] Status: Acute Assessment and Plan: -QTC 610 on EKG obtained in ER on admission -Patient placed on telemetry and antibiotics changed from azithromycin to doxycycline Quality VTE Prophylaxis VTE prophylaxis: pharmacologic ordered (Lovenox) Hospitalist [facility] Advance Care Plan I have confirmed that the patient's Advanced Care Plan is present, code status is documented, or surrogate decision maker is listed in patient medical record.: Yes Medication Reconciliation I have utilized all available resources to obtain, update and review the patients current medications (includes all prescriptions, OTC, herbals, cannabis, and nutritional supplements).: Yes
[2025-04-28] MEDS: MELATONIN 3 MG TABLET PO (22:29)
[2025-04-28] MEDS: NICOTINE (*PBKC) 14 MG PATCH 1 PATCH TRANSDERM (22:29)
[2025-04-28] MEDS: SODIUM CHLORIDE 0.9% IV 1,000 ML 125 ML IV CONT (23:17)
[2025-04-28] MEDS: DOXYCYCLINE IV 100 MG in SODIUM CHLORIDE 0.9% IV 100 ML IVPB (23:18)
[2025-04-29] VITALS (7 sets, daily range): BP systolic 119–147; BP diastolic 58–69; PULSE 72–104; RESP 16–18; TEMP 36.1–36.3; O2SAT 94–100
[2025-04-29 06:17] LABS: Hematocrit 42.3 % (37.0-47.0); Hemoglobin 14.1 g/dL (12.0-15.0); Immature Granulocyte Percent A 0.3 % (0-0.5); Lymphocytes Absolute Auto 2.01 K/mm3 (0.9-3.2); Mean Corpuscular HGB Conc 33.3 g/dl (32-36); Mean Corpuscular Hemoglobin 28.8 pg (26-34); Mean Corpuscular Volume 86.5 fl (80-100); Nucleated Red Blood Cells Absolute Auto 0.000 K/mm3 (0.0-0.012); Nucleated Red Blood Cells Perc 0.0 % (0.0-0.2); Platelet Count Result 248 k/mm3 (150-375); Red Blood Count 4.89 M/mm3 (4.2-5.4); White Blood Count 10.0 K/mm3 (4.5-10.0)
[2025-04-29] MEDS: HYDROmorphone HCL INJ (*CRX) 1 MG/ML SYR 0.5 MG IV PUSH ×3 (06:28→21:48)
[2025-04-29 06:47] LABS: Alanine Aminotransferase 28 U/L (6-35); Albumin Level 3.6 g/dL (3.5-5.1); Alkaline Phosphatase 80 U/L (38-126); Anion Gap 7 mmol/L (4-12); Aspartate Amino Transferase 39 U/L (14-36); Bilirubin,Total 0.5 mg/dL (0.2-1.3); Blood Urea Nitrogen 16 mg/dL (7-17); Calcium 9.1 mg/dL (8.4-10.2); Carbon Dioxide 26 mmol/L (22-30); Chloride 100 mmol/L (98-107); Estimated CRCL calculation 81 ml/min; Estimated Glomerular Filt Rate > 60; Glucose 117 mg/dL (65-110); Magnesium 1.3 mg/dL (1.6-2.3); Potassium 3.1 mmol/L (3.4-5.0); Sodium 133 mmol/L (137-145); Total Protein 6.7 g/dL (6.3-8.2)
[2025-04-29] MEDS: MAGNESIUM SULFATE 3GM/D5W100ML 3 GM/100 ML BAG IVPB (07:21)
[2025-04-29] MEDS: FAMOTIDINE 20 MG/2 ML VIAL IV PUSH ×2 (07:51→21:43)
[2025-04-29] MEDS: NICOTINE (*PBKC) 14 MG PATCH 1 PATCH TRANSDERM (07:53)
[2025-04-29] MEDS: PANTOPRAZOLE SODIUM IV 40 MG VIAL IV PUSH ×2 (07:55→21:42)
[2025-04-29] MEDS: ENOXAPARIN 40 MG/0.4 ML SYRINGE SUB-Q (07:59)
[2025-04-29] MEDS: POTASSIUM CHLORIDE INJ 40 MEQ in SODIUM CHLORIDE 0.9% IV 500 ML 130 MEQ IVPB (08:01)
--- NOTE | 2025-04-29 10:13 | PM.CNGS ---
Assessment and Plan Assessment and plan (1) Partial bowel obstruction: Code(s): K56.600 - Partial intestinal obstruction, unspecified as to cause Status: Acute Assessment and Plan: Patient with history of ileostomy presented to the ED with 3 days of diffuse abdominal pain with nausea and vomiting. She also noted decreased output from her stoma. Upon admission to the ED and a CT demonstrated distal small bowel transition point in the right hemipelvis with fluid filling but not frankly dilated more proximal bowel with decompressed more distal bowel suggestive of a likely mild intermittent/partial obstruction. Also demonstrated was a partial colectomy with right lower quadrant end colostomy with parastomal hernia containing the more proximal cecum, terminal ileum and portion of the appendix. Upon exam, patient is diffusely tender, but especially to right upper quadrant near stoma. Small amount of liquid light brown stool present in ostomy bag. No nausea or vomiting currently. Bowel sounds present. Patient was very adamant about not having another surgery. Continue conservative management with bowel rest. If nausea or vomiting reoccurs, we will consider placement of NG tube. We will continue to follow with serial abdominal exams and labs. (2) Pneumonia: Code(s): J18.9 - Pneumonia, unspecified organism Status: Acute Assessment and Plan: Left lower lobe pneumonia noted on CT. Chest x-ray demonstrated opacities at the left lower lung zone alongside the elevated left hemidiaphragm which could represent cyst, pneumonia, small left pleural effusion or some combination thereof. Continue with antibiotic treatment per hospitalist team. (3) UTI (urinary tract infection): Code(s): N39.0 - Urinary tract infection, site not specified Status: Acute Assessment and Plan: Patient has chronic indwelling Boyle catheter. Abnormal UA. Urine culture pending. (4) Below-knee amputation of right lower extremity: Code(s): S88.111A - Complete traumatic amputation at level between knee and ankle, right lower leg, initial encounter Status: Acute Plan Discussed patient's case and plan of care with Dr. Booth. History of Present Illness Consult details Consult date: 04/29/25 Reason for consult: other (Possible small bowel obstruction) Requesting physician: Keven Moon MD Narrative: Patient is a 59-year-old female with history of ileostomy and an abdominal hernia, coronary artery disease, peripheral arterial disease with history of revascularization, spinal cord injury (bed bound with chronic indwelling Boyle catheter), right lower extremity BKA who we have been asked to see in surgical consultation for a possible small-bowel obstruction. Patient presented to the ED yesterday evening with complaints of 3 days of abdominal pain, nausea, and vomiting. She states that on Monday she ate corn and noticed abdominal pain, nausea and vomiting shortly after. Patient also noted a decrease in her stoma output. Pain persisted throughout the weekend and ultimately led to her presenting to the ED. In the ED a CT was obtained and demonstrated a distal small bowel transition point in the right hemipelvis with fluid filling but not frankly dilated more proximal bowel and with decompressed more distal bowel suggestive of a likely mild intermittent/partial obstruction. Partial colectomy with right lower quadrant end colostomy with peristomal hernia containing more proximal cecum, terminal ileum and portion of the appendix. Left lower lobe pneumonia also noted. Cholelithiasis and diffuse hepatic steatosis. Labs demonstrated elevated WBC count of 13.0, now down to 10.0. Potassium 3.1, repleted with 40 mEq IV. Abnormal UA concerning for UTI, pending culture. Chest x-ray was performed and demonstrated opacities at the left lower lung zone alongside the elevated left hemidiaphragm. Currently NPO. Upon my exam, patient still complains of diffuse abdominal pain. No current nausea or vomiting. She states she last ate 4 days ago. Of note, patient also notes sometimes having stool output from her rectum roughly once a week. Currently being treated with ceftriaxone and doxycycline. [facility] Past Medical History Medical History Chronic, continuous use of opioids Dyslipidemia History of coronary artery disease Peripheral arterial disease with history of revascularization Peripheral vascular disease Spinal cord injury Cervical spinal cord injury about 6 years ago per daughter Surgical History Surgical History History of right below knee amputation History of colon resection History of cervical spinal surgery Family History Family History Mother Liver cancer Father No problems noted. Other Acute myocardial infarction Colon cancer Congestive heart failure Social History Social History Social History: The patient was living at home alone up until June of 2021 when she was hospitalized at [facility]. Following this hospitalization, she has resided in a jail. Her daughter, Mary, is her healthcare [id number], which the daughter reports the paperwork is at her mother's house. Her daughter recently moved to [place] a few months ago. She was a smoker up until June of 2021, when she was hospitalized. Her daughter denies the patient having history of illicit drug or alcohol abuse. 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 250 1 applic topical Q12HR #90 grams 10/04/21 04/28/25 Rx unit/gram topical ointment (Santyl) silver 200 mcg/gram topical gel 1 applic topical DAILY #90 grams 10/04/21 04/28/25 Rx (Silver-Sept) amoxicillin 875 mg-potassium 1 tablet PO Q12H #14 tabs 04/28/25 Rx clavulanate 125 mg tablet cilostazol 50 mg tablet 50 mg PO DAILY 04/28/25 04/28/25 History furosemide 20 mg tablet 20 mg PO DAILY 04/28/25 04/28/25 History ibuprofen 200 mg capsule 600 mg PO BID 04/28/25 04/28/25 History Allergies Allergy/AdvReac Type Severity Reaction Status Date / Time aspirin Allergy Unknown Unknown Verified 04/28/25 21:19 bacitracin (From Triple Allergy Unknown Unknown Verified 04/28/25 21:19 Antibiotic) bupropion Allergy Unknown Unknown Verified 04/28/25 21:19 cephalexin Allergy Unknown Unknown Verified 04/28/25 21:19 clopidogrel Allergy Unknown Unknown Verified 04/28/25 21:19 codeine Allergy Unknown Unknown Verified 04/28/25 21:19 hydrocodone Allergy Unknown Unknown Verified 04/28/25 21:19 latex Allergy Unknown Unknown Verified 04/28/25 21:19 moxifloxacin Allergy Unknown Unknown Verified 04/28/25 21:19 neomycin (From Triple Allergy Unknown Unknown Verified 04/28/25 21:19 Antibiotic) polymyxin B (From Triple Allergy Unknown Unknown Verified 04/28/25 21:19 Antibiotic) procaine Allergy Unknown Unknown Verified 04/28/25 21:19 tramadol Allergy Unknown Unknown Verified 04/28/25 21:19 Vital Signs Vital Signs - 24 hr 04/28/25 13:27 04/28/25 14:07 04/28/25 14:17 Temperature 97.6 F Pulse Rate 116 H 116 H 121 H Respiratory Rate 20 21 H 15 Blood Pressure 127/77 131/83 126/115 H Pulse Oximetry 94 97 97 Oxygen Delivery Room Air 04/28/25 14:32 04/28/25 14:47 04/28/25 17:19 Temperature Pulse Rate 117 H 110 H 115 H Respiratory Rate 14 19 17 Blood Pressure 93/72 L 94/57 L Pulse Oximetry 94 95 91 Oxygen Delivery 04/28/25 17:30 04/28/25 17:45 04/28/25 18:00 Temperature Pulse Rate 121 H 110 H 108 H Respiratory Rate 17 22 H 19 Blood Pressure Pulse Oximetry 96 95 97 Oxygen Delivery 04/28/25 18:15 04/28/25 18:30 04/28/25 18:45 Temperature Pulse Rate 107 H 104 H 106 H Respiratory Rate 22 H 18 15 Blood Pressure Pulse Oximetry 100 95 95 Oxygen Delivery 04/28/25 19:00 04/28/25 20:30 04/28/25 20:51 Temperature Pulse Rate 102 H 81 Respiratory Rate 20 18 Blood Pressure 137/84 Pulse Oximetry 100 99 Oxygen Delivery Room Air 04/28/25 21:46 04/29/25 06:00 04/29/25 08:00 Temperature 96.4 F L 97.1 F L Pulse Rate 99 82 Respiratory Rate 20 16 Blood Pressure 96/81 L 119/69 Pulse Oximetry 94 97 97 Oxygen Delivery Room Air Exam Const: General: no acute distress Eyes: General: appearance normal, both eyes and all related structures Neck: Neck: supple Resp: Effort & Inspection: normal respiratory effort Cardio: Rate: regular rate GI: Inspection: non-distended GI Palp: Yes Soft to palpation, Yes Tenderness to palpation present (GI) (Diffusely tender with more pain to right upper quadrant) and Yes Hernia present Auscultation: normal bowel sounds Other: Ventral hernia adjacent to stoma on right side. Large midline infraumbilical scar. Stoma pink and viable with small amount of liquid light brown stool in the bag. : General: Yes bladder normal to palpation Urinary Catheter: Urinary Catheter: patent and draining and urine clear Skin: General skin exam: normal color and no rashes or lesions noted Neuro: Speech: normal speech Sensory Exam: normal sensation Psych: Mental Status: mental status grossly normal Results Labs 04/29/25 05:52 04/29/25 05:52 Labs: Abnormal lab results 04/28/25 04/29/25 Range/Units 15:51 05:52 WBC 13.0 H (4.5-10.0) K/mm3 RBC 5.77 H (4.2-5.4) M/mm3 Hgb 16.5 H D (12.0-15.0) g/dL Hct 48.8 H (37.0-47.0) % [place] % (Auto) 10.0 H (2.6-8.5) % [place] # (Auto) 1.1 H 1.0 H (0.1-0.6) K/mm3 Abs Immat Gran (auto) 0.04 H (0.00-0.031) K/mm3 Absolute Neuts (auto) 9.0 H (1.3-6.7) K/mm3 Sodium 133 L 133 L (137-145) mmol/L Potassium 3.3 L 3.1 L (3.4-5.0) mmol/L Chloride 92 L (98-107) mmol/L Glucose 129 H 117 H (65-110) mg/dL Calcium 11.3 H (8.4-10.2) mg/dL Magnesium 1.3 L (1.6-2.3) mg/dL AST 39 H (14-36) U/L Total Protein 9.1 H (6.3-8.2) g/dL Urine Appearance Turbid H (Clear) Urine Protein 1+ H (Negative) mg/dL Ur Blood (Man) 2+ H (Negative) Leukocyte Esterase Rfl 3+ H (Negative) MARISOL/UL Urine RBC 3-5 H (0-2) /hpf Urine WBC >100 H (0-3) /hpf Urine Bacteria 4+ H /hpf Diabetes panel 04/28/25 04/29/25 Range/Units 15:51 05:52 Sodium 133 L 133 L (137-145) mmol/L Potassium 3.3 L 3.1 L (3.4-5.0) mmol/L Chloride 92 L 100 (98-107) mmol/L Carbon Dioxide 30 26 (22-30) mmol/L BUN 17 16 (7-17) mg/dL Creatinine 0.82 0.78 (0.7-1.0) mg/dL Glucose 129 H 117 H (65-110) mg/dL Calcium 11.3 H 9.1 (8.4-10.2) mg/dL AST 36 39 H (14-36) U/L ALT 30 28 (6-35) U/L Alkaline Phosphatase 94 80 (38-126) U/L Total Protein 9.1 H 6.7 (6.3-8.2) g/dL Albumin 4.7 3.6 (3.5-5.1) g/dL Calcium panel 04/28/25 04/29/25 Range/Units 15:51 05:52 Calcium 11.3 H 9.1 (8.4-10.2) mg/dL Albumin 4.7 3.6 (3.5-5.1) g/dL Pituitary panel 04/28/25 04/29/25 Range/Units 15:51 05:52 Sodium 133 L 133 L (137-145) mmol/L Potassium 3.3 L 3.1 L (3.4-5.0) mmol/L Chloride 92 L 100 (98-107) mmol/L Carbon Dioxide 30 26 (22-30) mmol/L BUN 17 16 (7-17) mg/dL Creatinine 0.82 0.78 (0.7-1.0) mg/dL Glucose 129 H 117 H (65-110) mg/dL Calcium 11.3 H 9.1 (8.4-10.2) mg/dL Adrenal panel 04/28/25 04/29/25 Range/Units 15:51 05:52 Sodium 133 L 133 L (137-145) mmol/L Potassium 3.3 L 3.1 L (3.4-5.0) mmol/L Chloride 92 L 100 (98-107) mmol/L Carbon Dioxide 30 26 (22-30) mmol/L BUN 17 16 (7-17) mg/dL Creatinine 0.82 0.78 (0.7-1.0) mg/dL Glucose 129 H 117 H (65-110) mg/dL Calcium 11.3 H 9.1 (8.4-10.2) mg/dL Total Bilirubin 0.9 0.5 (0.2-1.3) mg/dL AST 36 39 H (14-36) U/L ALT 30 28 (6-35) U/L Alkaline Phosphatase 94 80 (38-126) U/L Total Protein 9.1 H 6.7 (6.3-8.2) g/dL Albumin 4.7 3.6 (3.5-5.1) g/dL All other labs normal. Imaging Chest x-ray: report reviewed Abdomen CT scan report/results: report reviewed
[2025-04-29] MEDS: DOXYCYCLINE IV 100 MG in SODIUM CHLORIDE 0.9% IV 100 ML IVPB ×2 (10:16→21:44)
--- NOTE | 2025-04-29 11:36 | P.PNIM_ITS ---
Progress Note: A&P Assessment and Plan (1) Partial bowel obstruction: Code(s): K56.600 - Partial intestinal obstruction, unspecified as to cause Status: Acute Assessment and Plan: -Dr. 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 coli and Group B Strep (4) Pneumonia: Code(s): J18.9 - Pneumonia, unspecified organism Status: Acute Assessment and Plan: -Left lower lobe pneumonia identified on CT imaging -PCXR obtained with similar finding but no upper lobes involved -On room air currently -Azithromycin ordered by ER, changed to Doxycycline due to EKG finding of pr olonged QTC of 610 (5) Sacral decubitus ulcer, stage IV: Code(s): L89.154 - Pressure ulcer of sacral region, stage 4 Status: Chronic Assessment and Plan: -Bed confined due to spinal cord injury -Sacral wound noted -Wound care consulted (6) Hypokalemia: Code(s): E87.6 - Hypokalemia Status: Acute Assessment and Plan: -Potassium 3.3 in ER, replaced orally before identification of SBO -Check labs in AM (7) Nausea and vomiting: Code(s): R11.2 - Nausea with vomiting, unspecified Status: Acute Assessment and Plan: -Presenting complaint which led to identification of partial SBO -Zofran given in ER, surgery stated no NG tube for now -Monitor use of anti-emetics due to prolonged QTC -Cardiac monitoring ordered for the floor (8) Below-knee amputation of right lower extremity: Code(s): S88.111A - Complete traumatic amputation at level between knee and ankle, right lower leg, initial encounter Status: Acute Assessment and Plan: -Noted history including bed bound status and peripheral vascular disease (9) Anxiety: Code(s): F41.9 - Anxiety disorder, unspecified Status: Acute Assessment and Plan: -Patient requests pain medication frequently (10) QT prolongation: Code(s): R94.31 - Abnormal electrocardiogram [ECG] [EKG] Status: Acute Assessment and Plan: -QTC 610 on EKG obtained in ER on admission -Patient placed on telemetry and antibiotics changed from azithromycin to doxycycline Subjective Date/time seen: 04/29/25 11:36 Interval history: Patient reports no nausea or vomiting. Patient did not pass any flatulence. Patient is currently on clear liquid diet. Replaced potassium and magnesium Review of Systems Review of Systems: All systems reviewed & are unremarkable except as noted in HPI and below Exam Narrative: GENERAL: Chronically ill-appearing, no acute distress noted HEAD: Normocephalic, atraumatic. ENT:? Mucous membranes moist. CHEST: Clear to auscultation.? No respiratory distress. HEART: Borderline tachycardic rate, regular rhythm ABDOMEN: Mildly distended tender epigastrium diminished bowel sounds, chronic indwelling Boyle catheter in place EXTREMITIES: Right BKA SKIN: Warm dry normal color NEURO: Alert and oriented x3. No movement of lower extremities due to prior spinal cord injury. PSYCH: Normal mood and affect Objective Data Vital Signs Vital Signs: Vital Signs - 24 hr 04/28/25 13:27 04/28/25 14:07 04/28/25 14:17 Temperature 97.6 F Pulse Rate 116 H 116 H 121 H Respiratory Rate 20 21 H 15 Blood Pressure 127/77 131/83 126/115 H Pulse Oximetry 94 97 97 Oxygen Delivery Room Air 04/28/25 14:32 04/28/25 14:47 04/28/25 17:19 Temperature Pulse Rate 117 H 110 H 115 H Respiratory Rate 14 19 17 Blood Pressure 93/72 L 94/57 L Pulse Oximetry 94 95 91 Oxygen Delivery 04/28/25 17:30 04/28/25 17:45 04/28/25 18:00 Temperature Pulse Rate 121 H 110 H 108 H Respiratory Rate 17 22 H 19 Blood Pressure Pulse Oximetry 96 95 97 Oxygen Delivery 04/28/25 18:15 04/28/25 18:30 04/28/25 18:45 Temperature Pulse Rate 107 H 104 H 106 H Respiratory Rate 22 H 18 15 Blood Pressure Pulse Oximetry 100 95 95 Oxygen Delivery 04/28/25 19:00 04/28/25 20:30 04/28/25 20:51 Temperature Pulse Rate 102 H 81 Respiratory Rate 20 18 Blood Pressure 137/84 Pulse Oximetry 100 99 Oxygen Delivery Room Air 04/28/25 21:46 04/29/25 06:00 04/29/25 08:00 Temperature 96.4 F L 97.1 F L Pulse Rate 99 82 Respiratory Rate 20 16 Blood Pressure 96/81 L 119/69 Pulse Oximetry 94 97 97 Oxygen Delivery Room Air 04/29/25 08:00 Temperature Pulse Rate 103 H Respiratory Rate Blood Pressure Pulse Oximetry Oxygen Delivery Intake/Output Intake/Output: Intake & Output 04/26/25 04/27/25 04/28/25 04/29/25 23:59 23:59 23:59 23:59 Intake Total 1600 200 Output Total 400 Balance 1600 -200 Meds/Results Medications: Active Medications Generic Name Dose Route Start Last Admin Trade Name Freq PRN Reason Stop Dose Admin Acetaminophen 650 mg 04/28/25 21:49 Acetaminophen 325 Mg Tablet PO Q6H PRN Pain or Fever Acetaminophen 650 mg 04/28/25 21:49 Acetaminophen 650 Mg Suppository RECTAL Q6H PRN Pain or Fever Cilostazol 50 mg 04/29/25 06:30 04/29/25 06:28 Cilostazol 50 Mg Tablet PO 50 mg BIDAC LOPEZ Administration Collagenase 1 applic 04/29/25 09:00 04/29/25 07:50 Collagenase Oint 30 Gm Tube TOPICAL Not Given Q12HR LOPEZ Diphenhydramine HCl 25 mg 04/29/25 06:45 Diphenhydramine Hcl Inj 50 Mg/Ml Vial IV PUSH Q4H PRN Itching/Anxiety Enoxaparin Sodium 40 mg 04/29/25 09:00 04/29/25 07:59 Enoxaparin 40 Mg/0.4 Ml Syringe SUB-Q 40 mg DAILY LOPEZ Administration Famotidine 20 mg 04/29/25 09:00 04/29/25 07:51 Famotidine 20 Mg/2 Ml Vial IV PUSH 20 mg Q12HR LOPEZ Administration Hydromorphone HCl 0.5 mg 04/28/25 19:47 04/29/25 06:28 Hydromorphone Hcl Inj (*Crx) 1 Mg/Ml Syr IV PUSH 0.5 mg Q4H PRN Administration Pain Rated 7-10 Sodium Chloride 1,000 mls @ 125 mls/hr 04/28/25 19:50 04/28/25 23:17 Normal Saline Iv IV CONT 125 mls/hr .Q8H LOPEZ Administration Ceftriaxone Sodium 1 gm/ 50 mls @ 100 mls/hr 04/29/25 18:00 Sodium Chloride IVPB Q24H LOPEZ Doxycycline Hyclate 100 mg/ 100 mls @ 100 mls/hr 04/28/25 21:55 04/29/25 10:16 Sodium Chloride IVPB 100 mls/hr Q12HR LOPEZ Administration Melatonin 3 mg 04/28/25 21:40 04/28/25 22:29 Melatonin 3 Mg Tablet PO 3 mg HS LOPEZ Administration Nicotine 1 patch 04/28/25 22:15 04/29/25 07:53 Nicotine (*Vinniekc) 14 Mg Patch TRANSDERM 1 patch DAILY LOPEZ Administration Ondansetron HCl 4 mg 04/28/25 19:47 Ondansetron Inj 4 Mg/2 Ml Vial IV PUSH Q4H PRN Nausea Pantoprazole Sodium 40 mg 04/29/25 09:00 04/29/25 07:55 Pantoprazole Sodium Iv 40 Mg Vial IV PUSH 40 mg Q12HR LOPEZ Administration Radiology Results: ITS Impressions Abdomen/Pelvis CT 04/28/25 17:48 IMPRESSION: 1. Left lower lobe pneumonia. 2. Partial colectomy with right right lower quadrant and colostomy with parastomal hernia containing the more proximal cecum, terminal ileum and portion of the appendix. 3. Distal small bowel transition point in the right hemipelvis with fluid filling but not frankly dilated more proximal bowel and with decompressed more distal bowel suggestive of a likely mild intermittent/partial obstruction. 4. Additional supraumbilical ventral hernias containing small portion of the anterior aspect of the left hepatic lobe and the more caudal containing fat. 5. Cholelithiasis. 6. Diffuse hepatic steatosis. 7. Deep sacral decubitus ulcer with underlying chronic osteomyelitis which appears to have stabilized since 09/22/2021. Chest X-Ray 04/28/25 20:31 IMPRESSION: 1. Opacities at the left lower lung zone along side the elevated left hemidiaphragm which could represent atelectasis, pneumonia, small left pleural effusion or some combination thereof. Labs Labs: Laboratory Results - last 24 hr 04/28/25 04/28/25 04/29/25 15:51 20:28 05:52 WBC 13.0 H 10.0 RBC 5.77 H 4.89 Hgb 16.5 H D 14.1 Hct 48.8 H 42.3 MCV 84.6 86.5 MCH 28.6 28.8 MCHC 33.8 33.3 RDW 14.3 14.4 Plt Count 368 248 MPV 9.5 9.5 Immature Gran % (Auto) 0.3 0.3 Neut % (Auto) 69.3 67.6 Lymph % (Auto) 20.8 20.1 [place] % (Auto) 8.1 10.0 H Eos % (Auto) 0.7 1.4 Baso % (Auto) 0.8 0.6 Lymph # (Auto) 2.70 2.01 [place] # (Auto) 1.1 H 1.0 H Eos # (Auto) 0.1 0.1 Baso # (Auto) 0.1 0.1 Abs Immat Gran (auto) 0.04 H 0.03 Absolute Neuts (auto) 9.0 H 6.7 Absolute Nucleated RBC 0.000 0.000 Nucleated RBC % 0.0 0.0 Sodium 133 L 133 L Potassium 3.3 L 3.1 L Chloride 92 L 100 Carbon Dioxide 30 26 Anion Gap 11 7 BUN 17 16 Creatinine 0.82 0.78 Estim Creat Clear Calc Not Reportable 81 Estimated GFR > 60 > 60 Glucose 129 H 117 H Lactic Acid 1.4 Calcium 11.3 H 9.1 Magnesium 1.3 L Total Bilirubin 0.9 0.5 AST 36 39 H ALT 30 28 Alkaline Phosphatase 94 80 Total Protein 9.1 H 6.7 Albumin 4.7 3.6 Lipase 108 Urine Color Yellow Urine Appearance Turbid H Urine pH 6.0 Ur Specific [place] 1.014 Urine Protein 1+ H Urine Glucose (UA) Negative Urine Ketones Negative Ur Blood (Man) 2+ H Urine Nitrate Negative Urine Bilirubin Negative Urine Urobilinogen 0.2 Add Ur Microanalysis Reviewed Leukocyte Esterase Rfl 3+ H Urine RBC 3-5 H Urine WBC >100 H Ur Squamous Epith Cells Few Urine Bacteria 4+ H Urine Casts >20 Nasal MRSA (PCR) Not detected Quality VTE Prophylaxis VTE prophylaxis: pharmacologic ordered (Lovenox) Hospitalist MIPS Advance Care Plan I have confirmed that the patient's Advanced Care Plan is present, code status is documented, or surrogate decision maker is listed in patient medical record.: Yes Medication Reconciliation I have utilized all available resources to obtain, update and review the patients current medications (includes all prescriptions, OTC, herbals, cannabis, and nutritional supplements).: Yes
[2025-04-29] MEDS: SODIUM CHLORIDE 0.9% IV 1,000 ML 125 ML IV CONT ×2 (13:41→21:57)
[2025-04-29] MEDS: cefTRIAXone 1 GM in SODIUM CHLORIDE 0.9% IV 50 ML 100 ML IVPB (17:04)
[2025-04-29] MEDS: MELATONIN 3 MG TABLET PO (21:44)
[2025-04-30] VITALS (10 sets, daily range): BP systolic 109–132; BP diastolic 75–85; PULSE 83–99; RESP 16–20; TEMP 36.1–37; O2SAT 95–100; BMI 31.2
[2025-04-30] MEDS: SODIUM CHLORIDE 0.9% IV 1,000 ML 125 ML IV CONT ×2 (05:53→17:05)
[2025-04-30 06:31] LABS: Hematocrit 39.1 % (37.0-47.0); Hemoglobin 13.1 g/dL (12.0-15.0); Immature Granulocyte Percent A 0.4 % (0-0.5); Lymphocytes Absolute Auto 2.19 K/mm3 (0.9-3.2); Mean Corpuscular HGB Conc 33.5 g/dl (32-36); Mean Corpuscular Hemoglobin 29.2 pg (26-34); Mean Corpuscular Volume 87.1 fl (80-100); Nucleated Red Blood Cells Absolute Auto 0.000 K/mm3 (0.0-0.012); Nucleated Red Blood Cells Perc 0.0 % (0.0-0.2); Platelet Count Result 232 k/mm3 (150-375); Red Blood Count 4.49 M/mm3 (4.2-5.4); White Blood Count 8.5 K/mm3 (4.5-10.0)
[2025-04-30 07:08] LABS: Alanine Aminotransferase 26 U/L (6-35); Albumin Level 3.4 g/dL (3.5-5.1); Alkaline Phosphatase 76 U/L (38-126); Anion Gap 7 mmol/L (4-12); Aspartate Amino Transferase 27 U/L (14-36); Bilirubin,Total 0.4 mg/dL (0.2-1.3); Blood Urea Nitrogen 10 mg/dL (7-17); Calcium 8.3 mg/dL (8.4-10.2); Carbon Dioxide 23 mmol/L (22-30); Chloride 104 mmol/L (98-107); Estimated CRCL calculation 95 ml/min; Estimated Glomerular Filt Rate > 60; Glucose 103 mg/dL (65-110); Magnesium 1.8 mg/dL (1.6-2.3); Potassium 3.2 mmol/L (3.4-5.0); Sodium 134 mmol/L (137-145); Total Protein 6.6 g/dL (6.3-8.2)
[2025-04-30] MEDS: FAMOTIDINE 20 MG/2 ML VIAL IV PUSH ×2 (08:06→21:37)
[2025-04-30] MEDS: NICOTINE (*PBKC) 14 MG PATCH 1 PATCH TRANSDERM (08:07)
[2025-04-30] MEDS: ENOXAPARIN 40 MG/0.4 ML SYRINGE SUB-Q (08:07)
[2025-04-30] MEDS: PANTOPRAZOLE SODIUM IV 40 MG VIAL IV PUSH ×2 (08:08→21:37)
[2025-04-30] MEDS: HYDROmorphone HCL INJ (*CRX) 1 MG/ML SYR 0.5 MG IV PUSH ×3 (08:15→22:11)
[2025-04-30] MEDS: DOXYCYCLINE IV 100 MG in SODIUM CHLORIDE 0.9% IV 100 ML IVPB ×2 (08:54→21:37)
[2025-04-30] MEDS: ONDANSETRON INJ 4 MG/2 ML VIAL IV PUSH ×2 (09:19→15:07)
--- NOTE | 2025-04-30 09:24 | P.PNGS_ITS ---
Progress Note: A&P Assessment and Plan (1) Partial bowel obstruction: Code(s): K56.600 - Partial intestinal obstruction, unspecified as to cause Status: Acute Assessment and Plan: * Patient still complains of lower abdominal pain and bloating. Passing liquid stool through stoma. Tolerating clear liquids without nausea or vomiting. * Continue conservative management. If she continues to tolerate clear liquids, will advance diet. If nausea or vomiting reoccurs, we will consider placement of NG tube. * Encouraged ambulation and up to chair. * We will continue to follow with serial abdominal exams and labs. (2) Pneumonia: Code(s): J18.9 - Pneumonia, unspecified organism Status: Acute Assessment and Plan: Left lower lobe pneumonia noted on CT. Chest x-ray demonstrated opacities at the left lower lung zone alongside the elevated left hemidiaphragm which could represent cyst, pneumonia, small left pleural effusion or some combination thereof. Continue with antibiotic treatment per hospitalist team. (3) UTI (urinary tract infection): Code(s): N39.0 - Urinary tract infection, site not specified Status: Acute Assessment and Plan: Patient has chronic indwelling Boyle catheter. Abnormal UA. Urine culture pending. (4) Below-knee amputation of right lower extremity: Code(s): S88.111A - Complete traumatic amputation at level between knee and ankle, right lower leg, initial encounter Status: Acute Plan Discussed patient's case and plan of care with Dr. Booth. Subjective Subjective Date/Time Seen: 04/30/25 09:24 Interval history: Patient notes that she has a ?belly ache? today and points to her lower pannus when asked where the pain is at. She also notes some flank/back pain. Tolerating clear liquid diet without nausea or vomiting. She did receive dilaudid this morning. Ostomy bag with light brown liquid stool. Boyle catheter draining appropriately. Exam GI: Inspection: non-distended Auscultation: normal bowel sounds Other: Ventral hernia adjacent to stoma on right side. Large midline infraumbilical scar. Stoma pink and viable with liquid light brown stool in the bag. Urinary Catheter: Urinary Catheter: patent and draining and urine clear Objective Data Vital Signs Vital Signs: Vital Signs - 24 hr 04/29/25 12:00 04/29/25 14:00 04/29/25 16:00 Temperature 97.0 F L Pulse Rate 72 82 104 H Respiratory Rate 18 Blood Pressure 123/67 Pulse Oximetry 100 Oxygen Delivery 04/29/25 19:44 04/29/25 20:00 04/29/25 20:00 Temperature 97.3 F L Pulse Rate 104 H 97 Respiratory Rate 18 Blood Pressure 147/58 H Pulse Oximetry 94 Oxygen Delivery Room Air 04/30/25 00:00 04/30/25 04:00 04/30/25 05:46 Temperature 97 F L Pulse Rate 91 93 94 Respiratory Rate 20 Blood Pressure 117/85 Pulse Oximetry 95 Oxygen Delivery Intake/Output Intake/Output: Intake & Output 04/27/25 04/28/25 04/29/25 04/30/25 23:59 23:59 23:59 23:59 Intake Total 1600 2880 1540 Output Total 950 750 Balance 1600 1930 790 Meds/Results Medications: Active Medications Generic Name Dose Route Start Last Admin Trade Name Freq PRN Reason Stop Dose Admin Acetaminophen 650 mg 04/28/25 21:49 Acetaminophen 325 Mg Tablet PO Q6H PRN Pain or Fever Acetaminophen 650 mg 04/28/25 21:49 Acetaminophen 650 Mg Suppository RECTAL Q6H PRN Pain or Fever Cilostazol 50 mg 04/29/25 06:30 04/30/25 05:52 Cilostazol 50 Mg Tablet PO 50 mg BIDAC LOPEZ Administration Collagenase 1 applic 04/29/25 09:00 04/30/25 08:06 Collagenase Oint 30 Gm Tube TOPICAL Not Given Q12HR LOPEZ Diphenhydramine HCl 25 mg 04/29/25 06:45 04/29/25 21:43 Diphenhydramine Hcl Inj 50 Mg/Ml Vial IV PUSH 25 mg Q4H PRN Administration Itching/Anxiety Enoxaparin Sodium 40 mg 04/29/25 09:00 04/30/25 08:07 Enoxaparin 40 Mg/0.4 Ml Syringe SUB-Q 40 mg DAILY LOPEZ Administration Famotidine 20 mg 04/29/25 09:00 04/30/25 08:06 Famotidine 20 Mg/2 Ml Vial IV PUSH 20 mg Q12HR LOPEZ Administration Hydromorphone HCl 0.5 mg 04/28/25 19:47 04/30/25 08:15 Hydromorphone Hcl Inj (*Crx) 1 Mg/Ml Syr IV PUSH 0.5 mg Q4H PRN Administration Pain Rated 7-10 Sodium Chloride 1,000 mls @ 125 mls/hr 04/28/25 19:50 04/30/25 05:53 Normal Saline Iv IV CONT 125 mls/hr .Q8H LOPEZ Administration Ceftriaxone Sodium 1 gm/ 50 mls @ 100 mls/hr 04/29/25 18:00 04/29/25 17:04 Sodium Chloride IVPB 100 mls/hr Q24H LOPEZ Administration Doxycycline Hyclate 100 mg/ 100 mls @ 100 mls/hr 04/28/25 21:55 04/30/25 08:54 Sodium Chloride IVPB 100 mls/hr Q12HR LOPEZ Administration Melatonin 3 mg 04/28/25 21:40 04/29/25 21:44 Melatonin 3 Mg Tablet PO 3 mg HS LOPEZ Administration Nicotine 1 patch 04/28/25 22:15 04/30/25 08:07 Nicotine (*Pbkc) 14 Mg Patch TRANSDERM 1 patch DAILY LOPEZ Administration Ondansetron HCl 4 mg 04/28/25 19:47 04/30/25 09:19 Ondansetron Inj 4 Mg/2 Ml Vial IV PUSH 4 mg Q4H PRN Administration Nausea Pantoprazole Sodium 40 mg 04/29/25 09:00 04/30/25 08:08 Pantoprazole Sodium Iv 40 Mg Vial IV PUSH 40 mg Q12HR LOPEZ Administration Radiology Results: ITS Impressions Abdomen/Pelvis CT 04/28/25 17:48 IMPRESSION: 1. Left lower lobe pneumonia. 2. Partial colectomy with right right lower quadrant and colostomy with parastomal hernia containing the more proximal cecum, terminal ileum and portion of the appendix. 3. Distal small bowel transition point in the right hemipelvis with fluid filling but not frankly dilated more proximal bowel and with decompressed more distal bowel suggestive of a likely mild intermittent/partial obstruction. 4. Additional supraumbilical ventral hernias containing small portion of the anterior aspect of the left hepatic lobe and the more caudal containing fat. 5. Cholelithiasis. 6. Diffuse hepatic steatosis. 7. Deep sacral decubitus ulcer with underlying chronic osteomyelitis which appears to have stabilized since 09/22/2021. Chest X-Ray 04/28/25 20:31 IMPRESSION: 1. Opacities at the left lower lung zone along side the elevated left hemidiaphragm which could represent atelectasis, pneumonia, small left pleural effusion or some combination thereof. Labs Labs: Laboratory Results - last 24 hr 04/30/25 06:00 WBC 8.5 RBC 4.49 Hgb 13.1 Hct 39.1 MCV 87.1 MCH 29.2 MCHC 33.5 RDW 14.5 Plt Count 232 MPV 9.9 Immature Gran % (Auto) 0.4 Neut % (Auto) 62.7 Lymph % (Auto) 25.6 [place] % (Auto) 8.4 Eos % (Auto) 2.0 Baso % (Auto) 0.9 Lymph # (Auto) 2.19 [place] # (Auto) 0.7 H Eos # (Auto) 0.2 Baso # (Auto) 0.1 Abs Immat Gran (auto) 0.03 Absolute Neuts (auto) 5.4 Absolute Nucleated RBC 0.000 Nucleated RBC % 0.0 Sodium 134 L Potassium 3.2 L Chloride 104 Carbon Dioxide 23 Anion Gap 7 BUN 10 D Creatinine 0.66 L Estim Creat Clear Calc 95 Estimated GFR > 60 Glucose 103 Calcium 8.3 L Magnesium 1.8 Total Bilirubin 0.4 AST 27 ALT 26 Alkaline Phosphatase 76 Total Protein 6.6 Albumin 3.4 L
[2025-04-30] MEDS: guaiFENesin 12 HR 600 MG TABCR PO ×2 (11:32→21:37)
--- NOTE | 2025-04-30 13:53 | P.PNIM_ITS ---
Progress Note: A&P Assessment and Plan (1) Partial bowel obstruction: Code(s): K56.600 - Partial intestinal obstruction, unspecified as to cause Status: Acute Assessment and Plan: -Dr. 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 coli and Group B Strep (4) Pneumonia: Code(s): J18.9 - Pneumonia, unspecified organism Status: Acute Assessment and Plan: -Left lower lobe pneumonia identified on CT imaging -PCXR obtained with similar finding but no upper lobes involved -On room air currently -Azithromycin ordered by ER, changed to Doxycycline due to EKG finding of pr olonged QTC of 610 (5) Sacral decubitus ulcer, stage IV: Code(s): L89.154 - Pressure ulcer of sacral region, stage 4 Status: Chronic Assessment and Plan: -Bed confined due to spinal cord injury -Sacral wound noted -Wound care consulted (6) Hypokalemia: Code(s): E87.6 - Hypokalemia Status: Acute Assessment and Plan: -Potassium 3.3 in ER, replaced orally before identification of SBO -Check labs in AM (7) Nausea and vomiting: Code(s): R11.2 - Nausea with vomiting, unspecified Status: Acute Assessment and Plan: -Presenting complaint which led to identification of partial SBO -Zofran given in ER, surgery stated no NG tube for now -Monitor use of anti-emetics due to prolonged QTC -Cardiac monitoring ordered for the floor (8) Below-knee amputation of right lower extremity: Code(s): S88.111A - Complete traumatic amputation at level between knee and ankle, right lower leg, initial encounter Status: Acute Assessment and Plan: -Noted history including bed bound status and peripheral vascular disease (9) Anxiety: Code(s): F41.9 - Anxiety disorder, unspecified Status: Acute Assessment and Plan: -Patient requests pain medication frequently (10) QT prolongation: Code(s): R94.31 - Abnormal electrocardiogram [ECG] [EKG] Status: Acute Assessment and Plan: -QTC 610 on EKG obtained in ER on admission -Patient placed on telemetry and antibiotics changed from azithromycin to doxycycline Subjective Date/time seen: 04/30/25 13:53 Interval history: Tolerating clear liquid. No episodes nausea or vomiting. Review of Systems Review of Systems: All systems reviewed & are unremarkable except as noted in HPI and below Exam Narrative: GENERAL: Chronically ill-appearing, no acute distress noted HEAD: Normocephalic, atraumatic. ENT:? Mucous membranes moist. CHEST: Clear to auscultation.? No respiratory distress. HEART: Borderline tachycardic rate, regular rhythm ABDOMEN: Mildly distended tender epigastrium diminished bowel sounds, chronic indwelling Boyle catheter in place EXTREMITIES: Right BKA SKIN: Warm dry normal color NEURO: Alert and oriented x3. No movement of lower extremities due to prior spinal cord injury. PSYCH: Normal mood and affect Objective Data Vital Signs Vital Signs: Vital Signs - 24 hr 04/29/25 14:00 04/29/25 16:00 04/29/25 19:44 Temperature 97.0 F L 97.3 F L Pulse Rate 82 104 H 104 H Respiratory Rate 18 18 Blood Pressure 123/67 147/58 H Pulse Oximetry 100 94 Oxygen Delivery 04/29/25 20:00 04/29/25 20:00 04/30/25 00:00 Temperature Pulse Rate 97 91 Respiratory Rate Blood Pressure Pulse Oximetry Oxygen Delivery Room Air 04/30/25 04:00 04/30/25 05:46 04/30/25 08:00 Temperature 97 F L Pulse Rate 93 94 Respiratory Rate 20 Blood Pressure 117/85 Pulse Oximetry 95 95 Oxygen Delivery Room Air 04/30/25 08:00 Temperature Pulse Rate 99 Respiratory Rate Blood Pressure Pulse Oximetry Oxygen Delivery Intake/Output Intake/Output: Intake & Output 04/27/25 04/28/25 04/29/25 04/30/25 23:59 23:59 23:59 23:59 Intake Total 1600 2880 1780 Output Total 950 750 Balance 1600 1930 1030 Meds/Results Medications: Active Medications Generic Name Dose Route Start Last Admin Trade Name Freq PRN Reason Stop Dose Admin Acetaminophen 650 mg 04/28/25 21:49 Acetaminophen 325 Mg Tablet PO Q6H PRN Pain or Fever Acetaminophen 650 mg 04/28/25 21:49 Acetaminophen 650 Mg Suppository RECTAL Q6H PRN Pain or Fever Cilostazol 50 mg 04/29/25 06:30 04/30/25 05:52 Cilostazol 50 Mg Tablet PO 50 mg BIDAC LOPEZ Administration Collagenase 1 applic 04/29/25 09:00 04/30/25 08:06 Collagenase Oint 30 Gm Tube TOPICAL Not Given Q12HR LOPEZ Diphenhydramine HCl 25 mg 04/29/25 06:45 04/29/25 21:43 Diphenhydramine Hcl Inj 50 Mg/Ml Vial IV PUSH 25 mg Q4H PRN Administration Itching/Anxiety Enoxaparin Sodium 40 mg 04/29/25 09:00 04/30/25 08:07 Enoxaparin 40 Mg/0.4 Ml Syringe SUB-Q 40 mg DAILY LOPEZ Administration Famotidine 20 mg 04/29/25 09:00 04/30/25 08:06 Famotidine 20 Mg/2 Ml Vial IV PUSH 20 mg Q12HR LOPEZ Administration Guaifenesin 600 mg 04/30/25 11:20 04/30/25 11:32 Guaifenesin 12 Hr 600 Mg Tabcr PO 600 mg Q12HR LOPEZ Administration Hydromorphone HCl 0.5 mg 04/28/25 19:47 04/30/25 08:15 Hydromorphone Hcl Inj (*Crx) 1 Mg/Ml Syr IV PUSH 0.5 mg Q4H PRN Administration Pain Rated 7-10 Sodium Chloride 1,000 mls @ 125 mls/hr 04/28/25 19:50 04/30/25 05:53 Normal Saline Iv IV CONT 125 mls/hr .Q8H LOPEZ Administration Ceftriaxone Sodium 1 gm/ 50 mls @ 100 mls/hr 04/29/25 18:00 04/29/25 17:04 Sodium Chloride IVPB 100 mls/hr Q24H LOPEZ Administration Doxycycline Hyclate 100 mg/ 100 mls @ 100 mls/hr 04/28/25 21:55 04/30/25 08:54 Sodium Chloride IVPB 100 mls/hr Q12HR LOPEZ Administration Melatonin 3 mg 04/28/25 21:40 04/29/25 21:44 Melatonin 3 Mg Tablet PO 3 mg HS LOPEZ Administration Nicotine 1 patch 04/28/25 22:15 04/30/25 08:07 Nicotine (*Pbkc) 14 Mg Patch TRANSDERM 1 patch DAILY LOPEZ Administration Ondansetron HCl 4 mg 04/28/25 19:47 04/30/25 09:19 Ondansetron Inj 4 Mg/2 Ml Vial IV PUSH 4 mg Q4H PRN Administration Nausea Pantoprazole Sodium 40 mg 04/29/25 09:00 04/30/25 08:08 Pantoprazole Sodium Iv 40 Mg Vial IV PUSH 40 mg Q12HR LOPEZ Administration Radiology Results: ITS Impressions Abdomen/Pelvis CT 04/28/25 17:48 IMPRESSION: 1. Left lower lobe pneumonia. 2. Partial colectomy with right right lower quadrant and colostomy with parastomal hernia containing the more proximal cecum, terminal ileum and portion of the appendix. 3. Distal small bowel transition point in the right hemipelvis with fluid filling but not frankly dilated more proximal bowel and with decompressed more distal bowel suggestive of a likely mild intermittent/partial obstruction. 4. Additional supraumbilical ventral hernias containing small portion of the anterior aspect of the left hepatic lobe and the more caudal containing fat. 5. Cholelithiasis. 6. Diffuse hepatic steatosis. 7. Deep sacral decubitus ulcer with underlying chronic osteomyelitis which appears to have stabilized since 09/22/2021. Chest X-Ray 04/28/25 20:31 IMPRESSION: 1. Opacities at the left lower lung zone along side the elevated left hemidiaphragm which could represent atelectasis, pneumonia, small left pleural effusion or some combination thereof. Labs Labs: Laboratory Results - last 24 hr 04/30/25 06:00 WBC 8.5 RBC 4.49 Hgb 13.1 Hct 39.1 MCV 87.1 MCH 29.2 MCHC 33.5 RDW 14.5 Plt Count 232 MPV 9.9 Immature Gran % (Auto) 0.4 Neut % (Auto) 62.7 Lymph % (Auto) 25.6 [place] % (Auto) 8.4 Eos % (Auto) 2.0 Baso % (Auto) 0.9 Lymph # (Auto) 2.19 [place] # (Auto) 0.7 H Eos # (Auto) 0.2 Baso # (Auto) 0.1 Abs Immat Gran (auto) 0.03 Absolute Neuts (auto) 5.4 Absolute Nucleated RBC 0.000 Nucleated RBC % 0.0 Sodium 134 L Potassium 3.2 L Chloride 104 Carbon Dioxide 23 Anion Gap 7 BUN 10 D Creatinine 0.66 L Estim Creat Clear Calc 95 Estimated GFR > 60 Glucose 103 Calcium 8.3 L Magnesium 1.8 Total Bilirubin 0.4 AST 27 ALT 26 Alkaline Phosphatase 76 Total Protein 6.6 Albumin 3.4 L Quality VTE Prophylaxis VTE prophylaxis: pharmacologic ordered (Lovenox) Hospitalist [facility] Advance Care Plan I have confirmed that the patient's Advanced Care Plan is present, code status is documented, or surrogate decision maker is listed in patient medical record.: Yes Medication Reconciliation I have utilized all available resources to obtain, update and review the patients current medications (includes all prescriptions, OTC, herbals, cannabis, and nutritional supplements).: Yes
[2025-04-30] MEDS: cefTRIAXone 1 GM in SODIUM CHLORIDE 0.9% IV 50 ML 100 ML IVPB (17:04)
[2025-04-30] MEDS: COLLAGENASE OINT 30 GM TUBE 1 APPLIC TOPICAL (21:38)
[2025-05-01] VITALS: PULSE 93
[2025-05-01 04:00] VITALS: PULSE 101
[2025-05-01 05:34] VITALS: BP 123/70; PULSE 105; RESP 14; TEMP 37; O2SAT 93
[2025-05-01] MEDS: SODIUM CHLORIDE 0.9% IV 1,000 ML 125 ML IV CONT (05:48)
[2025-05-01] MEDS: HYDROmorphone HCL INJ (*CRX) 1 MG/ML SYR 0.5 MG IV PUSH ×2 (05:51→10:32)
[2025-05-01] MEDS: ONDANSETRON INJ 4 MG/2 ML VIAL IV PUSH (05:51)
--- NOTE | 2025-05-01 06:15 | PC.NURSE ---
During evening med pass, patient requested that her colostomy bag be changed because she had had a solid BM. Patient wanted to sit up. Patient did not want to sit on the side of the bed. This nurse was assisting the patient in changing out the bag. With the colostomy being filled with liquid stool, it came out of the bag and onto the bed. Patient became distraught. Patient was on the phone with someone and screamed at them to call an ambulance that she was at [place] and wanted to leave. This nurse called central supply to obtain new 2 piece ostomy kits. Patient stated that they were not the right kind and size and that she doesn't use an open system. load out supervisor notified this nurse that the police were notified and had arrived at the hospital and that if the officers had time then they would speak with the patient. Patient was able to calm down and act appropriately. Bedding was changed and she was cleaned up and apologized for her behavior. Patient also let us know that she had someone that was able to bring her own supplies to her. This nurse obtained more supplies from the housekeeping/laundry supervisor after we changed her bag again. This nurse asked the patient if she would like me to change it or look at it during morning med pass. Patient declined stating that she wanted the nurse to do it.
[2025-05-01 06:45] LABS: Hematocrit 38.9 % (37.0-47.0); Hemoglobin 12.7 g/dL (12.0-15.0); Immature Granulocyte Percent A 0.2 % (0-0.5); Lymphocytes Absolute Auto 0.80 K/mm3 (0.9-3.2); Mean Corpuscular HGB Conc 32.6 g/dl (32-36); Mean Corpuscular Hemoglobin 28.9 pg (26-34); Mean Corpuscular Volume 88.4 fl (80-100); Nucleated Red Blood Cells Absolute Auto 0.000 K/mm3 (0.0-0.012); Nucleated Red Blood Cells Perc 0.0 % (0.0-0.2); Platelet Count Result 207 k/mm3 (150-375); Red Blood Count 4.40 M/mm3 (4.2-5.4); White Blood Count 5.7 K/mm3 (4.5-10.0)
[2025-05-01 07:10] LABS: Alanine Aminotransferase 18 U/L (6-35); Albumin Level 3.4 g/dL (3.5-5.1); Alkaline Phosphatase 67 U/L (38-126); Anion Gap 7 mmol/L (4-12); Aspartate Amino Transferase 26 U/L (14-36); Bilirubin,Total 0.5 mg/dL (0.2-1.3); Blood Urea Nitrogen 8 mg/dL (7-17); Calcium 8.3 mg/dL (8.4-10.2); Carbon Dioxide 20 mmol/L (22-30); Chloride 107 mmol/L (98-107); Estimated CRCL calculation 110 ml/min; Estimated Glomerular Filt Rate > 60; Glucose 105 mg/dL (65-110); Magnesium 1.7 mg/dL (1.6-2.3); Potassium 3.4 mmol/L (3.4-5.0); Sodium 134 mmol/L (137-145); Total Protein 6.5 g/dL (6.3-8.2)
[2025-05-01 08:02] VITALS: PULSE 93
--- NOTE | 2025-05-01 10:01 | P.PNGS_ITS ---
Progress Note: A&P Assessment and Plan (1) Partial bowel obstruction: Code(s): K56.600 - Partial intestinal obstruction, unspecified as to cause Status: Acute Assessment and Plan: * Abdominal pain resolved. Patient states that she had a very large formed stool out of her ostomy yesterday and she has felt better since this time. * Advanced diet as tolerated. If no nausea, vomiting, or other issues then plan for discharge in the near future. * Ambulation and up to chair encouraged. * We will continue to follow with serial abdominal exams and labs. (2) Pneumonia: Code(s): J18.9 - Pneumonia, unspecified organism Status: Acute Assessment and Plan: Left lower lobe pneumonia noted on CT. Chest x-ray demonstrated opacities at the left lower lung zone alongside the elevated left hemidiaphragm which could represent cyst, pneumonia, small left pleural effusion or some combination thereof. Continue with antibiotic treatment per hospitalist team. (3) UTI (urinary tract infection): Code(s): N39.0 - Urinary tract infection, site not specified Status: Acute Assessment and Plan: Patient has chronic indwelling Boyle catheter. Abnormal UA. Urine culture pending. (4) Below-knee amputation of right lower extremity: Code(s): S88.111A - Complete traumatic amputation at level between knee and ankle, right lower leg, initial encounter Status: Acute Plan Discussed patient's case and plan of care with Dr. Booth. Subjective Subjective Date/Time Seen: 05/01/25 10:01 Patient reports: no new complaints, feels better, pain is less and bowel movement Interval history: Patient is doing well today. She reportedly had a large formed stool through her stoma overnight. She continues to have significant stool output. She states that abdominal pain is resolved. No nausea or vomiting. Patient expresses wishes to go home today. Exam Const: General: comfortable GI: Inspection: non-distended GI Palp: Yes Soft to palpation, No Tenderness to palpation present (GI), No Guarding due to palpation present (GI) and Yes Hernia present Auscultation: normal bowel sounds Other: Ostomy bag with large amount of liquid brown stool and air. Abdomen much more soft and less tender today. Objective Data Vital Signs Vital Signs: Vital Signs - 24 hr 04/30/25 12:00 04/30/25 14:00 04/30/25 16:00 Temperature 98.1 F Pulse Rate 95 90 83 Respiratory Rate 18 Blood Pressure 109/75 Pulse Oximetry 100 Oxygen Delivery 04/30/25 20:00 04/30/25 20:00 04/30/25 21:47 Temperature 98.6 F Pulse Rate 92 88 92 Respiratory Rate 16 16 Blood Pressure 132/76 Pulse Oximetry 98 98 Oxygen Delivery Room Air 04/30/25 23:18 05/01/25 00:00 05/01/25 04:00 Temperature Pulse Rate 93 101 H Respiratory Rate Blood Pressure Pulse Oximetry 98 Oxygen Delivery Room Air 05/01/25 05:34 Temperature 98.6 F Pulse Rate 105 H Respiratory Rate 14 Blood Pressure 123/70 Pulse Oximetry 93 Oxygen Delivery Intake/Output Intake/Output: Intake & Output 04/28/25 04/29/25 04/30/25 05/01/25 23:59 23:59 23:59 23:59 Intake Total 1600 2930 3220 1200 Output Total 950 2600 900 Balance 1600 1980 620 300 Meds/Results Medications: Active Medications Generic Name Dose Route Start Last Admin Trade Name Freq PRN Reason Stop Dose Admin Acetaminophen 650 mg 04/28/25 21:49 Acetaminophen 325 Mg Tablet PO Q6H PRN Pain or Fever Acetaminophen 650 mg 04/28/25 21:49 Acetaminophen 650 Mg Suppository RECTAL Q6H PRN Pain or Fever Amoxicillin/Clavulanate Potassium 1 tablet 05/01/25 19:00 Amoxicillin/Clavulanate K 875-125 Mg Tab PO 05/03/25 09:01 Q12HR [facility] Cilostazol 50 mg 04/29/25 06:30 05/01/25 05:48 Cilostazol 50 Mg Tablet PO 50 mg BIDAC LOPEZ Administration Collagenase 1 applic 04/29/25 09:00 04/30/25 21:38 Collagenase Oint 30 Gm Tube TOPICAL 1 applic Q12HR LOPEZ Administration Diphenhydramine HCl 25 mg 04/29/25 06:45 04/30/25 22:11 Diphenhydramine Hcl Inj 50 Mg/Ml Vial IV PUSH 25 mg Q4H PRN Administration Itching/Anxiety Doxycycline Hyclate 100 mg 05/01/25 21:00 Doxycycline Hyclate 100 Mg Tablet PO 05/03/25 09:01 Q12HR [facility] Enoxaparin Sodium 40 mg 04/29/25 09:00 04/30/25 08:07 Enoxaparin 40 Mg/0.4 Ml Syringe SUB-Q 40 mg DAILY LOPEZ Administration Famotidine 20 mg 04/29/25 09:00 04/30/25 21:37 Famotidine 20 Mg/2 Ml Vial IV PUSH 20 mg Q12HR LOPEZ Administration Guaifenesin 600 mg 04/30/25 11:20 04/30/25 21:37 Guaifenesin 12 Hr 600 Mg Tabcr PO 600 mg Q12HR LOPEZ Administration Hydromorphone HCl 0.5 mg 04/28/25 19:47 05/01/25 05:51 Hydromorphone Hcl Inj (*Crx) 1 Mg/Ml Syr IV PUSH 0.5 mg Q4H PRN Administration Pain Rated 7-10 Sodium Chloride 1,000 mls @ 125 mls/hr 04/28/25 19:50 05/01/25 09:23 Normal Saline Iv IV CONT Not Given .Q8H LOPEZ Melatonin 3 mg 04/28/25 21:40 04/30/25 21:39 Melatonin 3 Mg Tablet PO Not Given HS LOPEZ Nicotine 1 patch 04/28/25 22:15 04/30/25 08:07 Nicotine (*Pbkc) 14 Mg Patch TRANSDERM 1 patch DAILY LOPEZ Administration Ondansetron HCl 4 mg 04/28/25 19:47 05/01/25 05:51 Ondansetron Inj 4 Mg/2 Ml Vial IV PUSH 4 mg Q4H PRN Administration Nausea Pantoprazole Sodium 40 mg 04/29/25 09:00 04/30/25 21:37 Pantoprazole Sodium Iv 40 Mg Vial IV PUSH 40 mg Q12HR LOPEZ Administration Radiology Results: ITS Impressions Abdomen/Pelvis CT 04/28/25 17:48 IMPRESSION: 1. Left lower lobe pneumonia. 2. Partial colectomy with right right lower quadrant and colostomy with parastomal hernia containing the more proximal cecum, terminal ileum and portion of the appendix. 3. Distal small bowel transition point in the right hemipelvis with fluid filling but not frankly dilated more proximal bowel and with decompressed more distal bowel suggestive of a likely mild intermittent/partial obstruction. 4. Additional supraumbilical ventral hernias containing small portion of the anterior aspect of the left hepatic lobe and the more caudal containing fat. 5. Cholelithiasis. 6. Diffuse hepatic steatosis. 7. Deep sacral decubitus ulcer with underlying chronic osteomyelitis which appears to have stabilized since 09/22/2021. Chest X-Ray 04/28/25 20:31 IMPRESSION: 1. Opacities at the left lower lung zone along side the elevated left hemidiaphr agm which could represent atelectasis, pneumonia, small left pleural effusion or some combination thereof. Labs Labs: Laboratory Results - last 24 hr 05/01/25 06:28 WBC 5.7 RBC 4.40 Hgb 12.7 Hct 38.9 MCV 88.4 MCH 28.9 MCHC 32.6 RDW 14.2 Plt Count 207 MPV 9.8 Immature Gran % (Auto) 0.2 Neut % (Auto) 72.7 Lymph % (Auto) 14.0 L [place] % (Auto) 8.9 H Eos % (Auto) 3.5 Baso % (Auto) 0.7 Lymph # (Auto) 0.80 L [place] # (Auto) 0.5 Eos # (Auto) 0.2 Baso # (Auto) 0.0 Abs Immat Gran (auto) 0.01 Absolute Neuts (auto) 4.1 Absolute Nucleated RBC 0.000 Nucleated RBC % 0.0 Sodium 134 L Potassium 3.4 Chloride 107 Carbon Dioxide 20 L Anion Gap 7 BUN 8 Creatinine 0.56 L Estim Creat Clear Calc 110 Estimated GFR > 60 Glucose 105 Calcium 8.3 L Magnesium 1.7 Total Bilirubin 0.5 AST 26 ALT 18 Alkaline Phosphatase 67 Total Protein 6.5 Albumin 3.4 L
[2025-05-01] MEDS: guaiFENesin 12 HR 600 MG TABCR PO (10:20)
[2025-05-01] MEDS: DOXYCYCLINE HYCLATE 100 MG TABLET PO (10:20)
[2025-05-01] MEDS: NICOTINE (*PBKC) 14 MG PATCH 1 PATCH TRANSDERM (10:20)
[2025-05-01] MEDS: PANTOPRAZOLE SODIUM IV 40 MG VIAL IV PUSH (10:21)
[2025-05-01] MEDS: FAMOTIDINE 20 MG/2 ML VIAL IV PUSH (10:21)
[2025-05-01 12:05] VITALS: PULSE 91
--- NOTE | 2025-05-01 15:42 | PM.DS ---
DS: Admitting Diagnosis Discharge Date 05/01/2025 Admitting Diagnosis Partial SBO DS: Discharge Diagnosis Discharge Diagnosis (1) Partial bowel obstruction: Code(s): K56.600 - Partial intestinal obstruction, unspecified as to cause Status: Acute Assessment and Plan: Please refer to hospital course for brief summary -Dr. Booth with General Surgery consulted, no NG tube for now -clear liquid diet -IV fluids in place (2) Colostomy in place: Code(s): Z93.3 - Colostomy status Status: Chronic Assessment and Plan: -S/P colon cancer resection -Decreased drainage with nausea/vomiting -Partial SBO on CT scan (3) UTI (urinary tract infection): Code(s): N39.0 - Urinary tract infection, site not specified Status: Acute Assessment and Plan: -Bowser catheter dependent due to prior spinal cord injury, bed-bound status and unable to self cath -UA appears infected with WBCs, leukocyte esterase and bacteria present -ER gave IV Rocephin -Prior cultures with E. coli and Group B Strep (4) Pneumonia: Code(s): J18.9 - Pneumonia, unspecified organism Status: Acute Assessment and Plan: -Left lower lobe pneumonia identified on CT imaging -PCXR obtained with similar finding but no upper lobes involved -On room air currently -Azithromycin ordered by ER, changed to Doxycycline due to EKG finding of prolonged QTC of 610 (5) Sacral decubitus ulcer, stage IV: Code(s): L89.154 - Pressure ulcer of sacral region, stage 4 Status: Chronic Assessment and Plan: -Bed confined due to spinal cord injury -Sacral wound noted -Wound care consulted (6) Hypokalemia: Code(s): E87.6 - Hypokalemia Status: Acute Assessment and Plan: -Potassium 3.3 in ER, replaced orally before identification of SBO -Check labs in AM (7) Nausea and vomiting: Code(s): R11.2 - Nausea with vomiting, unspecified Status: Acute Assessment and Plan: -Presenting complaint which led to identification of partial SBO -Zofran given in ER, surgery stated no NG tube for now -Monitor use of anti-emetics due to prolonged QTC -Cardiac monitoring ordered for the floor (8) Below-knee amputation of right lower extremity: Code(s): S88.111A - Complete traumatic amputation at level between knee and ankle, right lower leg, initial encounter Status: Acute Assessment and Plan: -Noted history including bed bound status and peripheral vascular disease (9) Anxiety: Code(s): F41.9 - Anxiety disorder, unspecified Status: Acute Assessment and Plan: -Patient requests pain medication frequently (10) QT prolongation: Code(s): R94.31 - Abnormal electrocardiogram [ECG] [EKG] Status: Acute Assessment and Plan: -QTC 610 on EKG obtained in ER on admission -Patient placed on telemetry and antibiotics changed from azithromycin to doxycycline DS: Summary Hospital Course Hospital Course: Natalia Cohn is a 59-year-old female with a history of an ileostomy and an abdominal hernia, who presents with a three-day history of abdominal pain, nausea, and vomiting. She reports that her symptoms began after eating corn, and she has noticed a subsequent decrease in her stoma output. There was a small amount of only liquid drainage in colostomy bag in ER. She also reports a cough and denies any fevers. CT scan shows a left lower-lobe pneumonia and findings consistent with a partial small bowel obstruction. There is a transition point with decompressed distal bowel and fluid-filled proximal bowel loops that are not pathologically enlarged or super dilated. Dr. Booth stated that no NG tube is needed at this time but keep patient NPO for now. Patient is bed-bound due to spinal cord injury and has right BKA. She has chronic indwelling Bowser catheter and UA in ER was concerning for UTI. She received Rocephin for UTI and azithromycin added when CT report also mentioned Left lower lobe pneumonia. CXR 1 view added and no upper lobe pneumonia noted on CXR. Patient reports that she had essentially no output from her ostomy or indwelling Bowser catheter for a couple of days before coming to the hospital for evaluation. She states that about once a week she moves her bowels through her rectum and she has not been able to do that either. Patient acknowledges that with the ostomy she did not believe she should be able to move her bowels rectally but this has been happening since her surgery multiple years ago. She had spoken to a surgeon about reversal of her ostomy but was told she would not be able to survive that length of surgery--14.5 hours at least. Patient was evaluated by the surgery. Patient initially started on clear liquid diet and was advanced as tolerated. Patient is currently on a regular diet and no evidence of nausea vomiting. Patient wants to be discharged today even though I offered one more night. Patient is discharged with amoxicillin/clonic acid and doxycycline for possible pneumonia. On the day of discharge, the patient was seen and examined. Vital signs were stable. Physical exam were stable and labs were reviewed at length. Discharge instructions, medications, and follow-up appointments were discussed with the patient at length and all day questions were answered. ER warnings were given. Status at Discharge Cognitive/behavioral status at discharge: Stable Time Spent with Patient Time attestation: Total time spent providing and/or coordinating discharge services: 45 minutes Exam Narrative: GENERAL: Chronically ill-appearing, no acute distress noted HEAD: Normocephalic, atraumatic. ENT:? Mucous membranes moist. CHEST: Clear to auscultation.? No respiratory distress. HEART: Borderline tachycardic rate, regular rhythm ABDOMEN: Mildly distended tender epigastrium diminished bowel sounds, chronic indwelling Bowser catheter in place EXTREMITIES: Right BKA SKIN: Warm dry normal color NEURO: Alert and oriented x3. No movement of lower extremities due to prior spinal cord injury. PSYCH: Normal mood and affect DS: Data Data Completed and Pending Labs on day of discharge: Labs from last 24 hours 05/01/25 06:28 WBC 5.7 RBC 4.40 Hgb 12.7 Hct 38.9 MCV 88.4 MCH 28.9 MCHC 32.6 RDW 14.2 Plt Count 207 MPV 9.8 Immature Gran % (Auto) 0.2 Neut % (Auto) 72.7 Lymph % (Auto) 14.0 L [place] % (Auto) 8.9 H Eos % (Auto) 3.5 Baso % (Auto) 0.7 Lymph # (Auto) 0.80 L [place] # (Auto) 0.5 Eos # (Auto) 0.2 Baso # (Auto) 0.0 Abs Immat Gran (auto) 0.01 Absolute Neuts (auto) 4.1 Absolute Nucleated RBC 0.000 Nucleated RBC % 0.0 Sodium 134 L Potassium 3.4 Chloride 107 Carbon Dioxide 20 L Anion Gap 7 BUN 8 Creatinine 0.56 L Estim Creat Clear Calc 110 Estimated GFR > 60 Glucose 105 Calcium 8.3 L Magnesium 1.7 Total Bilirubin 0.5 AST 26 ALT 18 Alkaline Phosphatase 67 Total Protein 6.5 Albumin 3.4 L Discharge Plan Discharge Attending physician on discharge: Joshua Roman Consulting providers: Carine Booth Discharging Clinician: Joshua Roman Patient Disposition: Home with Home Health Service Activity: as tolerated Diet: as tolerated Discharge Instructions: Per Care Coordination: [facility] will resume services at discharge. [facility] is current for RN bowser catheter care at home. [facility] can be contacted at [phone]. Nursing please fax discharge instructions to [phone]. Patient is a follow-up with the surgery and, PCP If any concerning symptoms please return to ED Please complete the antibiotic course for 5 days. Patient Instructions: Antibiotic Form, How to Stop Smoking (DC) Patient Language: Albanian Stand Alone Forms: General Discharge Information Follow-up/Referrals: Carine Booth MD [Physician, General Surgery] Gonsalo,Arnie Hutchison MD [Primary Care Provider, Unknown] Discharge Medications: New amoxicillin-pot clavulanate 875-125 mg tablet 1 tablet PO Q12H Qty: 14 0RF doxycycline hyclate 100 mg Tablet 100 mg PO Q12HR Qty: 10 0RF Continued famotidine 20 mg Tablet 20 mg PO DAILY diphenhydramine HCl 25 mg Tablet 25 mg PO Q6H PRN (Reason: Itching) calcium carbonate 500 mg calcium (1,250 mg) Tablet,Chewable 500 mg PO Q6H PRN (Reason: Indigestion) Santyl 250 unit/gram Ointment 1 applic topical Q12HR Qty: 90 0RF Silver-Sept 200 mcg/gram Gel 1 applic topical DAILY Qty: 90 0RF ibuprofen 200 mg capsule 600 mg PO BID furosemide 20 mg tablet 20 mg PO DAILY cilostazol 50 mg tablet 50 mg PO DAILY Date of admission: 04/28/25 19:48 Primary Care Provider: Gonsalo,Arnie Htuchison Admitting Provider: Deny Miguel Attending physician on admission: Deny Miguel Condition: Stable
== END 2025-05-01 15:30 | disposition home health service (06) ==
LOC: ANHED 19:14 → ANH3MEDSUR 20:19
PROVIDERS: Emergency Medicine; Nurse Practitioner; Admitting Provider Internal Medicine; Emergency Provider Emergency Medicine; PCP Internal Medicine Infectious Disease; Visit Provider General Practice
DX: K56.600 Partial intestinal obstruction, unspecified as to cause (principal); N39.0 Urinary tract infection, site not specified; J18.9 Pneumonia, unspecified organism; Z93.3 Colostomy status; I73.9 Peripheral vascular disease, unspecified; Z90.49 Acquired absence of other specified parts of digestive tract; K46.9 Unspecified abdominal hernia without obstruction or gangrene; L89.154 Pressure ulcer of sacral region, stage 4; E87.6 Hypokalemia; R94.31 Abnormal electrocardiogram [ECG] [EKG]; Z89.511 Acquired absence of right leg below knee; K80.20 Calculus of gallbladder without cholecystitis without obstruction; K76.0 Fatty (change of) liver, not elsewhere classified; E78.5 Hyperlipidemia, unspecified; I25.10 Atherosclerotic heart disease of native coronary artery without angina pectoris; Z74.01 Bed confinement status; F41.9 Anxiety disorder, unspecified; M86.9 Osteomyelitis, unspecified; Z79.891 Long term (current) use of opiate analgesic; Z79.01 Long term (current) use of anticoagulants; Z79.899 Other long term (current) drug therapy; Z79.1 Long term (current) use of non-steroidal anti-inflammatories (NSAID); Z85.038 Personal history of other malignant neoplasm of large intestine; Z82.49 Family history of ischemic heart disease and other diseases of the circulatory system; Z80.0 Family history of malignant neoplasm of digestive organs; F17.210 Nicotine dependence, cigarettes, uncomplicated; Z96.0 Presence of urogenital implants; Z86.69 Personal history of other diseases of the nervous system and sense organs
CPT/HCPCS: 36415; 71045; 74177; 80053; 81001; 83605; 83690; 83735; 85025; 87086; 87641; 93005; 96361; 96365; 96367; 96372; 96374; 96375; 96376; 99212; 99285; A9270; G0378; G0379; G0463; J0696; J1171; J1200; J1650; J2405; J2470; J3475; J3480; J7030; J7040; Q9967